=== PATIENT | male | born 1955 | race Caucasian/White ===

== ENCOUNTER 2019-04-06 22:41 | Observation (INO) | payer MEDICARE, SELFPAY ==
[2019-04-06 22:46] VITALS: BP 134/93; PULSE 125; RESP 20; TEMP 36.6; O2SAT 96; BMI 38.7
--- NOTE | 2019-04-06 22:47 | ED_ITS ---
Entered by Itzel Nunn, acting as scribe for Rosa Maria Abbasi HPI - Chest Pain General: Chief Complaint: Chest Pain Stated Complaint: cp Time Seen by Provider: 04/06/19 22:47 Source: patient Mode of arrival: ambulatory Limitations: no limitations History of Present Illness: HPI narrative: 63 yo Male presents to ED with complaint of chest pain. Pt states that he has been having intermittent chest pains for a couple of days and it seems to be more at night time than during the day. Pt states the pain is sharp and sometimes is goes clear to his shoulder blades. Pt states when he gets up he feels like the room is spinning. 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 Pt denies any chest pains at this time. MD complaint: chest pain Onset (ago): day(s) Timing of current episode: episodic and still present Prior episodes: Yes Onset: during rest Pain location: substernal Pain radiation: left shoulder and right shoulder Pain scale (0-10): 0 Quality: sharp Relieving factors: nothing Exacerbating factors: nothing Associated symptoms: Deny abdominal pain, diaphoresis, dyspnea, fever(s), nausea, palpitations, syncope or vomiting Treatment prior to arrival: none Risk Factors: Coronary artery disease risk factors: diabetes and hypertension Review of Systems General: Reports: other (negative unless marked) Const: Denies: fever, chills, body aches, fatigue, malaise or diaphoresis Eyes: Denies: change in vision or blurry vision ENMT: Denies: throat pain, painful swallowing, hoarseness, ear pain, ear discharge, Change in hearing or nasal discharge Card: Reports: chest pain; Denies: palpitations, irregular heart rhythm, syncope, pre-syncope, shortness of breath on exertion or shortness of breath when lying down Resp: Denies: shortness of breath, productive cough, non-productive cough, wheezing, coughing up blood or chest congestion GI: Denies: abdominal pain, nausea, vomiting, vomiting blood, coffee grounds in vomit, diarrhea, constipation, cramping, blood in stool or black tarry stool : Denies: flank pain, difficulty urinating, painful urination, urinary frequency, urinary urgency, decreased urine ouput, urinary incontinence or blood in urine Musc: Denies: neck pain, back pain, extremity pain, extremity swelling, joint pain, joint swelling, joint warmth or joint stiffness Skin/Breast: Denies: rash, skin tenderness or yellow skin Neuro: Denies: headache, numbness in extremities, weakness in extremities, changes in sensation, lack of coordination, difficulty walking, dizziness, vertigo or confusion Endo: Denies: excessive thirst, tired all the time, cold intolerance, excessive sweating, flushing or hot flashes Petros/Lymph: Denies: easy bruising, easy bleeding, petechiae or enlarged lymph nodes All/Imm: Denies: hives, throat swelling, tongue swelling, facial swelling or acute wheezing PFSH ED PFSH: Statuses (acute, chronic, etc) shown below reflect problem list status as previously entered and may not be historically accurate Social History Smoking and tobacco status: never smoked Physical Exam Const: COMMON NORMALS: no apparent distress, oriented x3, no limitations, healthy appearing and well nourished EXAM LIMITATIONS: no altered mental status GENERAL APPEARANCE: cooperative, well kempt and well developed ORIENTATION/CONSCIOUSNESS: Yes awake HENMT: COMMON NORMALS: normocephalic, head/scalp atraumatic, hearing grossly normal bilaterally, external ears normal, EAC's normal, external nose normal and moist oral mucous membranes HEAD & SCALP: normal to inspection, normocephalic and atraumatic FACE & SINUS: normal facial exam and face symmetric NOSE: external nose normal and nares normal EXTERNAL EAR: Yes external ears normal EXTERNAL AUDITORY CANAL: EAC's normal MOUTH: oral and palatal mucosa normal and tongue normal Eye: COMMON NORMALS: PERRL, EOMs intact bilaterally, conjunctivae normal and no scleral icterus GENERAL EYE: normal appearance of both eyes and normal light reflex CONJUNCTIVA: Yes conjunctivae normal SCLERA: sclerae normal CORNEA: Yes corneas normal PUPIL: Yes PERRL DIRECT OPHTHALMOSCOPY: Yes normal light reflex Neck/C-Spine: COMMON NORMALS: full ROM, no lymphadenopathy, supple, no meningeal signs and no JVD GENERAL: Yes normal visual inspection and Yes trachea midline CERVICAL SPINE: Yes cervical ROM normal Chest: COMMONS NORMALS: inspection of chest normal and palpation of chest normal Resp: COMMON NORMALS: normal respiratory effort, no retractions, no use of accessory muscles and clear to auscultation bilaterally EFFORT & INSPECTION: Yes able to speak in complete sentences AUSCULTATION: clear to auscultation bilaterally Cardio: COMMON NORMALS: no JVD, regular rate, regular rhythm, S1 normal heart sound, S2 normal heart sound, no gallops, no clicks, no murmurs and no rub JUGULAR VENOUS DISTENTION: no JVD RATE: regular rate RHYTHM: regular rhythm HEART SOUNDS: S1 normal and S2 normal GI: COMMON NORMALS: soft to palpation, non-tender, no hepatosplenomegaly and no masses INSPECTION: Yes normal to inspection PALPATION: Yes soft and Yes no hepatosplenomegaly : COMMON NORMALS: Yes no CVA tenderness BLADDER/KIDNEY EXAM: Yes no CVA tenderness Back/Pelvis: COMMON NORMALS: no CVA tenderness, thoracic and lumbar spine normal to inspection, no thoracic nor lumbar tenderness and thoraco-lumbar ROM normal Extremity: COMMON NORMALS: normal to inspection, full ROM, normal capillary refill, no joint enlargement, no clubbing, cyanosis or edema and no calf tenderness Neuro: COMMON NORMALS: oriented x3, CN's II-XII intact bilaterally, moves all extremities, no focal motor deficits and no sensory deficits noted MENINGEAL SIGNS: Yes no meningeal signs Psych: COMMON NORMALS: mental status grossly normal, thought process normal, cooperative, affect normal, speech normal and activity/motor behavior normal APPEARANCE: Yes well kempt SPEECH: Yes normal speech THOUGHT PROCESS: normal thought process Skin: COMMON NORMALS: no rashes or lesions noted, skin turgor normal, no jaundice, no petechiae and no mottling GENERAL SKIN EXAM: no rashes or les ions noted and turgor normal Course Vital Signs: Vital signs: Vital Signs Temperature 97.9 F 04/06/19 22:46 Pulse Rate 125 H 04/06/19 22:46 Respiratory Rate 20 H 04/06/19 22:46 Blood Pressure 134/93 04/06/19 22:46 Pulse Oximetry 96 04/06/19 22:46 MDM - Chest Pain Lab Data: Labs: Lab Results 04/06/19 Range/Units 23:10 WBC 7.3 (4.0-10.0) 10^3/ uL RBC 5.38 H (4.1-5.3) 10^6/u L Hgb 15.4 (11.7-16.6) g/dL Hct 44.8 (42.0-52.0) % MCV 83.3 (80-94) fL MCH 28.6 (28.0-34.0) pg MCHC 34.4 (30.0-36.0) g/dL RDW 13.0 (12.1-15.1) % Plt Count 200 (130-400) 10^3/c mm MPV 9.2 (7.4-10.4) fL Neut % (Auto) 53.1 % Lymph % (Auto) 33.1 % [place] % (Auto) 8.7 % Eos % (Auto) 3.7 % Baso % (Auto) 0.6 % Neut # (Auto) 3.9 (1.8-7.7) 10^3/u L Lymph # (Auto) 2.4 (0.8-4.8) 10^3/u L [place] # (Auto) 0.6 (0.2-0.9) 10^3/u L Eos # (Auto) 0.3 (0.0-0.8) 10^3/u L Baso # (Auto) 0.0 (0.0-0.1) 10^3/u L Nucleated RBC % (a uto) 0 % Nucleated RBCs # 0.0 /100WBC EKG Data^: EKG 1: Attestation: I personally reviewed and interpreted this EKG as follows: EKG interpretation date: 04/06/19 EKG interpretation time: 22:48 Interpretation: Normal sinus rhythm at 119 beats a minute, left axis deviation, no acute ST-T wave changes, similar to previous. Coding Level of Care Code ED Gyroscopic Instrument Tester for Chg Fwd Exam Problem Focused The documentation recorded by the Edouard elena Carmen, accurately reflects the service I personally performed and the decisions made by Elroy llamas Eli N Apr 06, 2019 22:41
--- NOTE | 2019-04-06 22:53 | XR_ITS ---
WS: [id number] CHEST XRAY TECHNIQUE: Portable chest. CLINICAL INFORMATION: cough COMPARISON: July 16, 2017 FINDINGS: Heart: Normal cardiac silhouette. Lungs: Lungs are clear. No consolidation or pleural effusion. Bones: Normal visualized bony structures. XR/XR chest 1V portable [id number] IMPRESSION: Normal chest
--- NOTE | 2019-04-06 22:55 | ECG_ITS ---
Measurements Intervals [place] Rate: 119 P: 35 TX: 160 QRS: -20 QRSD: 104 T: 30 QT: 288 QTc: 406 SINUS TACHYCARDIA POSSIBLE LEFT ATRIAL ENLARGEMENT [-0.1mV P WAVE IN V1/V2] POSSIBLE ANTERIOR MYOCARDIAL INFARCTION [30 ms Q WAVE IN V3/V4, OR R < 0.2 mV IN V4], OF INDETERMINATE AGE INFERIOR MYOCARDIAL INFARCTION [40+ ms Q WAVE AND/OR ST/T ABNORMALITY IN II/aVF II/aVF], PRO PRO PROBABLY OLD INTERPRETATION BASED ON A DEFAULT AGE OF 40 YEARS No previous ECG available for comparison Electronically Signed On 04-07-2019 20:04:27 TELEVISION NEWS REPORTER by Shaylee Lucas M.D. [id number]
[2019-04-06 22:58] VITALS: BP 124/69; PULSE 104; RESP 16; O2SAT 96
[2019-04-06 23:16] LABS: Basophils % 0.6 %; Eosinophils # 0.3 10^3/uL (0.0-0.8); Eosinophils % 3.7 %; Hematocrit 44.8 % (42.0-52.0); Hemoglobin 15.4 g/dL (11.7-16.6); Lymphocytes # 2.4 10^3/uL (0.8-4.8); Lymphocytes % 33.1 %; Mean Corpuscular HGB Conc 34.4 g/dL (30.0-36.0); Mean Corpuscular Hemoglobin 28.6 pg (28.0-34.0); Mean Corpuscular Volume 83.3 fL (80-94); Mean Platelet Volume 9.2 fL (7.4-10.4); Monocytes # 0.6 10^3/uL (0.2-0.9); Monocytes % 8.7 %; Neutrophils # 3.9 10^3/uL (1.8-7.7); Neutrophils % 53.1 %; Nucleated Red Blood Cells % 0 %; Platelet Count 200 10^3/cmm (130-400); Red Blood Count 5.38 10^6/uL (4.1-5.3); White Blood Count 7.3 10^3/uL (4.0-10.0)
[2019-04-06 23:35] LABS: Lactic Sepsis W/Reflex 1.9 mmol/L (0.5-2.2)
[2019-04-06 23:36] LABS: Alanine Aminotransferase 20 U/L (0-41); Albumin Level 4.1 g/dL (3.5-5.2); Alkaline Phosphatase 79 IU/L (40-130); Anion Gap 17.9 (5-19); Aspartate Amino Transferase 16 U/L (0-40); Blood Urea Nitrogen 22 mg/dL (8-23); Carbon Dioxide 24 mmol/L (22-29); Chloride 97 mmol/L (98-107); Creatine Phosphokinase 87 U/L (39-308); Globulin 3.4 g/dL (1.3-4.6); Glomerular Filtration Rate 60.8 mL/min (90-130); Glucose 307 mg/dL (65-115); Magnesium 1.6 mg/dL (1.7-2.3); Potassium 3.9 mmol/L (3.5-5.1); Sodium 135 mmol/L (136-145); Total Bilirubin 0.5 mg/dL (0.15-1.2); Total Protein 7.5 g/dL (6.6-8.7)
[2019-04-06 23:37] LABS: INR 1.02 (0.8-1.2)
[2019-04-06 23:39] LABS: Troponin(5th) Baseline 22 ng/mL (0-15)
[2019-04-06 23:40] LABS: D Dimer 0.38 ug/mIFEU (0-0.59)
[2019-04-06 23:43] VITALS: BP 122/81; PULSE 112; RESP 16; O2SAT 96
[2019-04-06] MEDS: metoprolol tartrate 1 mg/1 mL SDV 5 mL 5 MG IV (23:52)
[2019-04-06] MEDS: aspirin 325 mg Tablet PO (23:52)
[2019-04-06] MEDS: sodium chloride 0.9% 500 ML 999 ML IV (23:52)
[2019-04-07] VITALS (10 sets, daily range): BP systolic 106–135; BP diastolic 70–86; PULSE 84–99; RESP 16–20; TEMP 36.5–36.7; O2SAT 93–97
[2019-04-07] MEDS: magnesium sulfate premix 2 GM/50 ML PIGGYBACK IV
[2019-04-07] MEDS: morphine 4 mg/mL SDV 1 mL 2 MG IVP (00:33)
--- NOTE | 2019-04-07 00:40 | PM.HP ---
Providers/Chief Complaint Primary Care Provider: Gurpreet Hugo MD Chief Complaint: cp History of Present Illness Titus Fatima Sr is a 63 year old male with a past medical history of alpha 1 antitrypsin deficiency, status post liver transplant on Prograf and chronic prednisone, type 2 diabetes mellitus on insulin pump, hypertension, restless leg syndrome, GERD, who presents to the emergency room due to complaints of chest pain and posterior headaches. Patient states that he has had chest pain on and off for quite some time, he has come to the ER for this, and has had a relatively unremarkable work-up, he has not undergone stress testing in over 12 years. Patient states that for the last 3 days, his chest pain became more severe and, more frequent. He describes the chest pain as a pressure-like pain, substernal, radiating to his shoulder blades, associated with shortness of breath, feels lightheaded at times, no dizziness, chest pain can last about a minute, usually resolves on its own, no exacerbating factors, no alleviating factors, no diaphoresis, does radiate to his left arm, his left arm does feel heavy at times. Denies that the chest pain is a ripping or tearing pain, but the chest pain for the past 3 days has become more frequent, more severe, in the last 24 hours the episodes have occurred 4 times, especially the pain going between his shoulder blades. Patient does state that he has multiple joint pains, he is set to see the pain clinic in the next few months. Patient states that when he had his liver transplant, he had a couple stress test, to his knowledge they were normal. Patient states that he is wore a Holter monitor in the past for chest pain. In addition patient states that one time when he when he was in the ER for chest pain, he was told he had a silent heart attack, has not followed up with anybody in regards to that. Review of Systems Const: Denies: fever, chills, fatigue or malaise Eyes: Denies: change in vision or blurry vision ENMT: Denies: nasal congestion Card: Reports: chest pain, palpitations, edema and lightheadedness Resp: Reports: shortness of breath; Denies: productive cough, non-productive cough or wheezing GI: Denies: abdominal pain, nausea, vomiting, vomiting blood, diarrhea, constipation, blood in stool or black tarry stool : Denies: flank pain, difficulty urinating, painful urination or urinary frequency Musc: Reports: back pain and joint pain; Denies: neck pain Skin/Breast: Denies: rash Neuro: Denies: headache, dizziness or vertigo Psych: Denies: anxiety or depression Endo: Denies: excessive urination or excessive thirst Medications/Allergies Allergies Allergy/AdvReac Type Severity Reaction Status Date / Time No Known Allergies Allergy Verified 04/06/19 22:55 Additional Medication Information Additional Medication Information: Norvasc 5 mg once daily Hydrochlorothiazide 25 mg once daily Gabapentin 300 mg 3 times daily Metoprolol 50 mg once daily Aspirin 81 mg once daily Lisinopril 2.5 mg once daily Famotidine 40 mg once daily Prograf 1 mg 4 times daily Prednisone 5 mg once daily Stonewall-3 1 mg 2 times daily Requip 2 mg p.m. Humalog pump Takes a sliding scale on top of that Trazodone nightly, patient unsure the dose PFSH Acute PFSH: Statuses (acute, chronic, etc) shown below reflect problem list status as previously entered and may not be historically accurate Medical History (Updated 04/07/19 @ 00:55 by Sukhjinder Pan MD) Kocaz-6-dwfzyymweia deficiency (Acute) Diabetic peripheral neuropathy (Acute) Hypertension (Acute) Restless leg syndrome (Acute) Type 2 diabetes mellitus (Acute) Surgical History (Updated 04/07/19 @ 00:54 by Sukhjinder Pan MD) History of liver transplant (Acute) Hx of insertion of insulin pump (Acute) Family History (Updated 04/07/19 @ 00:54 by Sukhjinder Pan MD) Other Colon cancer Diabetes Hypertension Social History (Updated 04/07/19 @ 00:54 by Sukhjinder Pan MD) Smoking and tobacco status: never smoked Alcohol intake: never Substance/Drug Use: never Vitals/I&O/Wt Last Vital Signs Temp 97.9 F 04/06/19 22:46 Pulse 112 H 04/06/19 23:43 Resp 16 04/07/19 00:33 BP 122/81 04/06/19 23:43 Pulse Ox 96 04/06/19 23:43 Weight last 48 hrs Weight 108.862 kg Physical Exam Const: COMMON NORMALS: no apparent distress and oriented x3 GENERAL APPEARANCE: cooperative and comfortable HENMT: COMMON NORMALS: normocephalic HEAD & SCALP: normocephalic Eye: COMMON NORMALS: PERRL, EOMs intact bilaterally and no papilledema GENERAL EYE: normal appearance of both eyes PUPIL: Yes PERRL Neck/C-Spine: COMMON NORMALS: full ROM, no lymphadenopathy, no JVD and thyroid normal THYROID: thyroid normal Lymph: LYMPHATIC: no lymphadenopathy noted Resp: COMMON NORMALS: normal respiratory effort, no retractions, no use of accessory muscles and clear to auscultation bilaterally AUSCULTATION: clear to auscultation bilaterally Cardio: COMMON NORMALS: no JVD, regular rate, regular rhythm, S1 normal heart sound, S2 normal heart sound, no gallops, no clicks and no murmurs RATE: regular rate RHYTHM: regular rhythm HEART SOUNDS: S1 normal and S2 normal GI: COMMON NORMALS: normal to inspection, nondistended, normoactive bowel sounds, soft to palpation, non-tender and no hepatosplenomegaly PALPATION: Yes soft and Yes no hepatosplenomegaly Extremity: COMMON NORMALS: normal to inspection, full ROM and no pedal edema Neuro: COMMON NORMALS: oriented x3, CN's II-XII intact bilaterally, moves all extremities and no focal motor deficits Psych: COMMON NORMALS: mental status grossly normal, thought process normal and cooperative THOUGHT PROCESS: normal thought process Skin: NARRATIVE SKIN EXAM: Abdominal surgical scar Left lower quadrant abdomen, insulin pump Data : 04/06/19 23:10 04/06/19 23:10 A&P Assessment and plan (1) Chest pain: -Chest pain has features of cardiac etiology -With chest pain radiating to his back, sinus tachycardia as high as 120s -Risk factors of CAD include hypertension, poorly controlled type 2 diabetes mellitus, Q waves in inferior leads and anterior leads -Patient had a positive dobutamine stress echocardiogram in 02/2006 which showed borderline abnormal dobutamine stress echocardiogram, suggested of possible ischemia in the distribution of the right coronary arteries.patient is unsure of the follow-up or further evaluation -No history of cardiac catheterization -Patient EKG shows sinus tachycardia, heart rate 119, Q waves in inferior leads II, III, aVF, in anterior chest leads V1 to V5. Which were present since at least 05/20/2018 -Currently in the emergency room patient chest pain-free, sinus tachycardia heart rates as high as 112, complaining of back pain between his shoulder blades -Baseline troponin 22 Plan: -Admit to CSU, ACS -Given patient's chest pain radiating to the back, persistent pain between his shoulder blades, will do a CTA to evaluate for aortic dissection which will also include protocol for PE -Aspirin, statin, nitro as needed, oxygen, beta-michelle -Trend troponins, monitor EKGs, monitor telemetry -N.p.o., stress test today -We will order a cardiac echocardiogram -Given patient's concerning EKG, it might be worthwhile to talk to cardiology even if the stress test is negative, for possible multivessel CAD, will leave this up to the morning team Status: Acute Code(s): R07.9 - Chest pain, unspecified (2) History of liver transplant: Status: Acute Code(s): Z94.4 - Liver transplant status (3) Hx of insertion of insulin pump: Status: Acute Code(s): Z92.89 - Personal history of other medical treatment (4) Type 2 diabetes mellitus: Continue insulin pump, sliding scale on top of that, hemoglobin A1c pending Patient states her blood sugars are poorly controlled, blood sugars as high as 400s Status: Acute Code(s): E11.9 - Type 2 diabetes mellitus without complications (5) Hypertension: Status: Acute Code(s): I10 - Essential (primary) hypertension (6) Restless leg syndrome: Status: Acute Code(s): G25.81 - Restless legs syndrome (7) Diabetic peripheral neuropathy: Status: Acute Code(s): E11.42 - Type 2 diabetes mellitus with diabetic polyneuropathy (8) Brpua-3-elstpyscjbp deficiency: Status: Acute Code(s): E88.01 - Tndxh-7-kplotxsirgo deficiency Attestations Medical Necessity Statement*: Patient requires admission, outpatient with observation, for chest pain Coding Level of Care Code Acute Laser Technician for [facility] Diagnoses Chest pain R07.9 History of liver transplant Z94.4 Hx of insertion of insulin pump Z92.89 Type 2 diabetes mellitus E11.9 Hypertension I10 Restless leg syndrome G25.81 Diabetic peripheral neuropathy E11.42 Pesbq-4-aydxmiwaohc deficiency E88.01
--- NOTE | 2019-04-07 00:47 | CTR_ITS ---
PROCEDURE INFORMATION: Exam: CT Angiography Chest With Contrast Exam date and time: 04/07/2019 1:16 AM Age: 63 years old Clinical indication: Dyspnea; Additional info: R/O pe, sinus tachy, TECHNIQUE: Imaging protocol: Computed tomographic angiography of the chest with intravenous contrast. 3D rendering: MIP and/or 3D reconstructed images were created by the technologist. Total DLP: 613.69 mGy-cm Radiation optimization: All CT scans at this facility use at least one of these dose optimization techniques: automated exposure control; mA and/or kV adjustment per patient size (includes targeted exams where dose is matched to clinical indication); or iterative reconstruction. Contrast material: OMNI 350; Contrast volume: 95 ml; Contrast route: IV; COMPARISON: CR XR chest 1V portable [id number] 04/06/2019 11:04 PM FINDINGS: Pulmonary arteries: Normal. No pulmonary emboli. Aorta: Unremarkable. No aortic aneurysm. No aortic dissection. Lungs: Unremarkable. No consolidation. No masses. Pleural space: Unremarkable. No pneumothorax. No pleural effusion. Heart: Unremarkable. No cardiomegaly. No pericardial effusion. Gallbladder and bile ducts: Status post cholecystectomy. Lymph nodes: Unremarkable. No enlarged lymph nodes. Bones/joints: Unremarkable. No acute fracture. Soft tissues: Unremarkable. CT/CT angio chest PE protcl [id number] IMPRESSION: There is no evidence for pulmonary emboli. There are no acute chest findings. Radiation Dose CTDIVOL = (mGy): DLP = 613.69 (mGy-cm)
[2019-04-07] MEDS: iohexol 350 mg/mL 100 mL Btl IV (01:18)
--- NOTE | 2019-04-07 01:33 | NMCV_ITS ---
NM gerard perf SPECT r/s* [id number] Titus Fatima Sr Age: 63 Gender: M : 1955 Exam Date: 04/07/2019 06:54 Ordering Phys: Sukhjinder Pan MD Technologist: MELCHOR Gupta Exam Location: [facility] Indications: CHEST PAIN STRESS TEST Please see separate stress test report in [facility] for full findings IMAGE PROTOCOL Rest/Stress 1 Lexiscan Day Radiopharmaceutical Dose (mCi) Administration Site Administered by Rest: Tc-99m 10.9 IV MELCHOR Beyer Sestamibi Stress:Tc-99m 32.8 IV MELCHOR Beyer Sestamibi Rest: 07-Apr-2019 60 Discovery 630 Stress: 07-Apr-2019 30 Discovery 630 0.4mg Lexiscan. Images obtained in supine and prone position. SPECT RESULTS Technical Quality: Excellent Raw Data Analysis: Normal Image Corrections: No attenuation or motion correction applied Summed Stress Score: 0 Summed Rest Score: 0 Summed Difference Score: 0 PERFUSION FINDINGS Slightly decreased tracer uptake in the mid and apical inferior wall region, with no significant reversibility. FUNCTIONAL RESULTS (calculated via Gated SPECT) Stress Image LV EF (%): 58 Stress EDV (mL):106 TID: 0.94 Stress ESV (mL):44 FUNCTIONAL FINDINGS: Segmental wall motion analysis revealing no gross wall motion normalities. IMPRESSIONS 1. Myocardial perfusion imaging revealing a small area of slightly decreased persistent tracer uptake in the mid and apical inferior wall region, most likely represent attenuation artifact. 2. Normal LV ejection fraction 58%. 3. LV wall motion analysis revealing no gross wall motion normalities. 4. LV volume, upper limit of qpmmju-fyu-ibeifpqo volume of 44 mL. No significant coronary ischemia, based on the above findings Dr Ramon Buckley MD FACC (Electronically Signed) Final Date: 07 April 2019 14:51 S
[2019-04-07 02:02] LABS: Troponin 5 2HR 22.97 ng/mL (0-15); Troponin 5 2HR Delta 0.97 ABS# (0-10)
[2019-04-07] MEDS: acetaminophen 325 mg Tablet 650 MG PO ×2 (02:40→10:00)
[2019-04-07] MEDS: enoxaparin 40 mg/0.4 mL Syringe SUBCUT (02:41)
[2019-04-07] MEDS: atorvastatin 40 mg Tablet PO (02:41)
[2019-04-07] MEDS: tacrolimus 0.5 mg Capsule 1 MG PO ×2 (02:51→10:05)
--- NOTE | 2019-04-07 04:55 | ECG_ITS ---
Measurements Intervals [place] Rate: 99 P: 30 VT: 171 QRS: -14 QRSD: 95 T: 17 QT: 320 QTc: 412 SINUS RHYTHM POSSIBLE ANTERIOR MYOCARDIAL INFARCTION , OF INDETERMINATE AGE [30 ms Q WAVE IN V3/V4, OR R < 0.2 mV IN V4] INFERIOR MYOCARDIAL INFARCTION , PROBABLY OLD [40+ ms Q WAVE AND/OR ST/T ABNORMALITY IN II/aVF] No previous ECG available for comparison Electronically Signed On 04-07-2019 20:07:54 YARN HANDLER by Shaylee Lucas M.D. [id number]
[2019-04-07 05:57] LABS: Chol HDL Ratio 5.03 mg/dL (1.0-5.00); Cholesterol 166 mg/dL (0-200); HDL Cholesterol 33 mg/dL (60-100); Triglycerides 408 mg/dL (0-150); Troponin 5 6HR 23.57 ng/L (0-15); Troponin 5 6HR Delta 1.57 ng/L (0-12)
--- NOTE | 2019-04-07 06:00 | ECG_ITS ---
NAME OF STUDY: LEXISCAN SESTAMIBI STRESS TEST INDICATION: Chest Pain, PROCEDURE: At the baseline, the EKG revealed normal sinus rhythm with poor R wave progression. The baseline blood pressure was 137/88 mm Hg with a heart rate of 87 beats/min. Lexiscan was infused over a period of 20 seconds. A total of 0.4 milligrams of Lexiscan was infused. The stress phase was continued for a total of 5 minutes. Heart rate at the end of the stress phase was 93 with a blood pressure 134/79. The EKG at the peak infusion revealed no significant changes. Sestamibi was injected 20 seconds after the Lexiscan infusion. Blood pressure at the end of the recovery phase was 132/80 with a heart rate of 92 per minute. CONCLUSION: 1. No significant EKG changes with the LexiScan infusion 2. No LexiScan induced chest pain or cardiac arrhythmia 3. Normal blood pressure and heart rate response 4. Sestamibi/sestamibi perfusion scan pending; see separate report. Electronically Signed On 04-07-2019 14:58:13 PERSONAL CARE WORKER by Ramon Buckley M.D. [email or web address]
[2019-04-07 06:17] LABS: LDL Cholesterol Direct 91 mg/dL (0-100)
[2019-04-07 06:18] LABS: Estmated Average Glucose 246; Hemoglobin A1C 10.2 % (4.0-6.0)
[2019-04-07 06:35] LABS: Glucose Point of Care 323 mg/dL (70-110)
[2019-04-07] MEDS: regadenoson 0.4 Mg/5 ml Syringe IVP (07:42)
--- NOTE | 2019-04-07 07:58 | PC.NURSE ---
PATIENT HELD IN CDL UNTIL 2ND NUC MED SCAN
[2019-04-07] MEDS: predniSONE 5 mg Tablet PO (10:00)
[2019-04-07] MEDS: gabapentin 300 mg Capsule PO ×2 (10:00→15:27)
[2019-04-07] MEDS: aspirin 81 mg EC Tablet PO (10:00)
[2019-04-07] MEDS: lisinopril 2.5 mg Tablet PO (10:00)
[2019-04-07] MEDS: hydroCHLOROthiazide 25 mg Tablet PO (10:00)
[2019-04-07] MEDS: amlodipine 5 mg Tablet PO (10:00)
[2019-04-07] MEDS: metoprolol succinate ER (24 HR) 50 mg Tablet PO (10:00)
--- NOTE | 2019-04-07 10:24 | PC.CHAP ---
Pastoral Care Encounter/Spiritual Assessment Type of Contact [] Declined marine chronometer assembler visit [] Patient/Family/Request visit [] Outpatient visit [] Follow-up visit [] Physician referral [] Code/Alert [x Routine visit [] Staff referral [] Actively dying [] Patient sleeping [] Family support [] [] Out of room [] Palliative care [] [] Receiving care in room [] Pre-surgical visit [] Trauma [] Long length of stay [] ICU visit [] Other: Relational/Emotional Strength [x] Patient feels connected with others/family/visitors/staff [] Distress [] Loneliness/isolation [] Abandonment Spirituality of Patient [x] Person of Yasemin [] Attends Yazidism of their Yasemin [x] Believes in Prayer [] Reads Bible or Baptism materials [] There are Spiritual issues to be addressed Software Test Developer Interventions [x] Prayer [x] Active listening [x] Non-anxious presence [x] Spiritual/emotional support [] Crisis/trauma care [] Spiritual counseling [] Bereavement support [] Provided bereavement packet [] Provided Bible/devotional materials [] Provided toy/stuffed animal, coloring book to patient or family member [] Provided Communion [] Anointing/Panacea [] Salvation [x] Completed spiritual assessment [] Other: Impact on Illness or Injury [] Angry [] Fearful [] Anxious [] Often cries [] Exhaustion [] Unable to work [] Unable to attend methodist [] Unable to walk/stand [] Unable to read [] Unable to drive [] Unable to eat/drink [] Unable to sleep [] Unable to be with family [] Patient intubated [] Other: Summary Pt being discharged today. Pt & marine chronometer assembler had long discussion of life experiences. Pt was talkative & excited to be going home so soon as he expected to be in hospital 3 or more days. Software Test Developer Rachael Bianchi Time spent with patient 33 minutes.
[2019-04-07 11:32] LABS: Glucose Point of Care 283 mg/dL (70-110)
--- NOTE | 2019-04-07 11:49 | ED_ITS ---
HPI - Chest Pain General: Chief Complaint: Chest Pain Stated Complaint: cp Time Seen by Provider: 04/06/19 22:47 PFSH ED PFSH: Statuses (acute, chronic, etc) shown below reflect problem list status as previously entered and may not be historically accurate Medical History (Updated 04/07/19 @ 00:55 by Sukhjinder Pan MD) Neaqa-8-jpwnscsxmws deficiency (Acute) Diabetic peripheral neuropathy (Acute) Hypertension (Acute) Restless leg syndrome (Acute) Type 2 diabetes mellitus (Acute) Surgical History (Updated 04/07/19 @ 00:54 by Sukhjinder Pan MD) History of liver transplant (Acute) Hx of insertion of insulin pump (Acute) Family History (Updated 04/07/19 @ 00:54 by Sukhjinder Pan MD) Other Colon cancer Diabetes Hypertension Social History (Updated 04/07/19 @ 00:54 by Sukhjinder Pan MD) Smoking and tobacco status: never smoked Alcohol intake: never Substance/Drug Use: never Course Vital Signs: Vital signs: Vital Signs Temperature 97.9 F 04/07/19 04:00 Pulse Rate 87 04/07/19 11:47 Respiratory Rate 18 04/07/19 08:00 Blood Pressure 132/80 04/07/19 07:58 Pulse Oximetry 96 04/07/19 11:47 MDM - Chest Pain Lab Data: Labs: Lab Results 04/06/19 04/06/19 04/06/19 Range/Units 23:10 23:10 23:10 WBC 7.3 (4.0-10.0) 10^3/ uL RBC 5.38 H (4.1-5.3) 10^6/u L Hgb 15.4 (11.7-16.6) g/dL Hct 44.8 (42.0-52.0) % MCV 83.3 (80-94) fL MCH 28.6 (28.0-34.0) pg MCHC 34.4 (30.0-36.0) g/dL RDW 13.0 (12.1-15.1) % Plt Count 200 (130-400) 10^3/c mm MPV 9.2 (7.4-10.4) fL Neut % (Auto) 53.1 % Lymph % (Auto) 33.1 % [place] % (Auto) 8.7 % Eos % (Auto) 3.7 % Baso % (Auto) 0.6 % Neut # (Auto) 3.9 (1.8-7.7) 10^3/u L Lymph # (Auto) 2.4 (0.8-4.8) 10^3/u L [place] # (Auto) 0.6 (0.2-0.9) 10^3/u L Eos # (Auto) 0.3 (0.0-0.8) 10^3/u L Baso # (Auto) 0.0 (0.0-0.1) 10^3/u L Nucleated RBC % (a uto) 0 % Nucleated RBCs # 0.0 /100WBC PT 13.70 H (10.5-13.3) SECO NDS INR 1.02 (0.8-1.2) D-Dimer 0.38 (0-0.59) ug/mIFE U Sodium 135 L (136-145) mmol/L Potassium 3.9 (3.5-5.1) mmol/L Chloride 97 L (98-107) mmol/L Carbon Dioxide 24 (22-29) mmol/L Anion Gap 17.9 (5-19) BUN 22 (8-23) mg/dL Creatinine 1.2 (0.7-1.2) mg/dL GFR Calculation 60.8 L (90-130) mL/min Glucose 307 H (65-115) mg/dL Lactic Acid (0.5-2.2) mmol/L Calcium 10.0 (8.5-10.5) mg/dL Magnesium 1.6 L (1.7-2.3) mg/dL Total Bilirubin 0.5 (0.15-1.2) mg/dL AST 16 (0-40) U/L ALT 20 (0-41) U/L Alkaline Phosphata se 79 (40-130) IU/L Creatine Kinase 87 (39-308) U/L Troponin T Baselin e (0-15) ng/mL Troponin T 120 Min [place] (0-15) ng/mL Delta Troponin T (0-10) ABS# Total Protein 7.5 (6.6-8.7) g/dL Albumin 4.1 (3.5-5.2) g/dL Globulin 3.4 (1.3-4.6) g/dL TSH (0.27-4.20) uIU/ mL 04/06/19 04/06/19 04/07/19 Range/Units 23:10 23:10 01:08 WBC (4.0-10.0) 10^3/ uL RBC (4.1-5.3) 10^6/u L Hgb (11.7-16.6) g/dL Hct (42.0-52.0) % MCV (80-94) fL MCH (28.0-34.0) pg MCHC (30.0-36.0) g/dL RDW (12.1-15.1) % Plt Count (130-400) 10^3/c mm MPV (7.4-10.4) fL Neut % (Auto) % Lymph % (Auto) % [place] % (Auto) % Eos % (Auto) % Baso % (Auto) % Neut # (Auto) (1.8-7.7) 10^3/u L Lymph # (Auto) (0.8-4.8) 10^3/u L [place] # (Auto) (0.2-0.9) 10^3/u L Eos # (Auto) (0.0-0.8) 10^3/u L Baso # (Auto) (0.0-0.1) 10^3/u L Nucleated RBC % (a uto) % Nucleated RBCs # /100WBC PT (10.5-13.3) SECO NDS INR (0.8-1.2) D-Dimer (0-0.59) ug/mIFE U Sodium (136-145) mmol/L Potassium (3.5-5.1) mmol/L Chloride (98-107) mmol/L Carbon Dioxide (22-29) mmol/L Anion Gap (5-19) BUN (8-23) mg/dL Creatinine (0.7-1.2) mg/dL GFR Calculation (90-130) mL/min Glucose (65-115) mg/dL Lactic Acid 1.9 (0.5-2.2) mmol/L Calcium (8.5-10.5) mg/dL Magnesium (1.7-2.3) mg/dL Total Bilirubin (0.15-1.2) mg/dL AST (0-40) U/L ALT (0-41) U/L Alkaline Phosphata se (40-130) IU/L Creatine Kinase (39-308) U/L Troponin T Baselin e 22 H (0-15) ng/mL Troponin T 120 Min [place] 22.97 H (0-15) ng/mL Delta Troponin T 0.97 (0-10) ABS# Total Protein (6.6-8.7) g/dL Albumin (3.5-5.2) g/dL Globulin (1.3-4.6) g/dL TSH (0.27-4.20) uIU/ mL 04/07/19 Range/Units 01:08 WBC (4.0-10.0) 10^3/ uL RBC (4.1-5.3) 10^6/u L Hgb (11.7-16.6) g/dL Hct (42.0-52.0) % MCV (80-94) fL MCH (28.0-34.0) pg MCHC (30.0-36.0) g/dL RDW (12.1-15.1) % Plt Count (130-400) 10^3/c mm MPV (7.4-10.4) fL Neut % (Auto) % Lymph % (Auto) % [place] % (Auto) % Eos % (Auto) % Baso % (Auto) % Neut # (Auto) (1.8-7.7) 10^3/u L Lymph # (Auto) (0.8-4.8) 10^3/u L [place] # (Auto) (0.2-0.9) 10^3/u L Eos # (Auto) (0.0-0.8) 10^3/u L Baso # (Auto) (0.0-0.1) 10^3/u L Nucleated RBC % (a uto) % Nucleated RBCs # /100WBC PT (10.5-13.3) SECO NDS INR (0.8-1.2) D-Dimer (0-0.59) ug/mIFE U Sodium (136-145) mmol/L Potassium (3.5-5.1) mmol/L Chloride (98-107) mmol/L Carbon Dioxide (22-29) mmol/L Anion Gap (5-19) BUN (8-23) mg/dL Creatinine (0.7-1.2) mg/dL GFR Calculation (90-130) mL/min Glucose (65-115) mg/dL Lactic Acid (0.5-2.2) mmol/L Calcium (8.5-10.5) mg/dL Magnesium (1.7-2.3) mg/dL Total Bilirubin (0.15-1.2) mg/dL AST (0-40) U/L ALT (0-41) U/L Alkaline Phosphata se (40-130) IU/L Creatine Kinase (39-308) U/L Troponin T Baselin e (0-15) ng/mL Troponin T 120 Min [place] (0-15) ng/mL Delta Troponin T (0-10) ABS# Total Protein (6.6-8.7) g/dL Albumin (3.5-5.2) g/dL Globulin (1.3-4.6) g/dL TSH 3.40 (0.27-4.20) uIU/ mL Discharge Plan Discharge Patient Disposition: Placed in Observation Admit Provider: Sukhjinder Pan Discharge Date/Time: 04/07/19 02:10 Coding Level of Care Code ED [employer] for Smiley Pena
[2019-04-07] MEDS: TRAMadol 50 mg Tablet PO (15:28)
[2019-04-07 16:18] LABS: Glucose Point of Care 455 mg/dL (70-110)
--- NOTE | 2019-04-07 18:46 | PM.DCS ---
Discharge Providers Date of Admission: 04/07/19 01:33 Date of Discharge: April 07, 2019 Attending Provider at Admission: Sukhjinder Pan MD Attending Provider at Discharge: Monty Medrano Primary Care Provider: Gurpreet Hugo MD Diagnoses at Discharge Discharge Diagnosis (1) Chest pain: Status: Acute (2) History of liver transplant: Status: Acute (3) Hx of insertion of insulin pump: Status: Acute (4) Type 2 diabetes mellitus: Status: Acute (5) Hypertension: Status: Acute (6) Restless leg syndrome: Status: Acute (7) Diabetic peripheral neuropathy: Status: Acute (8) Efcsp-0-uqldlkkwgjl deficiency: Status: Acute Reason for Visit Reason for Visit: Reason For Visit: CHEST PAIN Hospital Course Hospital Course: Mr. 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 He has a history of stress test about 12 years ago prior to his transplantation. In the hospital he underwent quite extensive evaluation. His troponin was very mildly elevated without any significant rise, 22-22.97-23.57. EK concerning for small Q wave in aVF, poor R wave progression in precordial leads, however, would suspect this may be secondary to lead placement. Work-up with chest x-ray, CTA chest was unremarkable, without sign of PE or other acute findings. He was afebrile, without leukocytosis or sign of acute infection. His A1c is 10, although he states he is aware, and is following with his wax engraver who is optimizing his management with the insulin pump. He states that his blood pressures normally are good at home running in 120s over 60s-70s. He does not take a cholesterol medicine. Due to risk factors for coronary disease he was assessed by nuclear stress testing, with finding of small area of slightly decreased persistent tracer uptake in mid and apical inferior wall region, most likely representing attenuation artifact. With normal ejection fraction, no gross wall motion abnormality. On my discussion with him this evening he is feeling better. He reports having some persistent mild discomfort around his left shoulder blade, and when asked if it is triggered by deep breathing he confirms yes. This appears to be more likely musculoskeletal pain as discussed with him based on the extensive evaluation so far. We did discuss with him continued management of risk factors for coronary artery disease with continued monitoring of blood his blood pressure and continued follow-up with his wax engraver. By ASCVD he does qualify for a statin, and this was discussed with him. We discussed that he would confirm with his transplant physician prior to initiating pravastatin. Given EKG findings of possible prior ME, and risk factors for coronary disease will have him follow-up with cardiology in office. Physical Exam Const: COMMON NORMALS: no apparent distress and oriented x3 HENMT: COMMON NORMALS: oropharynx normal Neck/C-Spine: COMMON NORMALS: no JVD Resp: COMMON NORMALS: normal respiratory effort and clear to auscultation bilaterally AUSCULTATION: clear to auscultation bilaterally Cardio: COMMON NORMALS: no JVD, regular rhythm, S1 normal heart sound, S2 normal heart sound and no murmurs RHYTHM: regular rhythm HEART SOUNDS: S1 normal and S2 normal GI: COMMON NORMALS: normal to inspection, nondistended, normoactive bowel sounds, soft to palpation and non-tender PALPATION: Yes soft Extremity: COMMON NORMALS: no joint enlargement and no pedal edema Neuro: COMMON NORMALS: oriented x3 and moves all extremities Skin: COMMON NORMALS: no rashes or lesions noted GENERAL SKIN EXAM: no rashes or lesions noted Discharge Data Data Completed and Pending: Completed Studies During Hospitalization Category Date Time Status CT angio chest PE protcl [id number] Urge nt Cat Scan 04/07/19 00:47 Completed Sestamibi Stress Test Request Routi ne Exams 04/07/19 06:00 Completed XR chest 1V maisha ble [id number] Stat Exams 04/06/19 22:53 Completed NM gerard perf SPECT r/s* [id number] Routin e Nuc Med 04/07/19 01:33 Completed Pending at discharge Category Date Time Status Sestamibi Stress Test Request Routi ne Exams 04/08/19 06:00 Stop Req CBC [Complete Blo od Count w/Auto] A M LABS Lab 04/08/19 04:00 Ordered CBC [Complete Blo od Count w/Auto] A LABS Lab 04/09/19 04:00 Ordered CBC [Complete Blo od Count w/Auto] A LABS Lab 04/10/19 04:00 Ordered Comprehensive Met abolic Panel AM LA BS Lab 04/08/19 04:00 Ordered Comprehensive Met abolic Panel AM LA BS Lab 04/09/19 04:00 Ordered Comprehensive Met abolic Panel AM LA BS Lab 04/10/19 04:00 Ordered Drug Screen, Urin e Stat Lab 04/06/19 23:55 Uncollected Magnesium AM LABS Lab 04/08/19 04:00 Ordered Magnesium AM LABS Lab 04/09/19 04:00 Ordered Magnesium AM LABS Lab 04/10/19 04:00 Ordered Phosphorus AM LAB S Lab 04/08/19 04:00 Ordered Phosphorus AM LAB S Lab 04/09/19 04:00 Ordered Phosphorus AM LAB S Lab 04/10/19 04:00 Ordered Urinalysis and Mi croscopic Stat Lab 04/06/19 22:54 Uncollected Labs from last 24 hours 04/07/19 04/07/19 04/07/19 16:14 11:20 06:21 WBC RBC Hgb Hct MCV MCH MCHC RDW Plt Count MPV Neut % (Auto) Lymph % (Auto) [place] % (Auto) Eos % (Auto) Baso % (Auto) Neut # (Auto) Lymph # (Auto) [place] # (Auto) Eos # (Auto) Baso # (Auto) Nucleated RBC % (a uto) Nucleated RBCs # PT INR D-Dimer Sodium Potassium Chloride Carbon Dioxide Anion Gap BUN Creatinine GFR Calculation Glucose POC Glucose 455 283 323 Estimat Average Gl ucose Hemoglobin A1c Lactic Acid Calcium Magnesium Total Bilirubin AST ALT Alkaline Phosphata se Creatine Kinase Troponin I 6 Hour Troponin I Hi Sens Del Troponin T Baselin e Troponin T 120 Min [place] Delta Troponin T Total Protein Albumin Globulin Triglycerides Cholesterol LDL Cholesterol Di rect HDL Cholesterol Cholesterol/HDL Ra tray TSH 04/07/19 04/07/19 04/07/19 05:15 05:15 05:15 WBC RBC Hgb Hct MCV MCH MCHC RDW Plt Count MPV Neut % (Auto) Lymph % (Auto) [place] % (Auto) Eos % (Auto) Baso % (Auto) Neut # (Auto) Lymph # (Auto) [place] # (Auto) Eos # (Auto) Baso # (Auto) Nucleated RBC % (a uto) Nucleated RBCs # PT INR D-Dimer Sodium Potassium Chloride Carbon Dioxide Anion Gap BUN Creatinine GFR Calculation Glucose POC Glucose Estimat Average Gl ucose 246 Hemoglobin A1c 10.2 H Lactic Acid Calcium Magnesium Total Bilirubin AST ALT Alkaline Phosphata se Creatine Kinase Troponin I 6 Hour 23.57 H Troponin I Hi Sens Del 1.57 Troponin T Baselin e Troponin T 120 Min [place] Delta Troponin T Total Protein Albumin Globulin Triglycerides 408 H Cholesterol 166 LDL Cholesterol Di rect 91 HDL Cholesterol 33 L Cholesterol/HDL Ra tray 5.03 H TSH 04/07/19 04/07/19 04/06/19 01:08 01:08 23:10 WBC RBC Hgb Hct MCV MCH MCHC RDW Plt Count MPV Neut % (Auto) Lymph % (Auto) [place] % (Auto) Eos % (Auto) Baso % (Auto) Neut # (Auto) Lymph # (Auto) [place] # (Auto) Eos # (Auto) Baso # (Auto) Nucleated RBC % (a uto) Nucleated RBCs # PT INR D-Dimer Sodium Potassium Chloride Carbon Dioxide Anion Gap BUN Creatinine GFR Calculation Glucose POC Glucose Estimat Average Gl ucose Hemoglobin A1c Lactic Acid Calcium Magnesium Total Bilirubin AST ALT Alkaline Phosphata se Creatine Kinase Troponin I 6 Hour Troponin I Hi Sens Del Troponin T Baselin e 22 H Troponin T 120 Min [place] 22.97 H Delta Troponin T 0.97 Total Protein Albumin Globulin Triglycerides Cholesterol LDL Cholesterol Di rect HDL Cholesterol Cholesterol/HDL Ra tray TSH 3.40 04/06/19 04/06/19 04/06/19 23:10 23:10 23:10 WBC RBC Hgb Hct MCV MCH MCHC RDW Plt Count MPV Neut % (Auto) Lymph % (Auto) [place] % (Auto) Eos % (Auto) Baso % (Auto) Neut # (Auto) Lymph # (Auto) [place] # (Auto) Eos # (Auto) Baso # (Auto) Nucleated RBC % (a uto) Nucleated RBCs # PT 13.70 H INR 1.02 D-Dimer 0.38 Sodium 135 L Potassium 3.9 Chloride 97 L Carbon Dioxide 24 Anion Gap 17.9 BUN 22 Creatinine 1.2 GFR Calculation 60.8 L Glucose 307 H POC Glucose Estimat Average Gl ucose Hemoglobin A1c Lactic Acid 1.9 Calcium 10.0 Magnesium 1.6 L Total Bilirubin 0.5 AST 16 ALT 20 Alkaline Phosphata se 79 Creatine Kinase 87 Troponin I 6 Hour Troponin I Hi Sens Del Troponin T Baselin e Troponin T 120 Min [place] Delta Troponin T Total Protein 7.5 Albumin 4.1 Globulin 3.4 Triglycerides Cholesterol LDL Cholesterol Di rect HDL Cholesterol Cholesterol/HDL Ra tray TSH 04/06/19 23:10 WBC 7.3 RBC 5.38 H Hgb 15.4 Hct 44.8 MCV 83.3 MCH 28.6 MCHC 34.4 RDW 13.0 Plt Count 200 MPV 9.2 Neut % (Auto) 53.1 Lymph % (Auto) 33.1 [place] % (Auto) 8.7 Eos % (Auto) 3.7 Baso % (Auto) 0.6 Neut # (Auto) 3.9 Lymph # (Auto) 2.4 [place] # (Auto) 0.6 Eos # (Auto) 0.3 Baso # (Auto) 0.0 Nucleated RBC % (a uto) 0 Nucleated RBCs # 0.0 PT INR D-Dimer Sodium Potassium Chloride Carbon Dioxide Anion Gap BUN Creatinine GFR Calculation Glucose POC Glucose Estimat Average Gl ucose Hemoglobin A1c Lactic Acid Calcium Magnesium Total Bilirubin AST ALT Alkaline Phosphata se Creatine Kinase Troponin I 6 Hour Troponin I Hi Sens Del Troponin T Baselin e Troponin T 120 Min [place] Delta Troponin T Total Protein Albumin Globulin Triglycerides Cholesterol LDL Cholesterol Di rect HDL Cholesterol Cholesterol/HDL Ra tray TSH Vitals: Last Vital Signs Temp 97.9 F 04/07/19 18:33 Pulse 87 04/07/19 18:33 Resp 20 H 04/07/19 18:33 BP 118/76 04/07/19 18:33 Pulse Ox 93 04/07/19 18:33 Discharge Plan Discharge Patient Disposition: Home, Self-Care Condition: Stable Prescriptions: New aspirin 81 mg Tablet,Delayed Release (Dr/Ec) 81 mg PO DAILY Qty: 30 RF: 0 Continued ropinirole 1 mg Tablet 1 mg PO DAILY RF: 0 prednisone 5 mg Tablet 5 mg PO DAILY RF: 0 amlodipine 5 mg Tablet 5 mg PO DAILY RF: 0 gabapentin 300 mg Capsule 300 mg PO TID RF: 0 hydrochlorothiazide 25 mg Tablet 25 mg PO DAILY RF: 0 tacrolimus 1 mg Capsule 1 mg PO Q12H RF: 0 Benadryl 25 mg Capsule See Rx Instructions .ROUTE .COMPLEX PRN (Reason: SLEEP) RF: 0 Novolog Mix 70-30 U-100 Insuln 100 unit/mL (70-30) Solution See Rx Instructions .ROUTE .COMPLEX RF: 0 Discharge Orders: Discharge Order (Routine); Ordered 04/07/19 Ordered By: Monty Medrano Referrals: Your, wax engraver [Other] - 1 month (Please follow up with Dr. Barney for optimization of diabetes control. ) CARDIOLOGY [Provider Group] - 2 weeks (EKG changes, possible past ME) Gurpreet Hugo MD [Primary Care Provider] - 4-7 days (Please call your primary care doctor to set up a follow up appointment within 4-7 days. Please have your pcp refer to Cardiology) Discharge Diet: Cardiac and Diabetic Discharge Activity: Increase activity as tolerated Patient Instructions: Aspirin (By mouth), Pravastatin (By mouth), Chest Pain (GEN) Activity Restrictions/Additional Instructions: If you experience any severe chest pain, shortness of breath, worsening of cough, or any other abnormal symptoms, please seek medical attention. Continue to monitor your blood pressure 3 times daily, record values to bring to your appointment. Continue to monitor your glucose and record as well. Please discuss with your transplant doctor that cholesterol medicine will be safe for you. If so you may fill the prescription for pravastatin. Discharge Attestations Time Spent in Discharge Care*: greater than 30 min Quality Metrics Clinical Quality Measures During this hospital stay, did patient experience: None Coding Level of Care Code Acute Heel Padder for Chg Fwd Diagnoses Chest pain R07.9 History of liver transplant Z94.4 Hx of insertion of insulin pump Z92.89 Type 2 diabetes mellitus E11.9 Hypertension I10 Restless leg syndrome G25.81 Diabetic peripheral neuropathy E11.42 Dhsow-9-qqtsapribnw deficiency E88.01
--- NOTE | 2019-04-07 19:00 | PC.NURSE ---
DISCHARGE INSTRUCTIONS GIVEN TO PATIENT, ALL QUESTIONS ANSWERED APPROPRIATELY. PATIENT DISCHARGED.
== END 2019-04-07 19:00 | disposition home or self-care (01) ==
LOC: ER 04-07 01:50 → MEDSURG 04-07 01:51
PROVIDERS: Admitting Provider Family Medicine; Emergency Provider Emergency Medicine; Family Provider Transplant Surgery; PCP Transplant Surgery; Visit Provider Internal Medicine
DX: R07.9 Chest pain, unspecified (principal); Z94.4 Liver transplant status; Z92.89 Personal history of other medical treatment; E11.40 Type 2 diabetes mellitus with diabetic neuropathy, unspecified; I10 Essential (primary) hypertension; G25.81 Restless legs syndrome; E11.42 Type 2 diabetes mellitus with diabetic polyneuropathy; E88.01 Alpha-1-antitrypsin deficiency; Z79.82 Long term (current) use of aspirin; K21.9 Gastro-esophageal reflux disease without esophagitis; Z79.52 Long term (current) use of systemic steroids; Z79.4 Long term (current) use of insulin; Z82.49 Family history of ischemic heart disease and other diseases of the circulatory system; Z83.3 Family history of diabetes mellitus; Z80.0 Family history of malignant neoplasm of digestive organs
CPT/HCPCS: 12345; 36415; 36416; 71045; 71275; 78452; 80053; 80061; 82550; 82962; 83036; 83605; 83721; 83735; 84443; 84484; 85025; 85378; 85610; 93005; 93017; 96365; 96372; 96375; 99283; 99285; A9500; G0378; J1650; J1815; J2270; J2785; J3475; J3490; J7040; J7507; J7512; Q9967

== ENCOUNTER 2019-05-14 15:53 | Emergency (ER) | payer MEDICARE, SELFPAY ==
[2019-05-14 16:00] VITALS: BP 136/83; PULSE 120; RESP 20; TEMP 37.1; O2SAT 96; BMI 34.7
--- NOTE | 2019-05-14 16:27 | XR_ITS ---
WS: [id number] XR chest 1V portable [id number] REASON FOR EXAM: cough FINDINGS: The heart was of normal size. The lung barrientos are well aerated. There is no pneumonia, pleural effusion, pulmonary edema, mass effe ct or pneumothorax. The rib cage shows no definite fractures. The thoracic spine shows ankylosing degenerate changes. The hilum and apices normal. XR/XR chest 1V portable [id number] IMPRESSION: Negative chest for active pathology.
[2019-05-14 16:54] LABS: Basophils % 0.4 %; Eosinophils # 0.3 10^3/uL (0.0-0.8); Eosinophils % 2.5 %; Hematocrit 42.7 % (42.0-52.0); Hemoglobin 14.9 g/dL (11.7-16.6); Lymphocytes # 1.8 10^3/uL (0.8-4.8); Lymphocytes % 17.9 %; Mean Corpuscular HGB Conc 34.9 g/dL (30.0-36.0); Mean Corpuscular Hemoglobin 29.9 pg (28.0-34.0); Mean Corpuscular Volume 85.7 fL (80-94); Mean Platelet Volume 8.7 fL (7.4-10.4); Monocytes # 0.7 10^3/uL (0.2-0.9); Monocytes % 7.3 %; Neutrophils # 7.2 10^3/uL (1.8-7.7); Neutrophils % 71.5 %; Nucleated Red Blood Cells % 0 %; Platelet Count 197 10^3/cmm (130-400); Red Blood Count 4.98 10^6/uL (4.1-5.3); Red Cell Distribution Width 13.5 % (12.1-15.1); White Blood Count 10.1 10^3/uL (4.0-10.0)
[2019-05-14 17:08] LABS: Alanine Aminotransferase 12 U/L (0-41); Albumin Level 4.3 g/dL (3.5-5.2); Alkaline Phosphatase 77 IU/L (40-130); Anion Gap 18.1 (5-19); Aspartate Amino Transferase 12 U/L (0-40); Blood Urea Nitrogen 25 mg/dL (8-23); Carbon Dioxide 25 mmol/L (22-29); Chloride 95 mmol/L (98-107); Creatinine Clr Calc Pharmacy 72.8503; Globulin 3.1 g/dL (1.3-4.6); Glomerular Filtration Rate 60.6 mL/min (90-130); Glucose 325 mg/dL (65-115); Osmolality Calculated 287 mOsm/kg (285-295); Potassium 4.1 mmol/L (3.5-5.1); Sodium 134 mmol/L (136-145); Total Bilirubin 0.9 mg/dL (0.15-1.2); Total Protein 7.4 g/dL (6.6-8.7)
--- NOTE | 2019-05-14 17:18 | ED_ITS ---
Entered by Sammie Calvert, acting as scribe for Documented by User: Fco Barrientos DO 05/14/19 17:48 HPI - General Adult General: Chief complaint: General Medical Stated complaint: cough/shortness of breath Time Seen by Provider: 05/14/19 17:19 Source: patient and family Mode of arrival: ambulatory Limitations: no limitations History of Present Illness: HPI narrative: 64 yo male presents with chest congestion and cough. pt states this started last night. pt has had shortness of breath. pt denies any other symptoms at this time. pt has a hx of a liver transplant. complaint: cough, congestion Onset (ago): day(s) (last night) Location: head and chest Severity: moderate Pain Consistency: constant Relieving factors: none Associated symptoms: Reports cough, dyspnea, short of breath and other (congestion) Treatments prior to arrival: none Review of Systems General: Reports: 10 or more systems reviewed and unremarkable except in HPI and below Const: Reports: body aches and fatigue Resp: Reports: shortness of breath and productive cough Musc: Denies: joint warmth All/Imm: Denies: acute wheezing PFSH ED PFSH: Medical History (Updated 05/14/19 @ 19:41 by Junaid Michel DO) [id number] deficiency Diabetic peripheral neuropathy Hypertension Restless leg syndrome Type 2 diabetes mellitus Surgical History (Updated 04/07/19 @ 00:54 by Sukhjinder Pan MD) History of liver transplant Hx of insertion of insulin pump Family History (Updated 04/07/19 @ 00:54 by Sukhjinder Pan MD) Other Colon cancer Diabetes Hypertension Social History (Updated 04/07/19 @ 00:54 by Sukhjinder Pan MD) Smoking and tobacco status: never smoked Alcohol intake: never Physical Exam Const: COMMON NORMALS: no apparent distress, average body habitus, oriented x3, no limitations, healthy appearing, alert and well nourished HENMT: COMMON NORMALS: normocephalic, head/scalp atraumatic, hearing grossly normal bilaterally, external ears normal, EAC's normal, TM's normal bilaterally, external nose normal, nasal mucous membranes and turbinates normal, moist oral mucous membranes, oropharynx normal, dentition normal and gingiva normal HEAD & SCALP: normocephalic and atraumatic NOSE: external nose normal and nasal mucous membranes and turbinates normal EXTERNAL EAR: Yes external ears normal EXTERNAL AUDITORY CANAL: EAC's normal TYMPANIC MEMBRANE: TM's normal bilaterally Eye: COMMON NORMALS: PERRL, EOMs intact bilaterally, conjunctivae normal, no scleral icterus, no papilledema, normal visual barrientos by confrontation and fundi normal bilaterally CONJUNCTIVA: Yes conjunctivae normal PUPIL: Yes PERRL DIRECT OPHTHALMOSCOPY: Yes no papilledema and Yes fundi normal bilaterally Neck/C-Spine: COMMON NORMALS: full ROM, no lymphadenopathy, supple, no meningeal signs, no JVD, thyroid normal and no carotid bruits THYROID: thyroid normal Chest: COMMONS NORMALS: inspection of chest normal and palpation of chest normal Cardio: COMMON NORMALS: no JVD, regular rate, regular rhythm, S1 normal heart sound, S2 normal heart sound, no gallops, no clicks, no murmurs, no rub and peripheral pulses 2+ throughout RATE: regular rate RHYTHM: regular rhythm HEART SOUNDS: S1 normal and S2 normal PERIPHERAL PULSES: pulses 2+ throughout GI: COMMON NORMALS: normal to inspection, nondistended, normoactive bowel sounds, soft to palpation, non-tender, no hepatosplenomegaly, no masses and no bruits PALPATION: Yes soft and Yes no hepatosplenomegaly : COMMON NORMALS: Yes no CVA tenderness BLADDER/KIDNEY EXAM: Yes no CVA tenderness Back/Pelvis: COMMON NORMALS: no CVA tenderness, thoracic and lumbar spine normal to inspection, no thoracic nor lumbar tenderness, thoraco-lumbar ROM normal and straight leg raise negative bilaterally Extremity: COMMON NORMALS: normal to inspection, full ROM, normal capillary refill, no joint enlargement, no clubbing, cyanosis or edema, no calf tenderness and no pedal edema Neuro: COMMON NORMALS: oriented x3 SENSORIUM/ORIENTATION: Yes alert MENINGEAL SIGNS: Yes no meningeal signs Skin: COMMON NORMALS: no rashes or lesions noted, no wounds, skin turgor normal, no jaundice, no petechiae and no mottling GENERAL SKIN EXAM: no rashes or lesions noted and turgor normal Course Vital Signs: Vital signs: Vital Signs Temperature 98.8 F 05/14/19 16:00 Pulse Rate 78 05/14/19 19:50 Respiratory Rate 20 H 05/14/19 19:50 Blood Pressure 126/99 05/14/19 19:50 Pulse Oximetry 95 05/14/19 19:50 [facility] - General Adult Lab Data: Labs: Lab Results 05/14/19 05/14/19 05/14/19 Range/Units 16:48 16:48 17:28 WBC 10.1 H (4.0-10.0) 10^3/ uL RBC 4.98 (4.1-5.3) 10^6/u L Hgb 14.9 (11.7-16.6) g/dL Hct 42.7 (42.0-52.0) % MCV 85.7 (80-94) fL MCH 29.9 (28.0-34.0) pg MCHC 34.9 (30.0-36.0) g/dL RDW 13.5 (12.1-15.1) % Plt Count 197 (130-400) 10^3/c mm MPV 8.7 (7.4-10.4) fL Neut % (Auto) 71.5 % Lymph % (Auto) 17.9 % [place] % (Auto) 7.3 % Eos % (Auto) 2.5 % Baso % (Auto) 0.4 % Neut # (Auto) 7.2 (1.8-7.7) 10^3/u L Lymph # (Auto) 1.8 (0.8-4.8) 10^3/u L [place] # (Auto) 0.7 (0.2-0.9) 10^3/u L Eos # (Auto) 0.3 (0.0-0.8) 10^3/u L Baso # (Auto) 0.0 (0.0-0.1) 10^3/u L Nucleated RBC % (a uto) 0 % Nucleated RBCs # 0.0 /100WBC Sodium 134 L (136-145) mmol/L Potassium 4.1 (3.5-5.1) mmol/L Chloride 95 L (98-107) mmol/L Carbon Dioxide 25 (22-29) mmol/L Anion Gap 18.1 (5-19) BUN 25 H (8-23) mg/dL Creatinine 1.2 (0.7-1.2) mg/dL GFR Calculation 60.6 L (90-130) mL/min Glucose 325 H (65-115) mg/dL Calculated Osmolal ity 287 (285-295) mOsm/k g Calcium 10.0 (8.5-10.5) mg/dL Total Bilirubin 0.9 (0.15-1.2) mg/dL AST 12 (0-40) U/L ALT 12 (0-41) U/L Alkaline Phosphata se 77 (40-130) IU/L Total Protein 7.4 (6.6-8.7) g/dL Albumin 4.3 (3.5-5.2) g/dL Globulin 3.1 (1.3-4.6) g/dL Influenza Type A A g Negative (Negative) POC Influenza B Ag Negative (Negative) Discharge Plan Discharge Patient Disposition: Left Against Medical Advice Clinical Impression: Acute exacerbation of chronic obstructive pulmonary disease Condition: Stable Prescriptions: New albuterol sulfate 90 mcg/actuation HFA aerosol inhaler 2 inh INHALATION Q4H PRN (Reason: shortness of breath or wheezing) Qty: 18 RF: 0 doxycycline hyclate 100 mg capsule 100 mg PO BID 10 Days Qty: 20 RF: 0 Medrol (Leonard) 4 mg tablets,dose pack See Rx Instructions .ROUTE .COMPLEX Qty: 21 RF: 0 Held prednisone 5 mg Tablet 5 mg PO DAILY RF: 0 Hold Instructions: Resume on 05/21/19. No Action ropinirole 1 mg Tablet 1 mg PO DAILY RF: 0 amlodipine 5 mg Tablet 5 mg PO DAILY RF: 0 gabapentin 300 mg Capsule 300 mg PO TID RF: 0 hydrochlorothiazide 25 mg Tablet 25 mg PO DAILY RF: 0 tacrolimus 1 mg Capsule 1 mg PO Q12H RF: 0 Benadryl 25 mg Capsule See Rx Instructions .ROUTE .COMPLEX PRN (Reason: SLEEP) RF: 0 Novolog Mix 70-30 U-100 Insuln 100 unit/mL (70-30) Solution See Rx Instructions .ROUTE .COMPLEX RF: 0 aspirin 81 mg Tablet,Delayed Release (Dr/Ec) 81 mg PO DAILY Qty: 30 RF: 0 Referrals: Gurpreet Hugo MD [Primary Care Provider] - Activity Restrictions/Additional Instructions: Strongly encourage you to remain in the emergency room to complete your evaluation and treatments we have offered. If you leave AGAINST MEDICAL ADVICE you have the risk of your medical condition deteriorating which could put you at risk of further worsening your health or even . Discharge Date/Time: 05/14/19 19:51 Sign Out Sign Out Data: Patient Sign Out occurred on 05/14/19 at 19:25. Patient's care was discussed, and care was transferred from to Junaid Michel DO. Coding Level of Care Code ED Still Operator Whiskey for Chg Fwd Exam Comprehensive Documented by User: Junaid Michel DO 05/17/19 16:44 HPI - General Adult General: Chief complaint: General Medical Stated complaint: cough/shortness of breath Time Seen by Provider: 05/14/19 17:19 History of Present Illness: Associated symptoms: Deny chest pain, dyspnea, malaise, nausea, rash or vomiting Review of Systems Const: Denies: fever, chills, body aches, change in appetite, fatigue or malaise ENMT: Denies: throat pain, ear pain, nasal discharge or nasal congestion Card: Denies: chest pain, edema, shortness of breath on exertion or shortness of breath when lying down Resp: Denies: shortness of breath, productive cough or non-productive cough GI: Denies: abdominal pain, nausea, vomiting, vomiting blood, coffee grounds in vomit, diarrhea, constipation, bloating, blood in stool or black tarry stool : Denies: flank pain, painful urination, urinary frequency or urinary urgency Skin/Breast: Denies: rash or itching PFSH ED PFSH: Medical History (Updated 05/14/19 @ 19:41 by Junaid Michel DO) [id number] deficiency Diabetic peripheral neuropathy Hypertension Restless leg syndrome Type 2 diabetes mellitus Surgical History (Updated 04/07/19 @ 00:54 by Sukhjinder Pan MD) History of liver transplant Hx of insertion of insulin pump Family History (Updated 04/07/19 @ 00:54 by Sukhjinder Pan MD) Other Colon cancer Diabetes Hypertension Social History (Updated 04/07/19 @ 00:54 by Sukhjinder Pan MD) Smoking and tobacco status: never smoked Alcohol intake: never Course ED course: Recommend patient stay for further evaluation he absolutely refuses. He left AGAINST MEDICAL ADVICE advised him to have Solu-Medrol and nebs. He was discharged home with albuterol doxycycline and a steroid Medrol Dosepak return if worsens follow-up as needed Vital Signs: Vital signs: Vital Signs Temperature 98.8 F 05/14/19 16:00 Pulse Rate 78 05/14/19 19:50 Respiratory Rate 20 H 05/14/19 19:50 Blood Pressure 126/99 05/14/19 19:50 Pulse Oximetry 95 05/14/19 19:50 [facility] - General Adult Lab Data: Labs: Lab Results 05/14/19 05/14/19 05/14/19 Range/Units 16:48 16:48 17:28 WBC 10.1 H (4.0-10.0) 10^3/ uL RBC 4.98 (4.1-5.3) 10^6/u L Hgb 14.9 (11.7-16.6) g/dL Hct 42.7 (42.0-52.0) % MCV 85.7 (80-94) fL MCH 29.9 (28.0-34.0) pg MCHC 34.9 (30.0-36.0) g/dL RDW 13.5 (12.1-15.1) % Plt Count 197 (130-400) 10^3/c mm MPV 8.7 (7.4-10.4) fL Neut % (Auto) 71.5 % Lymph % (Auto) 17.9 % [place] % (Auto) 7.3 % Eos % (Auto) 2.5 % Baso % (Auto) 0.4 % Neut # (Auto) 7.2 (1.8-7.7) 10^3/u L Lymph # (Auto) 1.8 (0.8-4.8) 10^3/u L [place] # (Auto) 0.7 (0.2-0.9) 10^3/u L Eos # (Auto) 0.3 (0.0-0.8) 10^3/u L Baso # (Auto) 0.0 (0.0-0.1) 10^3/u L Nucleated RBC % (a uto) 0 % Nucleated RBCs # 0.0 /100WBC Sodium 134 L (136-145) mmol/L Potassium 4.1 (3.5-5.1) mmol/L Chloride 95 L (98-107) mmol/L Carbon Dioxide 25 (22-29) mmol/L Anion Gap 18.1 (5-19) BUN 25 H (8-23) mg/dL Creatinine 1.2 (0.7-1.2) mg/dL GFR Calculation 60.6 L (90-130) mL/min Glucose 325 H (65-115) mg/dL Calculated Osmolal ity 287 (285-295) mOsm/k g Calcium 10.0 (8.5-10.5) mg/dL Total Bilirubin 0.9 (0.15-1.2) mg/dL AST 12 (0-40) U/L ALT 12 (0-41) U/L Alkaline Phosphata se 77 (40-130) IU/L Total Protein 7.4 (6.6-8.7) g/dL Albumin 4.3 (3.5-5.2) g/dL Globulin 3.1 (1.3-4.6) g/dL Influenza Type A A g Negative (Negative) POC Influenza B Ag Negative (Negative) Discharge Plan Discharge Patient Disposition: Left Against Medical Advice Clinical Impression: Acute exacerbation of chronic obstructive pulmonary disease Condition: Stable Prescriptions: New albuterol sulfate 90 mcg/actuation HFA aerosol inhaler 2 inh INHALATION Q4H PRN (Reason: shortness of breath or wheezing) Qty: 18 RF: 0 doxycycline hyclate 100 mg capsule 100 mg PO BID 10 Days Qty: 20 RF: 0 Medrol (Leonard) 4 mg tablets,dose pack See Rx Instructions .ROUTE .COMPLEX Qty: 21 RF: 0 Held prednisone 5 mg Tablet 5 mg PO DAILY RF: 0 Hold Instructions: Resume on 05/21/19. No Action ropinirole 1 mg Tablet 1 mg PO DAILY RF: 0 amlodipine 5 mg Tablet 5 mg PO DAILY RF: 0 gabapentin 300 mg Capsule 300 mg PO TID RF: 0 hydrochlorothiazide 25 mg Tablet 25 mg PO DAILY RF: 0 tacrolimus 1 mg Capsule 1 mg PO Q12H RF: 0 Benadryl 25 mg Capsule See Rx Instructions .ROUTE .COMPLEX PRN (Reason: SLEEP) RF: 0 Novolog Mix 70-30 U-100 Insuln 100 unit/mL (70-30) Solution See Rx Instructions .ROUTE .COMPLEX RF: 0 aspirin 81 mg Tablet,Delayed Release (Dr/Ec) 81 mg PO DAILY Qty: 30 RF: 0 Referrals: Gurpreet Hugo MD [Primary Care Provider] - Activity Restrictions/Additional Instructions: Strongly encourage you to remain in the emergency room to complete your evaluation and treatments we have offered. If you leave AGAINST MEDICAL ADVICE you have the risk of your medical condition deteriorating which could put you at risk of further worsening your health or even . Discharge Date/Time: 05/14/19 19:51 Sign Out Sign Out Data: Patient Sign Out occurred on 05/14/19 at 19:25. Patient's care was discussed, and care was transferred from to Junaid Michel DO. Coding Level of Care Code ED Still Operator Whiskey for Chg Fwd Exam Comprehensive The documentation recorded by the Enrike elena Bridget Annette, accurately reflects the service I personally performed and the decisions made by , Fco Barrientos, DO
[2019-05-14 18:12] LABS: Influenza A by IFA Negative (Negative); Influenza B by IFA Negative (Negative)
--- NOTE | 2019-05-14 18:34 | ECG_ITS ---
Measurements Intervals [place] Rate: 114 P: 40 [place]: 164 QRS: -17 QRSD: 94 T: 50 QT: 304 QTc: 420 SINUS TACHYCARDIA WITH OCCASIONAL VENTRICULAR PREMATURE COMPLEXES POSSIBLE ANTERIOR MYOCARDIAL INFARCTION [30 ms Q WAVE IN V3/V4, OR R < 0.2 mV V4], OF INDETERMINATE AGE INFERIOR MYOCARDIAL INFARCTION [40+ ms Q WAVE AND/OR ST/T ABNORMALITY IN II/aVF], PROBA PROBABLY OLD Compared to ECG 04/07/2019 00:58:47 Ventricular premature complex(es) now present Sinus rhythm no longer present Myocardial infarct finding still present Electronically Signed On 05-15-2019 12:41:16 CDT by Francisco Lucas [email or web address]
--- NOTE | 2019-05-14 18:36 | ECG_ITS ---
Measurements Intervals [place] Rate: 109 P: 38 [place]: 169 QRS: -14 QRSD: 92 T: 31 QT: 308 QTc: 416 SINUS TACHYCARDIA INFERIOR MYOCARDIAL INFARCTION , PROBABLY OLD [40+ ms Q WAVE AND/OR ST/T AB ABNORMALITY IN II/aVF] Compared to ECG 04/07/2019 00:58:47 Sinus rhythm no longer present Myocardial infarct finding still present Electronically Signed On 05-15-2019 12:40:54 CDT by Francisco Lucas [email or web address]
[2019-05-14 19:50] VITALS: BP 126/99; PULSE 78; RESP 20; O2SAT 95
== END 2019-05-14 19:51 | disposition left against medical advice (07) ==
PROVIDERS: Emergency Medicine; Emergency Provider Family Medicine; Family Provider Transplant Surgery; PCP Transplant Surgery
DX: J44.1 Chronic obstructive pulmonary disease with (acute) exacerbation (principal); E11.42 Type 2 diabetes mellitus with diabetic polyneuropathy; I10 Essential (primary) hypertension; Z79.4 Long term (current) use of insulin; Z79.899 Other long term (current) drug therapy; Z94.4 Liver transplant status; Z96.41 Presence of insulin pump (external) (internal); Z53.29 Procedure and treatment not carried out because of patient's decision for other reasons
CPT/HCPCS: 12345; 36415; 71045; 80053; 85025; 87804; 93005; 93010; 99281; 99283

== ENCOUNTER 2019-11-04 14:07 | Outpatient (CLI) | payer MEDICARE, MEDICAID, SELFPAY ==
[2019-11-04 14:35] LABS: Basophils % 0.3 %; Eosinophils # 0.3 10^3/uL (0.0-0.8); Eosinophils % 3.8 %; Hematocrit 42.3 % (42.0-52.0); Hemoglobin 14.7 g/dL (11.7-16.6); Lymphocytes # 2.2 10^3/uL (0.8-4.8); Lymphocytes % 29.3 %; Mean Corpuscular HGB Conc 34.8 g/dL (30.0-36.0); Mean Corpuscular Volume 83.4 fL (80-94); Mean Platelet Volume 9.4 fL (7.4-10.4); Monocytes # 0.5 10^3/uL (0.2-0.9); Monocytes % 6.1 %; Neutrophils # 4.42 10^3/uL (1.8-7.7); Neutrophils % 60.1 %; Nucleated Red Blood Cells % 0 %; Platelet Count 169 10^3/cmm (130-400); Red Blood Count 5.07 10^6/uL (4.1-5.3); Red Cell Distribution Width 13.3 % (12.1-15.1); White Blood Count 7.4 10^3/uL (4.0-10.0)
[2019-11-04 19:17] LABS: Alanine Aminotransferase 17 U/L (0-41); Albumin Level 4.1 g/dL (3.5-5.2); Alkaline Phosphatase 78 IU/L (40-130); Anion Gap 18.5 (5-19); Aspartate Amino Transferase 17 U/L (0-40); Blood Urea Nitrogen 24 mg/dL (8-23); Calcium 8.9 mg/dL (8.5-10.5); Carbon Dioxide 23 mmol/L (22-29); Chloride 93 mmol/L (98-107); Cholesterol 179 mg/dL (0-200); Glomerular Filtration Rate 74.8 mL/min (90-130); Glucose 424 mg/dL (65-115); Magnesium 1.5 mg/dL (1.7-2.3); Osmolality Calculated 287 mOsm/kg (285-295); Phosphorus 3.4 mg/dL (2.5-4.5); Potassium 3.5 mmol/L (3.5-5.1); Sodium 131 mmol/L (136-145); Total Bilirubin 0.5 mg/dL (0.15-1.2); Total Protein 7.1 g/dL (6.6-8.7); Uric Acid 6.5 mg/dL (3.4-7.0)
== END 2019-11-04 14:08 | disposition home or self-care (01) ==
LOC: LAB 14:11
PROVIDERS: PCP Transplant Surgery; Visit Provider Transplant Surgery
DX: N39.0 Urinary tract infection, site not specified (principal); Z94.4 Liver transplant status
CPT/HCPCS: 80048; 80076; 80197; 82465; 83735; 84100; 84550; 85025

== ENCOUNTER 2019-11-27 20:03 | Emergency (ER) | payer MEDICARE, MEDICAID, SELFPAY ==
[2019-11-27 20:10] VITALS: BP 141/76; PULSE 106; RESP 16; TEMP 36.3; O2SAT 96; BMI 36.1
--- NOTE | 2019-11-27 20:19 | ED_ITS ---
HPI - Back Pain/Injury General: Chief Complaint: Back Pain/Injury Stated Complaint: back pain Time Seen by Provider: 11/27/19 20:16 Source: patient Mode of arrival: ambulatory Limitations: no limitations History of Present Illness: HPI Narrative: 64-year-old male patient comes in today for complaints of right flank pain that started when he went to get up off the toilet after using the bathroom. Patient reports persistent pain and discomfort. Patient has no history of kidney stone. Patient does have a history of liver transplant and diabetes mellitus type 1. Patient appears well. Patient appears in mild to moderate pain. Pain seems to exacerbate with movement. Review of Systems General: Reports: 10 or more systems reviewed and unremarkable except in HPI and below GI: Reports: diarrhea Musc: Reports: back pain PFSH ED PFSH: Medical History (Updated 11/27/19 @ 21:09 by AMADOR Barrientos) [id number] deficiency Diabetic peripheral neuropathy Hypertension Restless leg syndrome Type 2 diabetes mellitus Surgical History History of liver transplant Hx of insertion of insulin pump Family History Other Colon cancer Diabetes Hypertension Social History Smoking and tobacco status: never smoked Alcohol intake: never Physical Exam Const: COMMON NORMALS: no acute distress and patient oriented x3 GENERAL APPEARANCE: cooperative HENMT: COMMON NORMALS: normocephalic and Normal external nose present HEAD & SCALP: normal to inspection and normocephalic NOSE: Normal external nose present MOUTH: Normal oral and palatal mucosa present Eye: GENERAL EYE: appearance normal, both eyes and all related structures Neck/C-Spine: COMMON NORMALS: full ROM Chest: COMMONS NORMALS: normal inspection of the chest Resp: COMMON NORMALS: normal respiratory effort EFFORT & INSPECTION: Yes able to speak in complete sentences Cardio: COMMON NORMALS: regular rate and regular rhythm RATE: regular rate RHYTHM: regular rhythm GI: COMMON NORMALS: non-tender : BLADDER/KIDNEY EXAM: Yes CVA tenderness Back/Pelvis: GENERAL BACK: Yes CVA tenderness CVA tenderness: right (to palpation and percussion) LUMBAR SPINE/LOWER BACK: Yes paraspinal muscle tenderness Lumbar paraspinal muscle tenderness: right Right lumbar paraspinal muscle tenderness: L1 Extremity: COMMON NORMALS: normal to inspection Neuro: COMMON NORMALS: patient oriented x3 and moves all extremities Psych: COMMON NORMALS: mental status grossly normal and cooperative Skin: COMMON NORMALS: no rashes or lesions noted GENERAL SKIN EXAM: no rashes or lesions noted Course Vital Signs: Vital signs: Vital Signs Temperature 97.3 F L 11/27/19 20:10 Pulse Rate 106 H 11/27/19 20:10 Respiratory Rate 20 H 11/27/19 20:40 Blood Pressure 141/76 11/27/19 20:10 Pulse Oximetry 96 11/27/19 20:10 MDM - Back Pain/Injury MDM Narrative: Medical decision making narrative: Patient comes in today with complaints of right side back pain. Patient states that he is cramping in nature. On exam patient has tenderness in the right CVA area. Abdomen soft nontender. Bowel sounds are normal. Vital signs are normal. Differential diagnosis includes but not limited to renal calculi, pyelonephritis, pancreatitis, constipation. CT scan of the abdomen pelvis without contrast noted no right renal stone or other abnormality. Laboratory values were unremarkable. Except for some elevation in glucose at 350. Reviewed exam with patient with recommendations for treatment of low back and follow-up. Patient reported understanding and agreed to plan. Lab Data: Labs: Lab Results 11/27/19 11/27/19 11/27/19 Range/Units 20:30 20:30 20:30 WBC 8.2 (4.0-10.0) 10^3/ uL RBC 5.31 H (4.1-5.3) 10^6/u L Hgb 15.4 (11.7-16.6) g/dL Hct 44.7 (42.0-52.0) % MCV 84.2 (80-94) fL MCH 29.0 (28.0-34.0) pg MCHC 34.5 (30.0-36.0) g/dL RDW 13.3 (12.1-15.1) % Plt Count 202 (130-400) 10^3/c mm MPV 9.3 (7.4-10.4) fL Neut % (Auto) 62.2 % Lymph % (Auto) 26.2 % [place] % (Auto) 6.8 % Eos % (Auto) 3.7 % Baso % (Auto) 0.5 % Neut # (Auto) 5.11 (1.8-7.7) 10^3/u L Lymph # (Auto) 2.2 (0.8-4.8) 10^3/u L [place] # (Auto) 0.6 (0.2-0.9) 10^3/u L Eos # (Auto) 0.3 (0.0-0.8) 10^3/u L Baso # (Auto) 0.0 (0.0-0.1) 10^3/u L Nucleated RBC % (a uto) 0 % Nucleated RBCs # 0.0 /100WBC Sodium 132 L (136-145) mmol/L Potassium 3.7 (3.5-5.1) mmol/L Chloride 95 L (98-107) mmol/L Carbon Dioxide 24 (22-29) mmol/L Anion Gap 16.7 (5-19) BUN 21 (8-23) mg/dL Creatinine 1.2 (0.7-1.2) mg/dL GFR Calculation 60.6 L (90-130) mL/min Glucose 358 H (65-115) mg/dL Calculated Osmolal ity 291 (285-295) mOsm/k g Calcium 9.7 (8.5-10.5) mg/dL Total Bilirubin 0.4 (0.15-1.2) mg/dL AST 19 (0-40) U/L ALT 19 (0-41) U/L Alkaline Phosphata se 95 (40-130) IU/L Total Protein 7.3 (6.6-8.7) g/dL Albumin 4.2 (3.5-5.2) g/dL Globulin 3.1 (1.3-4.6) g/dL Urine Color Yellow (Yellow) Urine Appearance Clear (CLEAR) Urine pH 5 (5-7) Ur Specific Gravit y 1.020 (1.005-1.030) Urine Protein Neg (Negative) Urine Glucose (UA) 4+ H (Normal) Urine Ketones Negative (Negative) Urine Blood Neg (Negative) Urine Nitrate Negative (Negative) Urine Bilirubin Neg (Negative) Urine Urobilinogen Norm (Negative) mg/dL Ur Leukocyte Zoey ase Negative (Negative) Discharge Plan Discharge Patient Disposition: Home Clinical Impression: Strain of lumbar region Qualifiers: Encounter type: initial encounter Qualified Code(s): S39.012A - Strain of muscle, fascia and tendon of lower back, initial encounter Condition: Stable Prescriptions: New methocarbamol 750 mg tablet 750 mg PO TID PRN (Reason: back pain) Qty: 30 RF: 0 hydrocodone-acetaminophen 5-325 mg tablet 1 tab PO Q6H PRN (Reason: pain) Qty: 7 RF: 0 No Action clotrimazole-betamethasone 1-0.05 % cream 1 applic TOPICAL BID 14 Days Qty: 45 RF: 1 ropinirole 1 mg Tablet 1 mg PO DAILY RF: 0 amlodipine 5 mg Tablet 5 mg PO DAILY RF: 0 gabapentin 300 mg Capsule 300 mg PO TID RF: 0 hydrochlorothiazide 25 mg Tablet 25 mg PO DAILY RF: 0 tacrolimus 1 mg Capsule 1 mg PO Q12H RF: 0 diphenhydramine HCl [Benadryl] 25 mg Capsule See Rx Instructions .ROUTE .COMPLEX PRN (Reason: SLEEP) RF: 0 insulin asp prt-insulin aspart [Novolog Mix 70-30 U-100 Insuln] 100 unit/mL (70-30) Solution See Rx Instructions .ROUTE .COMPLEX RF: 0 aspirin 81 mg Tablet,Delayed Release (Dr/Ec) 81 mg PO DAILY Qty: 30 RF: 0 trazodone 50 mg tablet 50 mg PO TID RF: 0 famotidine 20 mg tablet 20 mg PO DAILY RF: 0 metoprolol tartrate 50 mg tablet 50 mg PO DAILY RF: 0 lisinopril 2.5 mg tablet 2.5 mg PO DAILY RF: 0 omega-3 acid ethyl esters 1 gram capsule 1 g PO BID RF: 0 Discharge Orders: Discharge Order (Routine); Ordered 11/27/19 Ordered By: Aston Nichole Referrals: Gurpreet Hugo MD [Primary Care Provider] - Discharge Diet: Usual diet Discharge Activity: Increase activity as tolerated Patient Instructions: Back Pain (ED) Activity Restrictions/Additional Instructions: Activity as tolerated. Gentle stretching and range of motion exercises. Take medication as directed for pain. Follow-up with primary care for further treatment. Return to the ER as needed. Coding Level of Care Code ED Automobile Mechanic Apprentice for Chg Fwd Exam Comprehensive
--- NOTE | 2019-11-27 20:23 | CTR_ITS ---
PROCEDURE INFORMATION: Exam: CT Abdomen And Pelvis Without Contrast Exam date and time: 11/27/2019 8:24 PM Age: 64 years old Clinical indication: Abdominal pain; Flank; Right; Prior surgery; Surgery date: 6+ months; Surgery type: Liver transplant hernia appy choley back; Additional info: Right flankl pain TECHNIQUE: Imaging protocol: Computed tomography of the abdomen and pelvis without contrast. Radiation optimization: All CT scans at this facility use at least one of these dose optimization techniques: automated exposure control; mA and/or kV adjustment per patient size (includes targeted exams where dose is matched to clinical indication); or iterative reconstruction. COMPARISON: CT abdomen pelvis w con* [id number] 10/11/2015 2:36 AM RADIATION DOSE METRICS: Total DLP (mGy-cm): 1853.98 FINDINGS: Liver: Chronic postop changes around the liver and IVC consistent with history of liver transplant. Gallbladder and bile ducts: Cholecystectomy. Pancreas: Normal. No ductal dilation. Spleen: The spleen is mildly enlarged up to 15 cm. The splenic vein is dilated. Adrenals: Normal. No mass. Kidneys and ureters: No renal stones or obstruction. Stomach and bowel: Distal colonic diverticula are not inflamed. Appendix: The appendix is normal. Intraperitoneal space: Unremarkable. No free air. No significant fluid collection. Vasculature: See Spleen finding. Lymph nodes: Mildly enlarged central mesenteric lymph nodes are most likely reactive. Urinary bladder: Unremarkable as visualized. Reproductive: Unremarkable as visualized. 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 Disc bulges at L4-L5 and L5-S1 contribute to spinal stenosis. Soft tissues: Since 2016 the umbilical hernia is slightly larger and has 2 components. One component measures 5 cm and has a broad aperture containing bowel without inflammation or obstruction. The more superior component is more focal containing a 1.8 cm portion of the nonobstructed bowel loop. No inflammation. Additional chronic 2.7 cm left mid abdominal wall fatty hernia measuring [address]/CT kidney stone [id number] IMPRESSION: 1. No acute abdominal or pelvic findings. 2. Several ventral hernias some containing bowel but without obstruction or inflammation. 3. Chronic liver transplant and splenomegaly. 4. Other chronic and incidental findings as described Radiation Dose CTDIVOL = (mGy): DLP = 1853.98 (mGy-cm)
[2019-11-27] MEDS: ondansetron 2 mg/ML SDV 2 mL 4 MG IVP (20:39)
[2019-11-27 20:40] VITALS: RESP 20
[2019-11-27] MEDS: morphine 4 mg/mL SDV 1 mL IVP (20:40)
[2019-11-27 20:44] LABS: Add Urine Microscopic? NO
[2019-11-27 20:46] LABS: Basophils % 0.5 %; Eosinophils # 0.3 10^3/uL (0.0-0.8); Eosinophils % 3.7 %; Hematocrit 44.7 % (42.0-52.0); Hemoglobin 15.4 g/dL (11.7-16.6); Lymphocytes # 2.2 10^3/uL (0.8-4.8); Lymphocytes % 26.2 %; Mean Corpuscular HGB Conc 34.5 g/dL (30.0-36.0); Mean Corpuscular Volume 84.2 fL (80-94); Mean Platelet Volume 9.3 fL (7.4-10.4); Monocytes # 0.6 10^3/uL (0.2-0.9); Monocytes % 6.8 %; Neutrophils # 5.11 10^3/uL (1.8-7.7); Neutrophils % 62.2 %; Nucleated Red Blood Cells % 0 %; Platelet Count 202 10^3/cmm (130-400); Red Blood Count 5.31 10^6/uL (4.1-5.3); Red Cell Distribution Width 13.3 % (12.1-15.1); White Blood Count 8.2 10^3/uL (4.0-10.0)
[2019-11-27 20:54] LABS: Bilirubin Urine Neg (Negative); Blood Urine Neg (Negative); Glucose Urine UA 4+ (Normal); Ketones Urine Negative (Negative); Leukocyte Esterase Urine Negative (Negative); Nitrate Urine Negative (Negative); Protein Urine Neg (Negative); Urine Appearance Clear (CLEAR); Urine Color Yellow (Yellow); Urobilinogen Urine Norm (Negative); pH Urine 5 (5-7)
[2019-11-27 20:56] LABS: Alanine Aminotransferase 19 U/L (0-41); Albumin Level 4.2 g/dL (3.5-5.2); Alkaline Phosphatase 95 IU/L (40-130); Anion Gap 16.7 (5-19); Aspartate Amino Transferase 19 U/L (0-40); Blood Urea Nitrogen 21 mg/dL (8-23); Calcium 9.7 mg/dL (8.5-10.5); Carbon Dioxide 24 mmol/L (22-29); Chloride 95 mmol/L (98-107); Globulin 3.1 g/dL (1.3-4.6); Glomerular Filtration Rate 60.6 mL/min (90-130); Glucose 358 mg/dL (65-115); Osmolality Calculated 291 mOsm/kg (285-295); Potassium 3.7 mmol/L (3.5-5.1); Sodium 132 mmol/L (136-145); Total Bilirubin 0.4 mg/dL (0.15-1.2); Total Protein 7.3 g/dL (6.6-8.7)
== END 2019-11-27 21:17 | disposition home or self-care (01) ==
PROVIDERS: Emergency Provider Nurse Practitioner Family; PCP Transplant Surgery
DX: S39.012A Strain of muscle, fascia and tendon of lower back, initial encounter (principal); Z79.4 Long term (current) use of insulin; Z79.82 Long term (current) use of aspirin; E11.42 Type 2 diabetes mellitus with diabetic polyneuropathy; I10 Essential (primary) hypertension; Z94.4 Liver transplant status; X58.XXXA Exposure to other specified factors, initial encounter
CPT/HCPCS: 12345; 74176; 80053; 81003; 85025; 96374; 96375; 99282; 99283; J2270; J2405

== ENCOUNTER 2019-12-08 07:58 | Outpatient (CLI) | payer MEDICARE, MEDICAID, SELFPAY ==
--- NOTE | 2019-12-08 08:11 | CT_ITS ---
WS: [id number] CT ABDOMEN TECHNIQUE: Noncontrast CT of the abdomen with coronal and sagittal reformatted images. CLINICAL INFORMATION: UNSPECIFIED ABDOMINAL PAIN COMPARISON: November 27, 2019 DLP: 600.[address] scans at [facility] use at least one of these dose optimization techniques: automat ed exposure control; mA and/or kV adjustment per patient size (includes targeted exams where dose is matched to clinical indication); or iterative reconstruction. FINDINGS: Prior liver transplant. Cholecystectomy. Mild splenomegaly. Lung bases are well aerated. Normal GE ju nction. Adrenal glands are normal. No hydronephrosis. Both ureters are normal in appearance. Small sp lenule. Mild fatty atrophy of the pancreas. Mild inflammatory stranding about the mid mesentery with a few reactive lymph nodes. This is unchanged since November 27, 2019 and can be seen with mesenteric adenitis. Normal caliber abdominal aorta. Aortic calcification. Left upper abdominal fat-containing ventral wal l hernia with hernia mouth measuring 3.7 CM. No herniated bowel. Additional tiny left pericentral fat -containing epigastric hernia. Midline umbilical hernia with adjacent bowel. No evidence of bowel obs truction. Normal caliber visualized small and large bowel. No evidence of bowel obstruction. Spinal canal narro wing in the lower lumbar spine L4-S1 appears unchanged. CT/CT abdomen wo con [id number] IMPRESSION: 1. Prior liver transplant with splenomegaly. Cholecystectomy. 2. Mild induration and inflammatory stranding involving the central mesentery with a few reactive lymph nodes. This is unchanged from November 27, 2019 and ca n be seen with mesenteric adenitis. 3. Fat-containing epigastric and left parasagittal ventral abdominal wall kelly ia. No herniated bowel. 4. Midline umbilical hernia with adjacent bowel. No evidence of bowel obstruct ion. 5. 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 6. No hydronephrosis in either kidney.
== END 2019-12-08 07:59 | disposition home or self-care (01) ==
LOC: RADWPI 08:07
PROVIDERS: PCP Transplant Surgery; Visit Provider Transplant Surgery
DX: R10.9 Unspecified abdominal pain (principal); Z94.4 Liver transplant status; R16.1 Splenomegaly, not elsewhere classified; M48.061 Spinal stenosis, lumbar region without neurogenic claudication; K42.9 Umbilical hernia without obstruction or gangrene; K43.9 Ventral hernia without obstruction or gangrene
CPT/HCPCS: 74150

== ENCOUNTER 2020-01-24 07:40 | Emergency (ER) | payer MEDICARE, MEDICAID, SELFPAY ==
[2020-01-24] VITALS (7 sets, daily range): BP systolic 112–142; BP diastolic 57–95; PULSE 71–82; RESP 13–20; TEMP 36.8; O2SAT 92–97; BMI 35.4
--- NOTE | 2020-01-24 07:47 | XRR_ITS ---
PROCEDURE INFORMATION: Exam: XR Chest, 1 View Exam date and time: 01/24/2020 7:49 AM Age: 64 years old Clinical indication: Chest pain TECHNIQUE: Imaging protocol: XR of the chest Views: 1 view. COMPARISON: CR XR chest 1V portable [id number] 05/14/2019 4:56 PM FINDINGS: Lungs: Unremarkable. No consolidation. Pleural space: Unremarkable. No pleural effusion. No pneumothorax. Heart/Mediastinum: Unremarkable. No cardiomegaly. Bones/joints: Unremarkable. XR/XR chest 1V portable [id number] IMPRESSION: No acute findings.
--- NOTE | 2020-01-24 07:47 | ECG_ITS ---
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
--- NOTE | 2020-01-24 07:53 | W.ED.CHESTPA ---
HPI - Chest Pain General: Chief Complaint: Chest Pain Stated Complaint: CHEST PAIN Time Seen by Provider: 01/24/20 07:44 History of Present Illness: HPI narrative: Patient is a 64 year old male patient with a history of alpha-1 anti-trypsin deficiency. He also has had a liver transplant and has DM2 - he present with chest pain. It started yesterday - he says it has gotten worse throughout the night and he has had vomiting since then. He says the pain has been constant but worsens in waves. He is also short of breath. he says that he has never had pain like this. He has been told that he had a heart attack in the past but was not aware of it. He was admitted in March with a similar presentation and had a stress test then. It showed some findings which was considered to be artifact. He also had a CT at that time that was neg. Associated symptoms: Reports dyspnea; Deny abdominal pain, fever(s), nausea or vomiting Review of Systems General: Reports: 10 or more systems reviewed and unremarkable except in HPI and below Const: Denies: fever(s), chills, fatigue or malaise Eyes: Denies: change in vision ENMT: Denies: odynophagia Card: Reports: chest pain; Denies: swelling of feet/ankles Resp: Reports: dyspnea; Denies: productive cough or non-productive cough GI: Denies: abdominal pain, nausea or vomiting : Denies: flank pain Musc: Denies: neck pain or back pain Skin/Breast: Denies: rash Neuro: Denies: headache(s), numbness in extremities or weakness in extremities Petros/Lymph: Denies: easy bruising or easy bleeding PFSH ED PFSH: Medical History (Updated 01/24/20 @ 11:55 by Roxi Duffy MD) Gglrl-0-[id number] deficiency Diabetic peripheral neuropathy Hypertension Restless leg syndrome Type 2 diabetes mellitus Surgical History (Updated 01/24/20 @ 11:55 by Roxi Duffy MD) History of liver transplant Hx of insertion of insulin pump Family History Other Colon cancer Diabetes Hypertension Social History Smoking and tobacco status: never smoked Alcohol intake: never Physical Exam Const: COMMON NORMALS: patient oriented x3 and alert GENERAL APPEARANCE: cooperative, in distress and anxious NUTRITIONAL APPEARANCE: obese ORIENTATION/CONSCIOUSNESS: Yes awake HENMT: HEAD & SCALP: normal to inspection FACE & SINUS: normal facial exam Eye: GENERAL EYE: appearance normal, both eyes and all related structures Neck/C-Spine: COMMON NORMALS: supple, no meningeal signs and no JVD Chest: COMMONS NORMALS: normal inspection of the chest Resp: COMMON NORMALS: normal respiratory effort, No use of accessory muscles and clear to auscultation bilaterally AUSCULTATION: clear to auscultation bilaterally Cardio: COMMON NORMALS: no JVD, regular rate, regular rhythm and No murmurs present (Cardio) RATE: regular rate RHYTHM: regular rhythm GI: COMMON NORMALS: Soft to palpation and non-tender INSPECTION: Yes scar (multiple scars consistent with history of liver transplant) AUSCULTATION: Yes normoactive bowel sounds PALPATION: Yes Soft to palpation Back/Pelvis: COMMON NORMALS: thoracic and lumbar spine normal to inspection Extremity: COMMON NORMALS: normal to inspection Neuro: COMMON NORMALS: patient oriented x3, moves all extremities, no focal motor deficits and no sensory deficits noted SENSORIUM/ORIENTATION: Yes alert MENINGEAL SIGNS: Yes no meningeal signs Psych: COMMON NORMALS: mental status grossly normal, cooperative and normal affect Skin: COMMON NORMALS: no rashes or lesions noted and turgor normal GENERAL SKIN EXAM: no rashes or lesions noted and turgor normal Course ED course: Neg CXR, CT, EKG, Troponin. Treated with pain meds, protonix. His pain is reproducible with palpation under his left arm. No lymph nodes present. Will d/c with pain control - and he will follow up with his PCP/transplant doctor in [place]. Vital Signs: Vital signs: Vital Signs Temperature 98.3 F 01/24/20 08:25 Pulse Rate 78 01/24/20 12:07 Respiratory Rate 16 01/24/20 12:07 Blood Pressure 132/73 01/24/20 12:07 Pulse Oximetry 95 01/24/20 12:07 MDM - Chest Pain Lab Data: Labs: Lab Results 01/24/20 01/24/20 01/24/20 Range/Units 07:50 07:50 07:50 WBC 8.5 (4.0-10.0) 10^3/ uL RBC 5.31 H (4.1-5.3) 10^6/u L Hgb 15.4 (11.7-16.6) g/dL Hct 44.2 (42.0-52.0) % MCV 83.2 (80-94) fL MCH 29.0 (28.0-34.0) pg MCHC 34.8 (30.0-36.0) g/dL RDW 13.3 (12.1-15.1) % Plt Count 205 (130-400) 10^3/c mm MPV 9.2 (7.4-10.4) fL Neut % (Auto) 59.2 % Lymph % (Auto) 28.7 % [place] % (Auto) 6.8 % Eos % (Auto) 4.7 % Baso % (Auto) 0.4 % Neut # (Auto) 5.02 (1.8-7.7) 10^3/u L Lymph # (Auto) 2.4 (0.8-4.8) 10^3/u L [place] # (Auto) 0.6 (0.2-0.9) 10^3/u L Eos # (Auto) 0.4 (0.0-0.8) 10^3/u L Baso # (Auto) 0.0 (0.0-0.1) 10^3/u L Nucleated RBC % (a uto) 0 % Nucleated RBCs # 0.0 /100WBC PT 13.00 (12.1-14.9) SECO NDS INR 0.96 (0.8-1.2) Sodium 132 L (136-145) mmol/L Potassium 3.9 (3.5-5.1) mmol/L Chloride 95 L (98-107) mmol/L Carbon Dioxide 25 (22-29) mmol/L Anion Gap 15.9 (5-19) BUN 24 H (8-23) mg/dL Creatinine 0.9 (0.7-1.2) mg/dL GFR Calculation 84.4 L (90-130) mL/min Glucose 339 H (65-115) mg/dL Calculated Osmolal ity 291 (285-295) mOsm/k g Calcium 9.2 (8.5-10.5) mg/dL Total Bilirubin 0.4 (0.15-1.2) mg/dL AST 11 (0-40) U/L ALT 15 (0-41) U/L Alkaline Phosphata se 87 (40-130) IU/L Troponin T Baselin e (0-15) ng/L Troponin T 120 Min [place] (0-15) ng/L Delta Troponin T (0-10) ABS# NT-Pro-B Natriuret Pep 80 (0-125) pg/mL Total Protein 6.8 (6.6-8.7) g/dL Albumin 4.2 (3.5-5.2) g/dL Globulin 2.6 (1.3-4.6) g/dL Lipase 76 H (13-60) U/L 01/24/20 01/24/20 Range/Units 07:50 09:40 WBC (4.0-10.0) 10^3/ uL RBC (4.1-5.3) 10^6/u L Hgb (11.7-16.6) g/dL Hct (42.0-52.0) % MCV (80-94) fL MCH (28.0-34.0) pg MCHC (30.0-36.0) g/dL RDW (12.1-15.1) % Plt Count (130-400) 10^3/c mm MPV (7.4-10.4) fL Neut % (Auto) % Lymph % (Auto) % [place] % (Auto) % Eos % (Auto) % Baso % (Auto) % Neut # (Auto) (1.8-7.7) 10^3/u L Lymph # (Auto) (0.8-4.8) 10^3/u L [place] # (Auto) (0.2-0.9) 10^3/u L Eos # (Auto) (0.0-0.8) 10^3/u L Baso # (Auto) (0.0-0.1) 10^3/u L Nucleated RBC % (a uto) % Nucleated RBCs # /100WBC PT (12.1-14.9) SECO NDS INR (0.8-1.2) Sodium (136-145) mmol/L Potassium (3.5-5.1) mmol/L Chloride (98-107) mmol/L Carbon Dioxide (22-29) mmol/L Anion Gap (5-19) BUN (8-23) mg/dL Creatinine (0.7-1.2) mg/dL GFR Calculation (90-130) mL/min Glucose (65-115) mg/dL Calculated Osmolal ity (285-295) mOsm/k g Calcium (8.5-10.5) mg/dL Total Bilirubin (0.15-1.2) mg/dL AST (0-40) U/L ALT (0-41) U/L Alkaline Phosphata se (40-130) IU/L Troponin T Baselin e 18 H (0-15) ng/L Troponin T 120 Min [place] 17.01 H (0-15) ng/L Delta Troponin T -0.99 L (0-10) ABS# NT-Pro-B Natriuret Pep (0-125) pg/mL Total Protein (6.6-8.7) g/dL Albumin (3.5-5.2) g/dL Globulin (1.3-4.6) g/dL Lipase (13-60) U/L Discharge Plan Discharge Patient Disposition: Home Clinical Impression: History of liver transplant Chest pain Qualifiers: Chest pain type: other chest pain Qualified Code(s): R07.89 - Other chest pain Type 2 diabetes mellitus Qualifiers: Diabetes mellitus residential insulin use: with residential use Condition: Stable Prescriptions: New oxycodone 5 mg tablet 5 mg PO Q4H PRN (Reason: pain) Qty: 14 RF: 0 No Action clotrimazole-betamethasone 1-0.05 % cream 1 applic TOPICAL BID 14 Days Qty: 45 RF: 1 ropinirole 1 mg Tablet 1 mg PO DAILY RF: 0 amlodipine 5 mg Tablet 5 mg PO DAILY RF: 0 gabapentin 300 mg Capsule 300 mg PO QID RF: 0 hydrochlorothiazide 25 mg Tablet 25 mg PO DAILY RF: 0 tacrolimus 1 mg Capsule See Rx Instructions .ROUTE .COMPLEX RF: 0 aspirin 81 mg Tablet,Delayed Release (Dr/Ec) 81 mg PO DAILY Qty: 30 RF: 0 trazodone 50 mg tablet 150 mg PO BEDTIME RF: 0 famotidine 20 mg tablet 20 mg PO DAILY RF: 0 metoprolol tartrate 50 mg tablet 50 mg PO DAILY RF: 0 lisinopril 2.5 mg tablet 2.5 mg PO DAILY RF: 0 omega-3 acid ethyl esters 1 gram capsule 1 g PO TID RF: 0 hydrocodone-acetaminophen 5-325 mg tablet 1 tab PO Q6H PRN (Reason: pain) Qty: 7 RF: 0 Humalog Juwan KwikPen U-100 100 unit/mL Insulin Pen, Half-Unit See Rx Instructions .ROUTE .COMPLEX RF: 0 Discharge Orders: Discharge Order (Routine); Ordered 01/24/20 Ordered By: Roxi Duffy Referrals: Gurpreet Hugo MD [Primary Care Provider] - Discharge Diet: Usual diet Discharge Activity: Resume usual activity Patient Instructions: Thoracic Pain (ED) Activity Restrictions/Additional Instructions: Return to the ED if new or worse pain. Use the pain medicine only as needed for severe pain. Follow up with your transplant doctor in [place]. Coding Level of Care Code ED Apartment Groundskeeper for Smiley Fwd Exam Comprehensive
[2020-01-24] MEDS: ondansetron 2 mg/ML SDV 2 mL 4 MG IVP (08:00)
[2020-01-24] MEDS: morphine 4 mg/mL SDV 1 mL IVP (08:01)
[2020-01-24 08:24] LABS: Basophils % 0.4 %; Eosinophils # 0.4 10^3/uL (0.0-0.8); Eosinophils % 4.7 %; Hematocrit 44.2 % (42.0-52.0); Hemoglobin 15.4 g/dL (11.7-16.6); Lymphocytes # 2.4 10^3/uL (0.8-4.8); Lymphocytes % 28.7 %; Mean Corpuscular HGB Conc 34.8 g/dL (30.0-36.0); Mean Corpuscular Volume 83.2 fL (80-94); Mean Platelet Volume 9.2 fL (7.4-10.4); Monocytes # 0.6 10^3/uL (0.2-0.9); Monocytes % 6.8 %; Neutrophils # 5.02 10^3/uL (1.8-7.7); Neutrophils % 59.2 %; Nucleated Red Blood Cells % 0 %; Platelet Count 205 10^3/cmm (130-400); Red Blood Count 5.31 10^6/uL (4.1-5.3); Red Cell Distribution Width 13.3 % (12.1-15.1); White Blood Count 8.5 10^3/uL (4.0-10.0)
[2020-01-24 08:32] LABS: INR 0.96 (0.8-1.2)
[2020-01-24 08:39] LABS: Troponin(5th) Baseline 18 ng/L (0-15)
[2020-01-24 08:47] LABS: Alanine Aminotransferase 15 U/L (0-41); Albumin Level 4.2 g/dL (3.5-5.2); Alkaline Phosphatase 87 IU/L (40-130); Anion Gap 15.9 (5-19); Aspartate Amino Transferase 11 U/L (0-40); Blood Urea Nitrogen 24 mg/dL (8-23); Calcium 9.2 mg/dL (8.5-10.5); Carbon Dioxide 25 mmol/L (22-29); Chloride 95 mmol/L (98-107); Globulin 2.6 g/dL (1.3-4.6); Glomerular Filtration Rate 84.4 mL/min (90-130); Glucose 339 mg/dL (65-115); Lipase 76 U/L (13-60); NT Pro B Type Natriuretic Pept 80 pg/mL (0-125); Osmolality Calculated 291 mOsm/kg (285-295); Potassium 3.9 mmol/L (3.5-5.1); Sodium 132 mmol/L (136-145); Total Bilirubin 0.4 mg/dL (0.15-1.2); Total Protein 6.8 g/dL (6.6-8.7)
--- NOTE | 2020-01-24 08:51 | CTR_ITS ---
PROCEDURE INFORMATION: Exam: CT Angiography Chest With Contrast Exam date and time: 01/24/2020 8:57 AM Age: 64 years old Clinical indication: Chest pain; Prior surgery; Surgery type: Liver; Additional info: EMILIA Aguero TECHNIQUE: Imaging protocol: Computed tomographic angiography of the chest with intravenous contrast. 3D rendering (Not supervised by radiologist): MIP and/or 3D reconstructed images were created by the technologist. Radiation optimization: All CT scans at this facility use at least one of these dose optimization techniques: automated exposure control; mA and/or kV adjustment per patient size (includes targeted exams where dose is matched to clinical indication); or iterative reconstruction. Contrast material: OMNI 350; Contrast volume: 90 ml; Contrast route: INTRAVENOUS (IV); COMPARISON: CT angio chest PE protcl [id number] 04/07/2019 1:39 AM RADIATION DOSE METRICS: Total DLP (mGy-cm): 614.33 FINDINGS: Pulmonary arteries: Normal. No pulmonary emboli. Aorta: Unremarkable. No aortic aneurysm. No aortic dissection. Lungs: There are several stable tiny noncalcified pulmonary nodules measuring less than 3 mm in diameter. There are consistent with small benign granulomas.. Pleural space: Unremarkable. No pneumothorax. No pleural effusion. Heart: Coronary artery calcification. The heart is not enlarged. Lymph nodes: Unremarkable. No enlarged lymph nodes. Liver: Postsurgical changes in the abdomen consistent with a liver transplant. Gallbladder and bile ducts: Cholecystectomy. Normal bile ducts. Bones/joints: Degenerative disease in the spine with sclerosis and osteophyte formation. Soft tissues: Small midline ventral abdominal hernia containing fat. CT/CT angio chest PE protcl [id number] IMPRESSION: 1. No evidence of pulmonary embolus or aortic dissection. 2. Coronary artery calcification. 3. No acute abnormalities are seen in the chest. Radiation Dose CTDIVOL = (mGy): DLP = 614.33 (mGy-cm)
[2020-01-24] MEDS: iohexol 350 mg/mL 100 mL Btl IV (09:25)
--- NOTE | 2020-01-24 09:47 | ECG_ITS ---
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
--- NOTE | 2020-01-24 09:54 | PC.NURSE ---
troponin pulled and sent to lab
[2020-01-24 10:50] LABS: Troponin 5 2HR 17.01 ng/L (0-15)
[2020-01-24] MEDS: pantoprazole 40 mg SDV IVP (10:57)
[2020-01-24 10:58] LABS: Troponin 5 2HR Delta -0.99 ABS# (0-10)
== END 2020-01-24 12:17 | disposition home or self-care (01) ==
PROVIDERS: Emergency Provider Emergency Medicine; PCP Transplant Surgery
DX: R07.89 Other chest pain (principal); Z94.4 Liver transplant status; Z79.4 Long term (current) use of insulin; Z79.82 Long term (current) use of aspirin; E11.42 Type 2 diabetes mellitus with diabetic polyneuropathy; I10 Essential (primary) hypertension
CPT/HCPCS: 12345; 71045; 71275; 80053; 83690; 83880; 84484; 85025; 85610; 93005; 96374; 96375; 99282; C9113; J2270; J2405; Q9967

== ENCOUNTER 2020-02-09 08:06 | Emergency (ER) | payer MEDICARE, MEDICAID, SELFPAY ==
--- NOTE | 2020-02-09 08:13 | XR_ITS ---
WS: [id number] XR shoulder LT min 2V* [id number] REASON FOR EXAM: pain FINDINGS: Mild joint space narrowing and subchondral sclerosis in the acromioclavicular joint and the glenohume ral joint of the left shoulder. This is unchanged compared to the shoulder on portable chest x-ray . No fracture or other focal bony abnormality. No soft tissue abnormality XR/XR shoulder LT min 2V* [id number] IMPRESSION: Osteoarthropathy, no acute finding.
[2020-02-09 08:18] VITALS: BP 150/87; PULSE 111; RESP 16; TEMP 36.4; O2SAT 97; BMI 35.4
[2020-02-09 08:23] VITALS: BP 135/81; PULSE 102; RESP 18; O2SAT 96
[2020-02-09 08:26] VITALS: PULSE 111; O2SAT 97
--- NOTE | 2020-02-09 08:33 | W.ED.EXTPRO ---
HPI - Extremity Problem General: Chief complaint: Extremity Problem,Nontraumatic Stated complaint: LEFT SHOULDER PAIN Time Seen by Provider: 02/09/20 08:24 History of Present Illness: HPI Narrative: 64-year-old male presents emergency room with complaint of left shoulder pain it radiates up towards the neck to the base of the neck and down into the upper left arm laterally. He was seen with the same complaint on 1128 and given oxycodone. Does not really have any chest pain pain he also seems to radiate around to the mid back on the left just below the tip of the scapula. With palpation in that region and can reproduce. He denies any rash. Denies any shortness of breath or cough. He has a history of a previous liver transplant. He does not have a local doctor he still sees a doctor from transplant team in [place]. Complaint: extremity pain Onset (ago): month(s) Pain Consistency: intermittent Location: left and upper extremity Quality: aching Radiation: distal Relieving factors: immobilization Exacerbating factors: range of motion and palpation Associated symptoms: Reports arthralgias; Deny chest pain, fever(s), myalgias, rash or short of breath Review of Systems Const: Denies: fever(s) ENMT: Denies: throat pain, ear or mastoid pain, nasal discharge or nasal congestion Card: Denies: chest pain Resp: Denies: dyspnea, productive cough or non-productive cough GI: Denies: abdominal pain, nausea, vomiting, hematemesis, coffee ground emesis, diarrhea, constipation, bloating, hematochezia or melena : Denies: flank pain, dysuria, urinary frequency or urinary urgency Skin/Breast: Denies: rash PFSH ED PFSH: Medical History Ynwuv-0-ldnjvrbtsas deficiency Diabetic peripheral neuropathy Hypertension Restless leg syndrome Type 2 diabetes mellitus Surgical History History of liver transplant Hx of insertion of insulin pump Family History Other Colon cancer Diabetes Hypertension Social History Smoking and tobacco status: never smoked Alcohol intake: never Physical Exam Const: COMMON NORMALS: no acute distress GENERAL APPEARANCE: cooperative and comfortable ORIENTATION/CONSCIOUSNESS: Yes awake, Yes oriented to person, Yes oriented to place and Yes oriented to time HENMT: COMMON NORMALS: normocephalic, atraumatic and hearing grossly normal bilaterally HEAD & SCALP: normocephalic and atraumatic Neck/C-Spine: COMMON NORMALS: full ROM, no lymphadenopathy, supple and no JVD Resp: COMMON NORMALS: normal respiratory effort, No retractions, No use of accessory muscles and clear to auscultation bilaterally AUSCULTATION: clear to auscultation bilaterally Cardio: COMMON NORMALS: no JVD, regular rate, regular rhythm and No murmurs present (Cardio) RATE: regular rate RHYTHM: regular rhythm GI: COMMON NORMALS: Soft to palpation and No hepatosplenomegaly present AUSCULTATION: Yes normoactive bowel sounds PALPATION: Yes Soft to palpation, No Tenderness to palpation present (GI), No Guarding due to palpation present (GI) and Yes No hepatosplenomegaly present Extremity: COMMON NORMALS: normal to inspection, capillary refill normal, no clubbing, cyanosis or edema, no calf tenderness and no pedal edema NARRATIVE EXTREMITY EXAM: Pain with range of motion in the arm also pain with palpation of the lower tip of the scapula. There is no rash. Strength and sensation are normal. Mild pain with range of motion in the shoulder. Neuro: SENSORIUM/ORIENTATION: Yes oriented to person, Yes oriented to place and Yes oriented to time Skin: COMMON NORMALS: no rashes or lesions noted GENERAL SKIN EXAM: no rashes or lesions noted Course Vital Signs: Vital signs: Vital Signs Temperature 97.5 F L 02/09/20 08:18 Pulse Rate 107 H 02/09/20 10:18 Respiratory Rate 18 02/09/20 08:23 Blood Pressure 146/87 02/09/20 10:18 Pulse Oximetry 97 02/09/20 10:18 MDM - Extremity (Nontraumatic) MDM Narrative: Medical decision making narrative: Patient has had the symptoms for over extended period time was first seen in April of this year had a normal sestamibi stress test at that time came back again another episode of chest pain is given hydrocodone and then return to shoulder pain was given oxycodone. He only sees a doctor in [place] associated with his transplant team he has not been back to see them since his most recent 2 visits. Discussed that he needs further outpatient work-up with possible injury of his neck and his shoulder. We will go ahead and discharge him home given hydrocodone to use as needed if has any worsening or changes symptoms return. Discharge Plan Discharge Patient Disposition: Home Clinical Impression: Left shoulder pain Condition: Stable Prescriptions: New Medrol (Leonard) 4 mg tablets,dose pack See Rx Instructions .ROUTE .COMPLEX Qty: 21 RF: 0 hydrocodone-acetaminophen 7.5-325 mg tablet 1 tab PO Q6H PRN (Reason: pain) Qty: 14 RF: 0 No Action clotrimazole-betamethasone 1-0.05 % cream 1 applic TOPICAL BID 14 Days Qty: 45 RF: 1 ropinirole 1 mg Tablet 1 mg PO DAILY RF: 0 amlodipine 5 mg Tablet 5 mg PO DAILY RF: 0 gabapentin 300 mg Capsule 300 mg PO QID RF: 0 hydrochlorothiazide 25 mg Tablet 25 mg PO DAILY RF: 0 tacrolimus 1 mg Capsule See Rx Instructions .ROUTE .COMPLEX RF: 0 aspirin 81 mg Tablet,Delayed Release (Dr/Ec) 81 mg PO DAILY Qty: 30 RF: 0 trazodone 50 mg tablet 150 mg PO BEDTIME RF: 0 famotidine 20 mg tablet 20 mg PO DAILY RF: 0 metoprolol tartrate 50 mg tablet 50 mg PO DAILY RF: 0 lisinopril 2.5 mg tablet 2.5 mg PO DAILY RF: 0 omega-3 acid ethyl esters 1 gram capsule 1 g PO TID RF: 0 hydrocodone-acetaminophen 5-325 mg tablet 1 tab PO Q6H PRN (Reason: pain) Qty: 7 RF: 0 oxycodone 5 mg tablet 5 mg PO Q4H PRN (Reason: pain) Qty: 14 RF: 0 Humalog Juwan KwikPen U-100 100 unit/mL Insulin Pen, Half-Unit See Rx Instructions .ROUTE .COMPLEX RF: 0 Discharge Orders: Discharge ED (Routine); Ordered 02/09/20 Ordered By: Junaid Michel Referrals: Gurpreet Hugo MD [Primary Care Provider] - Activity Restrictions/Additional Instructions: Case management will make arrangements for referral to orthopedics. Coding Level of Care Code ED Spinning Frame Tender for Smiley Pena
--- NOTE | 2020-02-09 08:34 | CT_ITS ---
WS: [id number] CT CERVICAL SPINE TECHNIQUE: Noncontrast CT of the cervical spine with coronal and sagittal reformatted images. CLINICAL INFORMATION: pain radiating into the R shoulder COMPARISON: None. DLP: 991.[address] scans at [facility] use at least one of these dose optimization techniques: automat ed exposure control; mA and/or kV adjustment per patient size (includes targeted exams where dose is matched to clinical indication); or iterative reconstruction. FINDINGS: Mild spondylitic changes. Straightening of the normal cervical lordosis. Mild disc space narrowing mi d cervical spine. C2-C3: Osteophytic ridging. Mild left and no significant right foraminal narrowing. Mild left facet a rthropathy. C3-C4: Moderate left and no significant right foraminal narrowing. Moderate left facet arthropathy. S darryl canal is patent. C4-C5: Moderate left facet arthropathy. Spinal canal and foramen are patent. Osteophytic ridging. C5-C6: Severe right and mild left bony foraminal narrowing. Disc osteophytic ridging. Mild facet arth ropathy. Mild central canal stenosis. C6-C7: Disc osteophytic ridging. Moderate right and mild left bony foraminal narrowing. C7-T1: Mild right and no significant left foraminal narrowing. Spinal canal is patent. Visualized posterior nasopharynx: Normal. Prevertebral soft tissues: Normal. CT/CT cervical spin wo con* [id number] IMPRESSION: 1. Mild spondylitic changes straightening of the normal cervical lordosis. 2. Mild central canal stenosis C5-C6 with severe right bony foraminal narrowin g at this level. Recommend correlation for right C6 nerve root symptoms. 3. Otherwise moderate bony foraminal narrowing worse at left C3-C4, and right C6-C7.
--- NOTE | 2020-02-09 08:34 | CT_ITS ---
WS: [id number] NONCONTRAST CT LEFT SHOULDER TECHNIQUE: Noncontrast CT left shoulder with coronal and sagittal reformatted images. CLINICAL INFORMATION: pain COMPARISON: None. DLP: 1788.[address] scans at [facility] use at least one of these dose optimization techniques: automat ed exposure control; mA and/or kV adjustment per patient size (includes targeted exams where dose is matched to clinical indication); or iterative reconstruction. FINDINGS: Mild degenerative arthritis at the AC joint. Mild downsloping of the acromion. Subacromial space is p reserved. Normal glenoid. Normal humeral head. No evidence of acute fracture dislocation. CT/CT shoulder LT wo con* [id number] IMPRESSION: No evidence of acute fracture dislocation.
--- NOTE | 2020-02-09 08:47 | PC.NURSE ---
pt to CT by stretcher with tech
--- NOTE | 2020-02-09 08:57 | PC.NURSE ---
Patient in CT at this time. Verbal order per Dr. Michel to administer solumedrol IM instead of IV due to no IV access at this time.
[2020-02-09] MEDS: HYDROcodone-acetaminophen 5-325 mg Tablet 1 TAB PO (09:02)
--- NOTE | 2020-02-09 09:07 | PC.NURSE ---
Injection given into right gluteal rashid outer quadrant.
[2020-02-09] MEDS: morphine 4 mg/mL SDV 1 mL IM (10:13)
[2020-02-09 10:18] VITALS: BP 146/87; PULSE 107; O2SAT 97
--- NOTE | 2020-02-09 10:24 | DCPLANNER ---
software development project manager was asked to schedule a follow up appointment for patient with ortho. software development project manager called the ortho clinic, spoke with Cori, gave clinic patients information. software development project manager was told that patients information would be printed and reviewed. Clinic will call patient with appointment information.
--- NOTE | 2020-02-10 11:43 | DCPLANNER ---
Patient has a follow up appointment scheduled for Monday, February 17, 2020 at 2:[address] Anders at ortho. Clinic will call patient with appointment information.
--- NOTE | 2020-04-09 13:48 | DCPLANNER ---
Patient had a follow up appointment scheduled for 02.17.20 with ortho - patient did attend appointment.
== END 2020-02-09 10:18 | disposition home or self-care (01) ==
PROVIDERS: Emergency Provider Family Medicine; PCP Transplant Surgery
DX: M25.512 Pain in left shoulder (principal); Z79.82 Long term (current) use of aspirin; Z79.4 Long term (current) use of insulin; E11.42 Type 2 diabetes mellitus with diabetic polyneuropathy; Z94.4 Liver transplant status
CPT/HCPCS: 12345; 72125; 73030; 73200; 96372; 96374; 96375; 99282; 99283; J2270; J2930

== ENCOUNTER 2020-03-22 13:05 | Outpatient (CLI) | payer MEDICARE, MEDICAID, SELFPAY ==
[2020-03-22 13:35] LABS: Add Urine Microscopic? NO
[2020-03-22 13:48] LABS: Basophils % 0.6 %; Eosinophils # 0.2 10^3/uL (0.0-0.8); Eosinophils % 4.4 %; Lymphocytes % 36.5 %; Mean Corpuscular HGB Conc 34.1 g/dL (30.0-36.0); Mean Corpuscular Hemoglobin 29.6 pg (28.0-34.0); Mean Corpuscular Volume 86.7 fL (80-94); Mean Platelet Volume 8.7 fL (7.4-10.4); Monocytes # 0.4 10^3/uL (0.2-0.9); Monocytes % 6.4 %; Neutrophils % 51.5 %; Nucleated Red Blood Cells % 0 %; Platelet Count 220 10^3/cmm (130-400); Red Blood Count 4.73 10^6/uL (4.1-5.3); Red Cell Distribution Width 14.2 % (12.1-15.1); White Blood Count 5.4 10^3/uL (4.0-10.0)
[2020-03-22 14:01] LABS: Specific Gravity, Urine 1.025 (1.005-1.030); Urine Appearance Clear (CLEAR); Urine Color Yellow (Yellow); pH Urine 5 (5-7)
[2020-03-22 14:02] LABS: Bilirubin Urine Neg (Negative); Blood Urine Neg (Negative); Glucose Urine UA Trace (Normal); Ketones Urine Negative (Negative); Leukocyte Esterase Urine Negative (Negative); Nitrate Urine Negative (Negative); Protein Urine Neg (Negative); Urobilinogen Urine 1 mg/dL (Negative)
[2020-03-22 14:09] LABS: Alanine Aminotransferase 14 U/L (0-41); Albumin Level 3.9 g/dL (3.5-5.2); Alkaline Phosphatase 77 IU/L (40-130); Anion Gap 14.8 (5-19); Aspartate Amino Transferase 15 U/L (0-40); Blood Urea Nitrogen 16 mg/dL (8-23); Carbon Dioxide 28 mmol/L (22-29); Chloride 101 mmol/L (98-107); Cholesterol 165 mg/dL (0-200); Globulin 3.1 g/dL (1.3-4.6); Glucose 193 mg/dL (65-115); Magnesium 1.5 mg/dL (1.7-2.3); Osmolality Calculated 296 mOsm/kg (285-295); Phosphorus 3.6 mg/dL (2.5-4.5); Potassium 3.8 mmol/L (3.5-5.1); Sodium 140 mmol/L (136-145); Total Bilirubin 0.4 mg/dL (0.15-1.2); Uric Acid 7.6 mg/dL (3.4-7.0)
[2020-03-22 14:11] LABS: Urine Creatinine 139 mg/dL (39-259)
[2020-03-22 14:12] LABS: UPRO/UCREAT Ratio 0.22 mg/mg CR; Urine Protein Random 30 mg/dL
[2020-03-25 17:05] LABS: BK VIRUS DNA, QN PCR NO DNA DETECTED copies/mL; SOURCE PLASMA
== END 2020-03-22 13:06 | disposition home or self-care (01) ==
PROVIDERS: PCP Transplant Surgery; Visit Provider Transplant Surgery
DX: Z94.0 Kidney transplant status (principal); N39.0 Urinary tract infection, site not specified; Z79.899 Other long term (current) drug therapy
CPT/HCPCS: 36415; 80048; 80076; 80197; 81003; 82465; 82570; 83735; 84100; 84156; 84550; 85025; 87798

== ENCOUNTER 2020-06-16 08:37 | Emergency (ER) | payer MEDICARE, MEDICAID, SELFPAY ==
[2020-06-16 08:59] VITALS: BP 105/71; PULSE 93; RESP 16; TEMP 36.8; O2SAT 96; BMI 35.4
--- NOTE | 2020-06-16 09:20 | CT_ITS ---
WS: [id number] CT ABDOMEN PELVIS TECHNIQUE: Contrast-enhanced CT of the abdomen and pelvis with coronal and sagittal reformatted image s. CLINICAL INFORMATION: right groin abscess. drainage noted on exam. COMPARISON: CT December 08, 2019 DLP: 2621.[address] scans at use at least one of these dose optimization techniques: automat ed exposure control; mA and/or kV adjustment per patient size (includes targeted exams where dose is matched to clinical indication); or iterative reconstruction. FINDINGS:Small amount of soft tissue thickening with induration and cellulitis in the right groin and inguinal crease. No evidence of drainable fluid collection or abscess. A few associated reactive ing uinal lymph nodes. History of prior liver transplant. Splenomegaly. Prior cholecystectomy. Fatty atrophy of the pancreas . Normal portal vein and splenic vein. Normal GE junction. Esophageal varices. Splenomegaly with evid ence of portal hypertension. Small splenules. Trace perisplenic ascites. Lung bases are well aerated. Normal caliber abdominal aorta. Adrenal glands are normal. No hydronephrosis. Normal sigmoid colon. No evidence of small or large bowel obstruction. Moderate to severe central can al stenosis in the lower lumbar spine is unchanged. Left upper abdominal fat-containing ventral wall hernia with hernia mouth measuring 3.7 CM. No hernia [place] bowel. Additional tiny left pericentral fat-containing epigastric hernia. Midline umbilical herni a with adjacent bowel. No evidence of bowel obstruction. CT/CT abdomen pelvis w con* [id number] IMPRESSION: 1. Cellulitis in the right groin inguinal crease. No evidence of drainable abs cess or fluid collection. Mild subcutaneous induration with skin thickening. 2. A few reactive right inguinal lymph nodes. 3. No other significant changes from previous. 4. Prior hepatic transplant with cholecystectomy. 5. Splenomegaly with evidence of portal venous hypertension and esophageal melo ices. 6. Previously described fat-containing epigastric and left ventral abdominal w all hernias are unchanged. Midline umbilical hernia with adjacent bowel is unch anged. No evidence of bowel obstruction.
--- NOTE | 2020-06-16 09:21 | ECG_ITS ---
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 Supervisor: : 1955 Requested By: Jose A Mcgraw Order Number: [id number] Reading MD: MELYSSA BLEDSOE Measurements Intervals [place] Rate: 90 P: 27 AL: 185 QRS: -14 QRSD: 96 T: 28 QT: 326 QTc: 399 Interpretive Statements SINUS RHYTHM WITH SINUS ARRHYTHMIA INFERIOR MYOCARDIAL INFARCTION , PROBABLY OLD [40+ ms Q WAVE AND/OR ST/T ABNORMALITY IN II/aVF] Compared to ECG 01/24/2020 09:59:59 No significant changes Electronically Signed On 06-16-2020 19:22:58 CDT by MELYSSA BLEDSOE [id number]
--- NOTE | 2020-06-16 09:23 | W.ED.SKABFB ---
HPI - Skin/Abscess/Foreign Bdy General: Chief complaint: Skin/Abscess/Foreign Body Stated complaint: POSS CYST ON GROIN Time Seen by Provider: 06/16/20 09:10 History of Present Illness: HPI narrative: The patient is a 65-year-old male with past medical history of liver transplant several years ago and type 2 diabetes on an insulin pump with peripheral neuropathy. He comes to the ER complaining of a right groin cyst that he has been dealing with for the past month he said it is getting worse, more tender, and red. complaint: abscess/boil Onset (ago): day(s) (30) Severity: severe Severity scale (1-10): 10 Quality: sharp Pain Consistency: constant Associated symptoms: Reports no associated symptoms Review of Systems General: Reports: 10 or more systems reviewed and unremarkable except in HPI and below Const: Denies: fatigue Eyes: Denies: change in vision, blurry vision or eye redness ENMT: Denies: throat pain, swelling of lips/tongue, ear or mastoid pain or nasal congestion Card: Denies: chest pain, palpitations, irregular heart rhythm, edema, dyspnea on exertion or orthopnea Resp: Denies: dyspnea, productive cough or non-productive cough GI: Denies: abdominal pain, diarrhea or GI cramping : Denies: flank pain, urinary frequency or urinary urgency Musc: Denies: neck pain, back pain, extremity pain, joint pain, joint redness, limited range of motion or muscle weakness Skin/Breast: Denies: rash, pruritus, erythema, skin pain or skin tenderness Neuro: Denies: headache(s), numbness in extremities, weakness in extremities, sensory changes, difficulty walking, dizziness, confusion or Slurred speech present Psych: Denies: anxiety or depression Endo: Denies: polyuria All/Imm: Denies: urticaria, throat swelling or tongue swelling PFSH ED PFSH: Medical History (Updated 06/16/20 @ 13:00 by Jose A Mcgraw MD) Facjm-0-[id number] deficiency Diabetic peripheral neuropathy Hypertension Restless leg syndrome Type 2 diabetes mellitus Surgical History History of liver transplant Hx of insertion of insulin pump Family History Other Colon cancer Diabetes Hypertension Social History Smoking and tobacco status: never smoked Alcohol intake: never Physical Exam Const: COMMON NORMALS: no acute distress, average body habitus, patient oriented x3, no limitations, healthy appearing, alert and well nourished GENERAL APPEARANCE: cooperative, comfortable, well kempt and well developed ORIENTATION/CONSCIOUSNESS: Yes awake, Yes oriented to person, Yes oriented to place and Yes oriented to time HENMT: COMMON NORMALS: normocephalic, external ears normal and Normal external nose present HEAD & SCALP: normal to inspection and normocephalic NOSE: Normal external nose present EXTERNAL EAR: Yes external ears normal MOUTH: Normal oral and palatal mucosa present THROAT: posterior oropharynx normal Eye: COMMON NORMALS: Equal, round and reactive pupils present and EOMs intact bilaterally GENERAL EYE: appearance normal, both eyes and all related structures PUPIL: Yes Equal, round and reactive pupils present Neck/C-Spine: COMMON NORMALS: full ROM, no lymphadenopathy, no meningeal signs and no JVD GENERAL: Yes normal visual inspection Lymph: LYMPHATIC: no lymphadenopathy noted Chest: COMMONS NORMALS: normal inspection of the chest and normal palpation of entire chest wall Resp: COMMON NORMALS: normal respiratory effort, No retractions, No use of accessory muscles, clear to auscultation bilaterally and percussion normal EFFORT & INSPECTION: Yes able to speak in complete sentences AUSCULTATION: clear to auscultation bilaterally PERCUSSION: percussion normal Cardio: COMMON NORMALS: no JVD, regular rate, regular rhythm, S1 normal heart sound present, S2 normal heart sound present and Peripheral pulses 2+ throughout RATE: regular rate RHYTHM: regular rhythm HEART SOUNDS: S1 normal heart sound present and S2 normal heart sound present PERIPHERAL PULSES: Peripheral pulses 2+ throughout GI: COMMON NORMALS: Normal to inspection, nondistended, normoactive bowel sounds present, Soft to palpation, non-tender and no masses INSPECTION: Yes normal to inspection PALPATION: Yes Soft to palpation : COMMON NORMALS: Yes no CVA tenderness BLADDER/KIDNEY EXAM: Yes no CVA tenderness Back/Pelvis: COMMON NORMALS: no CVA tenderness, thoracic and lumbar spine normal to inspection, no thoracic nor lumbar tenderness and thoraco-lumbar ROM normal Extremity: COMMON NORMALS: normal to inspection, full ROM, capillary refill normal, no joint enlargement and no pedal edema GENERAL: Yes normal exam except as noted Neuro: COMMON NORMALS: patient oriented x3, CN's II-XII intact bilaterally, moves all extremities, no focal motor deficits, no sensory deficits noted and gait normal SENSORIUM/ORIENTATION: Yes alert, Yes oriented to person, Yes oriented to place and Yes oriented to time MENINGEAL SIGNS: Yes no meningeal signs Psych: COMMON NORMALS: mental status grossly normal, Normal thought process present, cooperative, normal affect and speech normal APPEARANCE: Yes well kempt ATTITUDE: Yes calm SPEECH: Yes normal speech THOUGHT PROCESS: Normal thought process present Skin: COMMON NORMALS: no rashes or lesions noted NARRATIVE SKIN EXAM: In between his right testicle in the fold of his leg when the area is spread apart it began to spontaneously drain purulent drainage. Mild surrounding cellulitis seen as well which is also tender. 3 to 5 cm in any direction. The area was locally anesthetized and explored with no significant extra drainage other than the original drainage seen. GENERAL SKIN EXAM: no rashes or lesions noted Procedures Abscess I/D Site: other (Right groin) Side (if applicable): right Local Anesthetic: lidocaine 1% Amount of anesthesia used (mL): 4 Technique: incised with #11 blade Amount of fluid expressed (mL): 0 Irrigation: No Packing used?: none Course Vital Signs: Vital signs: Vital Signs Temperature 98.2 F 06/16/20 08:59 Pulse Rate 91 06/16/20 11:03 Respiratory Rate 20 H 06/16/20 11:03 Blood Pressure 115/76 06/16/20 11:03 Pulse Oximetry 98 06/16/20 11:03 MDM - Skin/Abscess/Foreign Bdy MDM Narrative: Medical decision making narrative: The patient had a small abscess in his right groin which drained spontaneously. I did numb it up and attempt to drain it again with no further discharge. No drain needed for that reason. CT shows nothing significant either except surrounding cellulitis which I do see. He will be discharged home with Bactrim and is to follow-up for wound check Sunday. ER with worsening symptoms at any time Lab Data: Labs: Lab Results 06/16/20 06/16/20 06/16/20 Range/Units 09:20 09:20 09:20 WBC 11.5 H (4.0-10.0) 10^3/ uL RBC 4.62 (4.1-5.3) 10^6/u L Hgb 13.8 (11.7-16.6) g/dL Hct 39.8 L (42.0-52.0) % MCV 86.1 (80-94) fL MCH 29.9 (28.0-34.0) pg MCHC 34.7 (30.0-36.0) g/dL RDW 12.4 (12.1-15.1) % Plt Count 228 (130-400) 10^3/c mm MPV 8.8 (7.4-10.4) fL Neut % (Auto) 75.1 % Lymph % (Auto) 13.8 % Davidson % (Auto) 7.5 % Eos % (Auto) 2.8 % Baso % (Auto) 0.3 % Neut # (Auto) 8.62 H (1.8-7.7) 10^3/u L Lymph # (Auto) 1.6 (0.8-4.8) 10^3/u L Davidson # (Auto) 0.9 (0.2-0.9) 10^3/u L Eos # (Auto) 0.3 (0.0-0.8) 10^3/u L Baso # (Auto) 0.0 (0.0-0.1) 10^3/u L Nucleated RBC % (a uto) 0 % Nucleated RBCs # 0.0 /100WBC Sodium 131 L (136-145) mmol/L Potassium 3.8 (3.5-5.1) mmol/L Chloride 93 L (98-107) mmol/L Carbon Dioxide 28 (22-29) mmol/L Anion Gap 13.8 (5-19) BUN 19 (8-23) mg/dL Creatinine 1.2 (0.7-1.2) mg/dL GFR Calculation 60.4 L (90-130) mL/min Glucose 379 H (65-115) mg/dL Calculated Osmolal ity 290 (285-295) mOsm/k g Lactate 1.3 (0.5-2.2) mmol/L Calcium 8.4 L (8.5-10.5) mg/dL Total Bilirubin 0.7 (0.15-1.2) mg/dL AST 10 (0-40) U/L ALT 10 (0-41) U/L Alkaline Phosphata se 90 (40-130) IU/L NT-Pro-B Natriuret Pep 198 H (0-125) pg/mL Total Protein 7.1 (6.6-8.7) g/dL Albumin 3.9 (3.5-5.2) g/dL Globulin 3.2 (1.3-4.6) g/dL Urine Color (Yellow) Urine Appearance (CLEAR) Urine pH (5-7) Ur Specific Gravit y (1.005-1.030) Urine Protein (Negative) Urine Glucose (UA) (Normal) Urine Ketones (Negative) Urine Blood (Negative) Urine Nitrate (Negative) Urine Bilirubin (Negative) Urine Urobilinogen (Negative) mg/dL Ur Leukocyte Zoey ase (Negative) Urine RBC (0-2) /hpf Urine WBC (0-5) /hpf Ur Squamous Epith Cells (0-5) /hpf Ur Transition Epit h Cell /hpf Amorphous Sediment /hpf Urine Bacteria (NONE) /hpf Hyaline Casts /lpf 06/16/20 Range/Units 11:14 WBC (4.0-10.0) 10^3/ uL RBC (4.1-5.3) 10^6/u L Hgb (11.7-16.6) g/dL Hct (42.0-52.0) % MCV (80-94) fL MCH (28.0-34.0) pg MCHC (30.0-36.0) g/dL RDW (12.1-15.1) % Plt Count (130-400) 10^3/c mm MPV (7.4-10.4) fL Neut % (Auto) % Lymph % (Auto) % Davidson % (Auto) % Eos % (Auto) % Baso % (Auto) % Neut # (Auto) (1.8-7.7) 10^3/u L Lymph # (Auto) (0.8-4.8) 10^3/u L Davidson # (Auto) (0.2-0.9) 10^3/u L Eos # (Auto) (0.0-0.8) 10^3/u L Baso # (Auto) (0.0-0.1) 10^3/u L Nucleated RBC % (a uto) % Nucleated RBCs # /100WBC Sodium (136-145) mmol/L Potassium (3.5-5.1) mmol/L Chloride (98-107) mmol/L Carbon Dioxide (22-29) mmol/L Anion Gap (5-19) BUN (8-23) mg/dL Creatinine (0.7-1.2) mg/dL GFR Calculation (90-130) mL/min Glucose (65-115) mg/dL Calculated Osmolal ity (285-295) mOsm/k g Lactate (0.5-2.2) mmol/L Calcium (8.5-10.5) mg/dL Total Bilirubin (0.15-1.2) mg/dL AST (0-40) U/L ALT (0-41) U/L Alkaline Phosphata se (40-130) IU/L NT-Pro-B Natriuret Pep (0-125) pg/mL Total Protein (6.6-8.7) g/dL Albumin (3.5-5.2) g/dL Globulin (1.3-4.6) g/dL Urine Color Yellow (Yellow) Urine Appearance Hazy A (CLEAR) Urine pH 5 (5-7) Ur Specific Gravit y 1.020 (1.005-1.030) Urine Protein Neg (Negative) Urine Glucose (UA) 4+ H (Normal) Urine Ketones Negative (Negative) Urine Blood Neg (Negative) Urine Nitrate Negative (Negative) Urine Bilirubin Neg (Negative) Urine Urobilinogen 1 H (Negative) mg/dL Ur Leukocyte Zoey ase Negative (Negative) Urine RBC 0-4 H (0-2) /hpf Urine WBC None (0-5) /hpf Ur Squamous Epith Cells 0-4 H (0-5) /hpf Ur Transition Epit h Cell 0-4 /hpf Amorphous Sediment 1+ /hpf Urine Bacteria Trace (NONE) /hpf Hyaline Casts 15-25 H /lpf Discharge Plan Discharge Patient Disposition: Home Clinical Impression: Abscess Condition: Stable Prescriptions: New Bactrim DS 800-160 mg tablet 1 tab PO BID 10 Days Qty: 20 RF: 0 No Action clotrimazole-betamethasone 1-0.05 % cream 1 applic TOPICAL BID 14 Days Qty: 45 RF: 1 oxycodone 5 mg capsule 5 mg PO Q4H PRN (Reason: pain) 7 Days Qty: 40 RF: 0 ropinirole 1 mg Tablet 1 mg PO DAILY RF: 0 amlodipine 5 mg Tablet 5 mg PO DAILY RF: 0 gabapentin 300 mg Capsule 300 mg PO QID RF: 0 hydrochlorothiazide 25 mg Tablet 25 mg PO DAILY RF: 0 tacrolimus 1 mg Capsule See Rx Instructions .ROUTE .COMPLEX RF: 0 aspirin 81 mg Tablet,Delayed Release (Dr/Ec) 81 mg PO DAILY Qty: 30 RF: 0 trazodone 50 mg tablet 150 mg PO BEDTIME RF: 0 famotidine 20 mg tablet 20 mg PO DAILY RF: 0 metoprolol tartrate 50 mg tablet 50 mg PO DAILY RF: 0 lisinopril 2.5 mg tablet 2.5 mg PO DAILY RF: 0 omega-3 acid ethyl esters 1 gram capsule 1 g PO TID RF: 0 hydrocodone-acetaminophen 5-325 mg tablet 1 tab PO Q6H PRN (Reason: pain) Qty: 7 RF: 0 oxycodone 5 mg tablet 5 mg PO Q4H PRN (Reason: pain) Qty: 14 RF: 0 Humalog Juwan KwikPen U-100 100 unit/mL Insulin Pen, Half-Unit See Rx Instructions .ROUTE .COMPLEX RF: 0 Medrol (Leonard) 4 mg tablets,dose pack See Rx Instructions .ROUTE .COMPLEX Qty: 21 RF: 0 hydrocodone-acetaminophen 7.5-325 mg tablet 1 tab PO Q6H PRN (Reason: pain) Qty: 14 RF: 0 Discharge Orders: Discharge ED (Routine); Ordered 06/16/20 Ordered By: Jose A Mcgraw Discharge Diet: Advance as tolerated Discharge Activity: Resume usual activity Patient Instructions: Abscess (ED), Opioid Safety Activity Restrictions/Additional Instructions: You have had a small right groin abscess which is drained spontaneously just by looking at it. CT shows a small surrounding cellulitis. We have given you IV antibiotics in the ER and please fill the Bactrim and take them as directed. Follow-up with a primary care physician Sunday for a wound check and return to the ER with worsening symptoms at any time Coding Level of Care Code ED Community Health Coordinator for Smiley Pena
[2020-06-16 09:35] LABS: Basophils % 0.3 %; Eosinophils # 0.3 10^3/uL (0.0-0.8); Eosinophils % 2.8 %; Hematocrit 39.8 % (42.0-52.0); Hemoglobin 13.8 g/dL (11.7-16.6); Lymphocytes # 1.6 10^3/uL (0.8-4.8); Lymphocytes % 13.8 %; Mean Corpuscular HGB Conc 34.7 g/dL (30.0-36.0); Mean Corpuscular Hemoglobin 29.9 pg (28.0-34.0); Mean Corpuscular Volume 86.1 fL (80-94); Mean Platelet Volume 8.8 fL (7.4-10.4); Monocytes # 0.9 10^3/uL (0.2-0.9); Monocytes % 7.5 %; Neutrophils # 8.62 10^3/uL (1.8-7.7); Neutrophils % 75.1 %; Nucleated Red Blood Cells % 0 %; Platelet Count 228 10^3/cmm (130-400); Red Blood Count 4.62 10^6/uL (4.1-5.3); Red Cell Distribution Width 12.4 % (12.1-15.1); White Blood Count 11.5 10^3/uL (4.0-10.0)
[2020-06-16 09:42] VITALS: RESP 18; O2SAT 97
[2020-06-16] MEDS: morphine 4 mg/mL SDV 1 mL 2 MG IVP (09:42)
[2020-06-16] MEDS: sodium chloride 0.9% 1,000 ML 999 ML IV (09:45)
[2020-06-16] MEDS: vancomycin 1,000 MG in sodium chloride 0.9% 250 ML 250 MG IV (09:45)
[2020-06-16 09:49] VITALS: BP 134/90; PULSE 90; RESP 12; O2SAT 96
[2020-06-16 09:50] LABS: Lactate (Lactic Acid level) 1.3 mmol/L (0.5-2.2)
[2020-06-16 10:02] LABS: Alanine Aminotransferase 10 U/L (0-41); Albumin Level 3.9 g/dL (3.5-5.2); Alkaline Phosphatase 90 IU/L (40-130); Anion Gap 13.8 (5-19); Aspartate Amino Transferase 10 U/L (0-40); Blood Urea Nitrogen 19 mg/dL (8-23); Calcium 8.4 mg/dL (8.5-10.5); Carbon Dioxide 28 mmol/L (22-29); Chloride 93 mmol/L (98-107); Globulin 3.2 g/dL (1.3-4.6); Glomerular Filtration Rate 60.4 mL/min (90-130); Glucose 379 mg/dL (65-115); NT Pro B Type Natriuretic Pept 198 pg/mL (0-125); Osmolality Calculated 290 mOsm/kg (285-295); Potassium 3.8 mmol/L (3.5-5.1); Sodium 131 mmol/L (136-145); Total Bilirubin 0.7 mg/dL (0.15-1.2); Total Protein 7.1 g/dL (6.6-8.7)
[2020-06-16] MEDS: iohexol 300 mg/mL 100 mL Btl IV (10:31)
[2020-06-16 11:03] VITALS: BP 115/76; PULSE 91; RESP 20; O2SAT 98
[2020-06-16 11:30] LABS: Urine Appearance Hazy (CLEAR); Urine Color Yellow (Yellow)
[2020-06-16 11:31] LABS: Add Urine Microscopic? YES; Bilirubin Urine Neg (Negative); Blood Urine Neg (Negative); Glucose Urine UA 4+ (Normal); Ketones Urine Negative (Negative); Leukocyte Esterase Urine Negative (Negative); Nitrate Urine Negative (Negative); Protein Urine Neg (Negative); Urobilinogen Urine 1 mg/dL (Negative); pH Urine 5 (5-7)
[2020-06-16 11:37] LABS: Add Urine Culture? No; Amorphous Sediment Urine 1+ /hpf; Bacteria Urine TRACE /hpf; Hyaline Casts Urine 15-25 /lpf; RBC Urine 0-4 /hpf (0-2); Squamous Epithelial Cell Urine 0-4 /hpf (0-5); Transitional Epi Cells Urine 0-4 /hpf
[2020-06-16 13:04] VITALS: BP 126/75; PULSE 94; RESP 17; O2SAT 97
[2020-06-16 13:25] VITALS: BP 111/61; PULSE 97; RESP 22; O2SAT 97
--- NOTE | 2020-06-17 15:37 | DCPLANNER ---
office services manager had message to speak with patient about getting established with a primary care physician. office services manager spoke with patient, he stated that he would like to get established with a primary care physician, and he would prefer a male. office services manager called [facility], spoke with Cassidy, gave clinic patients information. A follow up appointment was scheduled for June at 1:[address] Lion. office services manager called patient and gave him the appointment information. Patient stated that he would attend appointment.
--- NOTE | 2020-09-13 07:45 | DCPLANNER ---
Patient had a follow up appointment scheduled for 07.01.20 at [facility] with Dr. Lion - patient did not attend appointment.
== END 2020-06-16 13:28 | disposition home or self-care (01) ==
PROVIDERS: Emergency Provider Family Medicine
DX: L02.214 Cutaneous abscess of groin (principal); Z79.82 Long term (current) use of aspirin; Z79.4 Long term (current) use of insulin; E11.42 Type 2 diabetes mellitus with diabetic polyneuropathy; I10 Essential (primary) hypertension; Z94.4 Liver transplant status; Z96.41 Presence of insulin pump (external) (internal)
CPT/HCPCS: 74177; 80053; 81001; 83605; 83880; 85025; 87040; 87070; 93005; 96365; 96375; 99284; J2270; J3370; J7030; J7050; Q9967

== ENCOUNTER 2020-06-19 20:11 | Inpatient (IN) | payer MEDICARE, MEDICAID, SELFPAY ==
[2020-06-19 20:22] VITALS: BP 147/88; PULSE 124; RESP 16; TEMP 36.3; O2SAT 98; BMI 35.4
--- NOTE | 2020-06-19 20:35 | CTR_ITS ---
PROCEDURE INFORMATION: Exam: CT Right Lower Extremity With Contrast; Thigh Exam date and time: 06/19/2020 8:54 PM Age: 65 years old Clinical indication: Cellulitis; Right; Prior surgery; Surgery date: Post-operative (0-2 days); Surgery type: Drainige; Patient HX: Necrotic area R medial thigh just below testicles w foul drainage; Additional info: Cellulitis with abscess, necrosis R prox thigh TECHNIQUE: Imaging protocol: CT of the Right lower extremity with intravenous contrast was performed. Exam focused on the thigh. Radiation optimization: All CT scans at this facility use at least one of these dose optimization techniques: automated exposure control; mA and/or kV adjustment per patient size (includes targeted exams where dose is matched to clinical indication); or iterative reconstruction. Contrast material: OMNI 300; Contrast volume: 95 ml; Contrast route: INTRAVENOUS (IV); COMPARISON: No relevant prior studies available. RADIATION DOSE METRICS: Total DLP (mGy-cm): 1188.92 FINDINGS: Bones/joints: There is a satisfactory appearance of the right total knee arthroplasty. There are moderate degenerative changes in the right sacroiliac joint and hip joint. There is no acute fracture, dislocation or osteomyelitis. Soft tissues: There is thickening of the skin surface and induration of the subcutaneous fat medial right thigh and groin compatible with cellulitis without abscess. There may be a trace amount of subcutaneous gas in the proximal right thigh compatible with recent surgical drainage. Many of the air bubbles appear to be caught along the skin surface between the scrotum and medial thigh. The muscles of the right thigh, groin and pelvis are appropriate in density. No evidence of myositis or necrotizing fasciitis. Reproductive: There are small bilateral hydroceles. CT/CT femur RT w con [id number] IMPRESSION: 1. There is thickening of the skin surface and induration of the subcutaneous fat medial right thigh and groin compatible with cellulitis without abscess. There may be a few air bubbles beneath the skin surface compatible with recent surgical debridement. However, the air bubbles may simply be caught in the skin fold between the scrotum and medial thigh. No evidence of Fornier's disease. 2. The muscles of the right thigh, groin and pelvis are appropriate in density. No evidence of myositis or necrotizing fasciitis. 3. No acute bony abnormality. Radiation Dose CTDIVOL = (mGy): DLP = 1188.92 (mGy-cm)
[2020-06-19 21:02] LABS: Basophils % 0.3 %; Eosinophils # 0.3 10^3/uL (0.0-0.8); Eosinophils % 2.7 %; Hematocrit 39.1 % (42.0-52.0); Hemoglobin 13.7 g/dL (11.7-16.6); Lymphocytes % 20.6 %; Mean Corpuscular Hemoglobin 29.7 pg (28.0-34.0); Mean Corpuscular Volume 84.6 fL (80-94); Mean Platelet Volume 9.5 fL (7.4-10.4); Monocytes # 0.7 10^3/uL (0.2-0.9); Monocytes % 6.6 %; Neutrophils # 6.78 10^3/uL (1.8-7.7); Neutrophils % 69.3 %; Nucleated Red Blood Cells % 0 %; Platelet Count 268 10^3/cmm (130-400); Red Blood Count 4.62 10^6/uL (4.1-5.3); Red Cell Distribution Width 12.2 % (12.1-15.1); White Blood Count 9.8 10^3/uL (4.0-10.0)
[2020-06-19] MEDS: ondansetron 2 mg/ML SDV 2 mL 4 MG IVP ×2 (21:03→23:37)
[2020-06-19] MEDS: morphine 4 mg/mL SDV 1 mL IVP (21:03)
[2020-06-19] MEDS: piperacillin-tazobactam 3.375 GM in sodium chloride 0.9% (plus) 50 ML IV (21:03)
[2020-06-19 21:05] VITALS: BP 135/99; PULSE 121; RESP 18; O2SAT 99
[2020-06-19 21:19] LABS: Alanine Aminotransferase 9 U/L (0-41); Albumin Level 3.3 g/dL (3.5-5.2); Alkaline Phosphatase 96 IU/L (40-130); Aspartate Amino Transferase 12 U/L (0-40); Blood Urea Nitrogen 30 mg/dL (8-23); C Reactive Protein 101.7 mg/L (0.0-4.9); Calcium 8.9 mg/dL (8.5-10.5); Carbon Dioxide 22 mmol/L (22-29); Chloride 97 mmol/L (98-107); Globulin 3.8 g/dL (1.3-4.6); Glomerular Filtration Rate 55.1 mL/min (90-130); Glucose 376 mg/dL (65-115); Osmolality Calculated 302 mOsm/kg (285-295); Sodium 135 mmol/L (136-145); Total Bilirubin 0.3 mg/dL (0.15-1.2); Total Protein 7.1 g/dL (6.6-8.7)
[2020-06-19 21:20] LABS: Lactate (Lactic Acid level) 2.5 mmol/L (0.5-2.2)
[2020-06-19 21:23] LABS: Anion Gap 19.6 (5-19); Potassium 3.6 mmol/L (3.5-5.1)
[2020-06-19] MEDS: iohexol 300 mg/mL 100 mL Btl IV (21:38)
[2020-06-19] MEDS: vancomycin 1,000 MG in sodium chloride 0.9% 250 ML 250 MG IV (21:49)
[2020-06-19 22:00] VITALS: BP 118/87; PULSE 120; O2SAT 95
[2020-06-19 23:00] VITALS: BP 127/86; PULSE 109; RESP 18; O2SAT 93
[2020-06-20] VITALS (13 sets, daily range): BP systolic 103–142; BP diastolic 52–89; PULSE 84–114; RESP 16–18; TEMP 36.7–37.2; O2SAT 92–97
--- NOTE | 2020-06-20 01:28 | W.ED.SKABFB ---
HPI - Skin/Abscess/Foreign Bdy General: Chief complaint: Skin/Abscess/Foreign Body Stated complaint: abcess on leg Time Seen by Provider: 06/19/20 20:28 History of Present Illness: HPI narrative: 65-year-old male who presented 3 days ago to the emergency department for a painful red swollen area to his right upper inner thigh it was incised, with only a small amount of drainage. CT at that point did not reveal an abscess. He was placed on antibiotics. He returns tonight. He has had multiple episodes of vomiting today. He is feeling sick. He notes the rash is worsened to some degree, with some worsening swelling, and drainage is continued which is very pungent in smell. MD complaint: rash and abscess/boil Onset (ago): day(s) Location: RLE (Upper, medial thigh) Severity: moderate Quality: burning, stabbing and aching Relieving factors: none Exacerbating factors: movement Associated symptoms: Reports chills, nausea and vomiting; Deny cough or fever(s) Treatments prior to arrival: antibiotic Review of Systems Const: Reports: chills; Denies: fever(s) Card: Denies: chest pain Resp: Denies: dyspnea or productive cough GI: Reports: nausea and vomiting Neuro: Denies: headache(s) or numbness in extremities PFS ED PFSH: Medical History (Updated 06/20/20 @ 02:31 by Farshad Leon DO) Oevsa-[id number] deficiency Diabetic peripheral neuropathy Hypertension Restless leg syndrome Type 2 diabetes mellitus Surgical History History of liver transplant Hx of insertion of insulin pump Family History Other Colon cancer Diabetes Hypertension Social History Smoking and tobacco status: never smoked Alcohol intake: never Physical Exam Const: COMMON NORMALS: patient oriented x3 and alert GENERAL APPEARANCE: ill appearing HENMT: COMMON NORMALS: normocephalic HEAD & SCALP: normocephalic Eye: COMMON NORMALS: Equal, round and reactive pupils present PUPIL: Yes Equal, round and reactive pupils present Chest: COMMONS NORMALS: normal inspection of the chest Resp: COMMON NORMALS: normal respiratory effort, No use of accessory muscles and clear to auscultation bilaterally AUSCULTATION: clear to auscultation bilaterally Cardio: COMMON NORMALS: regular rate and regular rhythm RATE: regular rate RHYTHM: regular rhythm GI: COMMON NORMALS: Normal to inspection, nondistended, normoactive bowel sounds present, Soft to palpation and non-tender PALPATION: Yes Soft to palpation Neuro: COMMON NORMALS: patient oriented x3 SENSORIUM/ORIENTATION: Yes alert Skin: NARRATIVE SKIN EXAM: Beefy area of erythema upper medial thigh with some skin scalding, and discolored bullous lesions present. No definite fluctuance. No streaking. Palpable inguinal lymph nodes. Course Vital Signs: Vital signs: Vital Signs Temperature 98.2 F 06/20/20 02:27 Pulse Rate 104 H 06/20/20 02:27 Respiratory Rate 18 06/20/20 02:27 Blood Pressure 150/83 06/20/20 02:27 Pulse Oximetry 94 06/20/20 02:27 MDM - Skin/Abscess/Foreign Bdy MDM Narrative: Medical decision making narrative: 65-year-old immunocompromised gentleman with worsening cellulitis, who has been vomiting today. He has failed outpatient therapy. Repeat CT shows no drainable abscess. There is significant cellulitis. No evidence of Jyoti's gangrene, or necrotizing fasciitis by CT. His cellulitis, and skin change, however, is concerning. He will be admitted for IV antibiotic given the fact that he is vomiting. Lab Data: Labs: Lab Results 06/19/20 06/19/20 06/19/20 Range/Units 20:56 20:56 20:56 WBC 9.8 (4.0-10.0) 10^3/ uL RBC 4.62 (4.1-5.3) 10^6/u L Hgb 13.7 (11.7-16.6) g/dL Hct 39.1 L (42.0-52.0) % MCV 84.6 (80-94) fL MCH 29.7 (28.0-34.0) pg MCHC 35.0 (30.0-36.0) g/dL RDW 12.2 (12.1-15.1) % Plt Count 268 (130-400) 10^3/c mm MPV 9.5 (7.4-10.4) fL Neut % (Auto) 69.3 % Lymph % (Auto) 20.6 % [place] % (Auto) 6.6 % Eos % (Auto) 2.7 % Baso % (Auto) 0.3 % Neut # (Auto) 6.78 (1.8-7.7) 10^3/u L Lymph # (Auto) 2.0 (0.8-4.8) 10^3/u L [place] # (Auto) 0.7 (0.2-0.9) 10^3/u L Eos # (Auto) 0.3 (0.0-0.8) 10^3/u L Baso # (Auto) 0.0 (0.0-0.1) 10^3/u L Nucleated RBC % (a uto) 0 % Nucleated RBCs # 0.0 /100WBC Sodium 135 L (136-145) mmol/L Potassium 3.6 (3.5-5.1) mmol/L Chloride 97 L (98-107) mmol/L Carbon Dioxide 22 (22-29) mmol/L Anion Gap 19.6 H (5-19) BUN 30 H (8-23) mg/dL Creatinine 1.3 H (0.7-1.2) mg/dL GFR Calculation 55.1 L (90-130) mL/min Glucose 376 H (65-115) mg/dL Calculated Osmolal ity 302 H (285-295) mOsm/k g Lactate 2.5 H (0.5-2.2) mmol/L Calcium 8.9 (8.5-10.5) mg/dL Total Bilirubin 0.3 (0.15-1.2) mg/dL AST 12 (0-40) U/L ALT 9 (0-41) U/L Alkaline Phosphata se 96 (40-130) IU/L C-Reactive Protein 101.7 H (0.0-4.9) mg/L Total Protein 7.1 (6.6-8.7) g/dL Albumin 3.3 L (3.5-5.2) g/dL Globulin 3.8 (1.3-4.6) g/dL Discharge Plan Discharge Patient Disposition: Home Clinical Impression: Cellulitis Qualifiers: Site of cellulitis: extremity Site of cellulitis of extremity: lower extremity Laterality: right Qualified Code(s): L03.115 - Cellulitis of right lower limb Condition: Stable Coding Level of Care Code ED Director Statistical Programming for Chg Fwd Exam Detailed
--- NOTE | 2020-06-20 01:49 | P.HP_ITS ---
Providers/Chief Complaint Admitting Physician: Abraham Harley Chief Complaint: abcess on leg History of Present Illness Titus Fatima Sr is a 65 year old male with past medical history of alpha antitrypsin deficiency, liver transplant, immunosuppressive therapy, diabetes, hypertension, peripheral neuropathy, restless leg syndrome who was seen in emergency room about 3 days ago with complaints of right inner thigh swelling and redness. I&D was done in the emergency room and the patient was sent home. However he comes back with complaints of persistent swelling and unhealing wound. He reports fever and reports feeling very ill. He reports associated nausea, vomiting and multiple episodes of watery diarrhea. He denies abdominal pain. Denies chest pain, shortness of breath,palpitation. Reports cough. Review of Systems General: Reports: 10 or more systems reviewed and unremarkable except in HPI and below Medications/Allergies Home Medications Medication Instructions Recorded Confirmed Last Taken Type amlodipine 5 mg PO DAILY 04/07/19 02/11/20 01/23/20 History aspirin 81 mg PO DAILY #30 tab 04/07/19 02/11/20 01/23/20 Rx gabapentin 300 mg PO QID 04/07/19 02/11/20 01/23/20 History hydrochlorothiazide 25 mg PO DAILY 04/07/19 02/11/20 01/23/20 History ropinirole 1 mg PO DAILY 04/07/19 02/11/20 01/23/20 History tacrolimus See Rx Instructions .ROUTE .COMPLEX 04/07/19 02/11/20 01/23/20 History clotrimazole-betamethasone 1 1 applic TOPICAL BID 14 Days #45 gm 10/15/19 02/11/20 Unknown Rx %-0.05 % topical cream famotidine 20 mg PO DAILY 11/27/19 02/11/20 01/23/20 History hydrocodone-acetaminophen 1 tab PO Q6H PRN #7 tab 11/27/19 02/11/20 Unknown Rx lisinopril 2.5 mg PO DAILY 11/27/19 02/11/20 01/23/20 History metoprolol tartrate 50 mg PO DAILY 11/27/19 02/11/20 01/23/20 History omega-3 acid ethyl esters 1 g PO TID 11/27/19 02/11/20 01/23/20 History trazodone 150 mg PO BEDTIME 11/27/19 02/11/20 01/23/20 History insulin lispro [Humalog Juwan See Rx Instructions .ROUTE .COMPLEX 01/24/20 02/11/20 01/24/20 History KwikPen U-100] oxycodone 5 mg PO Q4H PRN #14 tab 01/24/20 02/11/20 Unknown Rx hydrocodone-acetaminophen 1 tab PO Q6H PRN #14 tab 02/09/20 02/11/20 Unknown Rx methylprednisolone [Medrol (Leonard)] See Rx Instructions .ROUTE 02/09/20 02/11/20 Unknown Rx .COMPLEX #21 each oxycodone 5 mg capsule 5 mg PO Q4H PRN 7 Days #40 cap 02/11/20 02/11/20 Unknown Rx sulfamethoxazole-trimethoprim 1 tab PO BID 10 Days #20 tab 06/16/20 Unknown Rx [Bactrim DS] Allergies Allergy/AdvReac Type Severity Reaction Status Date / Time No Known Allergies Allergy Verified 06/16/20 09:07 PFSH Acute PFSH: Medical History (Updated 06/16/20 @ 13:00 by Jose A Mcgraw MD) Fwesq-3-jkiqmndtyuk deficiency Diabetic peripheral neuropathy Hypertension Restless leg syndrome Type 2 diabetes mellitus Surgical History History of liver transplant Hx of insertion of insulin pump Family History Other Colon cancer Diabetes Hypertension Social History Smoking and tobacco status: never smoked Alcohol intake: never Vitals/I&O/Wt Last Vital Signs Temp 97.4 F L 06/19/20 20:22 Pulse 121 H 06/19/20 21:05 Resp 18 06/19/20 21:05 BP 135/99 06/19/20 21:05 Pulse Ox 99 06/19/20 21:05 06/19/20 06/19/20 06/20/20 14:59 22:59 06:59 Intake Total 50 / 50 Balance 50 / 50 Weight last 48 hrs Weight 108.862 kg Physical Exam Narrative: EXAM NARRATIVE: Patient is awake alert and oriented. Mild distress secondary t0 nausea and tenderness. Normal speech. Mood and affect are appropriate. Responses are adequate. Skin is warm and dry. Moist mucous membranes Eyes PERRL, extraocular muscles are intact Neck supple. No JVD Lungs are clear. No respiratory distress Heart S1, S2, regular Abdomen obese, soft, nontender, bowel sounds are present Extremities large area of cellulitis in the right inner thigh close to groin with round wound covered with dark eschar. No active discharge or bleeding. No peripheral cyanosis or calf tenderness bilaterally No focal weakness. Data : 06/19/20 20:56 06/19/20 20:56 Other Labs: Laboratory Results WBC 9.8 10^3/uL (4.0-10.0) 06/19/20 20:56 RBC 4.62 10^6/uL (4.1-5.3) 06/19/20 20:56 Hgb 13.7 g/dL (11.7-16.6) 06/19/20 20:56 Hct 39.1 % (42.0-52.0) L 06/19/20 20:56 MCV 84.6 fL (80-94) 06/19/20 20:56 MCH 29.7 pg (28.0-34.0) 06/19/20 20:56 MCHC 35.0 g/dL (30.0-36.0) 06/19/20 20:56 RDW 12.2 % (12.1-15.1) 06/19/20 20:56 Plt Count 268 10^3/cmm (130-400) 06/19/20 20:56 MPV 9.5 fL (7.4-10.4) 06/19/20 20:56 Neut % (Auto) 69.3 % 06/19/20 20:56 Lymph % (Auto) 20.6 % 06/19/20 20:56 [place] % (Auto) 6.6 % 06/19/20 20:56 Eos % (Auto) 2.7 % 06/19/20 20:56 Baso % (Auto) 0.3 % 06/19/20 20:56 Neut # (Auto) 6.78 10^3/uL (1.8-7.7) 06/19/20 20:56 Lymph # (Auto) 2.0 10^3/uL (0.8-4.8) 06/19/20 20:56 [place] # (Auto) 0.7 10^3/uL (0.2-0.9) 06/19/20 20:56 Eos # (Auto) 0.3 10^3/uL (0.0-0.8) 06/19/20 20:56 Baso # (Auto) 0.0 10^3/uL (0.0-0.1) 06/19/20 20:56 Nucleated RBC % (auto) 0 % 06/19/20 20:56 Nucleated RBCs # 0.0 /100WBC 06/19/20 20:56 Sodium 135 mmol/L (136-145) L 06/19/20 20:56 Potassium 3.6 mmol/L (3.5-5.1) 06/19/20 20:56 Chloride 97 mmol/L (98-107) L 06/19/20 20:56 Carbon Dioxide 22 mmol/L (22-29) 06/19/20 20:56 Anion Gap 19.6 (5-19) H 06/19/20 20:56 BUN 30 mg/dL (8-23) H 06/19/20 20:56 Creatinine 1.3 mg/dL (0.7-1.2) H 06/19/20 20:56 GFR Calculation 55.1 mL/min (90-130) L 06/19/20 20:56 Glucose 376 mg/dL (65-115) H 06/19/20 20:56 Calculated Osmolality 302 mOsm/kg (285-295) H 06/19/20 20:56 Lactate 2.5 mmol/L (0.5-2.2) H 06/19/20 20:56 Calcium 8.9 mg/dL (8.5-10.5) 06/19/20 20:56 Total Bilirubin 0.3 mg/dL (0.15-1.2) 06/19/20 20:56 AST 12 U/L (0-40) 06/19/20 20:56 ALT 9 U/L (0-41) 06/19/20 20:56 Alkaline Phosphatase 96 IU/L (40-130) 06/19/20 20:56 C-Reactive Protein 101.7 mg/L (0.0-4.9) H 06/19/20 20:56 Total Protein 7.1 g/dL (6.6-8.7) 06/19/20 20:56 Albumin 3.3 g/dL (3.5-5.2) L 06/19/20 20:56 Globulin 3.8 g/dL (1.3-4.6) 06/19/20 20:[address] 06/19/20 20:35 IMPRESSION: 1. There is thickening of the skin surface and induration of the subcutaneous fat medial right thigh and groin compatible with cellulitis without abscess. There may be a few air bubbles beneath the skin surface compatible with recent surgical debridement. However, the air bubbles may simply be caught in the skin fold between the scrotum and medial thigh. No evidence of Fornier's disease. 2. The muscles of the right thigh, groin and pelvis are appropriate in density. No evidence of myositis or necrotizing fasciitis. 3. No acute bony abnormality. Radiation Dose CTDIVOL = (mGy): DLP = 1188.92 (mGy-cm) A&P Additional A&P Information Titus Fatima Sr is a 65 year old male with past medical history of alpha antitrypsin deficiency, liver transplant, immunosuppressive therapy, diabetes, hypertension, peripheral neuropathy, restless leg syndrome who was seen in emergency room about 3 days ago with complaints of right inner thigh swelling and redness. I&D was done in the emergency room and the patient was sent home. However he comes back with complaints of persistent swelling and unhealing wound. Right inner thigh/groin cellulitis and wound. CT was negative for an abscess. However probably the patient will need to be evaluated by a surgeon for add itional I&D of the wound. Please call surgery consult in the morning. For now we will start the patient on vancomycin, Zosyn, fluconazole. Will order blood cultures. Severe sepsis secondary to above. Continue IV fluids. Continue monitoring and replacing electrolytes. Mild acute kidney injury secondary to sepsis. Will hydrate and monitor renal function. Will try to avoid nephrotoxic medications. Uncontrolled hyperglycemia/insulin-dependent diabetes. He has an insulin pump. We will continue his pump. He gives himself additional boluses depending on blood sugar level. We will check his A1c level. Diarrhea. He has been on antibiotics since his presentation to ER several days ago. We will check his stool for C. difficile. We will continue hydration and replacement of electrolytes. Hyponatremia probably secondary to above. History of liver transplant. We will continue his home medications. Will check tacrolimus level. Hypertension. Currently well controlled. We will continue his home medications with some changes. DVT prophylaxis. Lovenox. CODE STATUS. The patient wants to be full code. The plan of care was discussed with the patient. He verbalized understanding and agreement. Attestations Medical Necessity Statement*: Based on my assessment of patient's condition and presenting problems he will require more than 2 midnights in the hospital. Coding Level of Care Code Acute [employer] for Smiley Pena
--- NOTE | 2020-06-20 01:52 | XRR_ITS ---
PROCEDURE INFORMATION: Exam: XR Chest Exam date and time: 06/20/2020 1:52 AM Age: 65 years old Clinical indication: Cough TECHNIQUE: Imaging protocol: XR of the chest. Views: 1 view. COMPARISON: CR XR chest 1V portable [id number] 01/24/2020 8:09 AM FINDINGS: Lungs: No pneumonia or pulmonary edema. Pleural spaces: No pleural effusion or pneumothorax. Heart/Mediastinum: The cardiac silhouette is not enlarged. The mediastinal contours are normal. Bones/joints: There are multilevel bridging osteophytes in the spine. XR/XR chest 1V portable [id number] IMPRESSION: No acute abnormality.
[2020-06-20] MEDS: sodium chlor 0.9% + KCl 20 mEq 20 MEQ/1,000 ML BAG 100 MEQ IV (02:47)
[2020-06-20] MEDS: vancomycin 1,000 MG in sodium chloride 0.9% 250 ML 250 MG IV (02:47)
[2020-06-20] MEDS: fluconazole premix 200 MG/100 ML PREMIX 100 MG IV (02:48)
[2020-06-20] MEDS: enoxaparin 40 mg/0.4 mL Syringe SUBCUT (02:50)
[2020-06-20] MEDS: ondansetron 2 mg/ML SDV 2 mL 4 MG IVP (02:54)
[2020-06-20 03:22] LABS: Glucose Point of Care 150 mg/dL (70-110)
[2020-06-20] MEDS: piperacillin-tazobactam 3.375 GM in sodium chloride 0.9% (plus) 50 ML IV ×3 (05:50→22:21)
[2020-06-20] MEDS: oxyCODONE 5 mg IR Tab/Cap PO ×3 (05:51→22:10)
[2020-06-20 09:09] LABS: Estmated Average Glucose 217; Hemoglobin A1C 9.2 % (4.0-6.0)
[2020-06-20] MEDS: tacrolimus 0.5 mg Capsule 2 MG PO (09:54)
[2020-06-20] MEDS: aspirin 81 mg EC Tablet PO (09:58)
[2020-06-20] MEDS: ropinirole 1 mg Tablet PO (09:58)
[2020-06-20] MEDS: famotidine 20 mg Tablet PO (09:58)
[2020-06-20] MEDS: metoprolol tartrate 50 mg Tablet PO (09:58)
[2020-06-20] MEDS: lisinopril 2.5 mg Tablet PO (09:58)
[2020-06-20] MEDS: gabapentin 300 mg Capsule PO ×4 (09:58→22:03)
--- NOTE | 2020-06-20 10:14 | PC.PHAR ---
pt states he has a nurse set up his medications from [facility] today to get med list-pt states he knows what medications he takes-[facility] not open to get med list from-pt verified medications and went by external med history-notes are made on each rx in the pharmacy comments-pt states he only takes 2mg in the am and 1mg in pm of his tacrollimus-ext med history shows last filled on 05/25/20 30d/s for 2 cap bid-pt states he takes 50,000 units of vit d q30d that medication doesnt pull up on ext med history
--- NOTE | 2020-06-20 11:31 | P.PN_ITS ---
Subjective Subjective: Interval history: Patient was examined this morning, he is complaining of irritation, and drainage from the right inner thigh, no fevers, no chills, no nausea, no vomiting Vitals/I&O/Wt Last Vital Signs Temp 98.9 F 06/20/20 11:18 Pulse 88 06/20/20 11:18 Resp 18 06/20/20 11:18 BP 123/69 06/20/20 11:18 Pulse Ox 93 06/20/20 11:18 06/19/20 06/20/20 06/20/20 22:59 06:59 14:59 Intake Total 50 / 50 600 / 650 170 / 170 Output Total 400 / 400 Balance 50 / 50 200 / 250 170 / 170 Weight last 48 hrs Weight 108.862 kg Physical Exam Const: COMMON NORMALS: no acute distress and patient oriented x3 HENMT: COMMON NORMALS: normocephalic HEAD & SCALP: normocephalic Neck/C-Spine: COMMON NORMALS: no JVD Resp: COMMON NORMALS: normal respiratory effort, No retractions, No use of accessory muscles and clear to auscultation bilaterally AUSCULTATION: clear to auscultation bilaterally Cardio: COMMON NORMALS: no JVD, regular rate, regular rhythm, S1 normal heart sound present and S2 normal heart sound present RATE: regular rate RHYTHM: regular rhythm HEART SOUNDS: S1 normal heart sound present and S2 normal heart sound present GI: COMMON NORMALS: Normal to inspection, nondistended, normoactive bowel sounds present, Soft to palpation, non-tender, No hepatosplenomegaly present, no masses and no bruits PALPATION: Yes Soft to palpation and Yes No hepatosplenomegaly present Extremity: COMMON NORMALS: no calf tenderness and no pedal edema NARRATIVE EXTREMITY EXAM: Right inner thigh, area of erythema measuring 3 x 4 cm, with area of induration, and drainage Neuro: COMMON NORMALS: patient oriented x3 Psych: COMMON NORMALS: mental status grossly normal Data : 06/19/20 20:56 06/19/20 20:56 Micro: Microbiology 06/20/20 06:20 Blood Culture - Preliminary Blood SPECIMEN COLLECTED 06/20/20 06:18 Blood Culture - Preliminary Blood SPECIMEN COLLECTED A&P Assessment and plan (1) Cellulitis: -Right inner thigh cellulitis, wound, with concerns for packable abscess -Although CT scan was negative for an abscess -With sepsis, DEAN, hyponatremia -History of immunocompromise state Plan: -Currently on vancomycin, Zosyn, fluconazole -Continue IV fluids -Follow blood cultures -Monitor for fevers, monitor hemodynamics -General surgery on consult for debridement, possible packing Status: Acute Qualifiers: Laterality: right Site of cellulitis: extremity Site of cellulitis of extremity: lower extremity Qualified Code(s): L03.115 - Cellulitis of right lower limb (2) Abscess: Status: Acute (3) Sepsis: Status: Acute (4) Aloju-0-znlgqwuchlm deficiency: Status: Acute (5) Diabetic peripheral neuropathy: Status: Acute (6) Restless leg syndrome: Status: Acute (7) Hypertension: Status: Acute (8) Type 2 diabetes mellitus: -Has insulin pump -Gives himself boluses depending on blood sugar level -A1c 9.2 Status: Acute Qualifiers: Diabetes mellitus buttermaker continuous churn insulin use: with snf use (9) Hx of insertion of insulin pump: Status: Acute (10) History of liver transplant: Status: Acute (11) DEAN (acute kidney injury): Status: Acute Additional A&P Information Titus Fatima Sr is a 65 year old male with past medical history of alpha antitrypsin deficiency, liver transplant, immunosuppressive therapy, diabetes, hypertension, peripheral neuropathy, restless leg syndrome who was seen in emergency room about 3 days ago with complaints of right inner thigh swelling and redness. I&D was done in the emergency room and the patient was sent home. However he comes back with complaints of persistent swelling and unhealing wound. Uncontrolled hyperglycemia/insulin-dependent diabetes. He has an insulin pump. We will continue his pump. He gives himself additional boluses depending on blood sugar level. Diarrhea. He has been on antibiotics since his presentation to ER several days ago. We will check his stool for C. difficile. We will continue hydration and replacement of electrolytes. History of liver transplant. We will continue his home medications. Will check tacrolimus level. Hypertension. Currently well controlled. We will continue his home medications with some changes. DVT prophylaxis. Lovenox. CODE STATUS. The patient wants to be full code. The plan of care was discussed with the patient. He verbalized understanding and agreement. Attestations Medical Necessity Statement*: Patient requires hospitalization, inpatient, for cellulitis and abscess of right inner thigh, with immunocompromise state, requiring surgical intervention Coding Level of Care Code Acute Bat Carrier for Chg Fwd Diagnoses Cellulitis L03.115 Laterality: right Site of cellulitis: extremity Site of cellulitis of extremity: lower extremity Abscess L02.91 Sepsis A41.9 Unvcv-3-qfrinxcqslg deficiency E88.01 Diabetic peripheral neuropathy E11.42 Restless leg syndrome G25.81 Hypertension I10 Type 2 diabetes mellitus E11.9 Diabetes mellitus snf insulin use: with buttermaker continuous churn use Hx of insertion of insulin pump Z92.89 History of liver transplant Z94.4 DEAN (acute kidney injury) N17.9
--- NOTE | 2020-06-20 14:07 | PM.CONSULT ---
Providers/Reason For Consult Consulting Physican/Specialty*: Sukhjinder Pan MD Reason for Consult*: Right thigh wound Attending Physician: Sukhjinder Pan MD History of Present Illness History of Present Illness Titus Fatima Sr is a 65 year old male who presented to the ER last night with complaints of pain redness and swelling in the right thigh over the last 3 days. Patient is a diabetic who has an insulin pump. He states that he had a boil in that area for many months and never had any problems until 3 days ago. He denies any fevers or chills. Patient denies any drainage. Denies any history of trauma or insect bites. I&D was attempted in the ER. Review of Systems General: Reports: 10 or more systems reviewed and unremarkable except in HPI and below Meds/Allergies Home Medications and Allergies Home Medications Medication Instructions Recorded Confirmed Last Taken Type amlodipine 5 mg PO DAILY 04/07/19 06/20/20 01/23/20 History aspirin 81 mg PO DAILY #30 tab 04/07/19 06/20/20 01/23/20 Rx gabapentin 300 mg PO QID 04/07/19 06/20/20 01/23/20 History hydrochlorothiazide 25 mg PO DAILY 04/07/19 06/20/20 01/23/20 History tacrolimus See Rx Instructions .ROUTE .COMPLEX 04/07/19 06/20/20 06/19/20 History famotidine 20 mg PO DAILY 11/27/19 06/20/20 01/23/20 History lisinopril 2.5 mg PO DAILY 11/27/19 06/20/20 01/23/20 History metoprolol tartrate 50 mg PO DAILY 11/27/19 06/20/20 01/23/20 History omega-3 acid ethyl esters 1 g PO DAILY 11/27/19 06/20/20 01/23/20 History trazodone 150 mg PO BEDTIME 11/27/19 06/20/20 01/23/20 History sulfamethoxazole-trimethoprim 1 tab PO BID 10 Days #20 tab 06/16/20 06/20/20 06/19/20 Rx [Bactrim DS] Vitamin B-12 1 tab PO DAILY 06/20/20 06/20/20 Unknown History acetaminophen [Tylenol Extra 1,000 mg PO PRN 06/20/20 06/20/20 Unknown History Strength] ergocalciferol (vitamin D2) 50,000 unit PO Q30D 06/20/20 06/20/20 Unknown History [Vitamin D2] insulin lispro [Humalog U-100 See Rx Instructions .ROUTE .COMPLEX 06/20/20 06/20/20 Unknown History Insulin] ketorolac See Rx Instructions .ROUTE .COMPLEX 06/20/20 06/20/20 Unknown History prednisolone acetate See Rx Instructions .ROUTE .COMPLEX 06/20/20 06/20/20 Unknown History ropinirole 0.5 mg PO DAILY 06/20/20 06/20/20 Unknown History Allergies Allergy/AdvReac Type Severity Reaction Status Date / Time No Known Allergies Allergy Verified 06/20/20 10:14 Current Medications Current Medications Generic Name Dose Route Start Last Admin Trade Name Freq PRN Reason Stop Dose Admin Aspirin 81 mg 06/20/20 09:00 06/20/20 09:58 Aspirin 81 Mg Ec Tablet PO 81 mg DAILY NIDA Administration Enoxaparin Sodium 40 mg 06/20/20 02:00 06/20/20 02:50 Enoxaparin 40 Mg/0.4 Ml Syringe SUBCUT 40 mg Q24H NIDA Administration Famotidine 20 mg 06/20/20 09:00 06/20/20 09:58 Famotidine 20 Mg Tablet PO 20 mg DAILY NIDA Administration Gabapentin 300 mg 06/20/20 09:00 06/20/20 13:17 Gabapentin 300 Mg Capsule PO 300 mg QID NIDA Administration Potassium Chloride/Sodium Chloride 20 meq in 1,000 mls @ 100 mls/hr 06/20/20 01:45 06/20/20 02:47 Sodium Chlor 0.9% + Kcl 20 Meq IV 100 mls/hr .Q10H NIDA Administration Piperacillin Sod/Tazobactam 50 mls @ 12.5 mls/hr 06/20/20 05:00 06/20/20 13:13 Sod 3.375 gm/ Sodium Chloride IV 12.5 mls/hr Q8H NIDA Administration Protocol Fluconazole 200 mg in 100 mls @ 100 mls/hr 06/20/20 02:30 06/20/20 03:53 Diflucan Premix IV Infused Q24H NIDA Infusion Lisinopril 2.5 mg 06/20/20 09:00 06/20/20 09:58 Lisinopril 2.5 Mg Tablet PO 2.5 mg DAILY NIDA Administration Metoprolol Tartrate 50 mg 06/20/20 09:00 06/20/20 09:58 Metoprolol Tartrate 50 Mg Tablet PO 50 mg DAILY NIDA Administration Ondansetron HCl 4 mg 06/20/20 01:41 06/20/20 02:54 Ondansetron 2 Mg/Ml Sdv 2 Ml IVP 4 mg Q6H PRN Administration vomiting, or N/V if npo Oxycodone HCl 5 mg 06/20/20 03:36 06/20/20 05:51 Oxycodone 5 Mg Ir Tab/Cap PO 5 mg Q4H PRN Administration PAIN Ropinirole HCl 1 mg 06/20/20 09:00 06/20/20 09:58 Ropinirole 1 Mg Tablet PO 1 mg DAILY NIDA Administration Tacrolimus 2 mg 06/20/20 09:00 06/20/20 09:54 Tacrolimus 0.5 Mg Capsule PO 2 mg DAILY NIDA Administration PFSH Acute PFSH: Medical History [id number] deficiency Diabetic peripheral neuropathy Hypertension Restless leg syndrome Type 2 diabetes mellitus Surgical History History of liver transplant Hx of insertion of insulin pump Family History Other Colon cancer Diabetes Hypertension Social History Smoking and tobacco status: never smoked Alcohol intake: never Vitals/I&O/Wt Last Vital Signs Temp 98.9 F 06/20/20 11:18 Pulse 88 06/20/20 11:18 Resp 18 06/20/20 11:18 BP 123/69 06/20/20 11:18 Pulse Ox 93 06/20/20 11:18 06/19/20 06/20/20 06/20/20 22:59 06:59 14:59 Intake Total 50 / 650 600 / 650 170 / 170 Output Total 400 / 400 Balance 50 / 250 200 / 250 170 / 170 Weight last 48 hrs Weight 240 lb Physical Exam Narrative: EXAM NARRATIVE: HEENT: Normocephalic Eye: Sclera /conjunctiva normal Abdomen: Soft to palpation Neurological: Oriented to place person and time Skin: Intact, 7x 4 cm scar on the medial aspect of the right thigh, surrounding erythema present, fluctuance present underneath the eschar Data Micro: Micro: Microbiology 06/20/20 06:20 Blood Culture - Pr eliminary Blood SPECIMEN [facility] 06/20/20 06:18 Blood Culture - Pr eliminary Blood SPECIMEN [facility] A&P Assessment and plan (1) Abscess: 65-year-old male with abscess/eschar on the medial aspect of the right thigh. His WBC is 9.8. Discussed treatment options with the patient Plan for excisional debridement of right thigh wound under MAC tomorrow N.p.o. after midnight Continue IV antibiotics Patient will need follow-up in wound care since he is an insulin-dependent diabetic Status: Acute Coding Level of Care Code Acute Networking Technician for Smiley Pena Diagnoses Abscess L02.91
[2020-06-20] MEDS: tacrolimus 0.5 mg Capsule 1 MG PO (17:17)
[2020-06-20] MEDS: trazodone 50 mg Tablet 150 MG PO (22:03)
[2020-06-21] VITALS (10 sets, daily range): BP systolic 97–149; BP diastolic 64–81; PULSE 72–95; RESP 14–17; TEMP 36.3–36.8; O2SAT 92–98
[2020-06-21] MEDS: enoxaparin 40 mg/0.4 mL Syringe SUBCUT (01:51)
[2020-06-21] MEDS: fluconazole premix 200 MG/100 ML PREMIX 100 MG IV (01:51)
[2020-06-21] MEDS: sodium chlor 0.9% + KCl 20 mEq 20 MEQ/1,000 ML BAG 100 MEQ IV (05:43)
[2020-06-21] MEDS: piperacillin-tazobactam 3.375 GM in sodium chloride 0.9% (plus) 50 ML IV ×2 (05:43→13:07)
[2020-06-21 05:55] LABS: Basophils % 0.4 %; Eosinophils # 0.4 10^3/uL (0.0-0.8); Eosinophils % 6.5 %; Hematocrit 35.3 % (42.0-52.0); Hemoglobin 11.8 g/dL (11.7-16.6); Lymphocytes # 1.4 10^3/uL (0.8-4.8); Mean Corpuscular HGB Conc 33.4 g/dL (30.0-36.0); Mean Corpuscular Hemoglobin 29.4 pg (28.0-34.0); Monocytes # 0.6 10^3/uL (0.2-0.9); Monocytes % 8.8 %; Neutrophils % 62.4 %; Nucleated Red Blood Cells % 0 %; Platelet Count 244 10^3/cmm (130-400); Red Blood Count 4.01 10^6/uL (4.1-5.3); Red Cell Distribution Width 12.3 % (12.1-15.1); White Blood Count 6.7 10^3/uL (4.0-10.0)
[2020-06-21 06:26] LABS: Procalcitonin 0.15 ng/mL (0-0.5)
[2020-06-21 06:37] LABS: Anion Gap 14.5 (5-19); Blood Urea Nitrogen 12 mg/dL (8-23); C Reactive Protein 42.8 mg/L (0.0-4.9); Calcium 8.3 mg/dL (8.5-10.5); Carbon Dioxide 24 mmol/L (22-29); Chloride 102 mmol/L (98-107); Glomerular Filtration Rate 96.4 mL/min (90-130); Glucose 268 mg/dL (65-115); Magnesium 1.5 mg/dL (1.7-2.3); Phosphorus 2.4 mg/dL (2.5-4.5); Potassium 4.5 mmol/L (3.5-5.1); Sodium 136 mmol/L (136-145)
--- NOTE | 2020-06-21 08:51 | ANES.PREANE2 ---
Pre-Anesthetic Assessment Pre-Anesthetic Assessment: Height/Weight: Height 1.75 m Weight 108.862 kg Temp Pulse Resp BP Pulse Ox 98.1 F 95 16 149/81 98 06/21/20 04:00 06/21/20 04:00 06/21/20 04:00 06/21/20 04:00 06/21/20 04:00 Preop Diagnosis: Necrotic wound right thigh Proposed Procedure: Operation Date: 06/21/20 15:25 Proposed Procedures p Debridement of right thigh wound(Right) - Uri Villarreal MD Last intake: Intake Last Liquid Date 06/20/20 Last Liquid Time 23:00 Last Solid Date 06/20/20 Last Solid Time 22:30 Social: Social History: No alcohol and No tobacco Exam: Pre-Anes Outpt Exam: alert, oriented x 3, clear to auscultation bilaterally and regular rate & rhythm Airway: Cervical ROM: WNL MP: 2 Dentition: Full CV/HEM: CV/HEM: HTN Hepatic: Comments: transplant Metabolic: Metabolic: DM Anesthetic Plan: ASA status: 4 Anesthesia: Anesthesia Evaluation, General, Choice and MAC Meds/Allergies Current Medications: Current Medications Generic Name Dose Route Start Last Admin Trade Name Freq PRN Reason Stop Dose Admin Aspirin 81 mg 06/20/20 09:00 06/20/20 09:58 Aspirin 81 Mg Ec Tablet PO 81 mg DAILY NIDA Administration Enoxaparin Sodium 40 mg 06/20/20 02:00 06/21/20 01:51 Enoxaparin 40 Mg /0.4 Ml Syringe SUBCUT 40 mg Q24H NIDA Administration Famotidine 20 mg 06/20/20 09:00 06/20/20 09:58 Famotidine 20 Mg Tablet PO 20 mg DAILY NIDA Administration Gabapentin 300 mg 06/20/20 09:00 06/20/20 22:03 Gabapentin 300 M g Capsule PO 300 mg QID NIDA Administration Potassium Chloride /Sodium Chloride 20 meq in 1,000 m ls @ 100 mls/hr 06/20/20 01:45 06/21/20 05:43 Sodium Chlor 0.9 % + Kcl 20 Meq IV 100 mls/hr .Q10H NIDA Administration Piperacillin Sod/T azobactam 50 mls @ 12.5 mls /hr 06/20/20 05:00 06/21/20 05:43 Sod 3.375 gm/ So dium Chloride IV 12.5 mls/hr Q8H NIDA Administration Protocol Fluconazole 200 mg in 100 mls @ 100 mls/hr 06/20/20 02:30 06/21/20 02:51 Diflucan Premix IV Infused Q24H NIDA Infusion Vancomycin HCl 2,0 00 mg/ 500 mls @ 250 mls /hr 06/20/20 20:30 06/21/20 00:02 Sodium Chloride IV Infused Q24H NIDA Infusion Lisinopril 2.5 mg 06/20/20 09:00 06/20/20 09:58 Lisinopril 2.5 M g Tablet PO 2.5 mg DAILY NIDA Administration Metoprolol Tartrat e 50 mg 06/20/20 09:00 06/20/20 09:58 Metoprolol Tartr ate 50 Mg Tablet PO 50 mg DAILY NIDA Administration Ondansetron HCl 4 mg 06/20/20 01:41 06/20/20 02:54 Ondansetron 2 Mg /Ml Sdv 2 Ml IVP 4 mg Q6H PRN Administration vomiting, or N/V if npo Oxycodone HCl 5 mg 06/20/20 03:36 06/20/20 22:10 Oxycodone 5 Mg I r Tab/Cap PO 5 mg Q4H PRN Administration PAIN Ropinirole HCl 1 mg 06/20/20 09:00 06/20/20 09:58 Ropinirole 1 Mg Tablet PO 1 mg DAILY NIDA Administration Tacrolimus 2 mg 06/20/20 09:00 06/20/20 09:54 Tacrolimus 0.5 M g Capsule PO 2 mg DAILY NIDA Administration Tacrolimus 1 mg 06/20/20 18:00 06/20/20 17:17 Tacrolimus 0.5 M g Capsule PO 1 mg QPM NIDA Administration Trazodone HCl 150 mg 06/20/20 21:00 06/20/20 22:03 Trazodone 50 Mg Tablet PO 150 mg BEDTIME NIDA Administration PFSH Anesthesia PFSH: Medical History [id number] deficiency Diabetic peripheral neuropathy Hypertension Restless leg syndrome Type 2 diabetes mellitus Surgical History History of liver transplant Hx of insertion of insulin pump Family History Other Colon cancer Diabetes Hypertension Social History Smoking and tobacco status: never smoked Alcohol intake: never Data Anesthesia CBC & Chem 7: 06/21/20 05:19 06/21/20 05:19 Other Labs: Laboratory Results - last 48 hr 06/19/20 06/19/20 06/19/20 20:56 20:56 20:56 WBC 9.8 RBC 4.62 Hgb 13.7 Hct 39.1 L MCV 84.6 MCH 29.7 MCHC 35.0 RDW 12.2 Plt Count 268 MPV 9.5 Neut % (Auto) 69.3 Lymph % (Auto) 20.6 [place] % (Auto) 6.6 Eos % (Auto) 2.7 Baso % (Auto) 0.3 Neut # (Auto) 6.78 Lymph # (Auto) 2.0 [place] # (Auto) 0.7 Eos # (Auto) 0.3 Baso # (Auto) 0.0 Nucleated RBC % (auto) 0 Nucleated RBCs # 0.0 Sodium 135 L Potassium 3.6 Chloride 97 L Carbon Dioxide 22 Anion Gap 19.6 H BUN 30 H Creatinine 1.3 H GFR Calculation 55.1 L Glucose 376 H POC Glucose Estimat Average Glucose Hemoglobin A1c Calculated Osmolality 302 H Lactate 2.5 H Calcium 8.9 Phosphorus Magnesium Total Bilirubin 0.3 AST 12 ALT 9 Alkaline Phosphatase 96 C-Reactive Protein 101.7 H Total Protein 7.1 Albumin 3.3 L Globulin 3.8 Procalcitonin 06/20/20 06/20/20 06/21/20 03:16 06:20 05:19 WBC 6.7 RBC 4.01 L Hgb 11.8 Hct 35.3 L MCV 88.0 MCH 29.4 MCHC 33.4 RDW 12.3 Plt Count 244 MPV 9.0 Neut % (Auto) 62.4 Lymph % (Auto) 21.0 [place] % (Auto) 8.8 Eos % (Auto) 6.5 Baso % (Auto) 0.4 Neut # (Auto) 4.20 Lymph # (Auto) 1.4 [place] # (Auto) 0.6 Eos # (Auto) 0.4 Baso # (Auto) 0.0 Nucleated RBC % (auto) 0 Nucleated RBCs # 0.0 Sodium Potassium Chloride Carbon Dioxide Anion Gap BUN Creatinine GFR Calculation Glucose POC Glucose 150 H Estimat Average Glucose 217 Hemoglobin A1c 9.2 H Calculated Osmolality Lactate Calcium Phosphorus Magnesium Total Bilirubin AST ALT Alkaline Phosphatase C-Reactive Protein Total Protein Albumin Globulin Procalcitonin 06/21/20 05:19 WBC RBC Hgb Hct MCV MCH MCHC RDW Plt Count MPV Neut % (Auto) Lymph % (Auto) [place] % (Auto) Eos % (Auto) Baso % (Auto) Neut # (Auto) Lymph # (Auto) [place] # (Auto) Eos # (Auto) Baso # (Auto) Nucleated RBC % (auto) Nucleated RBCs # Sodium 136 Potassium 4.5 Chloride 102 Carbon Dioxide 24 Anion Gap 14.5 BUN 12 Creatinine 0.8 GFR Calculation 96.4 Glucose 268 H POC Glucose Estimat Average Glucose Hemoglobin A1c Calculated Osmolality Lactate Calcium 8.3 L Phosphorus 2.4 L Magnesium 1.5 L Total Bilirubin AST ALT Alkaline Phosphatase C-Reactive Protein 42.8 H Total Protein Albumin 3.0 L Globulin Procalcitonin 0.15 Micro: Microbiology 06/20/20 06:20 Blood Culture - Preliminary Blood NEGATIVE TO DATE 06/20/20 06:18 Blood Culture - Preliminary Blood NEGATIVE TO DATE Cardiac Studies: No Data to Display
--- NOTE | 2020-06-21 08:59 | P.PN_ITS ---
Subjective Subjective: Interval history: Patient denies any significant pain, no issues overnight Vitals/I&O/Wt Last Vital Signs Temp 98.1 F 06/21/20 04:00 Pulse 95 06/21/20 04:00 Resp 16 06/21/20 04:00 BP 149/81 06/21/20 04:00 Pulse Ox 98 06/21/20 04:00 06/20/20 06/21/20 06/21/20 22:59 06:59 14:59 Intake Total 410 / 2230 650 / 2230 Output Total 375 / 925 550 / 925 550 / 550 Balance 35 / 1305 100 / 1305 -550 / -550 Weight last 48 hrs Weight 240 lb Physical Exam Narrative: EXAM NARRATIVE: Right thigh: Eschar on the medial aspect measuring about 7 x 5 cm Data : 06/21/20 05:19 06/21/20 05:19 Micro: Microbiology 06/20/20 06:20 Blood Culture - Preliminary Blood NEGATIVE TO DATE 06/20/20 06:18 Blood Culture - Preliminary Blood NEGATIVE TO DATE A&P Assessment and plan (1) Abscess: 65-year-old male with abscess/eschar on the medial aspect of the right thigh. His WBC is 9.8. 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
[2020-06-21] MEDS: sodium chloride 0.9% 1,000 ML 30 ML IV (09:10)
--- NOTE | 2020-06-21 10:07 | PM.OP ---
Operative Report Date of procedure: June 21, 2020 Pre-op Diagnosis: 1. Necrotic right thigh wound 2. History of liver transplant on tacrolimus Post-op Diagnosis: Wound right thigh measuring 7 x 4 x 3 cm Procedure Done: Excisional debridement of necrotic skin and subcutaneous tissue medial aspect of right thigh using 15 blade measuring 7 x 4 x 3 cm Specimens removed/disposition: Aerobic anaerobic wound cultures Surgeon: Uri Villarreal Anesthesia: MAC Condition: stable Disposition: PACU Procedure: The patient was taken the operating room and placed under MAC. He is on therapeutic IV antibiotics. The medial aspect of the right thigh was prepped and draped in a sterile manner. Using a 15 blade excisional debridement of necrotic skin and subcutaneous tissue was performed up to the muscular fascia until there was punctate bleeding noted. The wound was irrigated with saline and packed with Kerlix gauze soaked in 0.5% Marcaine. The wound was covered with ABDs. The patient was transferred to recovery room in stable condition.
[2020-06-21] MEDS: magnesium sulfate premix 2 GM/50 ML PIGGYBACK IV (11:08)
[2020-06-21] MEDS: lisinopril 2.5 mg Tablet PO (11:08)
[2020-06-21] MEDS: morphine 4 mg/mL SDV 1 mL 2 MG IVP (11:08)
--- NOTE | 2020-06-21 11:18 | PC.CHAP ---
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 barrel assembler visit [] Patient/Family/Request visit [] Outpatient visit [] Follow-up visit [] Physician referral [] Code/Alert [] Routine visit [] Staff referral [] Actively dying [] Patient sleeping [] Family support [] [] Out of room [] Palliative care [] [] Receiving care in room [] Pre-surgical visit [] Trauma [] Long length of stay [] ICU visit [] Other: Relational/Emotional Strength [] Patient feels connected with others/family/visitors/staff [] Distress [] Loneliness/isolation [] Abandonment Spirituality of Patient [] Person of Yasemin [] Attends Zoroastrianism of their Yasemin [] Believes in Prayer [] Reads Bible or Moravian materials [] There are Spiritual issues to be addressed Flight/Transport Nurse Interventions [] Prayer [] Active listening [] Non-anxious presence [] Spiritual/emotional support [] Crisis/trauma care [] Spiritual counseling [] Bereavement support [] Provided bereavement packet [] Provided Bible/devotional materials [] Provided toy/stuffed animal, coloring book to patient or family member [] Provided Communion [] Anointing/[place] [] Salvation [] Completed spiritual assessment [] Other: Impact on Illness or Injury [] Angry [] Fearful [] Anxious [] Often cries [] Exhaustion [] Unable to work [] Unable to attend mormonism [] Unable to walk/stand [] Unable to read [] Unable to drive [] Unable to eat/drink [] Unable to sleep [] Unable to be with family [] Patient intubated [] Other: Summary Time spent with patient
[2020-06-21] MEDS: gabapentin 300 mg Capsule PO (13:06)
[2020-06-21] MEDS: oxyCODONE 5 mg IR Tab/Cap PO (13:06)
--- NOTE | 2020-06-21 13:16 | P.DS_ITS ---
Discharge Providers Date of Admission: 06/20/20 02:24 Date of Discharge: June 21, 2020 Attending Provider at Admission: Abraham Harley Attending Provider at Discharge: Monty Medrano Diagnoses at Discharge Discharge Diagnosis (1) Abscess: Status: Acute (2) Cellulitis: Status: Acute Qualifiers: Laterality: right Site of cellulitis: extremity Site of cellulitis of extremity: lower extremity Qualified Code(s): L03.115 - Cellulitis of right lower limb (3) DEAN (acute kidney injury): Status: Acute (4) Sepsis: Status: Acute (5) Type 2 diabetes mellitus: Status: Acute Qualifiers: Diabetes mellitus remote computer terminal operator insulin use: with remote computer terminal operator use (6) Diabetic peripheral neuropathy: Status: Acute (7) Lxbrq-7-woqfldifmiy deficiency: Status: Acute (8) Hypertension: Status: Acute (9) Restless leg syndrome: Status: Acute (10) History of liver transplant: Status: Acute Reason for Visit Reason for Visit: abcess on leg Hospital Course Hospital Course Pleasant 65-year-old gentleman with history of alpha-1 antitrypsin deficiency, status post liver transplant, on immunosuppressive therapy, diabetes treated with insulin pump, following with endocrinology, HTN, peripheral neuropathy, restless leg syndrome underwent I&D of right inner thigh due to swelling, redness and emergency department 3 days ago, went home with prescription for Bactrim, however, returned with persistent swelling, nonhealing wound, fever, malaise, as well as nausea, vomiting, watery diarrhea. Noted acute kidney injury on presentation, creatinine 1.3. Was assessed by CT which did not show an abscess. With noted sepsis on presentation. Received IV hydration. Was treated with Zosyn, vancomycin. Bactrim was discontinued. Acute kidney injury resolved. Continued on subcutaneous insulin here as did not have insulin for his pump here, but states has sufficient supply at home. A1c was 9.2. He is encouraged to control his diabetes closely at this time. Strictly maintain diabetic diet. Follow-up with endocrinology as diabetes control will be important to wound healing. He states has not been taking care of himself very well recently, but is intent on doing better to make sure he is healing well. He was assessed by surgery, was taken for debridement of the wound infection, and no deep pockets of infection were noted. Wound was packed. Sepsis has resolved. He is assessed by surgery ready for discharge home but is asked to follow-up with wound care clinic. Discussed with him. He is encouraged to follow-up closely with both wound care, primary care, and endocrinology due to risk of poor healing, risk of worsening infection due to poorly controlled diabetes, as well as immunosuppression. Will continue antibiotic course with ciprofloxacin and doxycycline on discharge. Initial culture from ER so far with only superficial tyler. Follow-up cultures collected during this visit. Stool studies collected here requested for C. difficile, however, remain uncollected as diarrhea appears to have resolved. He is not vomiting. In addition to optimization of diabetes control he also is encouraged to maintain close monitoring of his hypertension. For now amlodipine is held and HCTZ discontinued as his blood pressure pills well controlled with metoprolol, lisinopril. He will continue to monitor blood pressures at home, resume these medications in stepwise fashion if needed in case blood pressure is rising. Tacrolimus level was requested during his hospitalization, however, is still pending. Physical Exam Const: COMMON NORMALS: no acute distress and patient oriented x3 HENMT: COMMON NORMALS: oropharynx normal Neck/C-Spine: COMMON NORMALS: no JVD Resp: COMMON NORMALS: normal respiratory effort and clear to auscultation bilaterally AUSCULTATION: clear to auscultation bilaterally Cardio: COMMON NORMALS: no JVD, regular rhythm, S1 normal heart sound present, S2 normal heart sound present and No murmurs present (Cardio) RHYTHM: regular rhythm HEART SOUNDS: S1 normal heart sound present and S2 normal heart sound present GI: COMMON NORMALS: Normal to inspection, nondistended, normoactive bowel sounds present, Soft to palpation and non-tender PALPATION: Yes Soft to palpation Extremity: COMMON NORMALS: no joint enlargement and no pedal edema OTHER: Packed wound, surrounding edema off upper inner right thigh, minimal surrounding erythema, currently no bleeding, no active drainage. Neuro: COMMON NORMALS: patient oriented x3 and moves all extremities Skin: COMMON NORMALS: no rashes or lesions noted GENERAL SKIN EXAM: no rashes or lesions noted Discharge Data Data Completed and Pending: Completed Studies During Hospitalization Category Date Time Status CT femur RT w con [id number] Urgent Cat Scan 06/19/20 20:35 Completed XR chest 1V maisha ble [id number] Routine Exams 06/20/20 01:52 Completed Pending at discharge Category Date Time Status Blood Culture Sta t Lab 06/20/20 06:20 Results Clostridioides Di fficile PCR Routin e Lab 06/20/20 01:34 Uncollected FK 506 (Tacrolimu s) Routine Lab 06/20/20 06:20 Received Tissue Culture an d Gram Stain Routi ne Lab 06/21/20 09:41 Received Vancomycin Trough Timed Lab 06/21/20 19:30 Ordered Labs from last 24 hours 06/21/20 06/21/20 05:19 05:19 WBC 6.7 RBC 4.01 L Hgb 11.8 Hct 35.3 L MCV 88.0 MCH 29.4 MCHC 33.4 RDW 12.3 Plt Count 244 MPV 9.0 Neut % (Auto) 62.4 Lymph % (Auto) 21.0 Cross % (Auto) 8.8 Eos % (Auto) 6.5 Baso % (Auto) 0.4 Neut # (Auto) 4.20 Lymph # (Auto) 1.4 Cross # (Auto) 0.6 Eos # (Auto) 0.4 Baso # (Auto) 0.0 Nucleated RBC % (a uto) 0 Nucleated RBCs # 0.0 Sodium 136 Potassium 4.5 Chloride 102 Carbon Dioxide 24 Anion Gap 14.5 BUN 12 Creatinine 0.8 GFR Calculation 96.4 Glucose 268 H Calcium 8.3 L Phosphorus 2.4 L Magnesium 1.5 L C-Reactive Protein 42.8 H Albumin 3.0 L Procalcitonin 0.15 Vitals: Last Vital Signs Temp 97.9 F 06/21/20 11:34 Pulse 72 06/21/20 11:34 Resp 14 06/21/20 13:06 BP 117/73 06/21/20 11:34 Pulse Ox 98 06/21/20 13:06 Discharge Plan Discharge Patient Disposition: Home Condition: Stable Prescriptions: New Cipro 500 mg tablet 500 mg PO BID Qty: 24 RF: 0 doxycycline monohydrate 100 mg tablet 100 mg PO BID 14 Days Qty: 28 RF: 0 Continued gabapentin 300 mg Capsule 300 mg PO QID RF: 0 tacrolimus 1 mg Capsule See Rx Instructions .ROUTE .COMPLEX RF: 0 aspirin 81 mg Tablet,Delayed Release (Dr/Ec) 81 mg PO DAILY Qty: 30 RF: 0 trazodone 50 mg tablet 150 mg PO BEDTIME RF: 0 famotidine 20 mg tablet 20 mg PO DAILY RF: 0 metoprolol tartrate 50 mg tablet 50 mg PO DAILY RF: 0 lisinopril 2.5 mg tablet 2.5 mg PO DAILY RF: 0 omega-3 acid ethyl esters 1 gram capsule 1 g PO DAILY RF: 0 Tylenol Extra Strength 500 mg Tablet 1,000 mg PO PRN RF: 0 ketorolac 0.5 % drops See Rx Instructions .ROUTE .COMPLEX RF: 0 prednisolone acetate 1 % drops,suspension See Rx Instructions .ROUTE .COMPLEX RF: 0 ropinirole 0.5 mg tablet 0.5 mg PO DAILY RF: 0 Vitamin D2 1,250 mcg (50,000 unit) Capsule 50,000 unit PO Q30D RF: 0 Humalog U-100 Insulin 100 unit/mL solution See Rx Instructions .ROUTE .COMPLEX RF: 0 Vitamin B-12 1 tab PO DAILY RF: 0 Held amlodipine 5 mg Tablet 5 mg PO DAILY RF: 0 Hold Instructions: Resume on 06/28/20. Discontinued hydrochlorothiazide 25 mg Tablet 25 mg PO DAILY RF: 0 sulfamethoxazole-trimethoprim [Bactrim DS] 800-160 mg tablet 1 tab PO BID 10 Days Qty: 20 RF: 0 Discharge Orders: Discharge Order (Routine); Ordered 06/21/20 Ordered By: Monty Medrano Referrals: Gurpreet Hugo [Other] - 4-7 days Megan Barney MD [Referring] - 1 week (hyperglycemia) WOUND CARE CLINIC, [Staff Physician] - 4-7 days Discharge Diet: Cardiac and Diabetic Discharge Activity: Increase activity as tolerated Patient Instructions: Ciprofloxacin (By mouth), Doxycycline (By mouth), Acute Kidney Injury (DC), Cellulitis (DC), Diabetes Mellitus Type 2 in Adults (DC), Sepsis (DC), Abscess (GEN), Opioid Safety Activity Restrictions/Additional Instructions: Diet Advance to normal diet as tolerated, increase fluid intake as much as possible. Activity Avoid strenuous activity for 2 weeks but continue with daily activities including walking as tolerated. Do not lift more than 10 pounds for 2 weeks Return to work/school You can return to work/ school whenever you feel ready as long as you don?t have to lift more than 10 pounds at work. If you have paperwork that needs to be completed for time off from work, please contact my office Driving You can resume driving once you stop using narcotic pain medications, and transition to non-opioid pain medications like Tylenol, Motrin, Aleve, etc. Medications Pain Take opioid pain medications as prescribed and transition to non-opioid pain medications like Tylenol, Motrin, Aleve etc. over the next few days. The goal of the pain medications is to make the pain bearable and not to be pain free since you recently had surgery. Resume all home medications after surgery as per the medication reconciliation list Nausea Nausea is common after surgery, take nausea medications as needed and stay on a liquid bland diet until nausea resolves. Constipation The combination of surgery, anesthesia and pain medications can result in constipation. Take stool softeners as prescribed. If you do not have a bowel movement in 3 days, please take an qxeo-ksm-pnbdyil laxative like MiraLAX to address the constipation. Shower It is ok to shower. Do not soak in bathtub, swimming pool or hot tub for 2 weeks. Wound care If you had open wound, pack it with Kerlix gauze once daily after irrigating the wound with saline. Cover wound with ABDs. Problems with the wound You can develop some redness around the incision from bruising after surgery. If there is increasing pain, redness, tenderness around the incision with or without drainage, please contact my office to rule out an infection. Sometimes the skin at the incisions can separate, resulting in reopening of the wound. Cover the wound with antibiotic cream and sterile dressings and contact my office. Contact physician Call the office at [phone] during office hours or go the Emergency Room a fter hours for - ?Fever to 100.4 or greater ?Shaking chills ?Pain that increases over time ?Redness, warmth, or pus draining from incision sites ?Persistent nausea or inability to take in liquids Please continue treatment of diabetes. Continue to use insulin pump. 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 Please maintain diabetic diet. Please complete antibiotic course for wound infection. He may be contacted in case there are changes needed to antibiotics. Please have your primary care doctor and wound care follow-up final culture results. Please continue to monitor your blood pressures at home. Please note for now amlodipine is held and HCTZ discontinued since her blood pressures are well controlled with metoprolol, lisinopril. Please continue to monitor blood pressures at home, if rising, resume amlodipine first, and if blood pressure is still elevated over the following 1-2 days, then resume HCTZ. Please discuss with your primary care doctor. Please note that tacrolimus level was requested during his hospitalization, but is still pending. Please discuss regarding final result with your primary care doctor. Discharge Attestations Time Spent in Discharge Care*: greater than 30 min Quality Metrics Clinical Quality Measures During this hospital stay, did patient experience: None Coding Level of Care Code Acute g FW DC note Diagnoses Abscess L02.91 Cellulitis L03.115 Laterality: right Site of cellulitis: extremity Site of cellulitis of extremity: lower extremity DEAN (acute kidney injury) N17.9 Sepsis A41.9 Type 2 diabetes mellitus E11.9 Diabetes mellitus remote computer terminal operator insulin use: with remote computer terminal operator use Diabetic peripheral neuropathy E11.42 Lozce-1-ollpgfrtdvy deficiency E88.01 Hypertension I10 Restless leg syndrome G25.81 History of liver transplant Z94.4
--- NOTE | 2020-06-21 14:56 | PC.NURSE ---
PT HAS DONE WELL FOR MY SHIFT. HE HAS HAD SOME COMPLAINTS OF PAIN BUT APPEARED TO BE CONTROLLED WELL WITH ORDERED PAIN MEDICATIONS. PT WENT DOWN FOR SCHEDULED I&D PROCEDURE THIS MORNING AROUND 0815. PT WAS SAID TO HAVE DONE WELL DURING PROCEDURE. PTS VITAL SIGNS WERE MONITORED FOR APPROXIMATELY AN HOUR AND A HALF. PT HAS DONE WELL AND VITALS HAVE BEEN WITHIN NORMAL LIMITS. 2MG IVP MORPHINE WAS GIVEN TO PT. PT HAS BEEN VOIDING WELL AND HAS BEEN UP AROUND IN THE ROOM DOING GOOD WITH STAND BY ASSIST. THE HOSPITALIST ROUNDED WITH THE PT A LITTLE AFTER LUNCH. PT WAS CLEARED BY PHYSICIANS TO BE DISCHARGED. DISCHARGE INSTRUCTIONS WERE GONE OVER WITH AND GIVEN TO THE PATIENT. SOME ADDITIONAL SUPPLIES WERE GIVEN TO THE PT SO WOUND CARE COULD BE PERFORMED NEEDED UNTIL APPOINTMENT WITH WOUND CARE. ALL QUESTIONS WERE ANSWERED. PTS IV WAS REMOVED. CATHETER TIP INTACT. PT WHEELED OUT IN WHEELCHAIR BY THIS NURSE ALONG WITH HIS SON WHO IS DRIVING HIM HOME. PT SAFELY TRANSPORTED INTO VEHICLE.
== END 2020-06-21 15:05 | disposition home or self-care (01) | DRG 854 ==
LOC: ER 20:28 → MEDSURG 06-20 02:31
PROVIDERS: Surgery; Admitting Provider Internal Medicine; Emergency Provider Emergency Medicine; Visit Provider Internal Medicine
PROC: 0JBL0ZZ Excision of Right Upper Leg Subcutaneous Tissue and Fascia, Open Approach (ICD-10-PCS; principal; 2020-06-21 15:15)
DX: A41.9 Sepsis, unspecified organism (principal); Z94.4 Liver transplant status; D84.821 Immunodeficiency due to drugs; L03.115 Cellulitis of right lower limb; N17.9 Acute kidney failure, unspecified; E87.1 Hypo-osmolality and hyponatremia; E88.01 Alpha-1-antitrypsin deficiency; Z79.899 Other long term (current) drug therapy; E11.65 Type 2 diabetes mellitus with hyperglycemia; E11.42 Type 2 diabetes mellitus with diabetic polyneuropathy; I10 Essential (primary) hypertension; G25.81 Restless legs syndrome; Z79.4 Long term (current) use of insulin; Z96.41 Presence of insulin pump (external) (internal); R19.7 Diarrhea, unspecified; Z79.82 Long term (current) use of aspirin
CPT/HCPCS: 36415; 36416; 71045; 73701; 80053; 80069; 80197; 82962; 83036; 83605; 83735; 84145; 85025; 86140; 87040; 87070; 87077; 87176; 87186; 87205; 96372; 99285; J1450; J1650; J2250; J2270; J2405; J2543; J2704; J3010; J3370; J3475; J3490; J7030; J7040; J7050; J7507; Q9967

== ENCOUNTER 2020-06-23 13:49 | Outpatient (CLI) | payer MEDICARE, MEDICAID, SELFPAY | END 2020-06-23 13:50 | disposition home or self-care (01) | LOC: WOUND 13:50 | PROVIDERS: Visit Provider Thoracic Surgery (Cardiothoracic Vascular Surgery) | DX: I96 Gangrene, not elsewhere classified (principal); L97.812 Non-pressure chronic ulcer of other part of right lower leg with fat layer exposed | CPT/HCPCS: 11042; 11045; G0463 ==

== ENCOUNTER 2020-06-30 14:17 | Outpatient (CLI) | payer MEDICARE, MEDICAID, SELFPAY | END 2020-06-30 14:18 | disposition home or self-care (01) | LOC: WOUND 14:18 | PROVIDERS: Visit Provider Thoracic Surgery (Cardiothoracic Vascular Surgery) | DX: L97.812 Non-pressure chronic ulcer of other part of right lower leg with fat layer exposed (principal) | CPT/HCPCS: 11042; 11045 ==

== ENCOUNTER 2020-07-07 14:31 | Outpatient (CLI) | payer MEDICARE, MEDICAID, SELFPAY | END 2020-07-07 14:32 | disposition home or self-care (01) | LOC: WOUND 14:32 | PROVIDERS: Visit Provider Thoracic Surgery (Cardiothoracic Vascular Surgery) | DX: E11.622 Type 2 diabetes mellitus with other skin ulcer (principal); L97.812 Non-pressure chronic ulcer of other part of right lower leg with fat layer exposed | CPT/HCPCS: 11042 ==

== ENCOUNTER 2020-07-14 13:13 | Outpatient (CLI) | payer MEDICARE, MEDICAID, SELFPAY | END 2020-07-14 13:14 | disposition home or self-care (01) | LOC: WOUND 13:14 | PROVIDERS: Visit Provider Thoracic Surgery (Cardiothoracic Vascular Surgery) | DX: E11.622 Type 2 diabetes mellitus with other skin ulcer (principal); L97.812 Non-pressure chronic ulcer of other part of right lower leg with fat layer exposed | CPT/HCPCS: 11042 ==

== ENCOUNTER 2020-07-28 13:09 | Outpatient (CLI) | payer MEDICARE, MEDICAID, SELFPAY | END 2020-07-28 13:10 | disposition home or self-care (01) | LOC: WOUND 13:10 | PROVIDERS: Visit Provider Thoracic Surgery (Cardiothoracic Vascular Surgery) | DX: E11.622 Type 2 diabetes mellitus with other skin ulcer (principal); L97.812 Non-pressure chronic ulcer of other part of right lower leg with fat layer exposed | CPT/HCPCS: 11042 ==

== ENCOUNTER 2020-08-04 09:19 | Outpatient (CLI) | payer MEDICARE, MEDICAID, SELFPAY | END 2020-08-04 09:20 | disposition home or self-care (01) | LOC: WOUND 09:21 | PROVIDERS: Visit Provider Thoracic Surgery (Cardiothoracic Vascular Surgery) | DX: E11.622 Type 2 diabetes mellitus with other skin ulcer (principal); L97.812 Non-pressure chronic ulcer of other part of right lower leg with fat layer exposed | CPT/HCPCS: 97597 ==

== ENCOUNTER → 2020-09-29 15:38 | Outpatient (BNVA) | payer MEDICARE, MEDICAID, SELFPAY | PROVIDERS: PCP Internal Medicine; Visit Provider Internal Medicine | DX: R53.83 Other fatigue (principal); E11.42 Type 2 diabetes mellitus with diabetic polyneuropathy; E88.01 Alpha-1-antitrypsin deficiency; I10 Essential (primary) hypertension; E11.9 Type 2 diabetes mellitus without complications | CPT/HCPCS: 80053; 80061; 82607; 82746; 83036; 83550; 84443 ==

== ENCOUNTER → 2020-12-02 10:10 | Outpatient (BNVA) | payer MEDICARE, MEDICAID, SELFPAY | PROVIDERS: PCP Internal Medicine; Visit Provider Internal Medicine | DX: R53.83 Other fatigue (principal); T50.2X5A Adverse effect of carbonic-anhydrase inhibitors, benzothiadiazides and other diuretics, initial encounter; E11.9 Type 2 diabetes mellitus without complications; I10 Essential (primary) hypertension | CPT/HCPCS: 80053; 80061; 80197; 81003; 83036; 83735; 84100; 84550 ==

== ENCOUNTER → 2020-12-07 11:42 | Outpatient (BNVA) | payer MEDICARE, MEDICAID, SELFPAY | PROVIDERS: PCP Internal Medicine; Visit Provider Internal Medicine | DX: R53.83 Other fatigue (principal); Z79.899 Other long term (current) drug therapy | CPT/HCPCS: 80197 ==

== ENCOUNTER → 2021-02-03 11:20 | Outpatient (BNVA) | payer MEDICARE, MEDICAID, SELFPAY | PROVIDERS: PCP Internal Medicine; Visit Provider Internal Medicine | DX: Z00.00 Encounter for general adult medical examination without abnormal findings (principal); I10 Essential (primary) hypertension; E88.01 Alpha-1-antitrypsin deficiency; E11.42 Type 2 diabetes mellitus with diabetic polyneuropathy | CPT/HCPCS: 80053; 80197; 81003; 82465; 82575; 83735; 84100; 84156; 84550 ==

== ENCOUNTER 2021-04-21 06:56 | Outpatient (CLI) | payer MEDICARE, MEDICAID, SELFPAY ==
--- NOTE | 2021-04-21 07:40 | ECG_ITS ---
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 Interpretive Statements NAME OF STUDY: LEXISCAN SESTAMIBI STRESS TEST INDICATION: Abnormal ekg, PROCEDURE: At the baseline, the EKG revealed sinus tachycardia with frequent PVCs. Some nonspecific T wave changes. Poor R wave progression and features of old anteroseptal OR. The baseline blood pressure was 132/75 mm Hg with a heart rate of 99 beats/min. Lexiscan was infused over a period of 20 seconds. A total of 0.4 milligrams of Lexiscan was infused. The stress phase was continued for a total of 5 minutes. Heart rate at the end of the stress phase was 108 with a blood pressure 130/73. The EKG at the peak infusion revealed no significant changes the PVCs are less frequent with the peak infusion. Sestamibi was injected 20 seconds after the Lexiscan infusion. Blood pressure at the end of the recovery phase was 127/72 with a heart rate of 107 per minute. CONCLUSION: 1. No significant EKG changes with the LexiScan infusion 2. No LexiScan induced chest pain or cardiac arrhythmia 3. Normal blood pressure and heart rate response 4. Sestamibi/sestamibi perfusion scan pending; see separate report. Electronically Signed On 04-22-2021 11:10:27 FREEZER PERSON by Ramon Buckley M.D. [email or web address]
--- NOTE | 2021-04-21 07:42 | NMCV_ITS ---
NM gerard perf SPECT r/s* [id number] Titus Fatima Age: 66 Gender: M : 1955 Exam Date: 04/21/2021 08:06 Ordering Phys: Gurpreet Hugo MD Technologist: MELCHOR Beyer Exam Location: [facility] Indications: SOB STRESS TEST Please [facility] IMAGE PROTOCOL Rest/Stress 1 Lexiscan Day Radiopharmaceutical Dose (mCi) Administration Site Administered by Rest: Tc-99m 10.9 IV MELCHOR Beyer Sestamibi Stress:Tc-99m 32.8 IV MELCHOR Beyer Sestamibi Rest: 21-Apr-2021 60 Discovery 630 Stress: 21-Apr-2021 30 Discovery 630 0.4mg Lexiscan. Images obtained in supine and prone position. SPECT RESULTS Technical Quality: Good Raw Data Analysis: Normal, No clinically relevant artifact Image Corrections: No attenuation or motion correction applied Summed Stress Score: 12 Summed Rest Score: 14 Summed Difference Score: 1 PERFUSION FINDINGS Moderate area of signal decreases uptake in the apical anterior, apical septal, apical lateral and LV apex with no significant reversibility. Small area of slightly decreased tracer uptake in the mid anteroseptal region, with some reversibility FUNCTIONAL RESULTS (calculated via Gated SPECT) Stress Image LV EF (%): 50 Stress EDV (mL):127 TID: 1.1 Stress ESV (mL):64 FUNCTIONAL FINDINGS: Segmental wall motion analysis revealed diffuse hypokinesia of the LV apex. IMPRESSIONS 1. Myocardial perfusion imaging revealing moderate area of severely decreased persistent tracer uptake in the apical anterior, septal, lateral and LV apex with a small area of reversibility in the mid anteroseptal region, suggesting myocardial scarring in the distribution of the distal left anterior descending artery/circumflex artery with a small area of sarah-infarction ischemia. 2. Normal LV ejection fraction 50%. 3. LV wall motion analysis revealing diffuse hypokinesia of the LV apex. 4. Mildly dilated LV cavity with end-systolic volume of 64 mL. No similar previous studies are available for comparison Dr Ramon Buckley MD [facility] (Electronically Signed) Final Date: 21 April 2021 12:20 S
[2021-04-21 07:52] VITALS: BMI 35.4
[2021-04-21] MEDS: regadenoson 0.4 Mg/5 ml Syringe IVP (08:40)
[2021-04-21 09:04] VITALS: BP 127/72; PULSE 108
== END 2021-04-21 06:57 | disposition home or self-care (01) ==
LOC: RAD 06:59 → CDL 07:43
PROVIDERS: PCP Internal Medicine; Visit Provider Transplant Surgery
DX: R94.31 Abnormal electrocardiogram [ECG] [EKG] (principal); R06.02 Shortness of breath
CPT/HCPCS: 78452; 93017; A9500; J2785

== ENCOUNTER 2021-07-27 20:06 | Emergency (ER) | payer MEDICARE, MEDICAID, SELFPAY ==
[2021-07-27 20:21] VITALS: BP 165/84; PULSE 112; RESP 18; TEMP 36.3; O2SAT 96
--- NOTE | 2021-07-27 21:07 | W.ED.GENADLT ---
HPI - General Adult General: Chief complaint: General Medical Stated complaint: LEFT Side Abd Pain Time Seen by Provider: 07/27/21 20:56 History of Present Illness: 66-year-old male patient comes in today for complaints of left rib pain. Patient reports On that side and then waking up in the morning having significant rib pain and discomfort. This occurred Sunday night. Patient denies any shortness of breath or other symptoms. Patient appears nontoxic. Patient appears in no pain at rest. Patient does have increased and appears moderately in pain with movement. Associated symptoms: Deny chest pain, dyspnea, nausea or vomiting Review of Systems General: Reports: 10 or more systems reviewed and unremarkable except in HPI and below Const: Denies: fever(s) or chills Card: Denies: chest pain Resp: Denies: dyspnea GI: Denies: nausea or vomiting Musc: Reports: other (Left rib pain) [facility] ED PFSH: Medical History (Updated 07/27/21 @ 22:01 by AMADOR Barrientos) Abscess Lhydc-2-tvvkupyimxn deficiency Diabetic peripheral neuropathy Hypertension Restless leg syndrome Type 2 diabetes mellitus Surgical History (Updated 06/07/21 @ 10:41 by Raul Alston MD) History of intravascular stent placement History of liver transplant Hx of insertion of insulin pump Family History Other Colon cancer Diabetes Hypertension Social History Smoking and tobacco status: never smoked Alcohol intake: never Adopted: No Marital status: Number of children: 7 service: Yes History of recent travel: No Physical Exam Const: COMMON NORMALS: alert HENMT: COMMON NORMALS: normocephalic HEAD & SCALP: normocephalic Neck/C-Spine: COMMON NORMALS: full ROM Chest: CHEST: Yes tenderness (Left anterior lateral ribs) Resp: COMMON NORMALS: normal respiratory effort and clear to auscultation bilaterally AUSCULTATION: clear to auscultation bilaterally Cardio: COMMON NORMALS: regular rate RATE: regular rate GI: COMMON NORMALS: Soft to palpation and non-tender PALPATION: Yes Soft to palpation Back/Pelvis: THORACIC SPINE/UPPER BACK: Yes paraspinal muscle tenderness Thoracic paraspinal muscle tenderness: left Extremity: COMMON NORMALS: normal to inspection Neuro: SENSORIUM/ORIENTATION: Yes alert Skin: COMMON NORMALS: no rashes or lesions noted GENERAL SKIN EXAM: no rashes or lesions noted Course Vital Signs: Vital signs: Vital Signs Temperature 97.4 F L 07/27/21 20:21 Pulse Rate 112 H 07/27/21 20:21 Respiratory Rate 18 07/27/21 20:21 Blood Pressure 165/84 07/27/21 20:21 Pulse Oximetry 96 07/27/21 20:21 [facility] - General Adult Medical Decision Making 66-year-old male patient comes in today with complaints of left rib pain since Sunday. Patient denies any falls or injury. Patient reports that he went to bed on night and then woke up the next day with pain and discomfort to his left ribs. Patient reports pain is worsened with movement. Patient appears nontoxic. Patient appears in moderate pain with movement. On exam patient has tenderness to the left rib area. Lungs are clear to auscultation. Abdomen soft nontender. Skin is warm and dry. Vital signs are normal. Differential diagnosis includes rib fracture, pneumonia, costochondritis. X-ray was negative for any abnormalities. Believe the patient probably has a costochondritis. I encouraged activity as tolerated. Use routine medications as needed for pain. Follow-up with primary care for further instruction. Return to ER for new concerns. Discharge Plan Discharge Patient Disposition: Home Clinical Impression: Costal chondritis Condition: Stable Prescriptions: No Action hydrochlorothiazide 25 mg tablet 25 mg PO DAILY 0RF diphenhydramine HCl [Benadryl] 25 mg capsule 25 mg PO TID PRN0RF cholecalciferol (vitamin D3) 50 mcg (2,000 unit) capsule 50 mcg PO BID 0RF valganciclovir 450 mg tablet 900 mg PO DAILY 0RF oxycodone 5 mg tablet 5 mg PO Q8H PRN0RF tramadol 50 mg tablet 50 mg PO Q6H PRN0RF cyclobenzaprine 10 mg tablet 10 mg PO TID 0RF methocarbamol 750 mg tablet 750 mg PO TID 0RF cholestyramine-aspartame 4 gram powder in packet PO DAILY 0RF hydrocodone-acetaminophen 10-325 mg tablet 1 tab PO Q8H PRN (Reason: pain) 30 Days Qty: 60 0RF triamcinolone acetonide 0.025 % ointment 1 applic topical BID Qty: 15 0RF amlodipine 5 mg Tablet 5 mg PO DAILY 0RF Hold Instructions: Resume on 06/28/20. gabapentin 300 mg Capsule 300 mg PO QID 0RF tacrolimus 1 mg Capsule See Rx Instructions .ROUTE .COMPLEX 0RF Rx Instructions: 2 mg orally IN THE MORNING,1MG ORALLY IN THE EVENING aspirin 81 mg Tablet,Delayed Release (Dr/Ec) 81 mg PO DAILY Qty: 30 0RF trazodone 50 mg tablet 150 mg PO BEDTIME 0RF metoprolol tartrate 50 mg tablet 50 mg PO DAILY 0RF lisinopril 2.5 mg tablet 2.5 mg PO DAILY 0RF omega-3 acid ethyl esters 1 gram capsule 1 g PO DAILY 0RF famotidine 20 mg tablet 40 mg PO DAILY 0RF Tylenol Extra Strength 500 mg Tablet 1,000 mg PO PRN 0RF ketorolac 0.5 % drops See Rx Instructions .ROUTE .COMPLEX 0RF Rx Instructions: as directed for surgery prednisolone acetate 1 % drops,suspension See Rx Instructions .ROUTE .COMPLEX 0RF Rx Instructions: as directed for surgery Vitamin D2 1,250 mcg (50,000 unit) Capsule 50,000 unit PO Q30D 0RF Rx Instructions: states not taken this month Humalog U-100 Insulin 100 unit/mL solution See Rx Instructions .ROUTE .COMPLEX 0RF Rx Instructions: pump-pt states will give himself a shot if he thinks the pump isnt giving him enough Vitamin B-12 1 tab PO DAILY 0RF Cipro 500 mg tablet 500 mg PO BID Qty: 24 0RF ropinirole 0.5 mg tablet 1 mg PO DAILY 0RF Discharge Orders: Discharge ED (Routine); Ordered 07/27/21 Ordered By: Aston Nichole Referrals: Raul Alston MD [Primary Care Provider] - Discharge Diet: Usual diet Discharge Activity: Increase activity as tolerated Patient Instructions: Costochondritis (ED), Opioid Safety Activity Restrictions/Additional Instructions: Activity as tolerated. Drink plenty of water with medication. Use ice or heat to the area for further pain relief. Use acetaminophen or ibuprofen as recommended by your primary care for control of pain. Follow-up with primary care for further instruction. Return to ER for new concerns. Coding Level of Care Code ED Iron Worker for Smiley Fwd Exam Comprehensive
--- NOTE | 2021-07-27 21:08 | XRR_ITS ---
PROCEDURE INFORMATION: Exam: XR Left Ribs with PA Chest Exam date and time: 07/27/2021 9:51 PM Age: 66 years old Clinical indication: Other: Lt. Mid rib pain; Prior surgery; Surgery date: 6+ months; Surgery type: Stints TECHNIQUE: Imaging protocol: XR Left ribs with PA chest. Views: 3 views COMPARISON: CR XR chest 1V portable [id number] 06/20/2020 1:59 AM FINDINGS: Lungs: Unremarkable. No consolidation. Pleural spaces: Unremarkable. No pleural effusion. No pneumothorax. Heart/Mediastinum: Unremarkable. No cardiomegaly. Bones/joints: Unremarkable. XR/XR ribs LT mn 3V w CXR1V [id number] IMPRESSION: No acute findings.
[2021-07-27] MEDS: HYDROcodone-acetaminophen 7.5-325 mg Tablet 1 TAB PO (22:02)
[2021-07-27 22:22] VITALS: PULSE 106; RESP 18; O2SAT 94
== END 2021-07-27 22:23 | disposition home or self-care (01) ==
PROVIDERS: Emergency Provider Nurse Practitioner Family; PCP Internal Medicine
DX: M94.0 Chondrocostal junction syndrome [Tietze] (principal)
CPT/HCPCS: 71101; 99283

== ENCOUNTER 2021-08-17 20:05 | Emergency (ER) | payer MEDICARE, MEDICAID, SELFPAY ==
[2021-08-17 20:48] VITALS: BP 140/90; PULSE 118; RESP 16; TEMP 36.9; O2SAT 97; BMI 34.0
[2021-08-17 22:54] VITALS: BP 137/99; PULSE 112; RESP 17; O2SAT 96
--- NOTE | 2021-08-17 23:01 | ED_ITS ---
HPI - General Adult General: Chief complaint: General Medical Stated complaint: high blood sugar/no symptoms Time Seen by Provider: 08/17/21 22:02 [facility] ED PFSH: Medical History (Updated 08/04/21 @ 00:01 by ) Abscess Qtlmg-[id number] deficiency Diabetic peripheral neuropathy Hypertension Restless leg syndrome Type 2 diabetes mellitus Surgical History (Updated 06/07/21 @ 10:41 by Raul Alston MD) History of intravascular stent placement History of liver transplant Hx of insertion of insulin pump Family History Other Colon cancer Diabetes Hypertension Social History Smoking and tobacco status: never smoked Alcohol intake: never Adopted: No Marital status: Number of children: 7 service: Yes History of recent travel: No Course Vital Signs: Vital signs: Vital Signs Temperature 98.5 F 08/17/21 20:48 Pulse Rate 118 H 08/17/21 20:48 Respiratory Rate 16 08/17/21 20:48 Blood Pressure 140/90 08/17/21 20:48 Pulse Oximetry 97 08/17/21 20:48 Discharge Plan Discharge Condition: Stable Prescriptions: No Action hydrochlorothiazide 25 mg tablet 25 mg PO DAILY 0RF diphenhydramine HCl [Benadryl] 25 mg capsule 25 mg PO TID PRN0RF cholecalciferol (vitamin D3) 50 mcg (2,000 unit) capsule 50 mcg PO BID 0RF valganciclovir 450 mg tablet 900 mg PO DAILY 0RF oxycodone 5 mg tablet 5 mg PO Q8H PRN0RF tramadol 50 mg tablet 50 mg PO Q6H PRN0RF cyclobenzaprine 10 mg tablet 10 mg PO TID 0RF methocarbamol 750 mg tablet 750 mg PO TID 0RF cholestyramine-aspartame 4 gram powder in packet PO DAILY 0RF triamcinolone acetonide 0.025 % ointment 1 applic topical BID Qty: 15 0RF hydrocodone-acetaminophen 10-325 mg tablet 1 tab PO Q8H PRN (Reason: pain) 30 Days Qty: 60 0RF amlodipine 5 mg Tablet 5 mg PO DAILY 0RF Hold Instructions: Resume on 06/28/20. gabapentin 300 mg Capsule 300 mg PO QID 0RF tacrolimus 1 mg Capsule See Rx Instructions .ROUTE .COMPLEX 0RF Rx Instructions: 2 mg orally IN THE MORNING,1MG ORALLY IN THE EVENING aspirin 81 mg Tablet,Delayed Release (Dr/Ec) 81 mg PO DAILY Qty: 30 0RF trazodone 50 mg tablet 150 mg PO BEDTIME 0RF metoprolol tartrate 50 mg tablet 50 mg PO DAILY 0RF lisinopril 2.5 mg tablet 2.5 mg PO DAILY 0RF omega-3 acid ethyl esters 1 gram capsule 1 g PO DAILY 0RF famotidine 20 mg tablet 40 mg PO DAILY 0RF Tylenol Extra Strength 500 mg Tablet 1,000 mg PO PRN 0RF ketorolac 0.5 % drops See Rx Instructions .ROUTE .COMPLEX 0RF Rx Instructions: as directed for surgery prednisolone acetate 1 % drops,suspension See Rx Instructions .ROUTE .COMPLEX 0RF Rx Instructions: as directed for surgery Vitamin D2 1,250 mcg (50,000 unit) Capsule 50,000 unit PO Q30D 0RF Rx Instructions: states not taken this month Humalog U-100 Insulin 100 unit/mL solution See Rx Instructions .ROUTE .COMPLEX 0RF Rx Instructions: pump-pt states will give himself a shot if he thinks the pump isnt giving him enough Vitamin B-12 1 tab PO DAILY 0RF Cipro 500 mg tablet 500 mg PO BID Qty: 24 0RF ropinirole 0.5 mg tablet 1 mg PO DAILY 0RF Referrals: Raul Alston MD [Primary Care Provider] - Coding Level of Care Code ED Secretary Administrative Assistant for Smiley Pena
--- NOTE | 2021-08-17 23:12 | ED_ITS ---
HPI - General Adult General: Chief complaint: General Medical Stated complaint: high blood sugar/no symptoms Time Seen by Provider: 08/17/21 22:02 Source: patient Mode of arrival: ambulatory Limitations: no limitations History of Present Illness: 66-year-old male states that blood sugars been running high throughout the day. He states usually does not pay much attention to it he checked it and it was over 600 he states that he does have an insulin pump bolus of 25 units roughly 1 hour ago. He states he believes his pump is still working he has no other symptoms he states he feels fine otherwise. No vomiting no diarrhea Associated symptoms: Deny chest pain, dyspnea, headache(s), nausea, rash or vomiting Review of Systems Const: Denies: fever(s), chills, body aches or change in appetite Eyes: Denies: blurry vision or eye discomfort ENMT: Denies: throat pain or dental pain Card: Denies: chest pain Resp: Denies: dyspnea GI: Denies: abdominal pain, nausea, vomiting or diarrhea : Denies: dysuria Musc: Denies: neck pain or back pain Skin/Breast: Denies: rash Neuro: Denies: headache(s) Psych: Denies: depression Petros/Lymph: Denies: easy bruising All/Imm: Denies: urticaria PFSH ED PFSH: Medical History (Updated 08/18/21 @ 03:36 by Tyrel Mishra MD) Abscess Jeelu-4-giarxsepdns deficiency Diabetic peripheral neuropathy Hypertension Restless leg syndrome Type 2 diabetes mellitus Surgical History History of intravascular stent placement History of liver transplant Hx of insertion of insulin pump Family History Other Colon cancer Diabetes Hypertension Social History Smoking and tobacco status: never smoked Alcohol intake: never Adopted: No Marital status: Number of children: 7 service: Yes History of recent travel: No Physical Exam Const: COMMON NORMALS: no acute distress, patient oriented x3 and healthy appearing HENMT: COMMON NORMALS: normocephalic and atraumatic HEAD & SCALP: normocephalic and atraumatic Eye: COMMON NORMALS: Equal, round and reactive pupils present and EOMs intact bilaterally PUPIL: Yes Equal, round and reactive pupils present Neck/C-Spine: COMMON NORMALS: full ROM and supple Chest: COMMONS NORMALS: normal inspection of the chest and normal palpation of entire chest wall Resp: COMMON NORMALS: normal respiratory effort, No retractions, No use of accessory muscles and clear to auscultation bilaterally AUSCULTATION: clear to auscultation bilaterally Cardio: COMMON NORMALS: regular rate, regular rhythm and No murmurs present (Cardio) RATE: regular rate RHYTHM: regular rhythm GI: COMMON NORMALS: Normal to inspection, nondistended, normoactive bowel sounds present, Soft to palpation, non-tender and no masses PALPATION: Yes Soft to palpation Extremity: COMMON NORMALS: normal to inspection and full ROM Neuro: COMMON NORMALS: patient oriented x3, moves all extremities and no focal motor deficits Psych: COMMON NORMALS: mental status grossly normal, Normal thought process present and cooperative THOUGHT PROCESS: Normal thought process present Skin: COMMON NORMALS: no rashes or lesions noted and no wounds GENERAL SKIN EXAM: no rashes or lesions noted Course Vital Signs: Vital signs: Vital Signs Temperature 98.5 F 08/17/21 20:48 Pulse Rate 108 H 08/18/21 03:47 Respiratory Rate 18 08/18/21 03:47 Blood Pressure 139/90 08/18/21 03:47 Pulse Oximetry 97 08/18/21 03:47 [facility] - General Adult Medical Decision Making Patient presents with hyperglycemia he is not in DKA his glucose is trending down patient is requesting for discharge I would like to Him longer to trend his glucose but he states that he is ready to go home. I informed him he needs to check his insulin pump follow-up with his PCP and return if worsening he understands agrees to plan. Lab Data : 08/17/21 23:11 08/17/21 23:11 Laboratory Results WBC 9.2 10^3/uL (4.0-10.0) 08/17/21 23:11 RBC 4.92 10^6/uL (4.1-5.3) 08/17/21 23:11 Hgb 14.1 g/dL (11.7-16.6) 08/17/21 23:11 Hct 39.5 % (42.0-52.0) L 08/17/21 23:11 MCV 80.3 fl (80-94) 08/17/21 23:11 MCH 28.7 pg (28.0-34.0) 08/17/21 23:11 MCHC 35.7 g/dL (30.0-36.0) 08/17/21 23:11 RDW 14.1 % (12.1-15.1) 08/17/21 23:11 Plt Count 198 10^3/cmm (130-400) 08/17/21 23:11 MPV 9.3 fL (7.4-10.4) 08/17/21 23:11 Neut % (Auto) 63.6 % 08/17/21 23:11 Lymph % (Auto) 26.1 % 08/17/21 23:11 Allen % (Auto) 7.5 % 08/17/21 23:11 Eos % (Auto) 2.3 % 08/17/21 23:11 Baso % (Auto) 0.2 % 08/17/21 23:11 Neut # (Auto) 5.87 10^3/uL (1.8-7.7) 08/17/21 23:11 Lymph # (Auto) 2.4 10^3/uL (0.8-4.8) 08/17/21 23:11 Allen # (Auto) 0.7 10^3/uL (0.2-0.9) 08/17/21 23:11 Eos # (Auto) 0.2 10^3/uL (0.0-0.8) 08/17/21 23:11 Baso # (Auto) 0.0 10^3/uL (0.0-0.1) 08/17/21 23:11 Nucleated RBC % (auto) 0 % 08/17/21 23:11 Nucleated RBCs # 0.0 /100WBC 08/17/21 23:11 Sodium 129 mmol/L (136-145) L 08/17/21 23:11 Potassium 4.4 mmol/L (3.5-5.1) 08/17/21 23:11 Chloride 90 mmol/L (98-107) L 08/17/21 23:11 Carbon Dioxide 22 mmol/L (22-29) 08/17/21 23:11 Anion Gap 21.4 (5-19) H 08/17/21 23:11 BUN 25 mg/dL (8-23) H 08/17/21 23:11 Creatinine 1.1 mg/dL (0.7-1.2) 08/17/21 23:11 GFR Calculation 66.6 mL/min (90-130) L 08/17/21 23:11 Glucose 631 mg/dL (65-115) H* 08/17/21 23:11 Calculated Osmolality 302 mOsm/kg (285-295) H 08/17/21 23:11 Calcium 9.3 mg/dL (8.5-10.5) 08/17/21 23:11 EKG Data EKG 1: I personally reviewed and interpreted this EKG as follows: EKG interpretation date: 08/18/21 EKG interpretation time: 01:12 Interpretation: sinus tach hr [address] or t wave abnormalities qrs 109 qtc 389 Discharge Plan Discharge Patient Disposition: Home Clinical Impression: Hyperglycemia Condition: Stable Prescriptions: No Action hydrochlorothiazide 25 mg tablet 25 mg PO DAILY 0RF diphenhydramine HCl [Benadryl] 25 mg capsule 25 mg PO TID PRN0RF cholecalciferol (vitamin D3) 50 mcg (2,000 unit) capsule 50 mcg PO BID 0RF valganciclovir 450 mg tablet 900 mg PO DAILY 0RF oxycodone 5 mg tablet 5 mg PO Q8H PRN0RF tramadol 50 mg tablet 50 mg PO Q6H PRN0RF cyclobenzaprine 10 mg tablet 10 mg PO TID 0RF methocarbamol 750 mg tablet 750 mg PO TID 0RF cholestyramine-aspartame 4 gram powder in packet PO DAILY 0RF triamcinolone acetonide 0.025 % ointment 1 applic topical BID Qty: 15 0RF hydrocodone-acetaminophen 10-325 mg tablet 1 tab PO Q8H PRN (Reason: pain) 30 Days Qty: 60 0RF amlodipine 5 mg Tablet 5 mg PO DAILY 0RF Hold Instructions: Resume on 06/28/20. gabapentin 300 mg Capsule 300 mg PO QID 0RF tacrolimus 1 mg Capsule See Rx Instructions .ROUTE .COMPLEX 0RF Rx Instructions: 2 mg orally IN THE MORNING,1MG ORALLY IN THE EVENING aspirin 81 mg Tablet,Delayed Release (Dr/Ec) 81 mg PO DAILY Qty: 30 0RF trazodone 50 mg tablet 150 mg PO BEDTIME 0RF metoprolol tartrate 50 mg tablet 50 mg PO DAILY 0RF lisinopril 2.5 mg tablet 2.5 mg PO DAILY 0RF omega-3 acid ethyl esters 1 gram capsule 1 g PO DAILY 0RF famotidine 20 mg tablet 40 mg PO DAILY 0RF Tylenol Extra Strength 500 mg Tablet 1,000 mg PO PRN 0RF ketorolac 0.5 % drops See Rx Instructions .ROUTE .COMPLEX 0RF Rx Instructions: as directed for surgery prednisolone acetate 1 % drops,suspension See Rx Instructions .ROUTE .COMPLEX 0RF Rx Instructions: as directed for surgery Vitamin D2 1,250 mcg (50,000 unit) Capsule 50,000 unit PO Q30D 0RF Rx Instructions: states not taken this month Humalog U-100 Insulin 100 unit/mL solution See Rx Instructions .ROUTE .COMPLEX 0RF Rx Instructions: pump-pt states will give himself a shot if he thinks the pump isnt giving him enough Vitamin B-12 1 tab PO DAILY 0RF Cipro 500 mg tablet 500 mg PO BID Qty: 24 0RF ropinirole 0.5 mg tablet 1 mg PO DAILY 0RF Discharge Orders: Discharge ED (Routine); Ordered 08/18/21 Ordered By: Tyrel Mishra Referrals: Raul Alston MD [Primary Care Provider] - Discharge Diet: Advance as tolerated Discharge Activity: Resume usual activity Patient Instructions: Diabetic Hyperglycemia (ED) Coding Level of Care Code ED [facility] Exam Comprehensive
[2021-08-17 23:16] LABS: Basophils % 0.2 %; Eosinophils # 0.2 10^3/uL (0.0-0.8); Eosinophils % 2.3 %; Hematocrit 39.5 % (42.0-52.0); Hemoglobin 14.1 g/dL (11.7-16.6); Lymphocytes # 2.4 10^3/uL (0.8-4.8); Lymphocytes % 26.1 %; Mean Corpuscular HGB Conc 35.7 g/dL (30.0-36.0); Mean Corpuscular Hemoglobin 28.7 pg (28.0-34.0); Mean Corpuscular Volume 80.3 fl (80-94); Mean Platelet Volume 9.3 fL (7.4-10.4); Monocytes # 0.7 10^3/uL (0.2-0.9); Monocytes % 7.5 %; Neutrophils # 5.87 10^3/uL (1.8-7.7); Neutrophils % 63.6 %; Nucleated Red Blood Cells % 0 %; Platelet Count 198 10^3/cmm (130-400); Red Blood Count 4.92 10^6/uL (4.1-5.3); Red Cell Distribution Width 14.1 % (12.1-15.1); White Blood Count 9.2 10^3/uL (4.0-10.0)
[2021-08-17] MEDS: sodium chloride 0.9% 1,000 ML 999 ML IV (23:47)
[2021-08-17 23:54] LABS: Anion Gap 21.4 (5-19); Blood Urea Nitrogen 25 mg/dL (8-23); Calcium 9.3 mg/dL (8.5-10.5); Carbon Dioxide 22 mmol/L (22-29); Chloride 90 mmol/L (98-107); Glomerular Filtration Rate 66.6 mL/min (90-130); Osmolality Calculated 302 mOsm/kg (285-295); Potassium 4.4 mmol/L (3.5-5.1); Sodium 129 mmol/L (136-145)
[2021-08-17 23:55] LABS: Glucose 631 mg/dL (65-115)
[2021-08-18] MEDS: insulin regular-human 100 units/1 mL 12 UNIT IVP (00:04)
[2021-08-18] MEDS: sodium chloride 0.9% 1,000 ML 999 ML IV (00:50)
[2021-08-18] MEDS: ondansetron 2 mg/ML SDV 2 mL 4 MG IVP (01:16)
[2021-08-18] MEDS: insulin regular-human 100 units/1 mL 10 UNIT IVP (01:21)
[2021-08-18 01:30] VITALS: BP 156/92; PULSE 109; RESP 22; O2SAT 94
[2021-08-18] MEDS: ketorolac 30 mg/mL INJ 15 MG IVP (01:58)
[2021-08-18 02:00] VITALS: BP 135/96; PULSE 106; RESP 18; O2SAT 96
[2021-08-18] MEDS: insulin regular-human 100 units/1 mL 13 UNIT IVP (02:45)
[2021-08-18 03:00] VITALS: BP 137/89; PULSE 92; RESP 19; O2SAT 97
[2021-08-18 03:30] VITALS: BP 139/90; PULSE 108; RESP 18; O2SAT 97
[2021-08-18 03:47] VITALS: BP 139/90; PULSE 108; RESP 18; O2SAT 97
== END 2021-08-18 03:49 | disposition home or self-care (01) ==
PROVIDERS: Emergency Provider Emergency Medicine; PCP Internal Medicine
DX: E11.65 Type 2 diabetes mellitus with hyperglycemia (principal); I10 Essential (primary) hypertension; Z79.82 Long term (current) use of aspirin; Z79.4 Long term (current) use of insulin
CPT/HCPCS: 80048; 85025; 96361; 96374; 96375; 96376; 99284; J1815; J1885; J2405; J7030

== ENCOUNTER 2021-10-04 06:11 | Outpatient (CLI) | payer MEDICARE, MEDICAID, SELFPAY ==
--- NOTE | 2021-10-04 07:21 | MR_ITS ---
WS: [id number] MRI LUMBAR SPINE NONCONTRAST TECHNIQUE: Sagittal T1, T2 and STIR imaging. Axial T1 and T2 imaging. CLINICAL INFORMATION: LUMBAR STENOSIS W/RADICULOPATHY COMPARISON: None. FINDINGS: Mild central canal stenosis in the cervical spine wood heel attacher imaging at C5-C6 and C6-C7 with mild central canal stenosis. Mild lumbar curve. No acute compression. L1-L2: Slight narrowing of the LEFT subarticular recess. Mild facet arthropathy. Spinal canal and for amen are patent. L2-L3: No significant disc bulging. Mild facet arthropathy. Spinal canal and foramen are patent. L3-L4: Mild disc bulging with slight effacement of ventral thecal sac. Mild facet arthropathy. Mild L EFT and no significant RIGHT foraminal narrowing. Mild central canal stenosis. L4-L5: Mild disc bulging and osteophytic ridging. Moderate facet arthropathy. Moderate central canal stenosis. Impingement on traversing RIGHT greater than LEFT L5 nerve roots. Mild bilateral foraminal narrowing. Moderate facet arthropathy. L5-S1: Prior postoperative changes LEFT hemilaminectomy. Residual narrowing of the LEFT subarticular recess with encroachment on the LEFT S1 nerve root. Mild LEFT and no significant RIGHT foraminal narr owing. Moderate facet arthropathy. Visualized pelvic bony structures: Normal. Paravertebral soft tissues: Normal. MR/MR lumbar spine wo con* [id number] IMPRESSION: 1. Mild disc bulging with osteophytic ridging L4-L5 and moderate central canal stenosis. Impingement traversing RIGHT L5 nerve root. Moderate facet arthropat hy. Mild bilateral foraminal narrowing at this level. 2. LEFT pericentral disc osteophyte protrusion L5-S1 impinges the LEFT S1 nerv e root. Presumed prior LEFT hemilaminectomy at this level. Recommend correlatio n LEFT S1 nerve root symptoms. Mild LEFT foraminal narrowing. 3. Mild central canal stenosis L3-L4. Small LEFT foraminal protrusion at this level with mild LEFT foraminal narrowing. 4. Moderate facet arthropathy worse L4-L5. 5. Mild central canal stenosis in the cervical spine at C5-C6 and C6-C7.
== END 2021-10-04 06:12 | disposition home or self-care (01) ==
LOC: RAD 06:12
PROVIDERS: PCP Internal Medicine; Visit Provider Transplant Surgery
DX: M48.061 Spinal stenosis, lumbar region without neurogenic claudication (principal); M51.26 Other intervertebral disc displacement, lumbar region; M25.78 Osteophyte, vertebrae; M47.816 Spondylosis without myelopathy or radiculopathy, lumbar region; M48.02 Spinal stenosis, cervical region
CPT/HCPCS: 72148

== ENCOUNTER 2022-01-28 18:01 | Emergency (ER) | payer MEDICARE, MEDICAID, SELFPAY ==
[2022-01-28 18:27] VITALS: PULSE 133; RESP 20; TEMP 36.8; O2SAT 95
--- NOTE | 2022-01-28 18:50 | XRR_ITS ---
PROCEDURE INFORMATION: Exam: XR Right Shoulder Exam date and time: 01/28/2022 6:58 PM Age: 66 years old Clinical indication: Pain; Shoulder; Right; Additional info: R shoulder pain TECHNIQUE: Imaging protocol: Radiologic exam of the Right shoulder. Views: 2 or more views. COMPARISON: CR (CHEST, ) 01/28/2022 6:56 PM FINDINGS: Bones/joints: Mild osseous spurring at the margins of the acromioclavicular and glenohumeral joints. Normal alignment. No fracture. No erosion. Soft tissues: Normal. XR/XR shoulder RT min 2V* [id number] IMPRESSION: No acute right shoulder abnormality.
--- NOTE | 2022-01-28 18:50 | XRR_ITS ---
PROCEDURE INFORMATION: Exam: XR Chest Exam date and time: 01/28/2022 6:56 PM Age: 66 years old Clinical indication: Shortness of breath; Additional info: SOB TECHNIQUE: Imaging protocol: Radiologic exam of the chest. Views: 1 view. COMPARISON: CR XR ribs LT mn 3V w CXR1V [id number] 07/27/2021 9:51 PM FINDINGS: Lungs: Unremarkable. No consolidation. Pleural spaces: Unremarkable. No pleural effusion. No pneumothorax. Heart/Mediastinum: Unremarkable. No cardiomegaly. Bones/joints: Unremarkable. XR/XR chest 1V portable [id number] IMPRESSION: No acute findings.
[2022-01-28 19:06] VITALS: RESP 20
[2022-01-28] MEDS: morphine 4 mg/mL SDV 1 mL IM (19:06)
[2022-01-28 21:04] VITALS: RESP 18
[2022-01-28] MEDS: oxyCODONE-APAP 5-325 mg Tablet 2 TAB PO (21:04)
[2022-01-28 21:13] VITALS: BP 132/76; PULSE 68; RESP 20; O2SAT 95
--- NOTE | 2022-01-28 21:21 | W.ED.EXTPRO ---
HPI - Extremity Problem General: Chief complaint: Extremity Injury, Upper Stated complaint: Right shoulder pain Time Seen by Provider: 01/28/22 18:34 Source: patient and family History of Present Illness: 66-year-old male patient with a history of liver transplant. He notes that he has had the flu and Has been coughing and short of breath. Some minimal sputum production. He awoke this morning with right sided shoulder pain that is significant. His son notes that he has had this problem before, and received medication for it which seemed to help to some degree. He's complaining of 10/10 pain that is reproducible with any right shoulder movement. MD Complaint: extremity pain and joint pain Onset (ago): day(s) Pain Consistency: constant Location: right and upper extremity (shoulder) Quality: aching Radiation: none Relieving factors: nothing Exacerbating factors: range of motion Associated symptoms: Reports short of breath and other (cough); Deny chest pain or fever(s) Review of Systems Const: Denies: fever(s) ENMT: Denies: throat pain Card: Denies: chest pain or palpitations Resp: Reports: dyspnea, productive cough and wheezing GI: Reports: vomiting (once); Denies: abdominal pain or nausea Musc: Denies: neck pain PFSH ED PFSH: Medical History Abscess Oyccm-4-ynzknjxrraj deficiency Diabetic peripheral neuropathy Hypertension Restless leg syndrome Type 2 diabetes mellitus Surgical History History of intravascular stent placement History of liver transplant Hx of insertion of insulin pump Family History Other Colon cancer Diabetes Hypertension Social History Smoking and tobacco status: never smoked Alcohol intake: never Adopted: No Marital status: Number of children: 7 service: Yes History of recent travel: No Physical Exam Const: COMMON NORMALS: no acute distress GENERAL APPEARANCE: cooperative, ill appearing (mildly) and frail appearing (mildly) HENMT: COMMON NORMALS: normocephalic, atraumatic and Normal external nose present HEAD & SCALP: normocephalic and atraumatic FACE & SINUS: normal facial exam and face symmetric NOSE: Normal external nose present Eye: COMMON NORMALS: Equal, round and reactive pupils present and EOMs intact bilaterally PUPIL: Yes Equal, round and reactive pupils present Neck/C-Spine: GENERAL: Yes trachea midline Chest: CHEST: Yes Symmetrical chest wall rise Resp: COMMON NORMALS: No retractions and No use of accessory muscles EFFORT & INSPECTION: Yes able to speak in complete sentences and Yes tachypneic AUSCULTATION: rhonchi and wheezes Cardio: COMMON NORMALS: regular rate and regular rhythm RATE: regular rate RHYTHM: regular rhythm GI: COMMON NORMALS: Normal to inspection, nondistended, normoactive bowel sounds present Extremity: COMMON NORMALS: no pedal edema NARRATIVE EXTREMITY EXAM: Examination of the right shoulder reveals some significant tenderness over the joint line as well as the AC joint. no deformity. There is pain with range of motion. No chest tenderness. Neuro: ADRIANA COMA SCALE: document GCS findings Adriana coma scale eye opening: Spontaneous Adriana coma scale verbal response: Orientated Adriana coma scale motor response: [place] commands [place] coma scale total score: 15 SENSORY EXAM: Yes extremities (intact) Psych: COMMON NORMALS: speech normal SPEECH: Yes normal speech Skin: COMMON NORMALS: no rashes or lesions noted GENERAL SKIN EXAM: no rashes or lesions noted Course Vital Signs: Vital signs: Vital Signs Temperature 98.3 F 01/28/22 18:27 Pulse Rate 68 01/28/22 21:13 Respiratory Rate 20 H 01/28/22 21:13 Blood Pressure 132/76 01/28/22 21:13 Pulse Oximetry 95 01/28/22 21:13 Oxygen Delivery Me thod 01/28/22 18:27 MDM - Extremity (Nontraumatic) Medical Decision Making Imaging in the right shoulder shows AC joint osteoarthritis. There are some glenohumeral osteoarthritis as well. No definite effusion. He does not have fever. Chest X-ray shows no acute infiltrate. He'll be covered with antibiotics for bronchitis. Medrol dose pack both for COPD type exacerbation, and the shoulder pain. to return if worsening. Lab Data Radiology Impressions Chest X-Ray 01/28/22 18:50 IMPRESSION: No acute findings. Shoulder X-Ray 01/28/22 18:50 IMPRESSION: No acute right shoulder abnormality. Discharge Plan Discharge Patient Disposition: Home Clinical Impression: Acute bronchitis, Acute pain of right shoulder Condition: Stable Prescriptions: New Medrol (Leonard) 4 mg tablets,dose pack See Rx Instructions .ROUTE .COMPLEX Qty: 21 0RF Rx Instructions: orally per package directions doxycycline hyclate 100 mg tablet 100 mg PO BID 7 Days Qty: 14 0RF albuterol sulfate 90 mcg/actuation HFA aerosol inhaler 2 inh INHALATION Q4H PRN (Reason: shortness of breath or wheezing) Qty: 6.7 1RF Continued hydrocodone-acetaminophen 10-325 mg tablet 1 tab PO Q8H PRN (Reason: pain) 30 Days Qty: 8 0RF Discontinued oxycodone 5 mg tablet 5 mg PO Q8H PRN tramadol 50 mg tablet 50 mg PO Q6H PRN No Action hydrochlorothiazide 25 mg tablet 25 mg PO DAILY diphenhydramine HCl [Benadryl] 25 mg capsule 25 mg PO TID PRN cholecalciferol (vitamin D3) 50 mcg (2,000 unit) capsule 50 mcg PO BID valganciclovir 450 mg tablet 900 mg PO DAILY cyclobenzaprine 10 mg tablet 10 mg PO TID methocarbamol 750 mg tablet 750 mg PO TID cholestyramine-aspartame 4 gram powder in packet PO DAILY triamcinolone acetonide 0.025 % ointment 1 applic topical BID Qty: 15 0RF amlodipine 5 mg Tablet 5 mg PO DAILY Hold Instructions: Resume on 06/28/20. gabapentin 300 mg Capsule 300 mg PO QID tacrolimus 1 mg Capsule See Rx Instructions .ROUTE .COMPLEX Rx Instructions: 2 mg orally IN THE MORNING,1MG ORALLY IN THE EVENING aspirin 81 mg Tablet,Delayed Release (Dr/Ec) 81 mg PO DAILY Qty: 30 0RF trazodone 50 mg tablet 150 mg PO BEDTIME metoprolol tartrate 50 mg tablet 50 mg PO DAILY lisinopril 2.5 mg tablet 2.5 mg PO DAILY omega-3 acid ethyl esters 1 gram capsule 1 g PO DAILY famotidine 20 mg tablet 40 mg PO DAILY Tylenol Extra Strength 500 mg Tablet 1,000 mg PO PRN ketorolac 0.5 % drops See Rx Instructions .ROUTE .COMPLEX Rx Instructions: as directed for surgery Vitamin D2 1,250 mcg (50,000 unit) Capsule 50,000 unit PO Q30D Rx Instructions: states not taken this month Humalog U-100 Insulin 100 unit/mL solution See Rx Instructions .ROUTE .COMPLEX Rx Instructions: pump-pt states will give himself a shot if he thinks the pump isnt giving him enough Vitamin B-12 1 tab PO DAILY ropinirole 0.5 mg tablet 1 mg PO DAILY Discharge Orders: Discharge ED (Routine); Ordered 01/28/22 Ordered By: Farshad Leon Referrals: Raul Alston MD [Primary Care Provider] - 4-7 days Patient Instructions: Acute Bronchitis (ED), Shoulder Pain (ED), Opioid Safety, Pain Management Activity Restrictions/Additional Instructions: Use the inhaler you were prescribed every 4 hours while awake for the next 48 hours, then as needed for shortness of breath. Other medications as directed. The steroids will help with your shoulder pain significantly, as well as the bronchitis, but may drive up your sugars. Pain medication for severe pain ice may help. Return for worsening symptoms despite treatment. Follow-up with your doctor next week. Coding Level of Care Code ED Relationship Consultant for Sm[facility] Pena
== END 2022-01-28 21:05 | disposition home or self-care (01) ==
PROVIDERS: Emergency Provider Emergency Medicine; PCP Internal Medicine
DX: M25.511 Pain in right shoulder (principal); J20.9 Acute bronchitis, unspecified; Z79.82 Long term (current) use of aspirin; Z79.4 Long term (current) use of insulin; I10 Essential (primary) hypertension; E11.9 Type 2 diabetes mellitus without complications; Z94.4 Liver transplant status
CPT/HCPCS: 71045; 73030; 96372; 99284; J2270

== ENCOUNTER → 2022-03-16 10:07 | Outpatient (BNVA) | payer MEDICARE, MEDICAID, SELFPAY | PROVIDERS: PCP Internal Medicine; Visit Provider Family Medicine | DX: E11.42 Type 2 diabetes mellitus with diabetic polyneuropathy (principal); R41.89 Other symptoms and signs involving cognitive functions and awareness; I25.2 Old myocardial infarction; I10 Essential (primary) hypertension | CPT/HCPCS: 80053; 80061; 82306; 82607; 82728; 83036; 84443; 85025; 86592 ==

== ENCOUNTER → 2022-04-17 07:36 | Outpatient (BNVA) | payer MEDICARE, MEDICAID, SELFPAY | PROVIDERS: PCP Family Medicine; Referring Provider Family Medicine; Visit Provider Internal Medicine | DX: E11.42 Type 2 diabetes mellitus with diabetic polyneuropathy (principal); D84.9 Immunodeficiency, unspecified; E88.01 Alpha-1-antitrypsin deficiency; I25.2 Old myocardial infarction; Z79.4 Long term (current) use of insulin | CPT/HCPCS: 99204 ==

== ENCOUNTER 2022-04-24 08:24 | Outpatient (CLI) | payer MEDICARE, MEDICAID, SELFPAY ==
--- NOTE | 2022-04-24 08:35 | XR_ITS ---
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 No disc space narrowing is seen. Mild limitation of motion but no subluxation is seen. There is mild osteoarthritic change of all the lumbar vertebral bodies. There is facet joint arthriti s from L3-L4 through L5-S1. There are clips throughout the abdomen from surgery. XR/XR lumbar spine f/e only [id number] Impression: 1. Mild osteoarthritis of the lumbar vertebral bodies. 2. Facet joint arthritis L3-L4 to L5-S1. 3. Negative for subluxation on flexion or extension.
== END 2022-04-24 08:25 | disposition home or self-care (01) ==
PROVIDERS: PCP Family Medicine; Visit Provider Nurse Practitioner
DX: M96.1 Postlaminectomy syndrome, not elsewhere classified (principal); M47.896 Other spondylosis, lumbar region
CPT/HCPCS: 72120

== ENCOUNTER → 2022-05-22 10:20 | Outpatient (BNVA) | payer MEDICARE, MEDICAID, SELFPAY | PROVIDERS: PCP Family Medicine; Visit Provider Family Medicine | DX: M25.551 Pain in right hip (principal); M25.552 Pain in left hip; M25.561 Pain in right knee; M25.562 Pain in left knee; G89.28 Other chronic postprocedural pain; Z96.653 Presence of artificial knee joint, bilateral; R07.9 Chest pain, unspecified; I25.2 Old myocardial infarction; I10 Essential (primary) hypertension; E87.1 Hypo-osmolality and hyponatremia; E55.9 Vitamin D deficiency, unspecified; G89.29 Other chronic pain; Z80.0 Family history of malignant neoplasm of digestive organs; L98.9 Disorder of the skin and subcutaneous tissue, unspecified | CPT/HCPCS: 80053; 82306; 83735; 85025 ==

== ENCOUNTER → 2022-05-24 12:04 | Outpatient (BNVA) | payer MEDICARE, MEDICAID, SELFPAY | PROVIDERS: PCP Family Medicine; Visit Provider Emergency Medicine | DX: M25.531 Pain in right wrist (principal); L03.113 Cellulitis of right upper limb; M19.031 Primary osteoarthritis, right wrist; E11.42 Type 2 diabetes mellitus with diabetic polyneuropathy; D84.9 Immunodeficiency, unspecified; E88.01 Alpha-1-antitrypsin deficiency; I25.2 Old myocardial infarction; Z79.4 Long term (current) use of insulin; Z79.84 Long term (current) use of oral hypoglycemic drugs | CPT/HCPCS: 73110; 99214 ==

== ENCOUNTER → 2022-05-26 11:31 | Outpatient (BNVA) | payer MEDICARE, MEDICAID, SELFPAY | PROVIDERS: PCP Family Medicine; Visit Provider Family Medicine | DX: M25.50 Pain in unspecified joint (principal); Z79.899 Other long term (current) drug therapy | CPT/HCPCS: 84550 ==

== ENCOUNTER 2022-05-29 08:09 | Outpatient (CLI) | payer MEDICARE, MEDICAID, SELFPAY ==
--- NOTE | 2022-05-29 08:25 | XR_ITS ---
WS: [id number] XR hip BI m 5V wo/w pel* [id number] REASON FOR EXAM: chronic bilateral hip pain FINDINGS: RIGHT HIP: No fracture or focal bone lesion. Moderate narrowing of the joint space with moderate subchondral sclerosis and osteophytosis of the ac etabulum. No soft tissue abnormality. LEFT HIP: No fracture or focal bone lesion. Moderate narrowing of the joint space with moderate subchondral sclerosis and osteophytosis. No soft tissue abnormality. XR/XR hip BI m 5V wo/w pel* [id number] IMPRESSION: Bilateral moderate osteoarthritis of the hips.
--- NOTE | 2022-05-29 08:25 | XR_ITS ---
WS: [id number] XR knee RT 3V* [id number] REASON FOR EXAM: s/p tka 10 years ago, continued pain FINDINGS: Right knee arthroplasty. Femoral and tibial components are in proper position and alignment. No findi ngs of loosening or infection. No fracture or focal bone lesion. There appears to be narrowing of the patellar prosthesis interface. Moderate to large osteophyte along the posterior margin of the articular portion of the tibial prosth esis. XR/XR knee RT 3V* [id number] IMPRESSION: Right knee arthroplasty as above.
--- NOTE | 2022-05-29 08:25 | XR_ITS ---
WS: [id number] XR knee LT 3V* [id number] REASON FOR EXAM: s/p tka 10 years ago, continued pain FINDINGS: Left knee arthroplasty. No fracture or focal bone lesion. Femoral and tibial components are in proper position and alignment. There is no sign of loosening or infection. Patellar prosthetic interface is narrowed. On the lateral view the joint space between the prosthetic components appears narrowed, especially when compared to the right. Moderate to large osteophytes along the posterior margins of the femoral and tibial prostheses. XR/XR knee LT 3V* [id number] IMPRESSION: Left knee arthroplasty as above.
== END 2022-05-29 08:10 | disposition home or self-care (01) ==
LOC: RAD 08:13
PROVIDERS: PCP Family Medicine; Visit Provider Family Medicine
DX: M25.551 Pain in right hip (principal); M25.552 Pain in left hip; M25.561 Pain in right knee; M25.562 Pain in left knee; G89.28 Other chronic postprocedural pain; Z96.653 Presence of artificial knee joint, bilateral; M16.0 Bilateral primary osteoarthritis of hip
CPT/HCPCS: 73523; 73562

== ENCOUNTER → 2022-06-14 09:09 | Outpatient (BNVA) | payer MEDICARE, MEDICAID, SELFPAY | PROVIDERS: PCP Family Medicine; Visit Provider Internal Medicine | DX: E11.42 Type 2 diabetes mellitus with diabetic polyneuropathy (principal); D84.9 Immunodeficiency, unspecified; E88.01 Alpha-1-antitrypsin deficiency; I25.2 Old myocardial infarction; Z79.4 Long term (current) use of insulin | CPT/HCPCS: 99214 ==

== ENCOUNTER 2022-06-21 09:25 | Outpatient (CLI) | payer MEDICARE, MEDICAID, SELFPAY ==
--- NOTE | 2022-06-21 | ECG_ITS ---
[facility] Test Date: 2022-06-21 Pat Name: Titus Fatima Department: Room: Gender: Male Insole Presser: Esha Bernal : 1955 Requested By: Lucy Rutherford Order Number: [id number] Chuy MD: Ramon Buckley M.D. Interpretive Statements NAME OF STUDY: LEXISCAN SESTAMIBI STRESS TEST INDICATION: Chest Pain, PROCEDURE: At the baseline, the EKG revealed sinus tachycardia with a poor R wave progression. Possible old anteroseptal NV. The baseline heart was 113 bpm with a blood pressue of 126/95 mm of Hg Lexiscan was infused over a period of 20 seconds. A total of 0.4 milligrams of Lexiscan was infused. The stress phase was continued for a total of 5 minutes. Heart rate at the end of the stress phase was 119 bpm with a blood pressure 142/93 mm of Hg. The EKG at the peak infusion revealed no significant changes. Sestamibi was injected 20 seconds after the Lexiscan infusion. Heart rate at the end of the recovery phase was 118 bpm with a blood pressure of 111/92 mm of Hg. CONCLUSION: 1. No significant EKG changes with the LexiScan infusion 2. No LexiScan induced chest pain or cardiac arrhythmia 3. Normal blood pressure and heart rate response 4. Sestamibi/sestamibi perfusion scan pending; see separate report. Electronically Signed On 06-25-2022 22:57:35 CDT by Ramon Buckley M.D. [id number]
[2022-06-21 09:36] VITALS: BMI 35.1
--- NOTE | 2022-06-21 09:38 | NMCV_ITS ---
NM gerard perf SPECT r/s* [id number] Titus Fatima Age: 67 Gender: M : 1955 Exam Date: 06/21/2022 10:44 Ordering Phys: Lucy Rutherford MD Technologist: MELCHOR Gupta Exam Location: [facility] Indications: CHEST PAIN, ATHEROSCLEROTIC HEART DISEASE STRESS TEST Please see separate stress test report in [facility] for full findings IMAGE PROTOCOL Rest/Stress 1 Lexiscan Day Radiopharmaceutical Dose (mCi) Administration Site Administered by Rest: Tc-99m 10.8 IV MELCHOR Beyer Sestamibi Stress:Tc-99m 32.6 IV MELCHOR Gupta Sestamibi Rest: 21-Jun-2022 60 Discovery 630 Stress: 21-Jun-2022 30 Discovery 630 0.4mg Lexiscan. Supine position only as patient was unable to lay prone. SPECT RESULTS Technical Quality: Excellent Raw Data Analysis: Normal Image Corrections: No attenuation or motion correction applied Summed Stress Score: 2 Summed Rest Score: 0 Summed Difference Score: 2 PERFUSION FINDINGS A small area of decreased tracer uptake was noted in the apical lateral region.. Complete reversibility was noted at rest FUNCTIONAL RESULTS (calculated via Gated SPECT) Stress Image LV EF (%): 68 Stress EDV (mL):95 TID: 1.32 Stress ESV (mL):30 FUNCTIONAL FINDINGS: Segmental wall motion analysis revealing no gross wall motion abnormalities. The transient ischemic dilatation ratio was 1.32 IMPRESSIONS 1. Myocardial perfusion imaging revealing small area of reversible defect in the apical lateral region suggestive of ischemia in the distribution of the left circumflex artery. 2. Normal LV ejection fraction 68%. 3. LV wall motion analysis revealing no gross wall motion abnormalities. 4. Normal LV volume. 5. Elevated transient ischemic dilatation ratio may suggest endocardial ischemia. Compared to the study from Jun 27 2421, there is improvement in the LV ejection fraction. The area of ischemia appears to be identified location. The transient ischemic dilatation appears to be new. Dr Ramon Buckley MD [facility] (Electronically Signed) Final Date: 21 June 2022 20:38 S
[2022-06-21] MEDS: regadenoson 0.4 Mg/5 ml Syringe IVP (11:30)
[2022-06-21 11:45] VITALS: BP 111/92; PULSE 117
== END 2022-06-21 09:26 | disposition home or self-care (01) ==
LOC: CDL 09:26
PROVIDERS: PCP Family Medicine; Visit Provider Family Medicine
DX: R07.9 Chest pain, unspecified (principal); I25.10 Atherosclerotic heart disease of native coronary artery without angina pectoris
CPT/HCPCS: 78452; 93017; A9500; J2785

== ENCOUNTER → 2022-06-22 14:56 | Outpatient (BNVA) | payer MEDICARE, MEDICAID, SELFPAY | PROVIDERS: PCP Family Medicine; Referring Provider Family Medicine; Visit Provider Nurse Practitioner Family | DX: L81.4 Other melanin hyperpigmentation (principal); D22.9 Melanocytic nevi, unspecified; Z71.89 Other specified counseling; L85.3 Xerosis cutis; D48.5 Neoplasm of uncertain behavior of skin; L21.8 Other seborrheic dermatitis; D04.21 Carcinoma in situ of skin of right ear and external auricular canal | CPT/HCPCS: 69100; 99204 ==

== ENCOUNTER 2022-07-05 09:35 | Outpatient (CLI) | payer MEDICARE, MEDICAID, SELFPAY ==
[2022-07-05 10:21] LABS: Estmated Average Glucose 246; Hemoglobin A1C 10.2 % (4.0-6.0)
[2022-07-05 10:23] LABS: Alanine Aminotransferase 10 U/L (0-41); Albumin Level 3.9 g/dL (3.5-5.2); Alkaline Phosphatase 83 U/L (40-130); Anion Gap 16.1 (5-19); Aspartate Amino Transferase 10 U/L (0-40); Blood Urea Nitrogen 21 mg/dL (8-23); Calcium 9.2 mg/dL (8.5-10.5); Carbon Dioxide 27 mmol/L (22-29); Chloride 96 mmol/L (98-107); Chol HDL Ratio 3.33 mg/dL (1.0-5.00); Cholesterol 110 mg/dL (0-200); Globulin 2.9 g/dL (1.3-4.6); Glucose 399 mg/dL (65-115); HDL Cholesterol 33 mg/dL (60-100); LDL Cholesterol Calculated 35 mg/dL (50-129); LDL HDL Ratio 1.06 RATIO (0.00-3.22); Osmolality Calculated 300 mOsm/kg (285-295); Potassium 4.1 mmol/L (3.5-5.1); Sodium 135 mmol/L (136-145); Total Bilirubin 0.5 mg/dL (0.15-1.2); Total Protein 6.8 g/dL (6.6-8.7); Triglycerides 209 mg/dL (0-150)
== END 2022-07-05 09:36 | disposition home or self-care (01) ==
LOC: LAB 09:40
PROVIDERS: PCP Family Medicine; Visit Provider Internal Medicine
DX: E11.42 Type 2 diabetes mellitus with diabetic polyneuropathy (principal); D84.821 Immunodeficiency due to drugs; E88.01 Alpha-1-antitrypsin deficiency; I25.2 Old myocardial infarction; Z79.899 Other long term (current) drug therapy
CPT/HCPCS: 36415; 80053; 80061; 83036

== ENCOUNTER → 2022-07-06 13:32 | Outpatient (BNVA) | payer MEDICARE, MEDICAID, SELFPAY | PROVIDERS: PCP Family Medicine; Visit Provider Internal Medicine | DX: Z79.4 Long term (current) use of insulin (principal); E11.9 Type 2 diabetes mellitus without complications; D84.9 Immunodeficiency, unspecified; E88.01 Alpha-1-antitrypsin deficiency; I25.2 Old myocardial infarction | CPT/HCPCS: 99214 ==

== ENCOUNTER → 2022-07-12 12:45 | Outpatient (BNVA) | payer MEDICARE, MEDICAID, SELFPAY | PROVIDERS: PCP Family Medicine; Visit Provider Internal Medicine | DX: I25.10 Atherosclerotic heart disease of native coronary artery without angina pectoris (principal); R07.9 Chest pain, unspecified; R94.39 Abnormal result of other cardiovascular function study; E11.9 Type 2 diabetes mellitus without complications; I10 Essential (primary) hypertension | CPT/HCPCS: 93005; 99204 ==

== ENCOUNTER → 2022-07-26 14:52 | Outpatient (BNVA) | payer MEDICARE, MEDICAID, SELFPAY | PROVIDERS: PCP Family Medicine; Visit Provider Internal Medicine | DX: E11.42 Type 2 diabetes mellitus with diabetic polyneuropathy (principal); D84.9 Immunodeficiency, unspecified; E88.01 Alpha-1-antitrypsin deficiency; I25.2 Old myocardial infarction; Z79.4 Long term (current) use of insulin | CPT/HCPCS: 99214 ==

== ENCOUNTER 2022-07-27 05:24 | Outpatient (CLI) | payer MEDICARE, MEDICAID, SELFPAY ==
[2022-07-26] VITALS (10 sets, daily range): BP systolic 96–124; BP diastolic 61–76; PULSE 82–104; RESP 16–17; O2SAT 92–98; BMI 35.4
[2022-07-27] VITALS (16 sets, daily range): BP systolic 97–140; BP diastolic 61–85; PULSE 85–110; RESP 10–26; TEMP 36.8–36.9; O2SAT 90–97
--- NOTE | 2022-07-27 06:00 | XACV_ITS ---
Exam Room: [facility] Ht: 175 cm Wt: 110 kg BSA: 2.35 m2 Gender: Male : 1955 Exam Priority: Routine Procedure(s): Procedure Description: Diagnostic procedure Procedure Description: Left Heart Catheterization Procedure Description: Coronary IVUS Procedure Description: Coronary Angiography Diagnostic Cath Status: Elective Diagnostic Findings * INDICATION: Chest pain/abnormal stress test. * Left Main has no significant disease. * Left Anterior Descending has diffuse luminal irregularities. Has prior patent stent.. * Right Coronary Artery has mild luminal irregularities. * Proximal Circumflex: moderate 60% stenosis, HIRO: 3 flow. Distal left circumflex artery has 60 to 70% stenosis.. * Coronary angiography shows right dominance. Interventional Findings * PROCEDURE DETAIL: Pressure wire was not available because of supply issues. Patient had moderate ostial/proximal left circumflex artery stenosis. Stress test is showing however small sized area of ischemia in left circumflex artery territory. Patient also has distal vessel disease. In order to confirm significance of ostial left circumflex artery stenosis, we decided to perform IVUS. IV heparin was administered to maintain anticoagulation. 0.014 run-through guidewire was used to cross stenosis and was put in distal vessel. IVUS was performed. MLA of 5.6 mm2 was obtained that was not significant for left circumflex artery. We decided to medically treat him. Distal vessel disease is likely significant but supplies small area of heart. Conclusions 1. Ostial left circumflex artery stenosis. IVUS showed MLA of 5.6 mm2. Medical therapy.. Recommendations * Aggressive risk factor modification. * Outpatient cardiology follow-up in 4 weeks. Interventional RX Recommendation: medical therapy and/or counseling Anticoagulation: Heparin Pressures Phase:Rest AO : 101 / 81 ( 92 ) @ 8:49:00 AM 102 / 79 ( 91 ) @ 8:53:00 AM 114 / 61 ( 83 ) @ 8:59:00 AM 114 / 61 ( 82 ) @ 8:59:00 AM 83 / 61 ( 73 ) @ 9:03:00 AM LV : 123 / -9 / 8 @ 8:58:00 AM 120 / -12 / 6 @ 8:59:00 AM Valves Phase:DefaultPhase AV : 6.0 @ 9:20:18 AM 6.0 @ 9:20:18 AM AV Mean Gradient: 20.0 @ 9:20:18 AM Clinical Evaluation EBL: 5mL-10mL Procedural Details Procedure Consent Obtained. Pre-Procedure Time Out. Identified patient by full name and date of as verbalized by the patient/guarantor. Does the consent match the physician's order: Yes. Accurate & Complete Informed Consent: Yes. Inpatient/Outpatient History & Physical on Chart: Yes. If H&P is completed, is and addenduem needed: No; If yes, is the addendum complete: N/A. Visualize and Verify Site with Patient/Guarantor: N/A. Relevant Radiology Images available: N/A. The risks, benefits, and alternatives of sedation and/or procedure were discussed by physician. The patient agrees to continue. Procedure started. [facility] Clinical Fraility Score: 4: Vulnerable. Icer Machine Operator Indications: Worsening Angina, abnormal stress test. Chest Pain Symptom Assessment: Typical Angina Symptoms. Correct patient, site and procedure confirmed by cath team. PERRLA. Strong, equal hand cap jewel plate assembler bilaterally. Lungs clear x 5 lobes. IV Site on Arrival: 20 gauge in the right anticubital. IV Fluids: 0.9% NaCl at KVO. 0 mL infused prior to cath lab radiological technologist. Pre Procedural Pulses: right dorsalis pedis was 1+. Pre Procedural Pulses: left dorsalis pedis was 2+. Pre Procedural Pulses: right posterior tibial was 1+. Pre Procedural Pulses: left posterior tibial was 1+. Pre Procedural Pulses: bilateral radial was 2+. Oxygen started at 2liters/min via nasal canula. right groin was prepped with chloroprep then draped in the usual sterile fashion. right radial was prepped with chloroprep then draped in the usual sterile fashion. Baseline sample Acquired. HR: 81 BPM. Physician notified. Physician arrived. Physician scrubbed in. Immediate Pre-Procedure Time Out. Correct Patient: Yes; Correct Procedure: Yes; Correct Site: Yes; Correct Patient Position: Yes; Correct Supplies: Yes; Dried Flammable Prep: Yes; Blood Products Available: N/A;. Admit Source: Out Patient. Lidocaine 1% infiltrated to the right radial. Ultrasound requested for assistance in access and used by physican. Arterial access obtained. An attempt to gain access to the right radial artery was unsuccessful. Manual pressure was held as needed to stop the bleeding. Lidocaine 1% infiltrated to the right groin. Arterial access obtained with micropuncture set. A 5 algerian JL4 catheter in over wire. Multiple views taken of left coronary artery. Catheter removed over the exchange wire. A 5 algerian JR4 catheter in over wire. Multiple views taken of right coronary artery. EDP Sample taken: LV 123/-10,8; HR: 81 BPM; SpO2: 97%. Pullback taken: LV 120/-13,6; AO 114/61(83); Mean: 20mmHg, Peak to Peak: 6mmHg, SEP: 9sec/min; HR: 81 BPM; SpO2: 97%. Catheter out. 6 algerian XB 3.5 guide catheter was inserted over the wire. Runthrough guidewire was advanced through the guide catheter to lesion in the ostial Circ. IVUS run of ostial circ. Wire out. Guide catheter out. ACT drawn. Results 259 seconds. Therapeutic limits - pre-heparin administration 90-150 seconds and monitoring heparin during a vascular procedure >250 seconds. A Right femoral angiogram was performed to determine safe placement of closure device. Post Procedure: Pulses reassessed and unchanged. PERRLA. Strong, equal hand cap jewel plate assembler bilaterally. No VTE prophylaxis required. Post-op diagnosis: moderate osital circ stenosis. A Suture was successful obtaining hemostatsis at the Right Femoral artery insertion site. Complications: none. Medication's Wasted: Nitro = 50 mL. Medication's Wasted: Heparin = 1000 units. Medication's Wasted: Other = versed 1 mg. Medication's Wasted: Other = fentanyl 50 mcg. Total IV fluids: 50 mL. Estimated blood loss: 5mL-10mL. Responsiveness - Normal response to verbal stimuli; alert and oriented, PERRLA. Circulation: W/N/L, pulses unchanged. Airway - Unaffected, no intervention required; spontaneous ventilation. Nausea/Vomiting: No. Procedure completed. Patient transferred by bed to 1st floor. Vital chart was stopped. Procedure started. Access Site Site: Right Femoral artery Sheath Size: 6 Fr Hemostasis Method: Suture Hemostasis Success: Successful Procedure Medications Start: 7:34 AM Stop: 7:34 AM Medication: Versed 1 mg and Fentanyl 25 mcg Amount: 1 Route: I.V. Start: 7:58 AM Stop: 7:58 AM Medication: Heparin Amount: 8000 units Route: I.V. I, the attending physician, have reviewed and verified all procedure medications. Yes, all medications given per verbal order History/Risk Factors Hypertension: Yes Dyslipidemia: No Peripheral Arterial Disease (PAD): No Myocardial Infarction ([place]): Yes Obesity: No Tobacco Use: Never Prior Interventions PCI: Yes CABG: No Valve Surgery: No Report Signatures Finalized by Kayode Osman MD on 08/06/2022 11:39 AM
[2022-07-27] MEDS: diphenhydrAMINE 50 mg Capsule PO (06:52)
[2022-07-27 06:53] LABS: Basophils % 0.4 %; Eosinophils # 0.4 10^3/uL (0.0-0.8); Eosinophils % 4.9 %; Hematocrit 39.2 % (42.0-52.0); Hemoglobin 13.6 g/dL (11.7-16.6); Lymphocytes # 2.5 10^3/uL (0.8-4.8); Lymphocytes % 32.7 %; Mean Corpuscular HGB Conc 34.7 g/dL (30.0-36.0); Mean Corpuscular Hemoglobin 28.9 pg (28.0-34.0); Mean Corpuscular Volume 83.2 fl (80-94); Mean Platelet Volume 9.1 fL (7.4-10.4); Monocytes # 0.6 10^3/uL (0.2-0.9); Monocytes % 7.1 %; Neutrophils # 4.21 10^3/uL (1.8-7.7); Neutrophils % 54.4 %; Nucleated Red Blood Cells % 0 %; Platelet Count 186 10^3/cmm (130-400); Red Blood Count 4.71 10^6/uL (4.1-5.3); Red Cell Distribution Width 14.3 % (12.1-15.1); White Blood Count 7.7 10^3/uL (4.0-10.0)
--- NOTE | 2022-07-27 07:30 | P.HPUD_ITS ---
Surgery/Procedure H&P Update DATE OF PROCEDURE: July 27, 2022 DATE H&P PERFORMED: 07/12/22 H&P UPDATE INFORMATION: I have reviewed H&P completed within last 30 days, I have examined patient prior to procedure and No changes to prior documentation PREOP DIAGNOSIS: Worsening angina/ abnormal stress test PRIMARY INDICATION FOR PROCEDURE: Worsening angina/ abnormal stress test PLANNED PROCEDURE: Operation Date: 07/27/22 07:00 Proposed Procedures p [facility] [address]84, R94.39(Left) - Kayode Osman M.D Possible percutaneous coronary intervention PATIENT REASSESSED PRIOR TO SEDATION, WITH NO CHANGE NOTED: Yes PHYSICAL EXAM: alert, oriented x 3, clear to auscultation bilaterally and regular rate & rhythm AIRWAY EVAL/ANESTHESIA PLAN: normal airway, ASA III, Local Anesthesia, Risks, benefits & alternatives of sedation and/or procedure discussed and Patient agrees to continue as planned ADDITIONAL INFORMATION: Moderate sedation
[2022-07-27 08:47] LABS: Glucose Point of Care 214 mg/dL (70-110)
[2022-07-27 12:13] LABS: Partial Thromboplastin Time 40.8 SECONDS (23.9-36.7)
[2022-07-27 13:21] LABS: Glucose Point of Care 334 mg/dL (70-110)
[2022-07-27] MEDS: insulin lispro 100 unit/1 mL SUBCUT ×2 (13:21→17:37)
[2022-07-27 17:23] LABS: Glucose Point of Care 371 mg/dL (70-110)
--- NOTE | 2022-07-27 18:32 | PC.NURSE ---
Patients right femoral sheath removed at 15:07, hemostasis achieved immediately. No signs of bleeding or hematoma. Vitals stable. Semi occlusive dressing applied, dry and intact. Patient educated on laying flat for 6 hours post removal.
--- NOTE | 2022-07-27 18:35 | PC.NURSE ---
During rounding patient found bending legs off side of bed, patient seemed noncompliant to education given on post sheath pull. Education reinforced on importance of laying straight for 6 hours. Patient verbalized understanding.
--- NOTE | 2022-07-27 18:58 | PC.NURSE ---
Received bedside report from LIYA Mares. Patient is s/p [facility] with right femoral access. No intervention. Right femoral site dressing remain c,d,i without s/s of bleeding or hematoma formation observed. Instructed patient on site care and possible discharge this evening. Patient verbalize complete understanding. Will continue to monitor.
--- NOTE | 2022-07-27 20:14 | PC.NURSE ---
Dressing to right groin remains c,d,i without s/s of bleeding or hematoma formation at this time. Patient denies pain to site stating, I feel great! . Instructed patient on pending discharge. Patient verbalized complete understanding.
== END 2022-07-27 20:38 | disposition home or self-care (01) ==
LOC: CCL 05:24 → CSU 14:55
PROVIDERS: PCP Family Medicine; Visit Provider Internal Medicine
DX: R94.39 Abnormal result of other cardiovascular function study (principal); I25.118 Atherosclerotic heart disease of native coronary artery with other forms of angina pectoris; Z95.5 Presence of coronary angioplasty implant and graft; I10 Essential (primary) hypertension; I25.2 Old myocardial infarction
CPT/HCPCS: 36415; 36416; 82962; 85025; 85347; 85730; 92978; 93458; 96365; 96372; 99152; 99153; C1753; C1769; C1887; C1894; G0378; J1644; J1815; J2250; J3010; J3490; J7030; Q0163; Q9967

== ENCOUNTER → 2022-08-16 14:05 | Outpatient (BNVA) | payer MEDICARE, MEDICAID, SELFPAY | PROVIDERS: PCP Family Medicine; Visit Provider Nurse Practitioner Family | DX: I25.10 Atherosclerotic heart disease of native coronary artery without angina pectoris (principal); I10 Essential (primary) hypertension | CPT/HCPCS: 36415; 80048; 99214 ==

== ENCOUNTER → 2022-09-12 11:04 | Outpatient (BNVA) | payer MEDICARE, MEDICAID, SELFPAY | PROVIDERS: PCP Family Medicine; Visit Provider Podiatrist Foot & Ankle Surgery | DX: E11.621 Type 2 diabetes mellitus with foot ulcer (principal); L97.512 Non-pressure chronic ulcer of other part of right foot with fat layer exposed; Z79.4 Long term (current) use of insulin; E11.42 Type 2 diabetes mellitus with diabetic polyneuropathy; L03.115 Cellulitis of right lower limb | CPT/HCPCS: 87070; 87075; 87077; 87186; 87205; 99204 ==

== ENCOUNTER → 2022-09-21 10:57 | Outpatient (BNVA) | payer MEDICARE, MEDICAID, SELFPAY | PROVIDERS: PCP Family Medicine; Visit Provider Podiatrist Foot & Ankle Surgery | DX: E11.621 Type 2 diabetes mellitus with foot ulcer (principal); L03.115 Cellulitis of right lower limb; E11.42 Type 2 diabetes mellitus with diabetic polyneuropathy; L97.512 Non-pressure chronic ulcer of other part of right foot with fat layer exposed; Z79.4 Long term (current) use of insulin | CPT/HCPCS: 99213 ==

== ENCOUNTER → 2022-09-22 10:36 | Outpatient (BNVA) | payer MEDICARE, MEDICAID, SELFPAY | PROVIDERS: PCP Family Medicine; Visit Provider Internal Medicine | DX: E11.42 Type 2 diabetes mellitus with diabetic polyneuropathy; D84.9 Immunodeficiency, unspecified; E88.01 Alpha-1-antitrypsin deficiency; I25.2 Old myocardial infarction; Z79.4 Long term (current) use of insulin | CPT/HCPCS: 36415; 80053; 80061; 83036; 99214 ==

== ENCOUNTER 2022-09-28 15:42 | Outpatient (CLI) | payer MEDICARE, MEDICAID, SELFPAY ==
--- NOTE | 2022-09-28 16:00 | MRR_ITS ---
PROCEDURE INFORMATION: Exam: MR Lumbar Spine Without and With Contrast Exam date and time: 09/28/2022 4:07 PM Age: 67 years old Clinical indication: Low back pain; Prior surgery; Surgery date: 6+ months; Surgery type: L spine 20 years ago; Additional info: Spinal infection vs tumor vs impingment, [email or web address]: [email or web address]: Imaging protocol: Magnetic resonance imaging of the lumbar spine without and with contrast. Contrast material: MULTIHANCE; Contrast volume: 20 ml; Contrast route: INTRAVENOUS (IV); COMPARISON: MR lumbar spine wo con* [id number] 10/04/2021 7:48 AM FINDINGS: Bones/joints: Five non rib-bearing lumbar type vertebral bodies are present. Trace levocurvature of the lumbar spine is seen. Normal lumbar lordosis is present, with unchanged grade 1 retrolisthesis of L5. Vertebral body heights are preserved. There is no evidence of fracture. No spondylolysis is seen. Bone marrow signal is within normal limits. Multilevel disc desiccation is present. There is mild enhancement/inflammation of the soft tissues adjacent to the posterior aspect of the L5-S1 zygapophyseal joints and between the L5-S1 interspinous space. No fluid collection identified. No evidence of discitis/osteomyelitis. Spinal cord: The inferior tip of the conus is at the L1-L2 level. The partially imaged spinal cord has normal morphology and signal intensity. L1-L2: No significant disc bulge or herniation. Mild bilateral facet joint arthrosis is present. No severe spinal canal stenosis. No significant neural foraminal narrowing. L2-L3: No significant disc bulge or herniation. Mild bilateral facet joint arthrosis is present. No severe spinal canal stenosis. No significant neural foraminal narrowing. L3-L4: There is circumferential disc bulging with flattening of the anterior thecal sac, in association with mild bilateral facet joint arthrosis and ligamentum flavum hypertrophy, resulting in mild bilateral neural foraminal narrowing. No significant central spinal canal stenosis. L4-L5: There is circumferential disc bulging in association with moderate bilateral facet joint arthrosis and ligamentum flavum hypertrophy, resulting in moderate to severe bilateral neural foraminal narrowing. Moderate central spinal canal stenosis is present. L5-S1: There is circumferential disc bulging with a small posterior and left foraminal disc protrusion in association with moderate bilateral facet joint arthrosis and ligamentum flavum hypertrophy, resulting in moderate left and mild right neural foraminal narrowing. Mild central spinal canal stenosis is present. Soft tissues: Unremarkable. MR/MR lumbar spine wo/w con [id number] IMPRESSION: Multilevel degenerative changes of the lumbar spine, most prominent at L4-L5 and L5-S1, as described above.
[2022-09-28] MEDS: gadobenate dimeglumine 20 mL vial IV (16:41)
== END 2022-09-28 15:43 | disposition home or self-care (01) ==
PROVIDERS: PCP Family Medicine; Visit Provider Family Medicine
DX: G89.29 Other chronic pain (principal); M54.50 Low back pain, unspecified; R15.9 Full incontinence of feces; R20.0 Anesthesia of skin; R32 Unspecified urinary incontinence; M47.896 Other spondylosis, lumbar region
CPT/HCPCS: 72158; A9577

== ENCOUNTER → 2022-10-17 07:40 | Outpatient (BNVA) | payer MEDICARE, MEDICAID, SELFPAY | PROVIDERS: PCP Family Medicine; Visit Provider Nurse Practitioner Family | DX: E11.52 Type 2 diabetes mellitus with diabetic peripheral angiopathy with gangrene (principal); L97.521 Non-pressure chronic ulcer of other part of left foot limited to breakdown of skin | CPT/HCPCS: 97597; 99213; A6210 ==

== ENCOUNTER → 2022-10-18 10:05 | Outpatient (BNVA) | payer MEDICARE, MEDICAID, SELFPAY | PROVIDERS: PCP Family Medicine; Visit Provider Nurse Practitioner Family | DX: L97.529 Non-pressure chronic ulcer of other part of left foot with unspecified severity (principal); L57.0 Actinic keratosis; L82.1 Other seborrheic keratosis; L21.8 Other seborrheic dermatitis; D04.21 Carcinoma in situ of skin of right ear and external auricular canal; Z86.007 Personal history of in-situ neoplasm of skin | CPT/HCPCS: 69100; 99214 ==

== ENCOUNTER → 2022-10-24 07:51 | Outpatient (BNVA) | payer MEDICARE, MEDICAID, SELFPAY | PROVIDERS: PCP Family Medicine; Visit Provider Nurse Practitioner Family | DX: E11.52 Type 2 diabetes mellitus with diabetic peripheral angiopathy with gangrene (principal); L97.521 Non-pressure chronic ulcer of other part of left foot limited to breakdown of skin | CPT/HCPCS: 97597; A6210 ==

== ENCOUNTER → 2022-11-07 07:53 | Outpatient (BNVA) | payer MEDICARE, MEDICAID, SELFPAY | PROVIDERS: PCP Family Medicine; Visit Provider Dermatology | DX: D04.21 Carcinoma in situ of skin of right ear and external auricular canal (principal) | CPT/HCPCS: 15260; 17311; 17312 ==

== ENCOUNTER → 2022-11-17 08:58 | Outpatient (BNVA) | payer MEDICARE, MEDICAID, SELFPAY | PROVIDERS: PCP Family Medicine; Visit Provider Dermatology | DX: Z48.02 Encounter for removal of sutures (principal) | CPT/HCPCS: 99024; 99212 ==

== ENCOUNTER → 2022-12-07 11:04 | Outpatient (BNVA) | payer MEDICARE, MEDICAID, SELFPAY | PROVIDERS: PCP Family Medicine; Visit Provider Dermatology | DX: Z48.817 Encounter for surgical aftercare following surgery on the skin and subcutaneous tissue (principal); L57.8 Other skin changes due to chronic exposure to nonionizing radiation; Z85.828 Personal history of other malignant neoplasm of skin; L81.4 Other melanin hyperpigmentation | CPT/HCPCS: 99213 ==

== ENCOUNTER → 2022-12-26 07:24 | Outpatient (BNVA) | payer MEDICARE, MEDICAID, SELFPAY | PROVIDERS: PCP Family Medicine; Referring Provider Family Medicine; Visit Provider Psychiatry & Neurology Neurology | DX: E11.42 Type 2 diabetes mellitus with diabetic polyneuropathy (principal); R29.898 Other symptoms and signs involving the musculoskeletal system; R20.0 Anesthesia of skin; R20.2 Paresthesia of skin; M54.50 Low back pain, unspecified; G89.29 Other chronic pain; E55.9 Vitamin D deficiency, unspecified; Z79.4 Long term (current) use of insulin | CPT/HCPCS: 36415; 82306; 82607; 82746; 83735; 83921; 99203 ==

== ENCOUNTER → 2022-12-27 10:08 | Outpatient (BNVA) | payer MEDICARE, MEDICAID, SELFPAY | PROVIDERS: PCP Family Medicine; Visit Provider Internal Medicine | DX: I25.2 Old myocardial infarction; E11.42 Type 2 diabetes mellitus with diabetic polyneuropathy; D84.9 Immunodeficiency, unspecified; E88.01 Alpha-1-antitrypsin deficiency; E11.65 Type 2 diabetes mellitus with hyperglycemia; Z79.4 Long term (current) use of insulin | CPT/HCPCS: 99214 ==

== ENCOUNTER 2023-01-31 07:28 | Oncology outpatient (recurring) (ONCR) | payer MEDICARE, MEDICAID, SELFPAY ==
--- OUTSIDE RECORDS SUMMARY | 2023-01-25 10:51 | XMS_ITS | Patient Health Record ---
Author Name Unknown Organization [facility] Address [address], [place] [id number] Care Team Providers Care Customs Manager Name Role Phone Sangeeta CORTEZ, Lucy Primary Care Provider Geena Leyva MD, Deshawn Unavailable [phone] He SOFTWARE APPLICATION TESTER, Kathryn Unavailable [phone] ALLERGIES No Known Allergies RESULTS Component Value Reference Range Notes Urine tox screen / MS if ind icated Reviewed date:05/11/2022 11:33:33 AM Interpretation: Performing Lab: Notes/Report: X-ray: Lumbar spine, flexion /extension views (please comment on presence or absence of spinal instability) (05541) Reviewed date:04/25/2022 07:36:28 AM Interpretation: Performing Lab: Notes/Report: REASON FOR REFERRAL Reason Chronic pain Diagnosis 1 Other chronic pain ( G89.29) Referring Provider First Name Lucy Referring Provider Last Name Sangeeta Referring Provider [facility]ity [facility] Referred Organization [facility] Referred Provider Deshawn Leyva Referred Address [address], [id number], Referred Provider Specialty Pain Managem ent General Notes Suzie Daily 09:42:25 PM >Sent for insurance verification. Referral Priority Routine MEDICATIONS Medication SIG (Take, Route, Frequency, Duration) Notes Start Date End Date Status Bantry-3 1000 mg 1 cap(s) orally once a day for 30 day(s) Active Metoprolol Tartrate 50 mg 1 tab(s) orall y 2 times a day for 30 day(s) Active lisinopril 2.5 mg 1 tab(s) orally once a day for 30 day(s) Active isosorbide mononitrate 30 mg 1 tab(s) orally once a day (in the morning) for 30 day(s) Active hydroCHLOROthiazide 25 mg 1 tab(s) orall y once a day for 30 day(s) Active traZODone 50 mg 3 tab(s) orally at bedtime Active gabapentin 300 mg 1 cap po orally Q6H Active tacrolimus 1 mg 1 cap(s) orally in the morning and 2 cap(s) in the evening Active famotidine 20 mg 1 tab(s) orally once a day Active traMADol 50 mg 1 tab orally Q4H prn pain (max 4/day; hold within 4H of planned sleep) for 30 day(s) ICD-10: G89.29 11/09/2022 Active aspirin 81 mg 1 tab(s) chewed once a day Active rosuvastatin 10 mg 1 tab(s) orally once a day for 30 day(s) Active amLODIPine 5 mg 1 tab(s) orally once a day for 30 day(s) Active rOPINIRole 0.5 mg 1 tab(s) orally at bedtime Active prasugrel 10 mg 1 tab(s) orally once a day Active omeprazole 20 mg 1 cap(s) orally once a day for 30 day(s) Active SOCIAL HISTORY Tobacco Use: Social History Observation Description Date Details (start date - stop date) Never Smoker NA - NA Sex Assigned At : Social History Observation Description Sex Assigned At Unknown alcohol Question Answer Notes Did you have a drink containing alcohol in the p ast year? No Points 0 Interpretation Negative Tobacco use: Question Answer Notes : nonsmoker PROBLEMS Problem Type ICD Code Onset Dates Problem Status W/U Status Risk SNOMED Code Notes Problem Knee pain (719.46) Active confirmed Kne e pain (0103826849) Problem Sacroiliitis, not elsewhere classified (M46.1) Active confirmed Solitary sacroiliitis (114583245) Problem Spondylosis without myelopathy or radiculopathy, lumbar region (M47.816) Active confirmed Lumbosacral spondylosis without myelopathy (99638490) Problem intermediate (current) use of opiate analgesic (Z79.891) Active confirmed High ris k drug monitoring status (707025481) Problem Pain in left knee (M25.562) Active confirmed Arthralgia of the lower leg (761070089) Problem Obstructive sleep apnea (adult) (pediatric) (G47.33) Active confirmed Obstructive sleep apnea syndrome (86488121) Problem Other chronic pain (G89.29) Active confirmed Chronic pain (28560574) Problem Postlaminectomy syndrome, not elsewhere classified (M96.1) Active confirmed Post-lami nectom y syndrome (88879465) Problem Other ad terminal makeup operator (current) drug therapy (Z79.899) Active confirmed Long-term current use of drug therapy (076242514) Problem Spinal stenosis, lumbar region with neurogenic claudication (M48.062) Active confirmed Neurogenic claudication (049596869) Problem Vertebrogenic low back pain (M54.51) Active confirmed Low back pain (finding) (417560478) VITAL SIGNS Temperature 98.0 degrees Fahrenheit 11/09/2022 Oximetry 94 % 11/09/2022 Blood pressure diastolic 97 mm Hg 06/21/2022 Height 5'9 in 11/09/2022 Blood pressure systolic 141 mm Hg 06/21/2022 Weight 249 lbs 11/09/2022 BMI 36.77 kg/m2 11/09/2022 Encounters Encounter Location Date Provider Diagnosis [facility] [place], [place] [id number] 04/17/2022 Kathryn He Vertebrogenic low ba ck pain M54.51 ; Spondylosis without myelopathy or radiculopathy, lumbar region M47.816 ; Sacroiliitis, not elsewhere classified M46.1 ; Spinal stenosis, lumbar region with neurogenic claudication M48.062 ; Postlaminectomy syndrome, not elsewhere classified M96.1 ; Pain in left knee M25.562 ; Obstructive sleep apnea (adult) (pediatric) G47.33 and Other jail (current) drug therapy Z79.899 [facility] [place] [address] [place], [place] [id number] 04/26/2022 Deshawn Leyva Vertebrogenic low ba ck pain M54.51 ; Postlaminectomy syndrome, not elsewhere classified M96.1 ; Spinal stenosis, lumbar region with neurogenic claudication M48.062 ; Spondylosis without myelopathy or radiculopathy, lumbar region M47.816 ; Sacroiliitis, not elsewhere classified M46.1 ; Pain in left knee M25.562 ; Obstructive sleep apnea (adult) (pediatric) G47.33 and Other ad terminal makeup operator (current) drug therapy Z79.899 [facility] [address], [place] [id number] 05/24/2022 Deshawn Leyva Vertebrogenic low ba ck pain M54.51 ; Postlaminectomy syndrome, not elsewhere classified M96.1 ; Spinal stenosis, lumbar region with neurogenic claudication M48.062 ; Spondylosis without myelopathy or radiculopathy, lumbar region M47.816 ; Sacroiliitis, not elsewhere classified M46.1 ; Pain in left knee M25.562 ; Obstructive sleep apnea (adult) (pediatric) G47.33 and predatory animal exterminator (current) use of opiate analgesic Z79.891 [facility] [address], [place] [id number] 05/25/2022 Deshawn Leyva [facility], [address] [id number] 06/21/2022 Deshawn Leyva Vertebrogenic low ba ck pain M54.51 ; Postlaminectomy syndrome, not elsewhere classified M96.1 ; Spinal stenosis, lumbar region with neurogenic claudication M48.062 ; Spondylosis without myelopathy or radiculopathy, lumbar region M47.816 ; Sacroiliitis, not elsewhere classified M46.1 ; Pain in left knee M25.562 ; Obstructive sleep apnea (adult) (pediatric) G47.33 and intermediate (current) use of opiate analgesic Z79.891 [facility] [address], [place] [id number] 08/17/2022 Kathryn He Vertebrogenic low ba ck pain M54.51 and Other chronic pain G89.29 [facility] [address] [place] [id number] 11/09/2022 Kathryn He Vertebrogenic low ba ck pain M54.51 and Other chronic pain G89.29 ASSESSMENTS Encounter Date Diagnosis Assessment Notes Treatment Notes Treatment Clinical Notes 04/17/2022 Spondylosis without myelopathy or radiculopathy, lumbar region (ICD-10 - M47.816) 04/17/2022 Vertebrogenic low back pain (ICD-10 - M54.51) chronic axial lumbar spine pain. Prior conservative treatment by patient as noted, below. Prior surgical treatment as noted, below. Consider treatment options pending outcome of imaging studies and evaluation by Dr. Leyva 04/26/2022 Postlaminectomy syndrome, not elsewhere classified (ICD-10 - M96.1) No lumbar spine instability as noted upon review of 04/24/22 flexion - extension imaging study report 04/26/2022 Vertebrogenic low back pain (ICD-10 - M54.51) Chronic axial lumbosacral spine pain. Prior minimal conservative treatment by patient as noted, below. Patient has expressed no interest in additional conservative treatment. Patient has multiple possible contra - indications to NSAIA use. Prior surgical treatment as noted, below. Have discussed minimally invasive interventional spine treatment and the patient declined. Have discussed a possible surgical referral to explore possible surgical treatment options and the patient declined. Oral opioid medication use with history of benefit: patient took tramadol for many years ( 15 ) with benefit before it became ineffective. Plan to resume opioid medication management 05/24/2022 Postlaminectomy syndrome, not elsewhere classified (ICD-10 - M96.1) No lumbar spine instability as noted upon review of 04/24/22 flexion - extension imaging study report 05/24/2022 Vertebrogenic low back pain (ICD-10 - M54.51) Chronic axial lumbosacral spine pain. Prior minimal conservative treatment by patient as noted, below. Patient has expressed no interest in additional conservative treatment. Patient has multiple possible contraindications to NSAIA use. Prior surgical treatment as noted, below. Have discussed minimally invasive interventional spine treatment and the patient declined this treatment option. Have discussed a possible surgical referral to explore possible surgical treatment options and the patient declined this treatment option. Oral opioid medication use with history of benefit: patient took tramadol for many years ( 15 ) with benefit before it became ineffective. 15 mg per day / 15 mg MED hydrocodone trial with minimal benefit and stomach upset. Plan return to tramadol with possible future upward titration 06/21/2022 Vertebrogenic low back pain (ICD-10 - M54.51) Chronic axial lumbosacral spine pain. Prior minimal conservative treatment by patient as noted, below. Patient has expressed no interest in additional conservative treatment. Patient has multiple possible contraindications to NSAIA use. Prior surgical treatment as noted, below. Have discussed minimally invasive interventional spine treatment and the patient declined this treatment option. Have discussed a possible surgical referral to explore possible surgical treatment options and the patient declined this treatment option. Oral opioid medication use with history of benefit: patient took tramadol for many years ( 15 ) with benefit before it became ineffective. 15 mg per day / 15 mg MED hydrocodone trial with minimal benefit and stomach upset. Plan return to tramadol with possible future upward titration 08/17/2022 Other chronic pain (ICD-10 - G89.29) Patient reports that taking his medication allows him to be more active. Plan to continue oral opioid medication management 08/17/2022 Vertebrogenic low back pain (ICD-10 - M54.51) Chronic axial lumbosacral spine pain 06/21/2022 Postlaminectomy syndrome, not elsewhere classified (ICD-10 - M96.1) No lumbar spine instability as noted upon review of 04/24/22 flexion - extension imaging study report 11/09/2022 Vertebrogenic low back pain (ICD-10 - M54.51) Chronic axial lumbosacral spine pain 04/26/2022 Spinal stenosis, lumbar region with neurogenic claudication (ICD-10 - M48.062) Spinal stenosis as noted upon review of 10/04/21 MRI report 06/21/2022 Spinal stenosis, lumbar region with neurogenic claudication (ICD-10 - M48.062) Spinal stenosis as noted upon review of 10/04/21 MRI report 11/09/2022 Other chronic pain (ICD-10 - G89.29) Patient reports that taking his medication allows him to spend more time with his grand kids. Plan to continue oral opioid medication management 05/24/2022 Spinal stenosis, lumbar region with neurogenic claudication (ICD-10 - M48.062) Spinal stenosis as noted upon review of 10/04/21 MRI report 04/17/2022 Sacroiliitis, not elsewhere classified (ICD-10 - M46.1) 04/17/2022 Spinal stenosis, lumbar region with neurogenic claudication (ICD-10 - M48.062) Spinal stenosis as noted upon review of 10/04/21 MRI report 04/26/2022 Spondylosis without myelopathy or radiculopathy, lumbar region (ICD-10 - M47.816) 05/24/2022 Spondylosis without myelopathy or radiculopathy, lumbar region (ICD-10 - M47.816) 06/21/2022 Spondylosis without myelopathy or radiculopathy, lumbar region (ICD-10 - M47.816) 06/21/2022 Sacroiliitis, not elsewhere classified (ICD-10 - M46.1) 04/26/2022 Sacroiliitis, not elsewhere classified (ICD-10 - M46.1) 05/24/2022 Sacroiliitis, not elsewhere classified (ICD-10 - M46.1) 04/17/2022 Postlaminectomy syndrome, not elsewhere classified (ICD-10 - M96.1) Plan imaging to evaluate lumbar spine stability 04/17/2022 Pain in left knee (ICD-10 - M25.562) Patient to follow up with PCP regarding further orthopedic needs including orthopedic referral 04/26/2022 Pain in left knee (ICD-10 - M25.562) Patient has stated understanding to follow up with PCP regarding further orthopedic needs including possible orthopedic referral 05/24/2022 Pain in left knee (ICD-10 - M25.562) Patient has stated understanding to follow up with PCP regarding further orthopedic needs including possible orthopedic referral 06/21/2022 Pain in left knee (ICD-10 - M25.562) Patient has stated understanding to follow up with PCP regarding further orthopedic needs including possible orthopedic referral 06/21/2022 Obstructive sleep apnea (adult) (pediatric) (ICD-10 - G47.33) Patient has reported non-compliance with use of CPAP device for some time. Have encouraged patient to treat his sleep apnea and the patient declined. Plan to restrict opioid usage in relation to sleep: patient has verbalized understanding to hold short-acting opioids within four hours of planned sleep. Patient has been counseled on the risks of sleep apnea, with or without opioid and / or other sedative usage, and the patient verbalized understanding and acceptance of the increased risk (worsened sleep apnea, respiratory depression, ) with opioid and / or sedative substance usage. Patient has been counseled that synergistic risk occurs with concomitant opioid and sedative usage. Patient has been counseled to hold opioid and / or sedative substances prior to planned sleep or dangerous activities and patient verbalized understanding that noncompliance would be at patient's increased risk 05/24/2022 Obstructive sleep apnea (adult) (pediatric) (ICD-10 - G47.33) Patient has reported non-compliance with use of CPAP device for some time. Have encouraged patient to treat his sleep apnea and the patient declined. Plan to restrict opioid usage in relation to sleep: patient has verbalized understanding to hold short-acting opioids within four hours of planned sleep. Patient has been counseled on the risks of sleep apnea, with or without opioid and / or other sedative usage, and the patient verbalized understanding and acceptance of the increased risk (worsened sleep apnea, respiratory depression, ) with opioid and / or sedative substance usage. Patient has been counseled that synergistic risk occurs with concomitant opioid and sedative usage. Patient has been counseled to hold opioid and / or sedative substances prior to planned sleep or dangerous activities and patient verbalized understanding that noncompliance would be at patient's increased risk 04/26/2022 Obstructive sleep apnea (adult) (pediatric) (ICD-10 - G47.33) Patient reported non-compliance with use of CPAP device for some time. Have encouraged patient to treat his sleep apnea and the patient declined. Plan to restrict opioid usage in relation to sleep: patient has verbalized understanding to hold short-acting opioids within four hours of planned sleep. Patient has been counseled on the risks of sleep apnea, with or without opioid and / or other sedative usage, and the patient verbalized understanding and acceptance of the increased risk (worsened sleep apnea, respiratory depression, ) with opioid and / or sedative substance usage. Patient has been counseled that synergistic risk occurs with concomitant opioid and sedative usage. Patient has been counseled to hold opioid and / or sedative substances prior to planned sleep or dangerous activities and patient verbalized understanding that noncompliance would be at patient's increased risk 04/17/2022 Obstructive sleep apnea (adult) (pediatric) (ICD-10 - G47.33) Continue use of CPAP device 04/17/2022 Other jail (current) drug therapy (ICD-10 - Z79.899) Patient was given a copy of the Treatment Agreement, signed by patient on 04/05/22. Urine Tox screen today; random screens per protocol. Opioid Risk Tool score 0 - low risk 04/26/2022 Other jail (current) drug therapy (ICD-10 - Z79.899) Patient has received the Opioid Analgesic [facility] Patient Counseling Guide. Patient has had opportunity to read the Guide and ask questions pertaining to the Guide. Patient has been advised on 04/26/22 that due to the [facility] Government concerns and actions, any suspected patient misuse, abuse, or diversion of controlled substances (i.e. opioids/narcotics/pain killers) WILL result in dissolution of treatment from this clinic. Patients adhering to the concepts contained within the patient's Treatment Agreement will be protected from such termination of care. Patient was given a copy of the Treatment Agreement, signed by patient on 04/05/22. Patient signed an opioid consent form on 04/26/22. Opioid Risk Tool score 0 - low risk 05/24/2022 predatory animal exterminator (current) use of opiate analgesic (ICD-10 - Z79.891) Patient has a total daily MED of 15. This places the patient in the [facility] low risk category for total daily opioid usage (not to be confused with the separate potential significant risk in regards to diagnosed [and untreated] sleep apnea, above). Patient has received the Opioid Analgesic [facility] Patient Counseling Guide. Patient has had opportunity to read the Guide and ask questions pertaining to the Guide. Patient has been advised on 04/26/22 that due to the [employer] Government concerns and actions, any suspected patient misuse, abuse, or diversion of controlled substances (i.e. opioids/narcotics/pain killers) WILL result in dissolution of treatment from this clinic. Patients adhering to the concepts contained within the patient's Treatment Agreement will be protected from such termination of care. Patient was given a copy of the Treatment Agreement, signed by patient on 04/05/22. Patient signed an opioid consent form on 04/26/22. Opioid Risk Tool score 0 - low risk 06/21/2022 predatory animal exterminator (current) use of opiate analgesic (ICD-10 - Z79.891) Patient has a total daily MED of 15. This places the patient in the [facility] low risk category for total daily opioid usage (not to be confused with the separate potential significant risk in regards to diagnosed [and untreated] sleep apnea, above). Patient has received the Opioid Analgesic [facility] Patient Counseling Guide. Patient has had opportunity to read the Guide and ask questions pertaining to the Guide. Patient has been advised on 04/26/22 that due to the [employer] Government concerns and actions, any suspected patient misuse, abuse, or diversion of controlled substances (i.e. opioids/narcotics/pain killers) WILL result in dissolution of treatment from this clinic. Patients adhering to the concepts contained within the patient's Treatment Agreement will be protected from such termination of care. Patient was given a copy of the Treatment Agreement, signed by patient on 04/05/22. Patient has refused offer of a Narcan nasal spray prescription. Patient signed an opioid consent form on 04/26/22. Opioid Risk Tool score 0 - low risk 04/17/2022 Other Continue above medication as currently prescribed via another provider. Case reviewed with Dr. Leyva. Treatment plan approved 04/26/2022 Other 05/24/2022 Other Consider titrat ion of tramadol at future visits if needed 06/21/2022 Other 08/17/2022 Other 11/09/2022 Other PLAN OF TREATMENT Next Appt Details Provider Name:Deshawn Carrington son, 03/14/2023 02:10:00 PM, [address] [place] [address], [phone], Insurance Providers Payer Name Payer Address Payer Phone Subscriber Number Group Number Insured Name Patient Relationship to Insured Coverage Start Date Coverage End Date [facility] [address] [address] [place] [address] [id number] Titus Tellez Self - patient is the insured [place] [address] [place] [id number] Titus Fatima Self - patient is the insured MEDICAL (GENERAL) HISTORY Medical History History ICD Code Chronic pain Low back pain Lumbar spondylosis, spinal stenosis and post-laminectomy syndrome Sacroiliitis Knee pain, bilateral Arthritis of knees, history of bilateral TKA, history of on-going pain post surgeries Hypertension Diabetes mellitus type 2 Guue-9-ugcdmkikelu deficieincy Diabetic peripheral neuropathy GERD CAD Myocardial infarction (2021) Immunosuppressed status Restless leg syndrome Ventral hernia Umbilical hernia Hyponatremia Cognitive decline Sleep apnea Obesity, moderate Surgical History Surgery Date(Month/Year) Low back surgery (presumed l eft L5-S1 laminectomy as per MRI report), performed at [facility] in [place], [place], 1994 Liver transplant, performed in [place], [place], 2002 Umbilical hernia repair, 2005 Knee replacement, bilateral, 2006 Placement of stents, cardiac , performed at [facility] in [place], [place], 2021 Excision of skin cancer, rig ht ear, with skin graft, performed by Dr. Oakley, 11/07/22 Hospitalization History Reason Date(Month/Year) COVID-19, treated at [facility] in [place], [place]21
--- OUTSIDE RECORDS SUMMARY | 2023-01-31 07:32 | XMS_ITS | Patient Health Record ---
Author Name Unknown Organization [facility] Address [address], [place] [id number] Care Team Providers Care Repair Department Manager Name Role Phone Sangeeta CORTEZ, Lucy Primary Care Provider Geena Leyva MD, Deshawn Unavailable [phone] He IT ADMINISTRATIVE ASSISTANT, Kathryn Unavailable [phone] ALLERGIES No Known Allergies RESULTS Component Value Reference Range Notes Urine tox screen / MS if ind icated Reviewed date:05/11/2022 11:33:33 AM Interpretation: Performing Lab: Notes/Report: X-ray: Lumbar spine, flexion /extension views (please comment on presence or absence of spinal instability) (61483) Reviewed date:04/25/2022 07:36:28 AM Interpretation: Performing Lab: Notes/Report: REASON FOR REFERRAL Reason Chronic pain Diagnosis 1 Other chronic pain ( G89.29) Referring Provider First Name Lucy Referring Provider Last Name Sangeeta Referring Provider [facility]ity [facility] Referred Provider Deshawn Leyva Referred Address [address], [id number], Referred Provider Specialty Pain Managem ent General Notes Suzie Daily 09:42:25 PM >Sent for insurance verification. 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) Active confirmed High ris k drug monitoring status (003151944) Problem Pain in left knee (M25.562) Active confirmed Arthralgia of the lower leg (500762228) Problem Obstructive sleep apnea (adult) (pediatric) (G47.33) Active confirmed Obstructive sleep apnea syndrome (16199848) Problem Other chronic pain (G89.29) Active confirmed Chronic pain (89147610) Problem Postlaminectomy syndrome, not elsewhere classified (M96.1) Active confirmed Post-lami nectom y syndrome (51861468) Problem Other custodial (current) drug therapy (Z79.899) Active confirmed Long-term current use of drug therapy (359135456) Problem Spinal stenosis, lumbar region with neurogenic claudication (M48.062) Active confirmed Neurogenic claudication (456426417) Problem Vertebrogenic low back pain (M54.51) Active confirmed Low back pain (finding) (551859148) VITAL SIGNS Temperature 98.0 degrees Fahrenheit 11/09/2022 Oximetry 94 % 11/09/2022 Blood pressure diastolic 97 mm Hg 06/21/2022 Height 5'9 in 11/09/2022 Blood pressure systolic 141 mm Hg 06/21/2022 Weight 249 lbs 11/09/2022 BMI 36.77 kg/m2 11/09/2022 Encounters Encounter Location Date Provider Diagnosis [facility] [place], [place] [id number] 04/17/2022 Kathryn He Vertebrogenic low ba ck pain M54.51 ; Spondylosis without myelopathy or radiculopathy, lumbar region M47.816 ; Sacroiliitis, not elsewhere classified M46.1 ; Spinal stenosis, lumbar region with neurogenic claudication M48.062 ; Postlaminectomy syndrome, not elsewhere classified M96.1 ; Pain in left knee M25.562 ; Obstructive sleep apnea (adult) (pediatric) G47.33 and Other press tender long goods (current) drug therapy Z79.899 [facility] [place] [address] [place], [place] [id number] 04/26/2022 Deshawn Leyva Vertebrogenic low ba ck pain M54.51 ; Postlaminectomy syndrome, not elsewhere classified M96.1 ; Spinal stenosis, lumbar region with neurogenic claudication M48.062 ; Spondylosis without myelopathy or radiculopathy, lumbar region M47.816 ; Sacroiliitis, not elsewhere classified M46.1 ; Pain in left knee M25.562 ; Obstructive sleep apnea (adult) (pediatric) G47.33 and Other custodial (current) drug therapy Z79.899 [facility] [address], [place] [id number] 05/24/2022 Deshawn Leyva Vertebrogenic low ba ck pain M54.51 ; Postlaminectomy syndrome, not elsewhere classified M96.1 ; Spinal stenosis, lumbar region with neurogenic claudication M48.062 ; Spondylosis without myelopathy or radiculopathy, lumbar region M47.816 ; Sacroiliitis, not elsewhere classified M46.1 ; Pain in left knee M25.562 ; Obstructive sleep apnea (adult) (pediatric) G47.33 and nursing home (current) use of opiate analgesic Z79.891 [facility] [address], [place] [id number] 05/25/2022 Deshawn Leyva [facility], [address] [id number] 06/21/2022 Deshawn Leyva Vertebrogenic low ba ck pain M54.51 ; Postlaminectomy syndrome, not elsewhere classified M96.1 ; Spinal stenosis, lumbar region with neurogenic claudication M48.062 ; Spondylosis without myelopathy or radiculopathy, lumbar region M47.816 ; Sacroiliitis, not elsewhere classified M46.1 ; Pain in left knee M25.562 ; Obstructive sleep apnea (adult) (pediatric) G47.33 and moth exterminator (current) use of opiate analgesic Z79.891 [facility] [address], [place] [id number] 08/17/2022 Kathryn He Vertebrogenic low ba ck pain M54.51 and Other chronic pain G89.29 [facility] [address] [place] [id number] 11/09/2022 Kathryn He Vertebrogenic low ba ck [...] Continue use of CPAP device 04/17/2022 Other custodial (current) drug therapy (ICD-10 - Z79.899) Patient was given a copy of the Treatment Agreement, signed by patient on 04/05/22. Urine Tox screen today; random screens per protocol. Opioid Risk Tool score 0 - low risk 04/26/2022 Other press tender long goods (current) drug therapy (ICD-10 - Z79.899) Patient has received the Opioid Analgesic [facility] Patient Counseling Guide. Patient has had opportunity to read the Guide and ask questions pertaining to the Guide. Patient has been advised on 04/26/22 that [address] to the 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 analgesic (ICD-10 [...] advised on 04/26/22 that due to the [place] Government concerns and actions, any suspected patient [...] Tool score 0 - low risk 06/21/2022 nursing home (current) use of opiate analgesic (ICD-10 - [...] advised on 04/26/22 that due to the [place] Government concerns and actions, any suspected patient [...] Provider Name:Deshawn Carrington son, 03/14/2023 02:10:00 PM, [address] [place] [address], [phone], Insurance Providers Payer Name Payer Address Payer Phone Subscriber Number Group Number Insured Name Patient Relationship to Insured Coverage Start Date Coverage End Date [facility] [address] [address] [place] [id number] Titus Tellez Self - patient is the insured [place] [employer] [address] [place] [id number] Titus Fatima Self - patient is the insured MEDICAL (GENERAL) HISTORY Medical History History ICD Code Chronic pain Low back pain Lumbar spondylosis, spinal stenosis and post-laminectomy syndrome Sacroiliitis Knee pain, bilateral Arthritis of knees, history of bilateral TKA, history of on-going pain post surgeries Hypertension Diabetes mellitus type 2 Iflk-2-icybqdnzbye deficieincy Diabetic peripheral neuropathy GERD CAD Myocardial infarction (2021) Immunosuppressed status Restless leg syndrome Ventral hernia Umbilical hernia Hyponatremia Cognitive decline Sleep apnea Obesity, moderate Surgical History Surgery Date(Month/Year) Low back surgery (presumed l eft L5-S1 laminectomy as per MRI report), performed at [facility] in [place], [place], 1994 Liver transplant, performed in [place], [place], 2002 Umbilical hernia repair, 2005 Knee replacement, bilateral, 2006 Placement of stents, cardiac , performed at [facility] in [place], [place], 2021 Excision of skin cancer, rig ht ear, with skin graft, performed by Dr. Oakley, 11/07/22 Hospitalization History Reason Date(Month/Year) COVID-19, treated at [facility] in [place], [place]
[2023-01-31 09:26] LABS: Basophils % 0.4 %; Eosinophils # 0.4 10^3/uL (0.0-0.8); Hematocrit 39.4 % (37-53); Lymphocytes # 1.6 10^3/uL (0.8-4.8); Lymphocytes % 24.1 %; Mean Corpuscular Hemoglobin 28.4 pg (27-33); Mean Platelet Volume 8.9 fL (7.4-10.4); Monocytes # 0.5 10^3/uL (0.2-0.9); Monocytes % 6.8 %; Neutrophils # 4.24 10^3/uL (1.8-7.7); Neutrophils % 62.3 %; Nucleated Red Blood Cells % 0 %; Platelet Count 184 10^3/cmm (157-399); Red Blood Count 4.58 10^6/uL (3.85-5.65); Red Cell Distribution Width 14.1 % (12.1-15.1); White Blood Count 6.81 10^3/uL (3.29-11.43)
[2023-01-31 09:50] LABS: Magnesium 1.7 mg/dL (1.7-2.3); Uric Acid 6.4 mg/dL (3.4-7.0)
[2023-01-31 10:01] LABS: Magnesium 1.9 mg/dL (1.7-2.3)
[2023-01-31 10:02] LABS: INR 1.05 (0.8-1.2)
[2023-01-31 10:06] LABS: 25 Hydroxy Vitamin D 33 ng/mL (30-100); Vitamin B12 524 pg/mL (232-1245)
[2023-01-31 10:30] LABS: Folate Level 8.9 ng/mL (4.5-32.2)
[2023-02-01 07:45] LABS: PROTEIN, TOTAL 6.3 g/dL (6.1-8.1)
[2023-02-01 15:28] LABS: ABNORMAL PROTEIN BAND 1 0.1 g/dL (NONE DETECTED); ALBUMIN 3.4 g/dL (3.8-4.8); ALPHA 1 GLOBULIN 0.4 g/dL (0.2-0.3); ALPHA 2 GLOBULIN 0.8 g/dL (0.5-0.9); BETA 1 GLOBULIN 0.5 g/dL (0.4-0.6); BETA 2 GLOBULIN 0.5 g/dL (0.2-0.5); GAMMA GLOBULIN 0.8 g/dL (0.8-1.7)
[2023-02-02 11:43] LABS: KAPPA LIGHT CHAIN, FREE, SERUM 36.2 mg/L (3.3-19.4); KAPPA/LAMBDA LIGHT CHAINS FREE 1.44 (0.26-1.65); LAMBDA LIGHT CHAIN, FREE, SERU 25.1 mg/L (5.7-26.3)
[2023-02-03 07:40] LABS: Methylmalonic Acid 394 nmol/L (87-318)
== END 2023-02-25 23:59 | disposition home or self-care (01) ==
PROVIDERS: Internal Medicine Hematology & Oncology; Psychiatry & Neurology Neurology; PCP Family Medicine; Visit Provider Family Medicine
DX: R20.2 Paresthesia of skin (principal); E79.0 Hyperuricemia without signs of inflammatory arthritis and tophaceous disease; R07.9 Chest pain, unspecified; E53.8 Deficiency of other specified B group vitamins; D09.9 Carcinoma in situ, unspecified
CPT/HCPCS: 36415; 82306; 82607; 82746; 83735; 83883; 83921; 84155; 84165; 84550; 85025; 85610; 99204

== ENCOUNTER → 2023-02-15 09:11 | Outpatient (BNVA) | payer MEDICARE, MEDICAID, SELFPAY | PROVIDERS: PCP Family Medicine; Referring Provider Psychiatry & Neurology Neurology; Visit Provider Psychiatry & Neurology Neurology | DX: E11.42 Type 2 diabetes mellitus with diabetic polyneuropathy (principal); Z79.4 Long term (current) use of insulin | CPT/HCPCS: 95911 ==

== ENCOUNTER → 2023-03-15 11:27 | Outpatient (BNVA) | payer OTHER, MEDICARE, MEDICAID, SELFPAY | PROVIDERS: PCP Family Medicine; Visit Provider Family Medicine | DX: Z79.899 Other long term (current) drug therapy (principal); Z51.81 Encounter for therapeutic drug level monitoring; Z94.4 Liver transplant status | CPT/HCPCS: 80197 ==

== ENCOUNTER → 2023-03-20 13:01 | Outpatient (BNVA) | payer MEDICARE, MEDICAID, SELFPAY | PROVIDERS: PCP Family Medicine; Visit Provider Internal Medicine | DX: E11.9 Type 2 diabetes mellitus without complications (principal); Z79.4 Long term (current) use of insulin; I10 Essential (primary) hypertension; I25.10 Atherosclerotic heart disease of native coronary artery without angina pectoris | CPT/HCPCS: 99214 ==

== ENCOUNTER → 2023-03-26 09:32 | Outpatient (BNVA) | payer MEDICARE, MEDICAID, SELFPAY | PROVIDERS: PCP Family Medicine; Visit Provider Family Medicine | DX: Z79.899 Other long term (current) drug therapy (principal); Z94.4 Liver transplant status; R89.9 Unspecified abnormal finding in specimens from other organs, systems and tissues | CPT/HCPCS: 80053 ==

== ENCOUNTER → 2023-03-27 12:34 | Outpatient (BNVA) | payer MEDICARE, MEDICAID, SELFPAY | PROVIDERS: PCP Family Medicine; Visit Provider Internal Medicine | DX: I49.3 Ventricular premature depolarization (principal); R00.2 Palpitations; I49.1 Atrial premature depolarization; I47.29 Other ventricular tachycardia | CPT/HCPCS: 93225 ==

== ENCOUNTER 2023-03-29 12:35 | Outpatient (CLI) | payer MEDICARE, MEDICAID, SELFPAY ==
--- NOTE | 2023-03-29 13:45 | USCV_ITS ---
Titus Fatima Age: 67 Gender: M : 1955 Exam Date: 03/29/2023 12:56 Ordering Phys: Kayode Osman M.D ([email or web address]) Technologist: [place] [facility] [place]: chest pain BP: 140 / 85 HR: 79 Rhythm: Sinus Technical Quality: Adequate MEASUREMENTS (Male / Female) Normal Values 2D ECHO LV Diastolic Diameter PLAX 5.1 cm 4.2 - 5.9 / 3.9 - 5.3 cm LV Systolic Diameter PLAX 2.9 cm IVS Diastolic Thickness 1.4 cm 0.6 - 1.0 / 0.6 - 0.9 cm IVS Systolic Thickness 1.7 cm LVPW Diastolic Thickness 1.4 cm 0.6 - 1.0 / 0.6 - 0.9 cm LVPW Systolic Thickness 1.4 cm LVOT Diameter 2.0 cm LV Ejection Fraction 2D Teich 74.9 % LV Ejection Fraction MOD 2C 58.1 % LV Ejection Fraction 2C AL 60.0 % LA Diameter 3.9 cm M-MODE Aortic Annulus Diameter 3.6 cm LA Ao Ratio MM 1.1 MV E Point Septal Separation 0.9 cm DOPPLER AV Peak Velocity 175.0 cm/s LVOT Peak Velocity 77.0 cm/s AV Area Cont Eq vti 1.7 cm squared AV Area Cont Eq pk 1.5 cm squared MV Area PHT 5.0 cm squared Mitral E to A Ratio 1.0 MV E' Velocity 63.5 cm/s Mitral E to MV E' Ratio 16.2 Mitral E to LV E' Lateral Ratio 11.8 Mitral E to LV E' Septal Ratio 26.6 TR Peak Velocity 194.3 cm/s TR Peak Gradient 15.1 mmHg TV Peak E Velocity 106.0 cm/s Right Atrial Pressure 3.0 mmHg Pulmonary Artery Systolic Pressu 18.1 mmHg RV Acceleration Time 0.1 s FINDINGS Left Ventricle Left ventricle is normal in size. LV systolic function is normal with EF of 55 to 60%. No regional wall motion abnormalities are seen. Right Ventricle Normal in size and function Right Atrium Normal in size Left Atrium Normal in size Mitral Valve Structurally normal mitral valve. Mild mitral regurgitation. Aortic Valve Structurally normal aortic valve. No significant stenosis or regurgitation. Tricuspid Valve Mild tricuspid regurgitation. Pulmonary artery systolic pressure is normal. Pulmonic Valve Not well-visualized Pericardium Normal Aorta Ascending aorta is mildly dilated with diameter of 3.6 cm. IVC Appears to be normal CONCLUSIONS LV systolic function is normal with EF of 55 to 60%. Mild mitral regurgitation Mild tricuspid regurgitation Ascending aorta is mildly dilated with diameter of 3.6 cm No comparison studies are available. Kayode Osman MD (Electronically Signed) Final Date: 08 April 2023 19:55 S
== END 2023-03-29 12:36 | disposition home or self-care (01) ==
LOC: RAD 12:35
PROVIDERS: PCP Family Medicine; Visit Provider Internal Medicine
DX: R07.9 Chest pain, unspecified (principal); I08.1 Rheumatic disorders of both mitral and tricuspid valves; I77.810 Thoracic aortic ectasia
CPT/HCPCS: 93306

== ENCOUNTER → 2023-04-05 09:48 | Outpatient (BNVA) | payer MEDICARE, MEDICAID, SELFPAY | PROVIDERS: PCP Family Medicine; Visit Provider Internal Medicine | DX: I25.2 Old myocardial infarction; E11.42 Type 2 diabetes mellitus with diabetic polyneuropathy; D84.9 Immunodeficiency, unspecified; E88.01 Alpha-1-antitrypsin deficiency; E11.65 Type 2 diabetes mellitus with hyperglycemia; Z79.4 Long term (current) use of insulin | CPT/HCPCS: 80053; 80061; 83036; 99214 ==

== ENCOUNTER → 2023-04-10 10:23 | Outpatient (BNVA) | payer MEDICARE, MEDICAID, SELFPAY | PROVIDERS: PCP Family Medicine; Visit Provider Podiatrist Foot & Ankle Surgery | DX: E11.621 Type 2 diabetes mellitus with foot ulcer (principal); L03.115 Cellulitis of right lower limb; E11.42 Type 2 diabetes mellitus with diabetic polyneuropathy; R21 Rash and other nonspecific skin eruption; L97.512 Non-pressure chronic ulcer of other part of right foot with fat layer exposed; Z79.4 Long term (current) use of insulin | CPT/HCPCS: 99213 ==

== ENCOUNTER 2023-04-16 22:32 | Emergency (ER) | payer MEDICARE, MEDICAID, SELFPAY ==
[2023-04-16 22:40] VITALS: BP 163/84; PULSE 71; RESP 16; TEMP 36.6; O2SAT 96
--- NOTE | 2023-04-16 22:47 | W.ED.WOUNDLC ---
HPI - Wound/Laceration General: Chief Complaint: Wound/Laceration Stated Complaint: left great toe lac Time Seen by Provider: 04/16/23 22:36 Source: patient Mode of arrival: ambulatory Limitations: no limitations History of Present Illness: 68-year-old male with a history of diabetes peripheral neuropathy states he had had some skin hanging from his left great toe and he had pulled it off he is on blood thinners states he cannot control the bleeding at home he is got a pressure dressing at this time. He denies any fevers. Associated symptoms: Denies chills, fever(s), nausea or vomiting Review of Systems Const: Denies: fever(s), chills, body aches or change in appetite ENMT: Denies: throat pain or dental pain Card: Denies: chest pain Resp: Denies: dyspnea GI: Denies: abdominal pain, nausea, vomiting or diarrhea Musc: Denies: neck pain or back pain Skin/Breast: Denies: rash Neuro: Denies: headache(s) PFSH ED PFSH: Medical History Chronic pain History of myocardial infarction GERD (gastroesophageal reflux disease) Ventral hernia Umbilical hernia Immunosuppressed status Acfhq-7-gicnwuvziph deficiency Diabetic peripheral neuropathy Restless leg syndrome Hypertension Type 2 diabetes mellitus Surgical History History of hernia repair History of lumbosacral spine surgery History of left knee replacement History of cholecystectomy History of total right knee replacement History of intravascular stent placement Hx of insertion of insulin pump History of liver transplant Family History Brother Jrvnr-3-qsuhvlpobrx deficiency Father Cancer colon Mother Stroke Other Colon cancer Diabetes Hypertension Social History Smoking and tobacco/nicotine status: never used tobacco/nicotine Alcohol intake: never Substance/Drug Use: never Adopted: No Lives independently: Yes Household members: children Marital status: Number of children: 7 service: Yes status: Retired branch: [employer] Assignments: Deployed Countries/Dates of Deployments: [place] Current occupational status: retired 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 Agree to transfusion: Yes Physical Exam Const: COMMON NORMALS: no acute distress, patient oriented x3 and healthy appearing HENMT: COMMON NORMALS: normocephalic HEAD & SCALP: normocephalic Neck/C-Spine: COMMON NORMALS: full ROM and supple Chest: COMMONS NORMALS: normal inspection of the chest Resp: COMMON NORMALS: normal respiratory effort Extremity: COMMON NORMALS: full ROM Neuro: COMMON NORMALS: patient oriented x3, moves all extremities and no focal motor deficits Psych: COMMON NORMALS: mental status grossly normal, Normal thought process present and cooperative THOUGHT PROCESS: Normal thought process present Skin: COMMON NORMALS: no rashes or lesions noted NARRATIVE SKIN EXAM: Patient spilled a portion of skin off his left great toe did remove the pressure dressing is got some slight oozing its superficial wound GENERAL SKIN EXAM: no rashes or lesions noted Course Vital Signs: Vital signs: Vital Signs Temperature 97.8 F 04/16/23 22:40 Pulse Rate 71 04/16/23 22:40 Respiratory Rate 16 04/16/23 22:40 Blood Pressure 163/84 04/16/23 22:40 Pulse Oximetry 96 04/16/23 22:40 Oxygen Delivery Me thod Room Air 04/16/23 22:40 MDM - Wound/Laceration Medical Decision Making Patient presents for superficial wound to his left great toe from where he had peeled skin off he had bleeding likely from his blood thinners. I did use silver nitrate I cauterized the wound he has no bleeding at this time pressure dressing was applied he has follow-up with podiatry tomorrow already he is to have the wound evaluated by them again he is stable for discharge No radiology studies performed this visit Discharge Plan Discharge Patient Disposition: Home Clinical Impression: Open wound of left great toe Condition: Stable Prescriptions: No Action cholecalciferol (vitamin D3) 50 mcg (2,000 unit) capsule 50 mcg PO BID cyclobenzaprine 10 mg tablet 10 mg PO QAM PRN (Reason: Muscle Spasm) nitroglycerin 0.4 mg tablet, sublingual 0.4 mg sublingual Q5M PRN (Reason: chest pain) Qty: 100 0RF Rx Instructions: do not exceed 3 doses per episode tramadol 50 mg tablet 50 mg PO Q6H PRN (Reason: pain) 7 Days Qty: 28 0RF doxycycline hyclate 100 mg tablet 100 mg PO BID 10 Days Qty: 20 0RF miscellaneous medical supply Misc 1 ea miscellaneous BID Qty: 1 0RF Rx Instructions: [facility]- apply to wound bid omeprazole 20 mg capsule,delayed release(DR/EC) 20 mg PO DAILY rosuvastatin 10 mg tablet 10 mg PO DAILY prasugrel 10 mg tablet 10 mg PO DAILY acetaminophen [Tylenol Extra Strength] 500 mg tablet 1,000 mg PO Q6H PRN (Reason: Pain) hydrocodone-acetaminophen 10-325 mg tablet 1 tab PO Q8H PRN (Reason: Pain) benzonatate 100 mg capsule 100 mg PO TID PRN (Reason: Cough) diphenhydramine HCl [Benadryl] 25 mg capsule 25 mg PO TID PRN (Reason: Allergy Symptoms) albuterol sulfate 90 mcg/actuation HFA aerosol inhaler 2 puff inhalation DAILY (DME) Diabetic shoes with 3 pairs of inserts See Rx Instructions .Route .MEDSUPPLY Qty: 1 0RF Rx Instructions: As directed by HOME insulin lispro [Humalog U-100 Insulin] 100 unit/mL solution See Rx Instructions .ROUTE .COMPLEX Qty: 200 3RF Dose Instruction: USE UP TO 150 UNITS VIA INSULIN PUMP IN DIVIDED DOSES Rx Instructions: USE UP TO 200 UNITS VIA INSULIN PUMP IN DIVIDED DOSES (DME) diabetic shoes with 3 inserts See Rx Instructions .Route .MEDSUPPLY Qty: 1 0RF Rx Instructions: As directed to the shoe johnnie clotrimazole-betamethasone 1-0.05 % cream 1 applic topical BID 14 Days Qty: 45 0RF amoxicillin-pot clavulanate 875-125 mg tablet 1 tab PO Q12H Qty: 14 0RF allopurinol 100 mg tablet 100 mg PO DAILY Qty: 30 0RF famotidine 20 mg tablet See Rx Instructions .ROUTE .COMPLEX Qty: 90 2RF Dose Instruction: TAKE 1 TABLET BY MOUTH EVERY DAY Rx Instructions: TAKE 1 TABLET BY MOUTH EVERY DAY ropinirole 0.5 mg tablet See Rx Instructions .ROUTE .COMPLEX Qty: 90 3RF Dose Instruction: TAKE 1 TABLET BY MOUTH AT BEDTIME Rx Instructions: TAKE 1 TABLET BY MOUTH AT BEDTIME isosorbide mononitrate 30 mg tablet extended release 24 hr 30 mg PO DAILY Qty: 90 2RF magnesium 200 mg tablet 200 mg PO DAILY Qty: 90 2RF Rx Instructions: take two tabs daily cholecalciferol (vitamin D3) 1,250 mcg (50,000 unit) capsule 50,000 unit PO .weekly Qty: 12 2RF gabapentin 300 mg capsule See Rx Instructions .ROUTE .COMPLEX Qty: 120 2RF Dose Instruction: TAKE 1 CAPSULE BY MOUTH FOUR TIMES DAILY Rx Instructions: TAKE 1 CAPSULE BY MOUTH FOUR TIMES DAILY trazodone 50 mg tablet See Rx Instructions .ROUTE .COMPLEX Qty: 90 2RF Dose Instruction: TAKE 3 TABLETS BY MOUTH AT BEDTIME Rx Instructions: TAKE 3 TABLETS BY MOUTH AT BEDTIME aspirin 81 mg tablet,chewable See Rx Instructions .ROUTE .COMPLEX Qty: 90 2RF Dose Instruction: CHEW ONE TABLET BY MOUTH EVERY DAY Rx Instructions: CHEW ONE TABLET BY MOUTH EVERY DAY meloxicam 7.5 mg tablet 7.5 mg PO DAILY Qty: 30 0RF tacrolimus 1 mg Capsule See Rx Instructions .ROUTE .COMPLEX Rx Instructions: 2 mg orally IN THE MORNING,1MG ORALLY IN THE EVENING omega-3 acid ethyl esters 1 gram capsule 1 g PO DAILY metoprolol tartrate 50 mg tablet 50 mg PO BID Discharge Orders: Discharge ED (Routine); Ordered 04/16/23 Ordered By: Tyrel Mishra Referrals: Lucy Rutherford MD [Primary Care Provider] - Discharge Diet: Advance as tolerated Discharge Activity: Resume usual activity Patient Instructions: Wound Care (General) Coding Level of Care Code ED [employer] Certified Network Professional for Smiley Pena
[2023-04-16] MEDS: silver nitrate applicator 1 EACH TOPICAL (22:50)
== END 2023-04-17 00:10 | disposition home or self-care (01) ==
PROVIDERS: Emergency Provider Emergency Medicine; PCP Family Medicine
DX: S91.102A Unspecified open wound of left great toe without damage to nail, initial encounter (principal); Z79.82 Long term (current) use of aspirin; Z79.4 Long term (current) use of insulin; Z79.01 Long term (current) use of anticoagulants; I25.2 Old myocardial infarction; I10 Essential (primary) hypertension; E11.42 Type 2 diabetes mellitus with diabetic polyneuropathy; Z94.4 Liver transplant status; X58.XXXA Exposure to other specified factors, initial encounter; L03.115 Cellulitis of right lower limb; R21 Rash and other nonspecific skin eruption
CPT/HCPCS: 99213; 99282

== ENCOUNTER → 2023-04-17 08:38 | Outpatient (BNVA) | payer MEDICARE, MEDICAID, SELFPAY | PROVIDERS: PCP Family Medicine; Visit Provider Podiatrist Foot & Ankle Surgery | DX: L03.115 Cellulitis of right lower limb; E11.42 Type 2 diabetes mellitus with diabetic polyneuropathy; R21 Rash and other nonspecific skin eruption; Z79.4 Long term (current) use of insulin | CPT/HCPCS: 99213 ==

== ENCOUNTER 2023-05-07 09:44 | Oncology outpatient (recurring) (ONCR) | payer MEDICARE, MEDICAID, SELFPAY ==
[2023-05-07 10:52] LABS: Basophils % 0.2 %; Eosinophils # 0.4 10^3/uL (0.0-0.8); Eosinophils % 4.2 %; Hematocrit 41.3 % (37-53); Lymphocytes # 1.5 10^3/uL (0.8-4.8); Lymphocytes % 18.6 %; Mean Corpuscular HGB Conc 33.9 g/dL (30-55); Mean Corpuscular Hemoglobin 28.6 pg (27-33); Mean Corpuscular Volume 84.5 fl (82-101); Mean Platelet Volume 9.3 fL (7.4-10.4); Monocytes # 0.6 10^3/uL (0.2-0.9); Monocytes % 7.5 %; Neutrophils % 69.3 %; Nucleated Red Blood Cells % 0 %; Platelet Count 155 10^3/cmm (157-399); Red Blood Count 4.89 10^6/uL (3.85-5.65); Red Cell Distribution Width 13.8 % (12.1-15.1); White Blood Count 8.24 10^3/uL (3.29-11.43)
[2023-05-07 11:13] LABS: Alanine Aminotransferase 13 U/L (0-41); Albumin Level 3.9 g/dL (3.5-5.2); Alkaline Phosphatase 96 U/L (40-130); Anion Gap 15.4 (5-19); Aspartate Amino Transferase 15 U/L (0-40); Blood Urea Nitrogen 20 mg/dL (8-23); Calcium 8.9 mg/dL (8.5-10.5); Carbon Dioxide 26 mmol/L (22-29); Chloride 98 mmol/L (98-107); Glomerular Filtration Rate 59.9 mL/min (90-130); Glucose 226 mg/dL (65-115); Osmolality Calculated 290 mOsm/kg (285-295); Potassium 4.4 mmol/L (3.5-5.1); Sodium 135 mmol/L (136-145); Total Bilirubin 0.6 mg/dL (0.15-1.2); Total Protein 6.9 g/dL (6.6-8.7)
[2023-05-07 11:55] LABS: Homocysteine 16.78
== END 2023-05-27 23:59 | disposition home or self-care (01) ==
PROVIDERS: Nurse Practitioner Family; PCP Family Medicine; Visit Provider Family Medicine
DX: R20.2 Paresthesia of skin (principal); E79.0 Hyperuricemia without signs of inflammatory arthritis and tophaceous disease; R07.9 Chest pain, unspecified; E53.8 Deficiency of other specified B group vitamins; D09.9 Carcinoma in situ, unspecified
CPT/HCPCS: 36415; 80053; 83090; 85025; 86334; 99213

== ENCOUNTER → 2023-06-19 07:13 | Outpatient (BNVA) | payer MEDICARE, MEDICAID, SELFPAY | PROVIDERS: PCP Family Medicine; Visit Provider Podiatrist Foot & Ankle Surgery | DX: L60.3 Nail dystrophy (principal); E11.42 Type 2 diabetes mellitus with diabetic polyneuropathy; R21 Rash and other nonspecific skin eruption; L84 Corns and callosities; Z79.4 Long term (current) use of insulin | CPT/HCPCS: 11055; 11721 ==

== ENCOUNTER 2023-07-05 08:03 | Outpatient (CLI) | payer MEDICARE, MEDICAID, SELFPAY ==
[2023-07-05 08:29] LABS: Basophils % 0.5 %; Eosinophils # 0.3 10^3/uL (0.0-0.8); Eosinophils % 4.8 %; Hematocrit 42.2 % (37-53); Lymphocytes # 1.4 10^3/uL (0.8-4.8); Lymphocytes % 21.9 %; Mean Corpuscular HGB Conc 33.4 g/dL (30-55); Mean Corpuscular Hemoglobin 28.4 pg (27-33); Mean Corpuscular Volume 85.1 fl (82-101); Mean Platelet Volume 8.8 fL (7.4-10.4); Monocytes # 0.6 10^3/uL (0.2-0.9); Monocytes % 8.8 %; Neutrophils # 4.11 10^3/uL (1.8-7.7); Neutrophils % 63.7 %; Nucleated Red Blood Cells % 0 %; Platelet Count 168 10^3/cmm (157-399); Red Blood Count 4.96 10^6/uL (3.85-5.65); Red Cell Distribution Width 14.1 % (12.1-15.1); White Blood Count 6.45 10^3/uL (3.29-11.43)
[2023-07-05 08:46] LABS: Alanine Aminotransferase 14 U/L (0-41); Albumin Level 3.5 g/dL (3.5-5.2); Alkaline Phosphatase 97 U/L (40-130); Aspartate Amino Transferase 16 U/L (0-40); Blood Urea Nitrogen 21 mg/dL (8-23); Calcium 8.5 mg/dL (8.5-10.5); Carbon Dioxide 26 mmol/L (22-29); Chloride 99 mmol/L (98-107); Chol HDL Ratio 3.78 mg/dL (1.0-5.00); Cholesterol 121 mg/dL (0-200); Globulin 3.4 g/dL (1.3-4.6); Glomerular Filtration Rate 66.2 mL/min (90-130); Glucose 222 mg/dL (65-115); HDL Cholesterol 32 mg/dL (60-100); LDL Cholesterol Calculated 51 mg/dL (50-129); LDL HDL Ratio 1.59 RATIO (0.00-3.22); Osmolality Calculated 288 mOsm/kg (285-295); Sodium 134 mmol/L (136-145); Total Bilirubin 0.6 mg/dL (0.15-1.2); Total Protein 6.9 g/dL (6.6-8.7); Triglycerides 189 mg/dL (0-150)
[2023-07-05 08:52] LABS: Estmated Average Glucose 223; Hemoglobin A1C 9.4 % (4.0-6.0); Prostate Specific Antigen Scr 0.62 ng/mL (0-4)
[2023-07-05 09:04] LABS: Magnesium 1.6 mg/dL (1.7-2.3); Phosphorus 3.2 mg/dL (2.5-4.5); Uric Acid 6.4 mg/dL (3.4-7.0)
[2023-07-05 12:31] LABS: Creatinine Urine, Random 134 mg/dL (39-259)
[2023-07-05 12:43] LABS: Microalbum Creatinine Ratio Ur 530 mg/dL (0-20); Microalbumin Random Urine 71 ug/dL (0-20)
[2023-07-05 13:14] LABS: Glucose Urine UA 2+ (Normal); Ketones Urine Negative (Negative); Protein Urine 2+ (Negative); Urine Appearance Clear (CLEAR); Urine Color Yellow (Yellow); pH Urine 5 (5-7)
[2023-07-05 13:15] LABS: Bilirubin Urine Neg (Negative); Blood Urine Trace (Negative); Leukocyte Esterase Urine 2+ (Negative); Nitrate Urine Negative (Negative); Urobilinogen Urine 1 mg/dL (Negative)
[2023-07-05 13:30] LABS: RBC Urine 0-4 /hpf (0-2); Transitional Epi Cells Urine 0-4 /hpf; WBC Urine 0-4 /hpf (0-5)
[2023-07-05 13:31] LABS: Add Urine Culture? No; Bacteria Urine TRACE /hpf
== END 2023-07-05 08:04 | disposition home or self-care (01) ==
LOC: LAB 08:05
PROVIDERS: Transplant Surgery; PCP Family Medicine; Visit Provider Internal Medicine
DX: N40.1 Benign prostatic hyperplasia with lower urinary tract symptoms; E11.42 Type 2 diabetes mellitus with diabetic polyneuropathy; I25.2 Old myocardial infarction; D84.9 Immunodeficiency, unspecified; E88.01 Alpha-1-antitrypsin deficiency; Z79.4 Long term (current) use of insulin
CPT/HCPCS: 36415; 80053; 80061; 80197; 81001; 82044; 83036; 83735; 84100; 84550; 85025; 99214; G0103

== ENCOUNTER 2023-07-16 12:17 | Oncology outpatient (recurring) (ONCR) | payer MEDICAID, SELFPAY ==
[2023-07-16 13:06] LABS: Basophils % 0.3 %; Eosinophils # 0.3 10^3/uL (0.0-0.8); Eosinophils % 3.6 %; Hematocrit 43.6 % (37-53); Lymphocytes # 1.9 10^3/uL (0.8-4.8); Lymphocytes % 27.9 %; Mean Corpuscular HGB Conc 34.2 g/dL (30-55); Mean Corpuscular Hemoglobin 28.5 pg (27-33); Mean Corpuscular Volume 83.5 fl (82-101); Mean Platelet Volume 9.1 fL (7.4-10.4); Monocytes # 0.4 10^3/uL (0.2-0.9); Monocytes % 6.4 %; Neutrophils % 61.4 %; Nucleated Red Blood Cells % 0 %; Platelet Count 160 10^3/cmm (157-399); Red Blood Count 5.22 10^6/uL (3.85-5.65); Red Cell Distribution Width 13.9 % (12.1-15.1); White Blood Count 6.85 10^3/uL (3.29-11.43)
[2023-07-16 13:35] LABS: Alanine Aminotransferase 15 U/L (0-41); Albumin Level 3.9 g/dL (3.5-5.2); Alkaline Phosphatase 102 U/L (40-130); Anion Gap 16.6 (5-19); Aspartate Amino Transferase 17 U/L (0-40); Blood Urea Nitrogen 20 mg/dL (8-23); Calcium 8.6 mg/dL (8.5-10.5); Carbon Dioxide 26 mmol/L (22-29); Chloride 101 mmol/L (98-107); Globulin 3.3 g/dL (1.3-4.6); Glomerular Filtration Rate 59.9 mL/min (90-130); Glucose 199 mg/dL (65-115); Osmolality Calculated 296 mOsm/kg (285-295); Potassium 4.6 mmol/L (3.5-5.1); Sodium 139 mmol/L (136-145); Total Bilirubin 0.6 mg/dL (0.15-1.2); Total Protein 7.2 g/dL (6.6-8.7)
[2023-07-16 13:50] LABS: Vitamin B12 600 pg/mL (232-1245)
[2023-07-19 09:15] LABS: Methylmalonic Acid 646 nmol/L (87-318)
[2023-07-19 16:01] LABS: Copper Level 129 mcg/dL (70-175)
== END 2023-07-27 23:59 | disposition home or self-care (01) ==
PROVIDERS: Nurse Practitioner Family; PCP Family Medicine; Visit Provider Family Medicine
DX: E53.8 Deficiency of other specified B group vitamins (principal); Z53.9 Procedure and treatment not carried out, unspecified reason
CPT/HCPCS: 36415; 80053; 82525; 82607; 83921; 85025

== ENCOUNTER 2023-07-25 11:05 | Emergency (ER) | payer MEDICARE, MEDICAID, SELFPAY ==
--- NOTE | 2023-07-25 11:07 | XRR_ITS ---
PROCEDURE INFORMATION: Exam: XR Chest Exam date and time: 07/25/2023 11:17 AM Age: 68 years old Clinical indication: Pain; Angina pectoris; Additional info: Cp TECHNIQUE: Imaging protocol: Radiologic exam of the chest. Views: 1 view. COMPARISON: CR XR chest 1V portable [id number] 01/28/2022 6:56 PM FINDINGS: Lungs: Unremarkable. No consolidation. Pleural spaces: Unremarkable. No pleural effusion. No pneumothorax. Heart/Mediastinum: Unremarkable. No cardiomegaly. Bones/joints: Unremarkable. XR/XR chest 1V portable [id number] IMPRESSION: No acute findings.
--- NOTE | 2023-07-25 11:08 | ECG_ITS ---
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 Measurements Intervals [place] Rate: 93 P: 43 NM: 180 QRS: 2 QRSD: 90 T: 47 QT: 323 QTc: 403 Interpretive Statements SINUS RHYTHM LOW QRS VOLTAGE IN PRECORDIAL LEADS [QRS DEFLECTION < 1.0 mV IN CHEST LEADS] POSSIBLE ANTERIOR MYOCARDIAL INFARCTION , PROBABLY OLD [30 ms Q WAVE IN V3/V4, OR R < 0.2 mV IN V4] Compared to ECG 07/12/2022 12:52:38 Low QRS voltage now present Myocardial infarct finding now present Electronically Signed On 07-25-2023 13:54:43 CDT by Kyaode Osman M.D. [id number]
[2023-07-25 11:09] VITALS: BP 140/84; PULSE 93; RESP 18; TEMP 36.7; O2SAT 94; BMI 36.9
[2023-07-25 11:40] LABS: Basophils % 0.4 %; Eosinophils # 0.3 10^3/uL (0.0-0.8); Eosinophils % 3.8 %; Hematocrit 42.7 % (37-53); Lymphocytes # 1.7 10^3/uL (0.8-4.8); Lymphocytes % 22.6 %; Mean Corpuscular HGB Conc 34.9 g/dL (30-55); Mean Corpuscular Hemoglobin 28.7 pg (27-33); Mean Corpuscular Volume 82.1 fl (82-101); Mean Platelet Volume 8.7 fL (7.4-10.4); Monocytes # 0.5 10^3/uL (0.2-0.9); Monocytes % 6.7 %; Neutrophils # 4.93 10^3/uL (1.8-7.7); Neutrophils % 66.1 %; Nucleated Red Blood Cells % 0 %; Platelet Count 172 10^3/cmm (157-399); Red Cell Distribution Width 13.6 % (12.1-15.1); White Blood Count 7.45 10^3/uL (3.29-11.43)
[2023-07-25 11:53] LABS: INR 0.99 (0.8-1.2)
[2023-07-25 11:59] LABS: Troponin(5th) Baseline 34 ng/L (0-15)
[2023-07-25 12:02] LABS: Alanine Aminotransferase 11 U/L (0-41); Albumin Level 3.8 g/dL (3.5-5.2); Alkaline Phosphatase 101 U/L (40-130); Anion Gap 14.5 (5-19); Aspartate Amino Transferase 10 U/L (0-40); Blood Urea Nitrogen 29 mg/dL (8-23); Calcium 8.9 mg/dL (8.5-10.5); Carbon Dioxide 26 mmol/L (22-29); Chloride 103 mmol/L (98-107); Creatinine Clr Calc Pharmacy 71.1174; Globulin 3.4 g/dL (1.3-4.6); Glomerular Filtration Rate 59.9 mL/min (90-130); Glucose 239 mg/dL (65-115); Osmolality Calculated 302 mOsm/kg (285-295); Potassium 4.5 mmol/L (3.5-5.1); Sodium 139 mmol/L (136-145); Total Bilirubin 0.6 mg/dL (0.15-1.2); Total Protein 7.2 g/dL (6.6-8.7)
[2023-07-25 12:10] VITALS: BP 145/84; PULSE 93; RESP 17; O2SAT 97
--- NOTE | 2023-07-25 12:13 | ED_ITS ---
HPI - Chest Pain 2 General: Chief Complaint: Chest Pain Stated Complaint: chest pain Time Seen by Provider: 07/25/23 11:57 Source: patient Mode of arrival: ambulatory History of Present Illness: 68-year-[facility] of [facility] discomfort. He had an episode of chest pain yesterday that resolved after he took a single sublingual nitro. He was at rest when the chest pain began after the sublingual nitro and it resolved in about 30 minutes. He has not had any similar episodes previously or since he still feels like he has a little bit of chest pressure. He denies any dysuria urgency or frequency. Denies any nausea vomiting or diarrhea. He has a known history of coronary disease previously had stents about 6 months ago. He is still taking Effient regularly as well as aspirin daily. MD complaint: chest pain Pertinent past history: coronary artery disease Onset (ago): day(s) Timing of current episode: episodic Onset: during rest Pain location: substernal Pain radiation: left arm and left shoulder Relieving factors: nitroglycerin Exacerbating factors: nothing Associated symptoms: Deny abdominal pain, diaphoresis, dyspnea, fever(s), leg edema, nausea, palpitations, sense of impending doom, syncope or vomiting Treatment prior to arrival: aspirin and nitroglycerin Review of Systems 2 Const: Denies: fever(s) or diaphoresis Card: Reports: chest pain; Denies: palpitations or syncope Resp: Denies: dyspnea GI: Denies: abdominal pain, nausea or vomiting : Denies: dysuria, urinary frequency or urinary urgency Musc: Denies: neck pain or back pain Skin/Breast: Denies: rash PFS ED 2 PFSH: Medical History Chronic pain History of myocardial infarction GERD (gastroesophageal reflux disease) Ventral hernia Umbilical hernia Immunosuppressed status Sigul-1-[id number] deficiency Diabetic peripheral neuropathy Restless leg syndrome Hypertension Type 2 diabetes mellitus Surgical History History of hernia repair History of lumbosacral spine surgery History of left knee replacement History of cholecystectomy History of total right knee replacement History of intravascular stent placement Hx of insertion of insulin pump History of liver transplant Family History Brother Hlaqn-4-hitvfxthtnl deficiency Father Cancer colon Mother Stroke Other Colon cancer Diabetes Hypertension Social History Smoking and tobacco/nicotine status: never used tobacco/nicotine Alcohol intake: never Substance/Drug Use: never Adopted: No Lives independently: Yes Household members: children Marital status: Number of children: 7 service: Yes status: Retired branch: [employer] Assignments: Deployed Countries/Dates of Deployments: [employer] Current occupational status: retired 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 Agree to transfusion: Yes Physical Exam 2 Const: COMMON NORMALS: no acute distress GENERAL APPEARANCE: cooperative and comfortable ORIENTATION/CONSCIOUSNESS: Yes awake, Yes oriented to person, Yes oriented to place and Yes oriented to time HENMT: COMMON NORMALS: normocephalic, atraumatic and hearing grossly normal bilaterally HEAD & SCALP: normocephalic and atraumatic Resp: COMMON NORMALS: normal respiratory effort, No retractions, No use of accessory muscles and clear to auscultation bilaterally AUSCULTATION: clear to auscultation bilaterally Cardio: COMMON NORMALS: regular rate, regular rhythm and No murmurs present (Cardio) RATE: regular rate RHYTHM: regular rhythm GI: COMMON NORMALS: Soft to palpation and No hepatosplenomegaly present A USCULTATION: Yes normoactive bowel sounds PALPATION: Yes Soft to palpation, No Tenderness to palpation present (GI), No Guarding due to palpation present (GI) and Yes No hepatosplenomegaly present Extremity: COMMON NORMALS: normal to inspection, capillary refill normal, no clubbing, cyanosis or edema, no calf tenderness and no pedal edema Neuro: SENSORIUM/ORIENTATION: Yes oriented to person, Yes oriented to place and Yes oriented to time Skin: COMMON NORMALS: no rashes or lesions noted GENERAL SKIN EXAM: no rashes or lesions noted Course 2 Vital Signs: Vital signs: Vital Signs Temperature 98.1 F 07/25/23 11:09 Pulse Rate 98 07/25/23 14:46 Respiratory Rate 12 07/25/23 14:46 Blood Pressure 153/93 07/25/23 14:46 Pulse Oximetry 98 07/25/23 14:46 Oxygen Delivery Me thod Room Air 07/25/23 11:09 MDM - Chest Pain Medical Decision Making Labs and imaging reviewed. EKG does not show any acute changes cardiac enzymes stable patient has had no further chest pain. Will increase his Imdur to 60 mg daily. Set up a Lexiscan cardiac stress test. If has recurrence of symptoms return to the emergency room. Medical Records I reviewed the patient's medical records. Lab Data I reviewed the patient's lab results. 07/25/23 11:24 07/25/23 11:24 Radiology Impressions Chest X-Ray 07/25/23 11:07 IMPRESSION: No acute findings. Laboratory Results WBC 7.45 10^3/uL (3.29-11.43) 07/25/23 11:24 RBC 5.20 10^6/uL (3.85-5.65) 07/25/23 11:24 Hgb 14.90 g/dL (11.27-16.99) 07/25/23 11:24 Hct 42.7 % (37-53) 07/25/23 11:24 MCV 82.1 fl (82-101) 07/25/23 11:24 MCH 28.7 pg (27-33) 07/25/23 11:24 MCHC 34.9 g/dL (30-55) 07/25/23 11:24 RDW 13.6 % (12.1-15.1) 07/25/23 11:24 Plt Count 172 10^3/cmm (157-399) 07/25/23 11:24 MPV 8.7 fL (7.4-10.4) 07/25/23 11:24 Neut % (Auto) 66.1 % 07/25/23 11:24 Lymph % (Auto) 22.6 % 07/25/23 11:24 [place] % (Auto) 6.7 % 07/25/23 11:24 Eos % (Auto) 3.8 % 07/25/23 11:24 Baso % (Auto) 0.4 % 07/25/23 11:24 Neut # (Auto) 4.93 10^3/uL (1.8-7.7) 07/25/23 11:24 Lymph # (Auto) 1.7 10^3/uL (0.8-4.8) 07/25/23 11:24 [place] # (Auto) 0.5 10^3/uL (0.2-0.9) 07/25/23 11:24 Eos # (Auto) 0.3 10^3/uL (0.0-0.8) 07/25/23 11:24 Baso # (Auto) 0.0 10^3/uL (0.0-0.1) 07/25/23 11:24 Nucleated RBC % (auto) 0 % 07/25/23 11:24 Nucleated RBCs # 0.0 /100WBC 07/25/23 11:24 PT 13.40 SECONDS (12.1-14.9) 07/25/23 11:24 INR 0.99 (0.8-1.2) 07/25/23 11:24 Sodium 139 mmol/L (136-145) 07/25/23 11:24 Potassium 4.5 mmol/L (3.5-5.1) 07/25/23 11:24 Chloride 103 mmol/L (98-107) 07/25/23 11:24 Carbon Dioxide 26 mmol/L (22-29) 07/25/23 11:24 Anion Gap 14.5 (5-19) 07/25/23 11:24 BUN 29 mg/dL (8-23) H 07/25/23 11:24 Creatinine 1.2 mg/dL (0.7-1.2) 07/25/23 11:24 GFR Calculation 59.9 mL/min (90-130) L 07/25/23 11:24 Glucose 239 mg/dL (65-115) H 07/25/23 11:24 Calculated Osmolality 302 mOsm/kg (285-295) H 07/25/23 11:24 Calcium 8.9 mg/dL (8.5-10.5) 07/25/23 11:24 Total Bilirubin 0.6 mg/dL (0.15-1.2) 07/25/23 11:24 AST 10 U/L (0-40) 07/25/23 11:24 ALT 11 U/L (0-41) 07/25/23 11:24 Alkaline Phosphatase 101 U/L (40-130) 07/25/23 11:24 Troponin T Baseline 34 ng/L (0-15) H 07/25/23 11:24 Troponin T 120 Minute 32.51 ng/L (0-15) H 07/25/23 13:23 Delta Troponin T -1.49 ABS# (0-10) L 07/25/23 13:23 Total Protein 7.2 g/dL (6.6-8.7) 07/25/23 11:24 Albumin 3.8 g/dL (3.5-5.2) 07/25/23 11:24 Globulin 3.4 g/dL (1.3-4.6) 07/25/23 11:24 All radiology interpretation(s) finalized by discharge Discharge Plan Discharge Patient Disposition: Home Clinical Impression: Chest pain Condition: Stable Prescriptions: New isosorbide mononitrate 60 mg tablet extended release 24 hr 60 mg PO DAILY Qty: 30 0RF Discontinued isosorbide mononitrate 30 mg tablet extended release 24 hr 30 mg PO DAILY No Action cholecalciferol (vitamin D3) 50 mcg (2,000 unit) capsule 50 mcg PO BID nitroglycerin 0.4 mg tablet, sublingual 0.4 mg sublingual Q5M PRN (Reason: chest pain) Qty: 100 0RF Rx Instructions: do not exceed 3 doses per episode acetaminophen [Tylenol Extra Strength] 500 mg tablet 1,000 mg PO Q6H PRN (Reason: Pain) diphenhydramine HCl [Benadryl] 25 mg capsule 25 mg PO TID PRN (Reason: Allergy Symptoms) (DME) Diabetic shoes with 3 pairs of inserts See Rx Instructions .Route .MEDSUPPLY Qty: 1 0RF Rx Instructions: As directed by HOME (DME) diabetic shoes with 3 inserts See Rx Instructions .Route .MEDSUPPLY Qty: 1 0RF Rx Instructions: As directed to the shoe johnnie insulin aspart U-100 [Novolog U-100 Insulin aspart] 100 unit/mL solution 200 unit SUBCUT .COMPLEX Qty: 180 1RF Rx Instructions: up to 200 units subcutaneously via pump in divided doses tacrolimus 1 mg Capsule See Rx Instructions .ROUTE .COMPLEX Rx Instructions: TAKE 1 MG BY MOUTH IN THE MORNING AND 2MG ORALLY IN THE EVENING omega-3 acid ethyl esters 1 gram capsule 1 g PO DAILY magnesium oxide 400 mg (241.3 mg magnesium) tablet 400 mg PO DAILY tamsulosin 0.4 mg capsule 0.4 mg PO BEDTIME insulin lispro 100 unit/mL solution See Rx Instructions .ROUTE .COMPLEX Rx Instructions: USE UP TO 150 UNITS VIA INSULIN PUMP IN DIVIDED DOSES lisinopril 2.5 mg tablet 2.5 mg PO DAILY trazodone 50 mg tablet 150 mg PO BEDTIME allopurinol 100 mg tablet 100 mg PO DAILY meloxicam 7.5 mg tablet 7.5 mg PO DAILY famotidine 20 mg tablet 20 mg PO DAILY ropinirole 0.5 mg tablet 0.5 mg PO BEDTIME clotrimazole-betamethasone 1-0.05 % cream 1 applic topical BID Rx Instructions: x 2 weeks metoprolol tartrate 50 mg tablet 50 mg PO BID gabapentin 300 mg capsule 300 mg PO QID omeprazole 20 mg capsule,delayed release(DR/EC) 20 mg PO DAILY aspirin 81 mg tablet,chewable 81 mg PO DAILY rosuvastatin 10 mg tablet 10 mg PO BEDTIME prasugrel 10 mg tablet 10 mg PO DAILY Discharge Orders: Discharge ED (Routine); Ordered 07/25/23 Ordered By: Junaid Michel Referrals: Lucy Rutherford MD [Primary Care Provider] - Discharge Diet: Usual diet Discharge Activity: Increase activity as tolerated Patient Instructions: Opioid Safety, Pain Management Activity Restrictions/Additional Instructions: Thank you for choosing [facility] for your healthcare needs today. Please realize this is an emergency room and that we are providing you with a medical screening exam and this may not be complete and all inclusive of all the testing and or work up that you may need to determine your ailment or severity of your illness. It is very important that you follow up as instructed or that you return to the Emergency Department should you have concerns or if your condition changes or worsens in any way. You were seen today with complaint of chest pain your cardiac enzymes were negative. Recommend you increase your isosorbide mononitrate to 60 mg daily and we will have case management make arrangements for you to have an outpatient Lexiscan sestamibi stress test. Coding Level of Care Code ED Practice Physician for Smiley Pena
--- NOTE | 2023-07-25 13:08 | ECG_ITS ---
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 Measurements Intervals [place] Rate: 87 P: 34 [place]: 196 QRS: -15 QRSD: 110 T: 27 QT: 345 QTc: 416 Interpretive Statements SINUS RHYTHM POSSIBLE ANTERIOR MYOCARDIAL INFARCTION , OF INDETERMINATE AGE [30 ms Q WAVE IN V3/V4, OR R < 0.2 mV IN V4] Compared to ECG 07/25/2023 11:08:33 No significant changes Electronically Signed On 07-25-2023 13:56:05 CDT by Kayode Osman M.D. [id number]
[2023-07-25 13:10] VITALS: BP 162/86; PULSE 92; RESP 24; O2SAT 96
[2023-07-25 13:46] LABS: Troponin 5 2HR 32.51 ng/L (0-15)
[2023-07-25 13:54] LABS: Troponin 5 2HR Delta -1.49 ABS# (0-10)
[2023-07-25 14:28] VITALS: BP 153/93; PULSE 98; RESP 12; O2SAT 98
[2023-07-25 14:46] VITALS: BP 153/93; PULSE 98; RESP 12; O2SAT 98
--- NOTE | 2023-07-26 08:01 | DCPLANNER ---
faxed scheduling an order for er f/u testing
== END 2023-07-25 14:46 | disposition home or self-care (01) ==
PROVIDERS: Emergency Medicine; Emergency Provider Family Medicine; PCP Family Medicine
DX: R07.9 Chest pain, unspecified (principal); Z79.82 Long term (current) use of aspirin; Z79.4 Long term (current) use of insulin; I10 Essential (primary) hypertension; E11.9 Type 2 diabetes mellitus without complications
CPT/HCPCS: 36415; 71045; 80053; 84484; 85025; 85610; 93005; 99285

== ENCOUNTER → 2023-08-02 12:10 | Outpatient (BNVA) | payer MEDICARE, MEDICAID, SELFPAY | PROVIDERS: PCP Family Medicine; Visit Provider Internal Medicine | DX: I25.10 Atherosclerotic heart disease of native coronary artery without angina pectoris (principal); E11.9 Type 2 diabetes mellitus without complications; Z79.4 Long term (current) use of insulin; I10 Essential (primary) hypertension; R07.89 Other chest pain | CPT/HCPCS: 99214 ==

== ENCOUNTER 2023-08-17 07:12 | Outpatient (CLI) | payer MEDICAID, MEDICARE, SELFPAY ==
--- NOTE | 2023-08-17 | ECG_ITS ---
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 Interpretive Statements NAME OF STUDY: LEXISCAN SESTAMIBI STRESS TEST INDICATION: H/O CAD, PROCEDURE: At the baseline, the EKG revealed normal sinus rhythm with a poor R wave progression. No significant ST-T changes.. The baseline heart was 100 bpm with a blood pressue of 169/89 mm of Hg Lexiscan was infused over a period of 20 seconds. A total of 0.4 milligrams of Lexiscan was infused. The stress phase was continued for a total of 5 minutes. Heart rate at the end of the stress phase was 102 bpm with a blood pressure 161/78 mm of Hg. The EKG at the peak infusion revealed no significant changes. Sestamibi was injected 20 seconds after the Lexiscan infusion. Heart rate at the end of the recovery phase was 104 bpm with a blood pressure of 155/81 mm of Hg. CONCLUSION: 1. No significant EKG changes with the LexiScan infusion 2. No LexiScan induced chest pain or cardiac arrhythmia 3. Normal blood pressure and heart rate response 4. Sestamibi/sestamibi perfusion scan pending; see separate report. Electronically Signed On 08-19-2023 19:58:17 CDT by Ramon Buckley M.D. [id number]
--- NOTE | 2023-08-17 07:47 | NMCV_ITS ---
NM gerard perf SPECT r/s* [id number] Titus Fatima Age: 68 Gender: M : 1955 Exam Date: 08/17/2023 08:13 Ordering Phys: Junaid Michel DO Technologist: MELCHOR Beyer Exam Location: [facility] Indications: Hx of CAD STRESS TEST Please see separate stress test report in [facility] for full findings IMAGE PROTOCOL Rest/Stress 1 Lexiscan Day Radiopharmaceutical Dose (mCi) Administration Site Administered by Rest: Tc-99m 11.0 IV MELCHOR Beyer Sestamibi Stress:Tc-99m 33.0 IV MELCHOR Beyer Sestamibi Rest: 17-Aug-2023 60 Discovery 630 Stress: 17-Aug-2023 30 Discovery 630 0.4mg Lexiscan. Images obtained in supine and prone position. SPECT RESULTS Technical Quality: Good Raw Data Analysis: Normal Image Corrections: No attenuation or motion correction applied Summed Stress Score: 0 Summed Rest Score: 1 Summed Difference Score: 0 PERFUSION FINDINGS Patchy areas of slightly decreased tracer uptake were noted in the inferior and apical regions. No significant reversibility was noted. FUNCTIONAL RESULTS (calculated via Gated SPECT) Stress Image LV EF (%): 57 Stress EDV (mL):115 TID: 1.14 Stress ESV (mL):49 FUNCTIONAL FINDINGS: Segmental wall motion analysis revealing no gross wall motion abnormalities IMPRESSIONS 1. Patchy areas of slightly decreased persistent tracer uptake in the inferior and apical regions, most likely are represent attrition artifacts. 2. Normal LV ejection fraction of 57%. 3. LV wall motion analysis revealing no gross wall motion abnormalities. 4. Normal LV volume Low probability for coronary ischemia, based on the above findings Dr Ramon Buckley MD FACC (Electronically Signed) Final Date: 19 August 2023 21:03 S
[2023-08-17] MEDS: regadenoson 0.4 Mg/5 ml Syringe 0.400000000000000022 MG IVP (09:10)
[2023-08-17 09:28] VITALS: BP 155/81; PULSE 100
== END 2023-08-17 07:13 | disposition home or self-care (01) ==
PROVIDERS: PCP Family Medicine; Visit Provider Family Medicine
DX: R07.9 Chest pain, unspecified (principal); Z86.79 Personal history of other diseases of the circulatory system; R94.39 Abnormal result of other cardiovascular function study
CPT/HCPCS: 36415; 78452; 93017; 96374; A9500; J2785

== ENCOUNTER 2023-09-18 11:04 | Emergency (ER) | payer MEDICARE, MEDICAID, SELFPAY ==
[2023-09-18 11:19] LABS: Glucose Point of Care > 600 mg/dL (70-110)
[2023-09-18 11:27] VITALS: BP 164/91; PULSE 108; RESP 18; TEMP 36.6; O2SAT 92; BMI 36.9
--- NOTE | 2023-09-18 11:33 | ECG_ITS ---
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 Measurements Intervals [place] Rate: 108 P: 32 [place]: 190 QRS: -14 QRSD: 93 T: 51 QT: 321 QTc: 432 Interpretive Statements SINUS TACHYCARDIA INFERIOR MYOCARDIAL INFARCTION , PROBABLY OLD [40+ ms Q WAVE AND/OR ST/T ABNORMALITY IN II/aVF] Compared to ECG 07/25/2023 13:06:50 Sinus rhythm no longer present Myocardial infarct finding still present Electronically Signed On 09-18-2023 15:28:40 CDT by Kayoed Osman M.D. [id number]
[2023-09-18 11:35] VITALS: BP 164/91; PULSE 103; O2SAT 93
--- NOTE | 2023-09-18 11:36 | ED_ITS ---
HPI - Recheck/Abnormal Lab/Rx 2 General: Chief Complaint: Recheck/Abnormal Lab/Rx Stated Complaint: high sugar / insulin pump failure Time Seen by Provider: 09/18/23 11:24 Source: patient Mode of arrival: ambulatory Limitations: no limitations History of Present Illness: 68-year-old male with a history of diabe crystal states that his insulin pump is 1 out he has not had any insulin in blood sugars been running over 600. He has no other complaints besides that he had no vomiting no diarrhea denies any pain anywhere. Review of Systems 2 Const: Denies: fever(s), chills, body aches or change in appetite ENMT: Denies: throat pain or dental pain Card: Denies: chest pain Resp: Denies: dyspnea GI: Denies: abdominal pain, nausea, vomiting or diarrhea : Denies: dysuria Musc: Denies: neck pain or back pain Skin/Breast: Denies: rash Neuro: Denies: headache(s) PFSH ED 2 PFSH: Medical History (Updated 09/18/23 @ 14:51 by Tyrel Mishra MD) CAD (coronary artery disease) Chronic pain History of myocardial infarction GERD (gastroesophageal reflux disease) Ventral hernia Umbilical hernia Immunosuppressed status Hlofm-8-nwjyaeunlxh deficiency Diabetic peripheral neuropathy Restless leg syndrome Hypertension Type 2 diabetes mellitus Surgical History History of hernia repair History of lumbosacral spine surgery History of left knee replacement History of cholecystectomy History of total right knee replacement History of intravascular stent placement Hx of insertion of insulin pump History of liver transplant Family History Brother Adtfq-8-alxwklxvkia deficiency Father Cancer colon Mother Stroke Other Colon cancer Diabetes Hypertension Social History Smoking and tobacco/nicotine status: never used tobacco/nicotine Alcohol intake: never Substance/Drug Use: never Adopted: No Lives independently: Yes Household members: children Marital status: Number of children: 7 service: Yes status: Retired branch: [employer] Assignments: Deployed Countries/Dates of Deployments: [place] Current occupational status: retired 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 Agree to transfusion: Yes Physical Exam 2 Const: COMMON NORMALS: no acute distress, patient oriented x3 and healthy appearing HENMT: COMMON NORMALS: normocephalic and atraumatic HEAD & SCALP: n ormocephalic and atraumatic Eye: COMMON NORMALS: Equal, round and reactive pupils present and EOMs intact bilaterally PUPIL: Yes Equal, round and reactive pupils present Neck/C-Spine: COMMON NORMALS: full ROM and supple Chest: COMMONS NORMALS: normal inspection of the chest and normal palpation of entire chest wall Resp: COMMON NORMALS: normal respiratory effort, No retractions, No use of accessory muscles and clear to auscultation bilaterally AUSCULTATION: clear to auscultation bilaterally Cardio: COMMON NORMALS: regular rhythm and No murmurs present (Cardio) R ATE: tachycardic RHYTHM: regular rhythm GI: COMMON NORMALS: Normal to inspection, nondistended, normoactive bowel sounds present, Soft to palpation, non-tender and no masses PALPATION: Yes Soft to palpation Extremity: COMMON NORMALS: normal to inspection and full ROM Neuro: COMMON NORMALS: patient oriented x3, moves all extremities and no focal motor deficits Psych: COMMON NORMALS: mental status grossly normal, Normal thought process present and cooperative THOUGHT PROCESS: Normal thought process present Skin: COMMON NORMALS: no rashes or lesions noted and no wounds GENERAL SKIN EXAM: no rashes or lesions noted Course 2 Vital Signs: Vital signs: Vital Signs Temperature 97.9 F 09/18/23 11:27 Pulse Rate 111 H 09/18/23 12:33 Respiratory Rate 18 09/18/23 11:27 Blood Pressure 164/91 09/18/23 12:33 Pulse Oximetry 96 09/18/23 12:33 Oxygen Delivery Me thod Room Air 09/18/23 11:35 MDM - Recheck/Abnormal Lab/Rx Medical Decision Making Patient presents here with hyperglycemia blood sugars improved. He is not in DKA. He is to follow-up with his mining consultant and return if worsening he understands agrees plan Medical Records I reviewed the patient's medical records. Lab Data I reviewed the patient's lab results. 09/18/23 11:57 09/18/23 11:57 Laboratory Results WBC 6.68 10^3/uL (3.29-11.43) 09/18/23 11:57 RBC 5.43 10^6/uL (3.85-5.65) 09/18/23 11:57 Hgb 15.60 g/dL (11.27-16.99) 09/18/23 11:57 Hct 44.5 % (37-53) 09/18/23 11:57 MCV 82.0 fl (82-101) 09/18/23 11:57 MCH 28.7 pg (27-33) 09/18/23 11:57 MCHC 35.1 g/dL (30-55) 09/18/23 11:57 RDW 14.0 % (12.1-15.1) 09/18/23 11:57 Plt Count 171 10^3/cmm (157-399) 09/18/23 11:57 MPV 9.4 fL (7.4-10.4) 09/18/23 11:57 Neut % (Auto) 67.7 % 09/18/23 11:57 Lymph % (Auto) 21.7 % 09/18/23 11:57 [place] % (Auto) 7.3 % 09/18/23 11:57 Eos % (Auto) 2.7 % 09/18/23 11:57 Baso % (Auto) 0.3 % 09/18/23 11:57 Neut # (Auto) 4.52 10^3/uL (1.8-7.7) 09/18/23 11:57 Lymph # (Auto) 1.5 10^3/uL (0.8-4.8) 09/18/23 11:57 [place] # (Auto) 0.5 10^3/uL (0.2-0.9) 09/18/23 11:57 Eos # (Auto) 0.2 10^3/uL (0.0-0.8) 09/18/23 11:57 Baso # (Auto) 0.0 10^3/uL (0.0-0.1) 09/18/23 11:57 Nucleated RBC % (auto) 0 % 09/18/23 11:57 Nucleated RBCs # 0.0 /100WBC 09/18/23 11:57 Specimen Type Arterial 09/18/23 12:03 Sample Site Radial, left 09/18/23 12:03 ABG pH 7.43 (7.35-7.45) 09/18/23 12:03 ABG pCO2 33.6 mmHg (35-45) L 09/18/23 12:03 ABG pO2 70.4 mmHg (80.0-100.0) L 09/18/23 12:03 ABG PO2/FiO2 Ratio 335 09/18/23 12:03 ABG HCO3 22.1 mmol/L (22-26) 09/18/23 12:03 ABG Base Excess -1.6 mmol/L (-2.0-2.0) 09/18/23 12:03 Yovani Test Pos 09/18/23 12:03 Hematocrit 46.2 % (42-52) 09/18/23 12:03 O2 Delivery Device Room air 09/18/23 12:03 FiO2 21.0 % 09/18/23 12:03 Solar Hot Water Installer ID Cak 09/18/23 12:03 Sodium 130 mmol/L (136-145) L 09/18/23 11:57 Potassium 4.5 mmol/L (3.5-5.1) 09/18/23 11:57 Chloride 93 mmol/L (98-107) L 09/18/23 11:57 Carbon Dioxide 19 mmol/L (22-29) L 09/18/23 11:57 Anion Gap 22.5 (5-19) H 09/18/23 11:57 BUN 35 mg/dL (8-23) H 09/18/23 11:57 Creatinine 1.6 mg/dL (0.7-1.2) H 09/18/23 11:57 GFR Calculation 42.9 mL/min (90-130) L 09/18/23 11:57 Glucose 574 mg/dL (65-115) H* 09/18/23 11:57 POC Glucose 398 mg/dL (70-110) H 09/18/23 13:50 Calculated Osmolality 304 mOsm/kg (285-295) H 09/18/23 11:57 Calcium 9.7 mg/dL (8.5-10.5) 09/18/23 11:57 Total Bilirubin 0.7 mg/dL (0.15-1.2) 09/18/23 11:57 AST 13 U/L (0-40) 09/18/23 11:57 ALT 17 U/L (0-41) 09/18/23 11:57 Alkaline Phosphatase 111 U/L (40-130) 09/18/23 11:57 Total Protein 7.9 g/dL (6.6-8.7) 09/18/23 11:57 Albumin 4.1 g/dL (3.5-5.2) 09/18/23 11:57 Globulin 3.8 g/dL (1.3-4.6) 09/18/23 11:57 Lipase 41 U/L (13-60) 09/18/23 11:57 Serum Ketones Negative (Negative) 09/18/23 11:57 All radiology interpretation(s) finalized by discharge EKG Data EKG 1: I personally reviewed and interpreted this EKG as follows: EKG interpretation date: 09/18/23 EKG interpretation time: 11:50 Interpretation: sinus tach hr [address] elevation qrs 93 qtc 385 Discharge Plan Discharge Patient Disposition: Home Clinical Impression: Hyperglycemia Condition: Stable Prescriptions: No Action cholecalciferol (vitamin D3) 50 mcg (2,000 unit) capsule 50 mcg PO BID nitroglycerin 0.4 mg tablet, sublingual 0.4 mg sublingual Q5M PRN (Reason: chest pain) Qty: 100 0RF Rx Instructions: do not exceed 3 doses per episode acetaminophen [Tylenol Extra Strength] 500 mg tablet 1,000 mg PO Q6H PRN (Reason: Pain) diphenhydramine HCl [Benadryl] 25 mg capsule 25 mg PO TID PRN (Reason: Allergy Symptoms) (DME) Diabetic shoes with 3 pairs of inserts See Rx Instructions .Route .MEDSUPPLY Qty: 1 0RF Rx Instructions: As directed by HOME (DME) diabetic shoes with 3 inserts See Rx Instructions .Route .MEDSUPPLY Qty: 1 0RF Rx Instructions: As directed to the shoe johnnie insulin aspart U-100 [Novolog U-100 Insulin aspart] 100 unit/mL solution 200 unit SUBCUT .COMPLEX Qty: 180 1RF Rx Instructions: up to 200 units subcutaneously via pump in divided doses allopurinol 100 mg tablet 100 mg PO DAILY Qty: 30 0RF meloxicam 7.5 mg tablet 7.5 mg PO DAILY Qty: 30 0RF trazodone 50 mg tablet 150 mg PO BEDTIME Qty: 90 0RF gabapentin 300 mg capsule 300 mg PO QID Qty: 120 0RF tacrolimus 1 mg Capsule See Rx Instructions .ROUTE .COMPLEX Rx Instructions: TAKE 2 TABLETS BY MOUTH IN THE MORNING AND 2 TABLETS IN THE EVENING. omega-3 acid ethyl esters 1 gram capsule 1 g PO DAILY magnesium oxide 400 mg (241.3 mg magnesium) tablet 400 mg PO DAILY tamsulosin 0.4 mg capsule 0.4 mg PO BEDTIME insulin lispro 100 unit/mL solution See Rx Instructions .ROUTE .COMPLEX Rx Instructions: USE UP TO 150 UNITS VIA INSULIN PUMP IN DIVIDED DOSES lisinopril 2.5 mg tablet 2.5 mg PO DAILY famotidine 20 mg tablet 20 mg PO DAILY ropinirole 0.5 mg tablet 0.5 mg PO BEDTIME clotrimazole-betamethasone 1-0.05 % cream 1 applic topical BID metoprolol tartrate 50 mg tablet 50 mg PO BID omeprazole 20 mg capsule,delayed release(DR/EC) 20 mg PO DAILY aspirin 81 mg tablet,chewable 81 mg PO DAILY rosuvastatin 10 mg tablet 10 mg PO BEDTIME prasugrel 10 mg tablet 10 mg PO DAILY isosorbide mononitrate 60 mg tablet extended release 24 hr 60 mg PO DAILY cyclobenzaprine 10 mg tablet 10 mg PO TID PRN (Reason: Spasms) Discharge Orders: Discharge ED (Routine); Ordered 09/18/23 Ordered By: Tyrel Mishra Referrals: Lucy Rutherford MD [Primary Care Provider] - Discharge Diet: Advance as tolerated Discharge Activity: Resume usual activity Patient Instructions: Diabetic Hyperglycemia (ED) Coding Level of Care Code ED Dip Filler for Smiley Pena
[2023-09-18] MEDS: sodium chloride 0.9% 1,000 ML 999 ML IV (11:58)
[2023-09-18] MEDS: insulin regular-human 100 units/1 mL 15 UNIT IVP (11:59)
[2023-09-18 12:05] LABS: Basophils % 0.3 %; Eosinophils # 0.2 10^3/uL (0.0-0.8); Eosinophils % 2.7 %; Hematocrit 44.5 % (37-53); Lymphocytes # 1.5 10^3/uL (0.8-4.8); Lymphocytes % 21.7 %; Mean Corpuscular HGB Conc 35.1 g/dL (30-55); Mean Corpuscular Hemoglobin 28.7 pg (27-33); Mean Platelet Volume 9.4 fL (7.4-10.4); Monocytes # 0.5 10^3/uL (0.2-0.9); Monocytes % 7.3 %; Neutrophils # 4.52 10^3/uL (1.8-7.7); Neutrophils % 67.7 %; Nucleated Red Blood Cells % 0 %; Platelet Count 171 10^3/cmm (157-399); Red Blood Count 5.43 10^6/uL (3.85-5.65); White Blood Count 6.68 10^3/uL (3.29-11.43)
[2023-09-18 12:14] LABS: ABG PCO2 33.6 mmHg (35-45); ABG PH Result 7.43 (7.35-7.45); Arterial Blood Gas Hematocrit 46.2 % (42-52); Base Excess ABG -1.6 mmol/L (-2.0-2.0); Blood Gas Allen Test Pos; Blood Gas Operator Identificat CAK; Blood Gas Sample Site Radial, left; Blood Gas Sample Type Arterial; HCO3 ABG 22.1 mmol/L (22-26); Oxygen Device ROOM AIR; PO2 ABG 70.4 mmHg (80.0-100.0); PO2 FiO2 Ratio Arterial Blood 335
[2023-09-18 12:29] LABS: Ketone (Acetest) Serum Negative (Negative)
[2023-09-18 12:33] VITALS: BP 164/91; PULSE 111; O2SAT 96
[2023-09-18 12:37] LABS: Alanine Aminotransferase 17 U/L (0-41); Albumin Level 4.1 g/dL (3.5-5.2); Alkaline Phosphatase 111 U/L (40-130); Anion Gap 22.5 (5-19); Aspartate Amino Transferase 13 U/L (0-40); Blood Urea Nitrogen 35 mg/dL (8-23); Calcium 9.7 mg/dL (8.5-10.5); Carbon Dioxide 19 mmol/L (22-29); Chloride 93 mmol/L (98-107); Globulin 3.8 g/dL (1.3-4.6); Glomerular Filtration Rate 42.9 mL/min (90-130); Lipase 41 U/L (13-60); Osmolality Calculated 304 mOsm/kg (285-295); Potassium 4.5 mmol/L (3.5-5.1); Sodium 130 mmol/L (136-145); Total Bilirubin 0.7 mg/dL (0.15-1.2); Total Protein 7.9 g/dL (6.6-8.7)
[2023-09-18 12:42] LABS: Creatinine Clr Calc Pharmacy 53.3381
[2023-09-18 12:43] LABS: Glucose 574 mg/dL (65-115)
[2023-09-18 12:51] LABS: Glucose Point of Care 387 mg/dL (70-110)
[2023-09-18 13:53] LABS: Glucose Point of Care 398 mg/dL (70-110)
[2023-09-18] MEDS: sodium chloride 0.9% 500 ML 999 ML IV (14:13)
[2023-09-18] MEDS: insulin regular-human 100 units/1 mL 10 UNIT IVP (14:14)
[2023-09-18 15:14] LABS: Glucose Point of Care 310 mg/dL (70-110)
[2023-09-18 15:21] VITALS: BP 164/91; PULSE 111; RESP 18; TEMP 36.6; O2SAT 96
== END 2023-09-18 15:19 | disposition home or self-care (01) ==
PROVIDERS: Emergency Provider Emergency Medicine; PCP Family Medicine
DX: E11.65 Type 2 diabetes mellitus with hyperglycemia (principal); Z79.4 Long term (current) use of insulin; Z96.41 Presence of insulin pump (external) (internal); Z79.82 Long term (current) use of aspirin; R00.0 Tachycardia, unspecified; I25.10 Atherosclerotic heart disease of native coronary artery without angina pectoris; E11.42 Type 2 diabetes mellitus with diabetic polyneuropathy; I10 Essential (primary) hypertension
CPT/HCPCS: 36416; 36600; 80053; 82009; 82803; 82962; 83690; 85025; 93005; 96374; 96376; 99284; J1815; J7030; J7040

== ENCOUNTER → 2023-09-19 13:02 | Outpatient (BNVA) | payer MEDICARE, SELFPAY | PROVIDERS: PCP Family Medicine; Visit Provider Psychiatry & Neurology Neurology | DX: E11.42 Type 2 diabetes mellitus with diabetic polyneuropathy (principal); Z96.41 Presence of insulin pump (external) (internal) | CPT/HCPCS: 99212 ==

== ENCOUNTER → 2023-09-25 07:44 | Outpatient (BNVA) | payer MEDICARE, MEDICAID, SELFPAY | PROVIDERS: PCP Family Medicine; Visit Provider Orthopaedic Surgery | DX: E11.9 Type 2 diabetes mellitus without complications (principal); E78.2 Mixed hyperlipidemia; M48.062 Spinal stenosis, lumbar region with neurogenic claudication; Z79.4 Long term (current) use of insulin | CPT/HCPCS: 36415; 72110; 80053; 80061; 81001; 83036; 85025; 99204 ==

== ENCOUNTER → 2023-10-08 11:03 | Outpatient (BNVA) | payer MEDICARE, MEDICAID, SELFPAY | PROVIDERS: PCP Family Medicine; Visit Provider Internal Medicine | DX: I25.2 Old myocardial infarction; E11.42 Type 2 diabetes mellitus with diabetic polyneuropathy; E88.01 Alpha-1-antitrypsin deficiency; E78.2 Mixed hyperlipidemia; Z79.4 Long term (current) use of insulin | CPT/HCPCS: 99214 ==

== ENCOUNTER → 2023-12-17 07:59 | Outpatient (BNVA) | payer MEDICAID, MEDICARE, SELFPAY | PROVIDERS: PCP Family Medicine; Referring Provider Psychiatry & Neurology Neurology; Visit Provider Psychiatry & Neurology Neurology | DX: G62.9 Polyneuropathy, unspecified (principal); R29.898 Other symptoms and signs involving the musculoskeletal system; R20.2 Paresthesia of skin; G56.01 Carpal tunnel syndrome, right upper limb; G56.23 Lesion of ulnar nerve, bilateral upper limbs; G56.33 Lesion of radial nerve, bilateral upper limbs | CPT/HCPCS: 95911 ==

== ENCOUNTER → 2023-12-31 08:21 | Outpatient (BNVA) | payer MEDICARE, MEDICAID, SELFPAY | PROVIDERS: PCP Family Medicine; Visit Provider Specialist | DX: G56.03 Carpal tunnel syndrome, bilateral upper limbs; M79.89 Other specified soft tissue disorders; M79.641 Pain in right hand; M79.642 Pain in left hand | CPT/HCPCS: 73130 ==

== ENCOUNTER 2023-12-31 09:50 | Emergency (ER) | payer MEDICARE, MEDICAID, SELFPAY ==
[2023-12-31 10:19] VITALS: BP 111/67; PULSE 111; RESP 18; TEMP 36.8; O2SAT 96; BMI 37.5
[2023-12-31 13:47] LABS: Basophils % 0.4 %; Eosinophils # 0.2 10^3/uL (0.0-0.8); Eosinophils % 2.8 %; Hematocrit 42.3 % (37-53); Lymphocytes # 1.8 10^3/uL (0.8-4.8); Lymphocytes % 24.2 %; Mean Corpuscular HGB Conc 33.8 g/dL (30-55); Mean Corpuscular Hemoglobin 29.1 pg (27-33); Mean Corpuscular Volume 86.2 fl (82-101); Mean Platelet Volume 9.1 fL (7.4-10.4); Monocytes # 0.6 10^3/uL (0.2-0.9); Monocytes % 7.6 %; Neutrophils # 4.83 10^3/uL (1.8-7.7); Neutrophils % 64.6 %; Nucleated Red Blood Cells % 0 %; Platelet Count 196 10^3/cmm (157-399); Red Blood Count 4.91 10^6/uL (3.85-5.65); Red Cell Distribution Width 14.1 % (12.1-15.1); White Blood Count 7.48 10^3/uL (3.29-11.43)
--- NOTE | 2023-12-31 13:47 | USCV_ITS ---
Kushal Titus Age: 68 Gender: M : 1955 Exam Date: 12/31/2023 14:22 Ordering Phys: Tyrel Mishra MD Technologist: Exam Location: [facility] [place] Indication: rt arm swelling PROCEDURES: Venous duplex imaging was performed in only the right upper extremity. The following venous structures were evaluated: internal jugular vein, subclavian vein, axillary vein, and brachial veins. In addition, the basilic vein, cephalic vein, radial vein, and ulnar vein. FINDINGS: No evidence of deep vein thrombosis or superficial thrombophlebitis in the right upper extremity. All other veins of the right upper extremity demonstrate normal flow dynamics with no evidence of deep vein thrombosis or superficial thrombophlebitis. CONCLUSIONS No evidence of thrombus of the right upper extremity veins. El Barajas MD (Electronically Signed) Final Date: 31 December 2023 15:24 S
[2023-12-31 13:53] LABS: Erythrocyte Sedimentation Rate 33 mm/hr (0-10)
--- NOTE | 2023-12-31 14:04 | ED_ITS ---
HPI - Extremity Problem 2 General: Chief complaint: Extremity Problem,Nontraumatic Stated complaint: r hand swelling Time Seen by Provider: 12/31/23 13:44 Source: patient Mode of arrival: ambulatory Limitations: no limitations History of Present Illness: 68-year-old male states he has been havi ng pain in his right hand along with swelling and erythema to dorsum of the right hand. He states this been going on for 2 days. He denies any fevers denies any injury he states been getting worked up for carpal tunnel but states that the swelling and erythema is no. He has full range of motion of his hand. He rates his pain 8 out of 10 currently Associated symptoms: Deny chest pain, fever(s) or rash Related Data Home Medications Medication Instructions Recorded Confirmed tacrolimus 1 mg capsule, See Rx Instructions .Route .COMPLEX 04/07/19 12/31/23 immediate-release cholecalciferol (vitamin D3) 50 50 mcg PO BID 09/29/20 12/31/23 mcg (2,000 unit) capsule acetaminophen 500 mg tablet 1,000 mg PO Q6H PRN Pain 07/12/22 12/31/23 (Tylenol Extra Strength) diphenhydramine HCl 25 mg capsule 25 mg PO TID PRN Allergy Symptoms 07/12/22 12/31/23 (Benadryl) aspirin 81 mg chewable tablet 81 mg PO DAILY 07/25/23 12/31/23 omeprazole 20 mg capsule,delayed 20 mg PO DAILY 07/25/23 12/31/23 release ropinirole 0.5 mg tablet 0.5 mg PO BEDTIME 07/25/23 12/31/23 tamsulosin 0.4 mg capsule 0.4 mg PO BEDTIME 07/25/23 12/31/23 cyclobenzaprine 10 mg tablet 10 mg PO TID PRN Spasms 09/18/23 12/31/23 isosorbide mononitrate 60 mg 60 mg PO DAILY 09/18/23 12/31/23 tablet,extended release 24 hr allopurinol 100 mg tablet 100 mg PO DAILY 12/31/23 12/31/23 famotidine 20 mg tablet 20 mg PO DAILY 12/31/23 12/31/23 gabapentin 300 mg capsule 300 mg PO QID 12/31/23 12/31/23 ibuprofen 200 mg tablet (Advil) 200 mg PO Q6H PRN Pain 12/31/23 12/31/23 lisinopril 2.5 mg tablet 2.5 mg PO QPM 12/31/23 12/31/23 meloxicam 7.5 mg tablet 7.5 mg PO DAILY 12/31/23 12/31/23 trazodone 50 mg tablet 150 mg PO BEDTIME 12/31/23 12/31/23 Previous Rx's Medication Instructions Recorded nitroglycerin 0.4 mg sublingual 0.4 mg sublingual Q5M PRN chest 09/07/22 tablet pain #100 tabs Diabetic shoes with 3 pairs of #1 ea 09/21/22 inserts diabetic shoes with 3 inserts #1 ea 04/10/23 insulin glargine 100 unit/mL (3 40 unit (0.4 mL) SUBCUT BID 09/24/23 mL) subcutaneous pen (Lantus insulin dependant diabetes #15 mL Solostar U-100 Insulin) pen needle, diabetic 31 gauge x #100 ea 09/24/23 3/16 (BD Ultra-Fine Mini Pen Needle) Wheelchair #1 ea 09/25/23 insulin aspart U-100 100 unit/mL See Rx Instructions .Route 10/15/23 subcutaneous solution (Novolog .COMPLEX #180 mL U-100 Insulin aspart) clotrimazole-betamethasone 1 1 applic topical BID #15 grams 10/17/23 %-0.05 % topical cream omega-3 acid ethyl esters 1 gram 1 g PO DAILY #30 caps 10/17/23 capsule prasugrel 10 mg tablet 10 mg PO DAILY #90 tabs 10/22/23 rosuvastatin 10 mg tablet 10 mg PO BEDTIME #90 tabs 10/22/23 insulin aspart U-100 100 unit/mL See Rx Instructions SUBCUT TID 10/23/23 (3 mL) subcutaneous pen (Novolog insulin dependant diabetes #15 mL FlexPen U-100 Insulin aspart) insulin syringe-needle U-100 0.3 #100 ea 11/20/23 mL 30 gauge x 1/2 (BD Insulin Syringe Ultra-Fine) magnesium oxide 400 mg (241.3 mg 400 mg PO DAILY #90 tabs 12/03/23 magnesium) tablet metoprolol tartrate 50 mg tablet 50 mg PO BID #90 tabs 12/28/23 amoxicillin 500 mg-potassium 1 tab PO BID #20 tabs 12/31/23 clavulanate 125 mg tablet (Augmentin) Allergies Allergy/AdvReac Type Severity Reaction Status Date / Time No Known Allergies Allergy Verified 12/31/23 10:29 Review of Systems 2 Const: Denies: fever(s), chills, body aches or change in appetite ENMT: Denies: throat pain or dental pain Card: Denies: chest pain Resp: Denies: dyspnea GI: Denies: abdominal pain, nausea, vomiting or diarrhea Musc: Reports: extremity pain and extremity swelling; Denies: neck pain or back pain Skin/Breast: Denies: rash Neuro: Denies: headache(s) PFSH ED 2 PFSH: Medical History CAD (coronary artery disease) Chronic pain History of myocardial infarction GERD (gastroesophageal reflux disease) Ventral hernia Umbilical hernia Immunosuppressed status Beokt-3-jylqiqstzzb deficiency Diabetic peripheral neuropathy Restless leg syndrome Hypertension Type 2 diabetes mellitus Surgical History History of hernia repair History of lumbosacral spine surgery History of left knee replacement History of cholecystectomy History of total right knee replacement History of intravascular stent placement Hx of insertion of insulin pump History of liver transplant Family History Brother Uqwmx-7-elfjziuwetw deficiency Father Cancer colon Mother Stroke Other Colon cancer Diabetes Hypertension Social History Smoking and tobacco/nicotine status: never used tobacco/nicotine Alcohol intake: never Substance/Drug Use: never Adopted: No Lives independently: Yes Household members: children Marital status: Number of children: 7 service: Yes status: Retired branch: [employer] Assignments: Deployed Countries/Dates of Deployments: [place] Current occupational status: 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 Agree to transfusion: Yes Physical Exam 2 Const: COMMON NORMALS: patient oriented x3 HENMT: COMMON NORMALS: normocephalic and atraumatic HEAD & SCALP: n ormocephalic and atraumatic Eye: COMMON NORMALS: conjunctivae normal CONJUNCTIVA: Yes conjunctivae normal Neck/C-Spine: COMMON NORMALS: full ROM and supple Chest: COMMONS NORMALS: normal inspection of the chest Resp: COMMON NORMALS: normal respiratory effort Cardio: COMMON NORMALS: regular rate, regular rhythm and No murmurs present (Cardio) RATE: regular rate RHYTHM: regular rhythm Extremity: COMMON NORMALS: full ROM NARRATIVE EXTREMITY EXAM: Erythema tenderness to dorsum of right hand some slight swelling as well no streaking he is able to make a fist no tenderness over flexor surface of digits Neuro: COMMON NORMALS: patient oriented x3, moves all extremities and no focal motor deficits Psych: COMMON NORMALS: mental status grossly normal, Normal thought process present and cooperative THOUGHT PROCESS: Normal thought process present Skin: COMMON NORMALS: no rashes or lesions noted and no wounds GENERAL SKIN EXAM: no rashes or lesions noted Course 2 Vital Signs: Vital signs: Vital Signs Temperature 98.2 F 12/31/23 10:19 Pulse Rate 109 H 12/31/23 14:16 Respiratory Rate 16 12/31/23 14:09 Blood Pressure 126/69 12/31/23 14:16 Pulse Oximetry 95 12/31/23 14:16 Oxygen Delivery Me thod Room Air 12/31/23 14:16 MDM - Extremity (Nontraumatic) Medical Decision Making Patient presents with right hand pain he does have some erythema to the dorsum of the hand likely cellulitis he has no signs of flexor tenosynovitis no signs of abscess ultrasound shows no blood clot he is stable for discharge at this time follow-up PCP return if worsening. Will start him on antibiotics Medical Records I reviewed the patient's medical records. Lab Data I reviewed the patient's lab results. 12/31/23 13:22 Laboratory Results WBC 7.48 10^3/uL (3.29-11.43) 12/31/23 13:22 RBC 4.91 10^6/uL (3.85-5.65) 12/31/23 13:22 Hgb 14.30 g/dL (11.27-16.99) 12/31/23 13:22 Hct 42.3 % (37-53) 12/31/23 13:22 MCV 86.2 fl (82-101) 12/31/23 13:22 MCH 29.1 pg (27-33) 12/31/23 13:22 MCHC 33.8 g/dL (30-55) 12/31/23 13:22 RDW 14.1 % (12.1-15.1) 12/31/23 13:22 Plt Count 196 10^3/cmm (157-399) 12/31/23 13:22 MPV 9.1 fL (7.4-10.4) 12/31/23 13:22 Neut % (Auto) 64.6 % 12/31/23 13:22 Lymph % (Auto) 24.2 % 12/31/23 13:22 [place] % (Auto) 7.6 % 12/31/23 13:22 Eos % (Auto) 2.8 % 12/31/23 13:22 Baso % (Auto) 0.4 % 12/31/23 13:22 Neut # (Auto) 4.83 10^3/uL (1.8-7.7) 12/31/23 13:22 Lymph # (Auto) 1.8 10^3/uL (0.8-4.8) 12/31/23 13:22 [place] # (Auto) 0.6 10^3/uL (0.2-0.9) 12/31/23 13:22 Eos # (Auto) 0.2 10^3/uL (0.0-0.8) 12/31/23 13:22 Baso # (Auto) 0.0 10^3/uL (0.0-0.1) 12/31/23 13:22 Nucleated RBC % (auto) 0 % 12/31/23 13:22 Nucleated RBCs # 0.0 /100WBC 12/31/23 13:22 ESR 33 mm/hr (0-10) H 12/31/23 13:22 C-Reactive Protein 58.7 mg/L (0.0-4.9) H 12/31/23 13:22 All radiology interpretation(s) finalized by discharge Discharge Plan Discharge Patient Disposition: Home Clinical Impression: Cellulitis of hand, right Condition: Stable Prescriptions: New amoxicillin-pot clavulanate [Augmentin] 500-125 mg tablet 1 tab PO BID Qty: 20 0RF No Action cholecalciferol (vitamin D3) 50 mcg (2,000 unit) capsule 50 mcg PO BID nitroglycerin 0.4 mg tablet, sublingual 0.4 mg sublingual Q5M PRN (Reason: chest pain) Qty: 100 0RF Rx Instructions: do not exceed 3 doses per episode omega-3 acid ethyl esters 1 gram capsule 1 g PO DAILY Qty: 30 0RF clotrimazole-betamethasone 1-0.05 % cream 1 applic topical BID Qty: 15 0RF acetaminophen [Tylenol Extra Strength] 500 mg tablet 1,000 mg PO Q6H PRN (Reason: Pain) diphenhydramine HCl [Benadryl] 25 mg capsule 25 mg PO TID PRN (Reason: Allergy Symptoms) (DME) Diabetic shoes with 3 pairs of inserts See Rx Instructions .Route .MEDSUPPLY Qty: 1 0RF Rx Instructions: As directed by HOME (DME) diabetic shoes with 3 inserts See Rx Instructions .Route .MEDSUPPLY Qty: 1 0RF Rx Instructions: As directed to the shoe guys (DME) Wheelchair See Rx Instructions .Route .MEDSUPPLY Qty: 1 0RF Rx Instructions: As directed insulin glargine [Lantus Solostar U-100 Insulin] 100 unit/mL (3 mL) insulin pen 40 unit SUBCUT BID Qty: 15 3RF (DME) pen needle, diabetic [BD Ultra-Fine Mini Pen Needle] 31 gauge x 3/16 needle See Rx Instructions .Route Qty: 100 3RF Rx Instructions: As directed insulin aspart U-100 [Novolog U-100 Insulin aspart] 100 unit/mL solution See Rx Instructions .ROUTE .COMPLEX Qty: 180 1RF Dose Instruction: USE UP TO 200 units SUBCUTANEOUSLY via pump in divided doses Rx Instructions: USE UP TO 200 units SUBCUTANEOUSLY via pump in divided doses rosuvastatin 10 mg tablet 10 mg PO BEDTIME Qty: 90 0RF prasugrel 10 mg tablet 10 mg PO DAILY Qty: 90 0RF insulin aspart U-100 [Novolog FlexPen U-100 Insulin] 100 unit/mL (3 mL) insulin pen See Rx Instructions SUBCUT TID Qty: 15 0RF Rx Instructions: sliding scale subcutaneously three times daily; before meals (DME) insulin syringe-needle U-100 [BD Insulin Syringe Ultra-Fine] 0.3 mL 30 gauge x 1/2 syringe See Rx Instructions .Route Qty: 100 1RF Rx Instructions: 12.7mm magnesium oxide 400 mg (241.3 mg magnesium) tablet 400 mg PO DAILY Qty: 90 0RF metoprolol tartrate 50 mg tablet 50 mg PO BID Qty: 90 0RF tacrolimus 1 mg Capsule See Rx Instructions .ROUTE .COMPLEX Rx Instructions: TAKE 2 TABLETS BY MOUTH IN THE MORNING AND 2 TABLETS IN THE EVENING. tamsulosin 0.4 mg capsule 0.4 mg PO BEDTIME ropinirole 0.5 mg tablet 0.5 mg PO BEDTIME omeprazole 20 mg capsule,delayed release(DR/EC) 20 mg PO DAILY aspirin 81 mg tablet,chewable 81 mg PO DAILY isosorbide mononitrate 60 mg tablet extended release 24 hr 60 mg PO DAILY cyclobenzaprine 10 mg tablet 10 mg PO TID PRN (Reason: Spasms) ibuprofen [Advil] 200 mg Tablet 200 mg PO Q6H PRN (Reason: Pain) trazodone 50 mg tablet 150 mg PO BEDTIME allopurinol 100 mg tablet 100 mg PO DAILY Rx Instructions: TAKE 1 TABLET BY MOUTH EVERY DAY meloxicam 7.5 mg tablet 7.5 mg PO DAILY Rx Instructions: TAKE 1 TABLET BY MOUTH EVERY DAY famotidine 20 mg tablet 20 mg PO DAILY Rx Instructions: TAKE 1 TABLET BY MOUTH EVERY DAY gabapentin 300 mg capsule 300 mg PO QID lisinopril 2.5 mg tablet 2.5 mg PO QPM Rx Instructions: TAKE 1 TABLET BY MOUTH EVERY EVENING Discharge Orders: Discharge ED (Routine); Ordered 12/31/23 Ordered By: Tyrel Mishra Referrals: Lucy Rutherford MD [Primary Care Provider] - Discharge Diet: Advance as tolerated Discharge Activity: Resume usual activity Patient Instructions: Cellulitis (ED) Coding Level of Care Code ED Sr. Director Product Management for Smiley Pena
[2023-12-31 14:05] LABS: C Reactive Protein 58.7 mg/L (0.0-4.9)
[2023-12-31] MEDS: ondansetron 2 mg/ML SDV 2 mL 4 MG IVP (14:06)
[2023-12-31 14:09] VITALS: RESP 16; O2SAT 93
[2023-12-31] MEDS: morphine 4 mg/mL SDV 1 mL IVP (14:09)
[2023-12-31] MEDS: VANCOMYCIN ADD-Vantage 1,000 MG in 0.9% NaCl ADD-Vantage 250 ML 250 MG IV (14:10)
[2023-12-31 14:16] VITALS: BP 126/69; PULSE 109; O2SAT 95
[2023-12-31 15:28] VITALS: BP 121/73; PULSE 111; O2SAT 88
[2023-12-31 15:30] VITALS: BP 149/90; PULSE 112; O2SAT 94
[2023-12-31 15:51] VITALS: BP 152/98; PULSE 113; O2SAT 94
== END 2023-12-31 15:52 | disposition home or self-care (01) ==
PROVIDERS: Emergency Provider Emergency Medicine; PCP Family Medicine
DX: L03.113 Cellulitis of right upper limb (principal); Z79.4 Long term (current) use of insulin; Z79.82 Long term (current) use of aspirin; E11.42 Type 2 diabetes mellitus with diabetic polyneuropathy; I25.10 Atherosclerotic heart disease of native coronary artery without angina pectoris; I25.2 Old myocardial infarction
CPT/HCPCS: 36415; 85025; 85651; 86140; 93971; 96365; 96366; 96375; 99204; 99285; J2270; J2405; J3370; J7050

== ENCOUNTER → 2024-01-15 12:00 | Outpatient (BNVA) | payer MEDICARE, MEDICAID, SELFPAY | PROVIDERS: PCP Family Medicine; Visit Provider Family Medicine | DX: E11.9 Type 2 diabetes mellitus without complications (principal); I10 Essential (primary) hypertension; R26.81 Unsteadiness on feet | CPT/HCPCS: 80053; 83036 ==

== ENCOUNTER → 2024-02-11 09:46 | Outpatient (BNVA) | payer MEDICARE, MEDICAID, SELFPAY | PROVIDERS: PCP Family Medicine; Visit Provider Internal Medicine | DX: E11.42 Type 2 diabetes mellitus with diabetic polyneuropathy (principal); E88.01 Alpha-1-antitrypsin deficiency; I25.2 Old myocardial infarction; E78.2 Mixed hyperlipidemia; Z79.4 Long term (current) use of insulin | CPT/HCPCS: 99214 ==

== ENCOUNTER → 2024-02-22 08:36 | Outpatient (BNVA) | payer MEDICARE, MEDICAID, SELFPAY | PROVIDERS: PCP Family Medicine; Visit Provider Internal Medicine | DX: I25.10 Atherosclerotic heart disease of native coronary artery without angina pectoris (principal); E11.9 Type 2 diabetes mellitus without complications; I10 Essential (primary) hypertension; Z79.4 Long term (current) use of insulin | CPT/HCPCS: 99214 ==